=== PATIENT | male | born 1955 | race Caucasian/White ===

== ENCOUNTER 2021-02-17 08:00 | Emergency (ER) | payer MEDICAID, SELFPAY ==
--- NOTE | ~2021-02-17 | XR_ITS ---
EXAMINATION: XR CHEST CLINICAL INFORMATION: Smoker. Low sodium. COMPARISON: 06/27/2019 TECHNIQUE: 2 views of the chest were obtained. FINDINGS: Mediastinal surgical clips. The lungs are well expanded. Chronic appearing changes at the right upper lung. This includes paraseptal emphysema and scarring with calcification. There is no focal consolidation, edema, or effusion. No pneumothorax. The cardiomediastinal silhouette is within normal limits. No acute osseous abnormality. XR/XR chest 2V IMPRESSION: Chronic changes of the right upper lung. No acute pulmonary finding.
--- NOTE | ~2021-02-17 | CT_ITS ---
EXAMINATION: CT ABDOMEN AND PELVIS WITHOUT CONTRAST CLINICAL INFORMATION: Dark urine. Left-sided pain. COMPARISON: CT 08/06/2015. TECHNIQUE: Multidetector volumetric imaging was performed from the superior aspect of the liver through the pubic symphysis. Sagittal and coronal reformatted images were obtained on the technologist's workstation. This CT examination was performed using dose optimization techniques as appropriate, variously including the following: *Automated exposure control *Adjustment of mA and/or kV according to patient size (this includes techniques or standardized protocols for targeted exams where dose is matched to indication/reason for exam; i.e. extremities or head) *Use of iterative reconstruction technique DLP: 325 mGy-cm FINDINGS: LUNG BASES: The visualized lung bases are unremarkable. LIVER, GALLBLADDER, AND BILIARY TREE: The liver is normal in size and shape with decreased attenuation. No focal hepatic lesion or biliary ductal dilatation is present. The gallbladder is unremarkable with no evidence of radiopaque gallstones, gallbladder wall thickening, or obvious pericholecystic inflammatory changes. PANCREAS: Unremarkable. SPLEEN: Unremarkable. ADRENAL GLANDS: The right adrenal gland is unremarkable. There is a left adrenal gland nodule measures 6.5 x 5.9 cm. This compares to 5.5 x 4.9 cm on 07/27/2015. KIDNEYS AND URETERS: The kidneys are normal in size, shape, and attenuation. No hydronephrosis, hydroureter, or calculi seen. No perinephric stranding. BLADDER: Unremarkable. GASTROINTESTINAL TRACT: The stomach is unremarkable. Normal caliber small bowel. No obstruction. No colonic wall thickening or inflammatory change. Normal appendix. Diverticulosis at the sigmoid colon without diverticulitis. No free air or free fluid. ABDOMINAL WALL: No significant hernia is appreciated. LYMPH NODES: Normal. VASCULAR: Normal caliber aorta. Extensive atherosclerotic calcifications, particularly involving the common iliac arteries bilaterally. PELVIC VISCERA: Normal size prostate with calcifications. The seminal vesicles are unremarkable. OSSEOUS STRUCTURES: No acute or suspicious osseous abnormality. Degenerative changes throughout the spine. Degenerative changes of both hips. CT/CT abdomen pelvis wo con IMPRESSION: There is no hydronephrosis or nephrolithiasis. No abnormality of the kidneys identified. Increased size of a prominent left adrenal gland nodule which is indeterminate in etiology. Previous imaging shows that this was not compatible with an adenoma. Hepatic steatosis.
[2021-02-17 08:09] VITALS: BP 137/80; PULSE 94; RESP 18; TEMP 35.7; O2SAT 98; BMI 25.5
[2021-02-17 08:31] LABS: Appearance Urine HAZY; Color Urine DK YELLOW; Glucose Urine UA NEG (NEG); Leukocyte Esterase Urine TRACE (NEG); Nitrite Urine NEG (NEG); Specific Gravity - Urine 1.015 (1.005-1.025); UACC Culture Trigger YES; Urine Blood NEG (NEG); Urine Ketones 5 MG/DL (NEG); Urine Protein NEG (NEG-TRACE)
--- NOTE | 2021-02-17 08:38 | ED.MALEGU ---
HPI - Male Genitourinary General Chief complaint: Urogenital-Male Stated complaint: dark urine Time Seen by Provider: 02/17/21 08:30 Source: patient Mode of arrival: ambulatory Limitations: no limitations History of Present Illness MD Complaint: other (discolored urine) Onset (ago): day(s) (10) Duration: intermittent Location: left testicle (intermittent states he feels a twinge) Severity: mild Quality: dull Relieving factors: none Exacerbating factors: urination Context: other (hx of bladder cancer he states) Associated symptoms: Reports nausea/vomiting Related Data Previous Rx's Medication Instructions Recorded loratadine 10 mg tablet (Allergy 10 mg PO DAILY #90 tab 07/09/20 Relief (loratadine)) omeprazole 20 mg capsule,delayed 20 mg PO QAM #90 cap 07/09/20 release lisinopril 20 mg tablet 20 mg PO DAILY #90 tab 10/07/20 albuterol sulfate 90 mcg/actuation 2 puff PO Q4-6H #8.5 g 11/22/20 aerosol inhaler Allergies Allergy/AdvReac Type Severity Reaction Status Date / Time No Known Allergies Allergy Verified 02/17/21 08:09 [No Known Allergies*] Review of Systems Review of Systems: Constitutional : No Weight loss, No Fever, No Chills ENT/Mouth : No sore throat, No Rhinorrhea Eyes: No Swelling, No Redness Cardiovascular : No Chest Pain, No SOB, NoEdema Respiratory : No Cough, No Sputum, No Wheezing Gastrointestinal : Positive Nausea, Positive Vomiting, no Diarrhea, no abdominal Pain, No Hematochezia, No Melena Genitourinary : No Dysuria, pos Urinary Frequency, No Hematuria, No Urgency , pos dark urine Musculoskeletal : No joint pain, No Myalgias, No Joint Swelling Skin : No Skin Lesions, No rash Neuro : No Weakness, No Numbness, No Dizziness, No Headache Psych : No Anxiety/Panic, No Depression Heme/Lymph: No Bruising, No Lymphadenopathy Endocrine : No Polyuria, No Polydipsia All other systems reviewed and are negative. [facility] Past Medical History Attestation statement: The following information was validated with the patient. Medical History Benign essential HTN Gastro-esophageal reflux disease without esophagitis Lung cancer Other seasonal allergic rhinitis Surgical History History of bladder surgery History of inguinal hernia repair History of surgery Family History Family History Father Medical history unknown Mother Breast cancer Sister Lung cancer Social History Social History (Updated 02/17/21 @ 08:50 by Lena Noel DO) Alcohol intake: current Alcohol intake frequency: 0-2 drinks per day Patient Tobacco Use Status: Former Tobacco user Advance Directives: No Physical Exam Vital Signs: Vital Signs: Last Vital Signs Temp 96.3 F L 02/17/21 08:09 Pulse 94 02/17/21 08:09 Resp 18 02/17/21 08:09 BP 137/80 02/17/21 08:09 Pulse Ox 98 02/17/21 08:09 Body Mass Index 25.5 Appearance: Alert. Oriented X3. No acute distress. Eyes: Pupils equal, round and reactive to light. ENT: Pharynx normal. Neck: Normal inspection. Neck supple. CVS: Normal heart rate and rhythm. Pulses normal. Respiratory: No respiratory distress. Breath sounds normal. Abdomen: Soft and nontender. : normal exam no mass/swelling Skin: Skin warm and dry. Normal skin color. Normal skin turgor. Extremities: No lower extremity edema. No calf ttp Neuro: Oriented X 3. No motor deficit. No sensory deficit. Course Course Course Narrative: ordered IVF, repleted Na - no mass seen on CXR, does need to follow up with PCP and maybe oncology given constellation of symptoms MDM - Male Genitourinary MDM Narrative Medical decision making narrative: 65 yo male with dark urine n/v for 10 days hx of bladder cancer at this time basic labs including CPK ordered, UA and CT scan for stone/mass ordered. He is not toxic and well appearing dispo per results and findings. Lab Data Result diagrams: 02/17/21 10:20 02/17/21 09:11 Labs: Lab Results 02/17/21 02/17/21 02/17/21 Range/Units 08:15 09:11 10:20 WBC 6.0 (4.8-10.8) X10*3/uL RBC 3.62 L (4.60-5.80) X10*6/uL Hgb 11.6 L (14.0-18.0) g/dl Hct 31.4 L (42.0-52.0) % MCV 86.7 (80.0-98.0) fL MCH 32.0 (27.0-33.0) pg MCHC 36.9 H (31.0-36.0) g/dl RDW 17.2 H (11.0-16.0) % Plt Count 208 (160-400) X10*3/uL MPV 10.2 (9.4-12.4) fL Immature Gran % (Auto) 0.3 (0.0-0.4) % Neut % (Auto) 69.9 (45-73) % Lymph % (Auto) 20.7 (20-40) % [place] % (Auto) 7.9 (2-11) % Eos % (Auto) 0.7 (0-4) % Baso % (Auto) 0.5 (0-2) % Lymph # (Auto) 1.2 (1.2-4.9) X10*3/uL [place] # (Auto) 0.5 (0.1-1.2) X10*3/uL Eos # (Auto) 0.0 (0.0-0.4) X10*3/uL Baso # (Auto) 0.0 (0.0-0.2) X10*3/uL Abs Immat Gran (auto) 0.02 (0.00-0.03) X10*3/uL Absolute Neuts (auto) 4.16 (2.0-8.3) x10*3/uL Absolute Nucleated RBC 0.000 (0.0-0.012) X10*3/uL Nucleated RBC % (auto) 0.0 (0.0-0.2) /100WBC Sodium 129 L (135-145) mmol/L Potassium 4.8 (3.3-5.1) mmol/L Chloride 93 L (96-108) mmol/L Carbon Dioxide 23 (22-29) mmol/L Anion Gap 18 (12-20) BUN 11 (9-16) mg/dL Creatinine 0.96 (0.5-1.4) mg/dL Estim Creat Clear Calc 69.8 Estimated GFR > 60 Random Glucose 108 (60-115) mg/dL Calcium 8.6 (8.4-10.2) mg/dL Total Creatine Kinase 267 H (38-174) U/L Urine Color DK YELLOW Urine Appearance HAZY Urine pH 6.0 (5.0-8.0) Ur Specific [place] 1.015 (1.005-1.025) Urine Protein NEG (NEG-TRACE) MG/DL Urine Glucose (UA) NEG (NEG) MG/DL Urine Ketones 5 (NEG) MG/DL Urine Blood NEG (NEG) Urine Nitrite NEG (NEG) Ur Leukocyte Esterase TRACE H (NEG) Urine RBC 0-2 (0) /HPF Urine WBC 1-4 (0-4) /HPF Ur Squamous Epith Cells NONE /LPF Urine Bacteria NONE /LPF Urine Mucus 2+ /LPF Discharge Plan Discharge Clinical Impression: Adrenal mass, Acute hyponatremia Anemia Qualifiers: Anemia type: unspecified type Qualified Code(s): D64.9 - Anemia, unspecified Instructions: Anemia (ED), Hyponatremia (ED) Additional Instructions: return to ED for any worsening symptoms or concerns There is no hydronephrosis or nephrolithiasis. No abnormality of the kidneys identified. ? Increased size of a prominent left adrenal gland nodule which is indeterminate in etiology. Previous imaging shows that this was not compatible with an adenoma. ? Hepatic steatosis. Prescriptions: No Action lisinopril 20 mg tablet 20 mg PO DAILY Qty: 90 RF: 1 albuterol sulfate 90 mcg/actuation HFA aerosol inhaler 2 puff PO Q4-6H Qty: 8.5 RF: 2 loratadine [Allergy Relief (loratadine)] 10 mg tablet 10 mg PO DAILY Qty: 90 RF: 1 omeprazole 20 mg capsule,delayed release(DR/EC) 20 mg PO QAM Qty: 90 RF: 1 Referrals: Tucker Ga MD [Primary Care Provider] - 2 days (need to monitor anemia and further testing of this adrenal lesion)
[2021-02-17 08:41] LABS: Mucus Urine 2+ /LPF; RBC Urine 0-2 /HPF (0)
[2021-02-17 09:38] LABS: Anion Gap 18 (12-20); Blood Urea Nitrogen 11 mg/dL (9-16); Calcium 8.6 mg/dL (8.4-10.2); Carbon Dioxide 23 mmol/L (22-29); Chloride 93 mmol/L (96-108); Creatinine Clr Calc Pharmacy 69.8; Estimated Glomerular Filt Rate > 60; Glucose Random 108 mg/dL (60-115); Potassium 4.8 mmol/L (3.3-5.1); Sodium 129 mmol/L (135-145)
[2021-02-17] MEDS: 0.9 % Sodium Chloride 1,000 ML 999 ML IV (10:18)
[2021-02-17 10:36] LABS: Basophils Percent Auto 0.5 % (0-2); Eosinophils Percent Auto 0.7 % (0-4); Hematocrit 31.4 % (42.0-52.0); Hemoglobin 11.6 g/dl (14.0-18.0); Imm Gran Abs Auto 0.02 X10*3/uL (0.00-0.03); Imm Gran Pct Auto 0.3 % (0.0-0.4); Lymphocytes Absolute Auto 1.2 X10*3/uL (1.2-4.9); Lymphocytes Percent Auto 20.7 % (20-40); Mean Corpuscular HGB Conc 36.9 g/dl (31.0-36.0); Mean Corpuscular Volume 86.7 fL (80.0-98.0); Mean Platelet Volume 10.2 fL (9.4-12.4); Monocytes Absolute Auto 0.5 X10*3/uL (0.1-1.2); Monocytes Percent Auto 7.9 % (2-11); Neutrophils Absolute Auto 4.16 x10*3/uL (2.0-8.3); Neutrophils Percent Auto 69.9 % (45-73); Platelet Count 208 X10*3/uL (160-400); Red Blood Count 3.62 X10*6/uL (4.60-5.80); Red Cell Distribution Width 17.2 % (11.0-16.0)
[2021-02-17 11:07] VITALS: BP 144/85; PULSE 95; RESP 13; TEMP 36.7; O2SAT 97
== END 2021-02-17 11:31 | disposition home or self-care (01) ==
PROVIDERS: Emergency Provider Emergency Medicine; PCP Internal Medicine
DX: E87.1 Hypo-osmolality and hyponatremia (principal); E27.9 Disorder of adrenal gland, unspecified; D64.9 Anemia, unspecified; I10 Essential (primary) hypertension; Z85.51 Personal history of malignant neoplasm of bladder
CPT/HCPCS: 36415; 71046; 74176; 80048; 81001; 82550; 85025; 87086; 96360; 99284

== ENCOUNTER 2021-02-19 12:16 | Emergency (ER) | payer MEDICAID, SELFPAY ==
--- NOTE | ~2021-02-19 | XR_ITS ---
EXAMINATION: XR CHEST CLINICAL INFORMATION: Muscle spasm COMPARISON: Chest radiographs 02/17/2021, 06/27/2019; CT chest 04/13/2017 TECHNIQUE: Portable upright AP view of the chest was obtained. FINDINGS: There are chronic bilateral changes again seen with right apical pleural-parenchymal scarring with chronic calcifications. Old scarring mid left lung zone again seen. There is no pneumothorax or interval pleural reaction or infiltrate or effusion. The heart is normal in size. The vascularity is normal. There is no pneumothorax or pneumomediastinum. Surgical clips right paratracheal region again noted. No acute bony abnormality. XR/XR chest 1V IMPRESSION: Chronic findings similar to prior exams. No acute intrathoracic disease.
--- NOTE | ~2021-02-19 | US_ITS ---
EXAMINATION: US ABDOMEN LIMITED CLINICAL INFORMATION: Elevated LFTs. Assess for hepatobiliary obstructive process. COMPARISON: CT abdomen and pelvis noncontrast 02/17/2021 TECHNIQUE: Real-time imaging of the right upper quadrant abdominal viscera. FINDINGS: PANCREAS: Obscured by bowel gas. Portion pancreatic neck visualized is unremarkable. LIVER: The liver is normal in size and smooth in contour. There is increased hepatic parenchymal echogenicity consistent with hepatic steatosis. There is no focal hepatic parenchymal lesion. No intrahepatic biliary ductal dilatation. Color Doppler shows portal flow towards the liver. GALLBLADDER: Gallbladder is distended to 4.3 cm in diameter similar to the CT exam. There is no visible gallstone or sludge. Gallbladder wall is within upper limits of normal. No pericholecystic fluid. Sonographic negative Sandhu's sign. COMMON BILE DUCT: Normal in caliber measuring 0.5-0.6 cm in diameter. No visible ductal calculus. RIGHT KIDNEY: Normal. No hydronephrosis. No renal calculi or focal parenchymal lesions. The kidney measures 10.7 cm in maximum dimension. FREE FLUID: None. US/US abdomen limited IMPRESSION: 1. No gallstone or sludge. No intrahepatic or extrahepatic ductal dilatation. 2. Hepatic steatosis. No focal parenchymal lesion.
[2021-02-19 12:22] VITALS: BP 115/87; PULSE 95; O2SAT 99
[2021-02-19 12:30] VITALS: BP 131/76; PULSE 92; RESP 16; TEMP 36.6; O2SAT 99; BMI 25.5
--- NOTE | 2021-02-19 12:32 | ECG_ITS ---
Test Reason : WEAKNESS Blood Pressure : / mmHG Vent. Rate : 059 BPM Atrial Rate : 059 BPM P-R Int : 146 ms QRS Dur : 074 ms QT Int : 394 ms P-R-T Axes : 064 034 049 degrees QTc Int : 390 ms Sinus bradycardia Low voltage QRS Borderline ECG No significant changes seen Referred By: Xu Ann Electronically Signed By:KIP COPELAND MD
--- NOTE | 2021-02-19 12:39 | ED_ITS ---
HPI - General Adult General Chief complaint: Weakness Stated complaint: WEAKNESS,CRAMPS, RECENT DX HYPONATREMIA Time Seen by Provider: 02/19/21 12:29 Source: patient and EMS Mode of arrival: EMS Limitations: no limitations History of Present Illness HPI narrative: 65 years old male came in by ambulance for evaluation of muscle spasm of both upper extremities. 65-year-old male was seen in the emergency department 2 days ago for a complaint of dark urine, patient had had a CT of the abdomen pelvis which showed a mass on the left adrenal gland patient was instructed to follow-up with PCP, patient returned today for bilateral upper extremity spasm evaluation. Related Data Previous Rx's Medication Instructions Recorded loratadine 10 mg tablet (Allergy 10 mg PO DAILY #90 tab 07/09/20 Relief (loratadine)) omeprazole 20 mg capsule,delayed 20 mg PO QAM #90 cap 07/09/20 release lisinopril 20 mg tablet 20 mg PO DAILY #90 tab 10/07/20 albuterol sulfate 90 mcg/actuation 2 puff PO Q4-6H #8.5 g 11/22/20 aerosol inhaler cefuroxime axetil 500 mg tablet 500 mg PO BID #14 tab 02/19/21 Allergies Allergy/AdvReac Type Severity Reaction Status Date / Time No Known Allergies Allergy Verified 02/17/21 08:09 [No Known Allergies*] Review of Systems Review of Systems: All other systems are reviewed and are negative Constitutional: Reports as per HPI and Reports no additional constitutional complaints Eyes: Reports as per HPI and Reports no additional eye complaints Reports system reviewed and no additional complaints, except as documented Cardiovascular: Reports as per HPI and Reports no additional cardiovascular complaints Respiratory: Reports as per HPI and Reports no additional respiratory complaints Gastrointestinal: Reports as per HPI and Reports no additional gastrointestinal complaints Genitourinary: Reports no additional female genitourinary complaints Musculoskeletal: Reports no additional musculoskeletal complaints Skin/Breast: Reports system reviewed and no additional complaints, except as docu Psychiatric: Reports no additional psychiatric complaints Endocrine: Reports no additional endocrine complaints Hematologic/Lymphatic: Reports no additional hematologic/lymphatic complaints Allergic/Immunologic: Reports no additional allergic/immunologic complaints Reports system reviewed and no additional complaints, except as documented and Reports Abnormal speech present [facility] Past Medical History Medical History Benign essential HTN Gastro-esophageal reflux disease without esophagitis Lung cancer Other seasonal allergic rhinitis Surgical History History of bladder surgery History of inguinal hernia repair History of surgery Family History Family History Father Medical history unknown Mother Breast cancer Sister Lung cancer Social History Social History Alcohol intake: current Alcohol intake frequency: 0-2 drinks per day Patient Tobacco Use Status: Former Tobacco user Advance Directives: No Advance Directives Information Provided: No Physical Exam Vital Signs: Vital Signs: Last Vital Signs Temp 98 F 02/19/21 12:30 Pulse 65 02/19/21 13:45 Resp 18 02/19/21 13:45 BP 102/80 02/19/21 13:45 Pulse Ox 98 02/19/21 13:45 Body Mass Index 25.5 Vital signs have been reviewed as appeared to be correct. Blood pressure normal. Heart rate normal. Respiration rate normal. Temperature normal. Oxygen saturation normal. Appearance: Alert. Oriented X3. No acute distress. Head: Normal external exam. Normocephalic. Atraumatic. No Dave signs noted. No raccoon eyes noted Eyes: PERRLA. EOMI. Conjunctiva and sclera normal. Eyelids normal. ENT: TM's Normal. Pharynx normal. Uvula midline. Moist mucous membranes. No trismus noted. No drooling noted. No muffled voice noted. Neck: Normal inspection. Neck supple. FROM. No adenopathy. Thyroid Normal. No meningeal signs. No neck mass noted. CVS: Normal heart rate and rhythm. Heart sound normal. No murmurs noted. Pulses normal throughout. Respiratory: No respiratory distress. Painless inspiration. Breath sounds normal. No wheezes/rales/rhonchi noted. Chest nontender. No accessory muscle usage noted or decreased air movement noted. Abdomen: Soft and nontender. Bowel sounds normal in all 4 quadrants. No distention noted. No organomegaly noted. No visible injury noted. Back: No CVA tenderness. Full range of motion noted. Skin: Skin warm and dry. Normal skin color. Normal skin turgor. No rashes/lesions/lacerations noted. Extremities: No lower extremity edema. Extremities exhibit normal range of motion. Extremities nontender. Neuro: Oriented X 3. Cranial nerve exam: II-XII are grossly intact No motor deficit. No sensory deficit. Reflexes normal. Course Course Course Narrative: Assessment and plan. 65-year-old male came in for evaluation of bilateral upper extremities muscle spasm, and dark urine in evaluation. Found to have elevated LFTs with unremarkable hepatic ultrasound. Patient is complaining of dysuria and frequency with +1 leukocyte Estrace will consider UTI and start the patient on a antibiotic for 7 days. Medical Decision Making Medical Records Medical records reviewed: Yes I reviewed the patient's medical records. Lab Data Lab results reviewed: Yes I reviewed the patient's lab results. Result diagrams: 02/19/21 12:57 02/19/21 12:57 Labs: Lab Results 02/19/21 02/19/21 02/19/21 Range/Units 12:57 12:57 12:57 WBC 4.9 (4.8-10.8) X10*3/uL RBC 3.32 L (4.60-5.80) X10*6/uL Hgb 10.5 L (14.0-18.0) g/dl Hct 29.6 L (42.0-52.0) % MCV 89.2 (80.0-98.0) fL MCH 31.6 (27.0-33.0) pg MCHC 35.5 (31.0-36.0) g/dl RDW 18.1 H (11.0-16.0) % Plt Count 210 (160-400) X10*3/uL MPV 9.8 (9.4-12.4) fL Immature Gran % (Auto) 0.2 (0.0-0.4) % Neut % (Auto) 67.6 (45-73) % Lymph % (Auto) 25.1 (20-40) % [place] % (Auto) 5.9 (2-11) % Eos % (Auto) 0.8 (0-4) % Baso % (Auto) 0.4 (0-2) % Lymph # (Auto) 1.2 (1.2-4.9) X10*3/uL [place] # (Auto) 0.3 (0.1-1.2) X10*3/uL Eos # (Auto) 0.0 (0.0-0.4) X10*3/uL Baso # (Auto) 0.0 (0.0-0.2) X10*3/uL Abs Immat Gran (auto) 0.01 (0.00-0.03) X10*3/uL Absolute Neuts (auto) 3.31 (2.0-8.3) x10*3/uL Absolute Nucleated RBC 0.000 (0.0-0.012) X10*3/uL Nucleated RBC % (auto) 0.0 (0.0-0.2) /100WBC Sodium 132 L (135-145) mmol/L Potassium 3.6 D (3.3-5.1) mmol/L Chloride 99 (96-108) mmol/L Carbon Dioxide 27 (22-29) mmol/L Anion Gap 10 L (12-20) BUN 11 (9-16) mg/dL Creatinine 1.18 (0.5-1.4) mg/dL Estim Creat Clear Calc 56.7 Estimated GFR > 60 Random Glucose 108 (60-115) mg/dL Calcium 7.8 L D (8.4-10.2) mg/dL Total Bilirubin 3.8 H (0.0-1.0) mg/dL Direct Bilirubin 2.9 H (0.0-0.5) mg/dL AST 98 H (5-37) U/L ALT 54 H (0-40) U/L Alkaline Phosphatase 360 H (39-117) U/L Total Creatine Kinase 353 H (38-174) U/L Troponin I High Sens 6.0 (<3.5-35.0) ng/L B-Natriuretic Peptide 570 H (<100) pg/mL Total Protein 6.0 L (6.5-8.0) g/dL Albumin 2.8 L (3.5-5.0) g/dL Lipase 29 (8-78) U/L Urine Color Urine Appearance Urine pH (5.0-8.0) Ur Specific [place] (1.005-1.025) Urine Protein (NEG-TRACE) MG/DL Urine Glucose (UA) (NEG) MG/DL Urine Ketones (NEG) MG/DL Urine Blood (NEG) Urine Nitrite (NEG) Ur Leukocyte Esterase (NEG) Urine RBC (0) /HPF Urine WBC (0-4) /HPF Urine WBC Clumps Ur Squamous Epith Cells /LPF Amorphous Sediment /LPF Urine Bacteria /LPF 02/19/21 Range/Units 15:59 WBC (4.8-10.8) X10*3/uL RBC (4.60-5.80) X10*6/uL Hgb (14.0-18.0) g/dl Hct (42.0-52.0) % MCV (80.0-98.0) fL MCH (27.0-33.0) pg MCHC (31.0-36.0) g/dl RDW (11.0-16.0) % Plt Count (160-400) X10*3/uL MPV (9.4-12.4) fL Immature Gran % (Auto) (0.0-0.4) % Neut % (Auto) (45-73) % Lymph % (Auto) (20-40) % [place] % (Auto) (2-11) % Eos % (Auto) (0-4) % Baso % (Auto) (0-2) % Lymph # (Auto) (1.2-4.9) X10*3/uL [place] # (Auto) (0.1-1.2) X10*3/uL Eos # (Auto) (0.0-0.4) X10*3/uL Baso # (Auto) (0.0-0.2) X10*3/uL Abs Immat Gran (auto) (0.00-0.03) X10*3/uL Absolute Neuts (auto) (2.0-8.3) x10*3/uL Absolute Nucleated RBC (0.0-0.012) X10*3/uL Nucleated RBC % (auto) (0.0-0.2) /100WBC Sodium (135-145) mmol/L Potassium (3.3-5.1) mmol/L Chloride (96-108) mmol/L Carbon Dioxide (22-29) mmol/L Anion Gap (12-20) BUN (9-16) mg/dL Creatinine (0.5-1.4) mg/dL Estim Creat Clear Calc Estimated GFR Random Glucose (60-115) mg/dL Calcium (8.4-10.2) mg/dL Total Bilirubin (0.0-1.0) mg/dL Direct Bilirubin (0.0-0.5) mg/dL AST (5-37) U/L ALT (0-40) U/L Alkaline Phosphatase (39-117) U/L Total Creatine Kinase (38-174) U/L Troponin I High Sens (<3.5-35.0) ng/L B-Natriuretic Peptide (<100) pg/mL Total Protein (6.5-8.0) g/dL Albumin (3.5-5.0) g/dL Lipase (8-78) U/L Urine Color YELLOW Urine Appearance CLEAR Urine pH 6.0 (5.0-8.0) Ur Specific [place] <= 1.005 (1.005-1.025) Urine Protein NEG (NEG-TRACE) MG/DL Urine Glucose (UA) NEG (NEG) MG/DL Urine Ketones NEG (NEG) MG/DL Urine Blood NEG (NEG) Urine Nitrite NEG (NEG) Ur Leukocyte Esterase TRACE H (NEG) Urine RBC 0-2 (0) /HPF Urine WBC 1-4 (0-4) /HPF Urine WBC Clumps NOTED Ur Squamous Epith Cells TRACE /LPF Amorphous Sediment TRACE /LPF Urine Bacteria 1+ /LPF Imaging Data Chest x-ray: Radiologist's impression: Chronic findings similar to prior exams. No acute intrathoracic disease. ? ECG Data Attestation: I personally reviewed and interpreted this ECG as follows: Interpretation: Normal sinus rhythm at 60 beats per minutes, normal intervals, no ST-T changes. Discharge Plan Discharge Clinical Impression: Urinary tract infection, Muscle spasm, Elevated LFTs, Adrenal mass Patient Disposition: Home, Self-Care Instructions: Urinary Tract Infection in Men (ED) Prescriptions: New cefuroxime axetil 500 mg tablet 500 mg PO BID Qty: 14 RF: 0 No Action lisinopril 20 mg tablet 20 mg PO DAILY Qty: 90 RF: 1 albuterol sulfate 90 mcg/actuation HFA aerosol inhaler 2 puff PO Q4-6H Qty: 8.5 RF: 2 loratadine [Allergy Relief (loratadine)] 10 mg tablet 10 mg PO DAILY Qty: 90 RF: 1 omeprazole 20 mg capsule,delayed release(DR/EC) 20 mg PO QAM Qty: 90 RF: 1 Referrals: Tucker Ga MD [Primary Care Provider] - 2 days Interventions: ED Discharge Assessment Last Done: 02/19/21 16:20 Discharge Date/Time: 02/19/21 16:21
[2021-02-19 13:01] LABS: MANUAL DIFF FLAG NO
[2021-02-19 13:04] LABS: Basophils Percent Auto 0.4 % (0-2); Eosinophils Percent Auto 0.8 % (0-4); Hematocrit 29.6 % (42.0-52.0); Hemoglobin 10.5 g/dl (14.0-18.0); Imm Gran Abs Auto 0.01 X10*3/uL (0.00-0.03); Imm Gran Pct Auto 0.2 % (0.0-0.4); Lymphocytes Absolute Auto 1.2 X10*3/uL (1.2-4.9); Lymphocytes Percent Auto 25.1 % (20-40); Mean Corpuscular HGB Conc 35.5 g/dl (31.0-36.0); Mean Corpuscular Hemoglobin 31.6 pg (27.0-33.0); Mean Corpuscular Volume 89.2 fL (80.0-98.0); Mean Platelet Volume 9.8 fL (9.4-12.4); Monocytes Absolute Auto 0.3 X10*3/uL (0.1-1.2); Monocytes Percent Auto 5.9 % (2-11); Neutrophils Absolute Auto 3.31 x10*3/uL (2.0-8.3); Neutrophils Percent Auto 67.6 % (45-73); Platelet Count 210 X10*3/uL (160-400); Red Blood Count 3.32 X10*6/uL (4.60-5.80); Red Cell Distribution Width 18.1 % (11.0-16.0); White Blood Count 4.9 X10*3/uL (4.8-10.8)
[2021-02-19 13:22] LABS: Alanine Aminotransferase 54 U/L (0-40); Albumin Level 2.8 g/dL (3.5-5.0); Alkaline Phosphatase 360 U/L (39-117); Anion Gap 10 (12-20); Aspartate Amino Transferase 98 U/L (5-37); Bilirubin Direct 2.9 mg/dL (0.0-0.5); Bilirubin Total 3.8 mg/dL (0.0-1.0); Blood Urea Nitrogen 11 mg/dL (9-16); Calcium 7.8 mg/dL (8.4-10.2); Carbon Dioxide 27 mmol/L (22-29); Chloride 99 mmol/L (96-108); Creatinine Clr Calc Pharmacy 56.7; Estimated Glomerular Filt Rate > 60; Glucose Random 108 mg/dL (60-115); Lipase 29 U/L (8-78); Potassium 3.6 mmol/L (3.3-5.1); Sodium 132 mmol/L (135-145)
[2021-02-19 13:26] LABS: B Type Natriuretic Peptide 570 pg/mL (<100)
[2021-02-19 13:45] VITALS: BP 102/80; PULSE 65; RESP 18; O2SAT 98
[2021-02-19 16:05] LABS: Appearance Urine CLEAR; Color Urine YELLOW; Glucose Urine UA NEG (NEG); Leukocyte Esterase Urine TRACE (NEG); Nitrite Urine NEG (NEG); Specific Gravity - Urine <= 1.005 (1.005-1.025); UACC Culture Trigger YES; Urine Blood NEG (NEG); Urine Ketones NEG (NEG); Urine Protein NEG (NEG-TRACE)
[2021-02-19 16:18] LABS: Amorphous Sediment Urine TRACE /LPF; Bacteria Urine 1+ /LPF; RBC Urine 0-2 /HPF (0); Squamous Epithelial Cell Urine TRACE /LPF; WBC Clumps Urine NOTED
== END 2021-02-19 16:21 | disposition home or self-care (01) ==
PROVIDERS: Emergency Provider Emergency Medicine; PCP Internal Medicine
DX: N39.0 Urinary tract infection, site not specified (principal); M62.838 Other muscle spasm; R79.89 Other specified abnormal findings of blood chemistry; E27.8 Other specified disorders of adrenal gland; I10 Essential (primary) hypertension
CPT/HCPCS: 36415; 71045; 76705; 80048; 80076; 81001; 82550; 83690; 83880; 84484; 85025; 87086; 93005; 99284

== ENCOUNTER 2021-06-04 07:33 | Outpatient (REF) | payer MEDICAID, SELFPAY ==
[2021-06-04 08:25] LABS: Hematocrit 35.6 % (42.0-52.0); Hemoglobin 11.9 g/dl (14.0-18.0); Mean Corpuscular HGB Conc 33.4 g/dl (31.0-36.0); Mean Corpuscular Hemoglobin 35.2 pg (27.0-33.0); Mean Corpuscular Volume 105.3 fL (80.0-98.0); Mean Platelet Volume 9.6 fL (9.4-12.4); Platelet Count 299 X10*3/uL (160-400); Red Blood Count 3.38 X10*6/uL (4.60-5.80); Red Cell Distribution Width 12.9 % (11.0-16.0); White Blood Count 7.4 X10*3/uL (4.8-10.8)
[2021-06-04 08:55] LABS: Alanine Aminotransferase 27 U/L (0-40); Albumin Level 3.6 g/dL (3.5-5.0); Alkaline Phosphatase 147 U/L (39-117); Anion Gap 11 (12-20); Aspartate Amino Transferase 41 U/L (5-37); Bilirubin Direct 0.4 mg/dL (0.0-0.5); Bilirubin Total 0.5 mg/dL (0.0-1.0); Blood Urea Nitrogen 10 mg/dL (9-16); Calcium 9.3 mg/dL (8.4-10.2); Carbon Dioxide 30 mmol/L (22-29); Chloride 102 mmol/L (96-108); Cholesterol 274 mg/dL; Estimated Glomerular Filt Rate > 60; Glucose Random 111 mg/dL (60-115); HDL Cholesterol 63 mg/dL; LDL Cholesterol Calculated 187 mg/dl; Potassium 4.6 mmol/L (3.3-5.1); Sodium 138 mmol/L (135-145); Total Protein 7.1 g/dL (6.5-8.0); Triglycerides 121 mg/dL
[2021-06-04 09:14] LABS: HBS Num1 0.21 mIU/mL (0-7.99); HBc Num1 0.12 S/CO (0.00-0.79); Hepatitis A Antibody IgM 0.24 Index (0-0.79); Hepatitis B Core Antibody Nonreactive (Nonreactive); ~HepC Num1 0.12 S/CO (0.00-0.79); ~Hepatitis A Antibody IgM Nonreactive (Nonreactive); ~Hepatitis B Surface Antibody NONREACTIVE (Nonreactive); ~Hepatitis C Antibody Nonreactive (Nonreactive)
[2021-06-04 09:19] LABS: Thyroid Stimulating Hormone 0.64 uIU/mL (0.32-4.0)
[2021-06-04 10:09] LABS: HBsAGNum1 0.24 S/CO (0.00-0.99); Hepatitis B Surface Antigen Negative (Negative)
== END 2021-06-04 07:34 | disposition home or self-care (01) ==
LOC: HO.LAB 07:33
PROVIDERS: PCP Internal Medicine; Visit Provider Internal Medicine
DX: K75.9 Inflammatory liver disease, unspecified (principal)
CPT/HCPCS: 36415; 80048; 80061; 80076; 84443; 85027; 86704; 86706; 86709; 86803; 87340

== ENCOUNTER 2021-11-21 07:33 | Outpatient (REF) | payer MEDICAID, SELFPAY ==
[2021-11-21 08:34] LABS: Hematocrit 39.1 % (42.0-52.0); Hemoglobin 13.5 g/dl (14.0-18.0); Mean Corpuscular HGB Conc 34.5 g/dl (31.0-36.0); Mean Corpuscular Hemoglobin 33.2 pg (27.0-33.0); Mean Corpuscular Volume 96.1 fL (80.0-98.0); Mean Platelet Volume 9.5 fL (9.4-12.4); Platelet Count 245 X10*3/uL (160-400); Red Blood Count 4.07 X10*6/uL (4.60-5.80); Red Cell Distribution Width 12.1 % (11.0-16.0); White Blood Count 6.7 X10*3/uL (4.8-10.8)
[2021-11-21 09:11] LABS: Alanine Aminotransferase 37 U/L (0-40); Albumin Level 3.9 g/dL (3.5-5.0); Alkaline Phosphatase 139 U/L (39-117); Anion Gap 13 (12-20); Aspartate Amino Transferase 48 U/L (5-37); Bilirubin Direct 0.3 mg/dL (0.0-0.5); Bilirubin Total 0.6 mg/dL (0.0-1.0); Blood Urea Nitrogen 6 mg/dL (9-16); Calcium 8.6 mg/dL (8.4-10.2); Carbon Dioxide 29 mmol/L (22-29); Chloride 95 mmol/L (96-108); Cholesterol 207 mg/dL; Estimated Glomerular Filt Rate > 60; Glucose Random 149 mg/dL (60-115); HDL Cholesterol 84 mg/dL; LDL Cholesterol Calculated 110 mg/dl; Potassium 4.5 mmol/L (3.3-5.1); Sodium 132 mmol/L (135-145); Total Protein 7.2 g/dL (6.5-8.0); Triglycerides 65 mg/dL
[2021-11-21 09:32] LABS: Thyroid Stimulating Hormone 0.73 uIU/mL (0.32-4.0)
[2021-11-22 19:27] LABS: HCG Tumor Marker <3 mIU/mL (<5)
== END 2021-11-21 07:34 | disposition home or self-care (01) ==
LOC: HO.LAB 07:33
PROVIDERS: PCP Internal Medicine; Visit Provider Internal Medicine
DX: K75.9 Inflammatory liver disease, unspecified (principal)
CPT/HCPCS: 36415; 80048; 80061; 80076; 84443; 84702; 85027

== ENCOUNTER 2021-11-25 08:58 | Outpatient (REF) | payer MEDICAID, SELFPAY ==
--- NOTE | ~2021-11-25 | XR_ITS ---
EXAMINATION: XR CHEST CLINICAL INFORMATION: Acute laryngitis COMPARISON: Previous chest x-ray most recent February 2021 TECHNIQUE: 2 views of the chest were obtained. FINDINGS: The cardiac silhouette does not appear enlarged. There are surgical clips projecting over the right superior mediastinum to the right of the trachea. There is tracheal wall thickening. There is new right apical pleural thickening. There is new consolidation or mass the right upper lobe. There is question of a right nodule versus rib lesion in the anterior sixth rib measuring 1 cm. The lungs are otherwise clear. There is no pleural effusion or pneumothorax. There are degenerative changes of the spine. XR/XR chest 2V IMPRESSION: New wall thickening of the trachea. New right apical pleural thickening or fluid and right upper lobe consolidation or mass. Infectious and neoplastic process should be considered considered. Follow-up chest CT scan may be helpful. Findings will be communicated by the [place] work flow change management facilitator.
== END 2021-11-25 08:59 | disposition home or self-care (01) ==
LOC: HO.XRAY 08:58
PROVIDERS: PCP Internal Medicine; Visit Provider Internal Medicine
DX: J04.0 Acute laryngitis (principal)
CPT/HCPCS: 71046

== ENCOUNTER 2021-12-04 08:44 | Outpatient (REF) | payer MEDICAID, SELFPAY ==
--- NOTE | ~2021-12-04 | CT_ITS ---
EXAMINATION: CT CHEST WITH CONTRAST CLINICAL INFORMATION: Acute laryngitis. Prior exams indicates history of lung cancer. COMPARISON: Previous chest CT most recent March 2017 TECHNIQUE: Multidetector volumetric CT imaging of the chest was obtained after the administration of 65 mL of Omnipaque 350 intravenous contrast without immediate adverse reactions. Axial MIP volume rendering provided. Sagittal and coronal reformatted images were obtained. This CT examination was performed using dose optimization techniques as appropriate, variously including the following: *Automated exposure control *Adjustment of mA and/or kV according to patient size (this includes techniques or standardized protocols for targeted exams where dose is matched to indication/reason for exam; i.e. extremities or head) *Use of iterative reconstruction technique DLP: 177 mGy-cm FINDINGS: LUNGS: There is evidence of emphysema. The trachea is normal-appearing. No endobronchial or endotracheal lesion is seen. Right: There are surgical clips seen in the medial right upper lobe adjacent to the mediastinum. There is a large surrounding soft tissue mass. This is lobulated and heterogeneous in contour with cystic areas. This measures 8 x 6.5 cm in longitudinal and transverse dimension coronal reconstructed image 84 and 5.4 cm in AP dimension sagittal reconstructed image 110. This has areas of calcification. This is inseparable from enlarged right hilar and mediastinal lymph nodes. There is a surrounding peripheral increased interstitial markings and some groundglass attenuation. There is adjacent pleural thickening. Right upper lobe changes are increased from March 2017. There is a 4 mm peripheral anterior segment right upper lobe nodule axial image 25 series 3. There are 3 right middle lobe nodules measuring 6 mm axial image 38 and 7 x 10 mm axial image 36 series 3 and 3 mm axial image 29 series 3. There is a 4 mm right lower lobe nodule axial image 55 series 8. There are nodules are new from March 2017. Left: There is left upper lobe scarring or subsegmental atelectasis and focal bronchiectasis adjacent to local pleural thickening and calcification. This is similar to 2017 exam. There is a 5 mm groundglass attenuation left upper lobe nodule axial image 9 series 3. There is left apical pleural and parenchymal scarring. There is a 3 mm left upper lobe nodule axial image 12 series 3. There is a 6 mm left upper lobe nodule axial image 23 series 3. There is a 6 mm lingular nodule axial image 33 series 3. There is heterogeneous are showing cystic partially solid nodule in the lingula measuring 1 cm axial image 38 series 3. Cystic area may correspond to focal bronchiectasis. There is a 3 mm left lower lobe nodule axial image 42 series 3. MEDIASTINUM: There are enlarged mediastinal and right hilar lymph nodes. Largest node is a mediastinal lymph node is a conglomerate jeffry little mass measuring 4 x 6 cm in AP and transverse dimension. Largest right hilar lymph node is a partially necrotic 3 cm right hilar lymph node axial image 24 series 3. Adenopathy is significantly increased from 2017 exam. The heart does not appear enlarged. There is coronary artery calcification. There is a small pericardial effusion. The thoracic aorta is calcified but normal in caliber. There is narrowing of the right upper lobe pulmonary artery from the mass. No pulmonary embolism is seen. The SVC appears anterior to the right upper lobe mass and is patent. PLEURA: There is no pleural effusion. There is right upper lobe focal pleural thickening adjacent to the mass. There is left mild pleural thickening and calcification adjacent to the left upper lobe and lingula that is stable from previous exam. AXILLA: No lymphadenopathy. UPPER ABDOMEN: There is a 6.5 x 5.6 cm cystic or necrotic left adrenal lesion. This is slightly increased in size from 5 x 6 cm on March 2017 exam. There is evidence of atherosclerotic disease. OSSEOUS STRUCTURES: There are old bilateral rib fractures. There are degenerative changes of the spine. CT/CT chest w con IMPRESSION: Normal-appearing trachea. Large right upper lobe central mass surrounding surgical clips. This is continuous with abnormal enlarged mediastinal and hilar lymph nodes. Multiple new pulmonary nodules. Slight interval increase in large left adrenal lesion. CT appearance is suggestive of recurrent lung cancer. Stable left pleural thickening and calcification and adjacent left upper lobe scarring or chronic subsegmental atelectasis. Emphysema. Coronary artery calcification. Fleischner guidelines were followed.
--- NOTE | ~2021-12-04 | CT_ITS ---
EXAMINATION: CT SOFT TISSUE NECK WITH CONTRAST CLINICAL INFORMATION: 66-year-old with history of lung CA of unspecified bronchus. COMPARISON: None. TECHNIQUE: Following the intravenous administration of 100 mL of Omnipaque 350 intravenous contrast, helical imaging was performed in the axial plane with generation of coronal and sagittal reformatted images. This CT examination was performed using dose optimization techniques as appropriate, variously including the following: *Automated exposure control *Adjustment of mA and/or kV according to patient size (this includes techniques or standardized protocols for targeted exams where dose is matched to indication/reason for exam; i.e. extremities or head) *Use of iterative reconstruction technique DLP: 428 mGy-cm. FINDINGS: Skull Base: The bony skull base and visualized calvarium appear intact. The mastoids and middle ear cavities are unopacified. There is mild mucosal thickening in the ethmoid complex with nasal septal deviation to the left with moderate mucosal thickening in the left maxillary sinus with retained secretions noted. The visualized intracranial structures are grossly within normal limits. The visualized intraorbital soft tissue structures are within normal limits. Suprahyoid Neck: The nasopharynx, retropharynx, assistant director of security and parapharyngeal spaces appear symmetric and unremarkable. The soft palate is prolapsed posteriorly to abut the posterior wall of the pharynx in the supine position. Recommend clinical correlation for any history of sleep apnea. The oropharynx is smoothly contoured. The oral tongue, base of the tongue and floor of the mouth structures are intact without focal lesion or abnormal enhancement. The major salivary glands are within normal limits. There are small, nonpathologic-appearing normal-sized bilateral submandibular space and submental lymph nodes and bilateral IJ chain lymph nodes. No lymphadenopathy. Infrahyoid Neck: The hypopharynx is smoothly contoured. The larynx is intact. There is some asymmetry of the laryngeal ventricles with the left being larger than the right which is nonspecific. The thyroid gland enhances normally without focal lesion. There are multiple level 4 and level 5B lymph nodes bilaterally, right more than left with the largest of these on the right measuring 1.9 x 1.0 cm in a right retroclavicular position containing a small low density focus within it suggesting a pathologic node. Largest on the left of these measures 1.3 x 0.6 cm. This appears somewhat enlarged for this location.. Atheromatous changes with partially calcified plaque at both carotid bulbs are noted with less than 50% diameter reduction stenosis bilaterally by NASCET criteria within the limitations of the study. Suggest correlation with carotid ultrasound. Normal opacification of the major venous structures. Upper Chest: See accompanying CT of the chest findings. Skeletal: Multilevel cervical DDD and spondylosis, most prominent at C5-C6 and C6-C7 with partial ankylosis at C5-C6 and multilevel cervical DJD with ankylosis of the left at C5-C6 facet joint. Probable degenerative pneumatocyst noted in the posterior aspect of the C6 vertebral body adjacent to the inferior endplate. Posterior disc osteophyte complexes at C5-C6 and C6-C7 are noted with moderate spinal canal stenosis. Slight anterolisthesis at C7-T1 and C4-C5. No focally aggressive osseous lesions are identified. Other Comments: None. CT/CT soft tissue neck w con IMPRESSION: 1. Findings consistent with level 5B lymphadenopathy bilaterally, right more than left, suggesting metastatic disease. 2. Atheromatous changes of the carotid bulbs bilaterally as detailed above. Recommend correlation with carotid ultrasound if clinically warranted. 3. Multilevel cervical degenerative changes as discussed above. 4. Paranasal sinus inflammatory changes. The [facility] staff will call to confirm receipt of this report with acknowledgement of the findings and any recommendations.
[2021-12-04] MEDS: iohexoL 350 MG/ML 100 ML INFUS..BTL 65 ML IV (09:31)
== END 2021-12-04 08:45 | disposition home or self-care (01) ==
LOC: HO.CT 08:44
PROVIDERS: PCP Internal Medicine; Visit Provider Internal Medicine
DX: C34.90 Malignant neoplasm of unspecified part of unspecified bronchus or lung (principal); J38.00 Paralysis of vocal cords and larynx, unspecified; R91.8 Other nonspecific abnormal finding of lung field
CPT/HCPCS: 70491; 71260; G0296; Q9967

== ENCOUNTER 2021-12-08 11:26 | Day surgery (SDC) | payer MEDICAID, SELFPAY ==
--- NOTE | 2021-12-05 09:50 | P.CONAN_ITS ---
Documented by User: Nga Smith NP 12/05/21 09:51 HPI - Anesthesia Eval Consult details Narrative: 66yo M for Endoscopic Bronchial Ultrasound [facility] Active Problems Active Problems: All Active Problems (Updated 12/04/21 @ 13:02 by Austen Atkinson MD) Lymphadenopathy, mediastinal (Acute) Vocal cord paralysis (Acute) Lung cancer (Acute) Lung mass (Acute) Acute laryngitis (Acute) Plantar warts (Acute) Hepatitis (Acute) Acute chronic obstructive pulmonary disease with respiratory distress (Acute) Other seasonal allergic rhinitis (Acute) Gastro-esophageal reflux disease without esophagitis (Acute) Benign essential HTN (Acute) Past Medical History Medical History Benign essential HTN Gastro-esophageal reflux disease without esophagitis Lung cancer Lymphadenopathy, mediastinal Other seasonal allergic rhinitis Family History Family History Father Medical history unknown Mother Breast cancer Sister Lung cancer Surgical History Surgical History History of bladder surgery History of inguinal hernia repair History of surgery Social History Social History Housing: House Alcohol intake: current Alcohol intake frequency: 0-2 drinks per day Patient Tobacco Use Status: Former Tobacco user Quit Date: 5 years ago e-Cigarette/Vaping Use: Never Used Second Hand Smoke Exposure: No Use of substances other than those prescribed or required for medical reasons: No Are you DNR?: No Advance Directives: No Advance Directives Information Provided: Yes service: No Current occupational status: retired Cognitive needs: No Hearing needs: No Vision needs: Yes (Glasses) Meds Allergies Allergy/AdvReac Type Severity Reaction Status Date / Time No Known Allergies Allergy Verified 11/20/21 13:13 [No Known Allergies*] Exam Exam Date and Time: December 05, 2021 0950 Pertinent Lab Results Pertinent Lab Results: Laboratory Tests 11/21/21 11/21/21 07:59 07:59 WBC 6.7 Hgb 13.5 L Hct 39.1 L Plt Count 245 Sodium 132 L Potassium 4.5 Chloride 95 L Carbon Dioxide 29 BUN 6 L Creatinine 0.69 Narrative Narrative: EKG 02/2021 Vent. Rate : 059 BPM ? ? Atrial Rate : 059 BPM ?? P-R Int : 146 ms? QRS Dur : 074 ms ? ? QT Int : 394 ms ? ? ? P-R-T Axes : 064 034 049 degrees ?? QTc Int : 390 ms ? Sinus bradycardia Low voltage QRS Borderline ECG No significant changes seen Assessment and Plan Assessment Anesthesia Assessment: Chart Reviewed Documented by User: Yo Newsome MD 12/08/21 12:28 PMF Past Medical History Medical History Benign essential HTN Gastro-esophageal reflux disease without esophagitis Lung cancer Lymphadenopathy, mediastinal Other seasonal allergic rhinitis Family History Family History Father Medical history unknown Mother Breast cancer Sister Lung cancer Family history of problems with anesthesia: No Surgical History Surgical History History of bladder surgery History of inguinal hernia repair History of surgery History of Problems with Anesthesia: No Social History Social History Housing: House Alcohol intake: current Alcohol intake frequency: 0-2 drinks per day Patient Tobacco Use Status: Former Tobacco user Quit Date: 5 years ago e-Cigarette/Vaping Use: Never Used Second Hand Smoke Exposure: No Use of substances other than those prescribed or required for medical reasons: No Are you DNR?: No Advance Directives: No Advance Directives Information Provided: Yes service: No Current occupational status: retired Cognitive needs: No Hearing needs: No Vision needs: Yes (Glasses) Meds Allergies Allergy/AdvReac Type Severity Reaction Status Date / Time No Known Allergies Allergy Verified 11/20/21 13:13 [No Known Allergies*] Exam Airway Mallampati Class: II TM Dist: >3cm Neck ROM: Full Denture: Upper and Lower Loose/Missing/Broken Teeth: Yes Heart: [id number] Lungs: decreased breath sounds bilaterally Assessment and Plan Assessment Anesthesia Assessment: Anesthesia Plan Discussed Final Anesthetic Review Family History of Problems with Anesthesia: No History of Problems with Anesthesia: No NPO: Yes ASA Class: IV Final Preanesthetic Review: No Changes in Pt Med Stat, Meds/Allgs Chart Reviewed, Consent Obtained/Reviewed and Anes Risks/Benef Reviewed Patient Risk: High Procedure Risk: Intermediate Assessment/Block/Sedation in SS: Assess/Block/Sedation-SS Anesthetic Plan Anesthetic Plan: GA and Agree w/ Assess. and Plan Disposition: Standard PACU
[2021-12-08] VITALS (9 sets, daily range): BP systolic 120–189; BP diastolic 48–106; PULSE 100–107; RESP 16–20; TEMP 36.3–37.1; O2SAT 93–98; BMI 22.2
--- NOTE | 2021-12-08 11:53 | ECG_ITS ---
Test Reason : pre op Blood Pressure : / mmHG Vent. Rate : 097 BPM Atrial Rate : 097 BPM P-R Int : 132 ms QRS Dur : 080 ms QT Int : 346 ms P-R-T Axes : 083 -18 067 degrees QTc Int : 439 ms Normal sinus rhythm Normal ECG When compared with ECG of 19-FEB-2021 13:55, Vent. rate has increased BY 38 BPM QT has lengthened Referred By: Austen Atkinson Electronically Signed By:HAILEE GARLAND
--- NOTE | 2021-12-08 12:02 | MHC.SHP ---
Pre-Procedural Eval Section A Date of Service: 12/08/21 Changes since office visit: No Cold of Flu in the past 2 weeks, No New Medical Problems, No Changes in Medication and No Patient answered all questions Section B Chief Complaint: Other nonspecific abnormal finding of lung field Relevant Family History (Specify if Yes): No Relevant Social History: Alcohol Use (beer) Present Medications: see Short Stay Collaborative assessment Medical History: Significant History (lung cancer) Allergies: Allergies Allergy/AdvReac Type Severity Reaction Status Date / Time No Known Allergies Allergy Verified 11/20/21 13:13 [No Known Allergies*] Plan Diagnosis/Plan: Unchanged I have reviewed the history and physical and performed a pertinent physical examination on my patient. No changes have occurred unless specified. requesting EKG prior to the procedure
--- NOTE | 2021-12-08 12:08 | PC.NURSE ---
pt c/o midsternal chest discomfort, increased with palpation. no sob, no radiation, no numbness or tingling. Dr. Laguna notified and aware of bp 189/106. 12 lead ekg done & nsr.
--- NOTE | 2021-12-08 12:21 | PC.NURSE ---
pt nodding off when not interacting with. Dr. Newsome aware of midsternal chest pain increased with palpation rated 10/10 but pt is calm . ekg reviewed.
[2021-12-08] MEDS: Albuterol/Iprat 2.5/0.5MG 3 ML AMPUL.NEB INHALE (15:11)
--- NOTE | 2021-12-08 16:44 | P.BOP_ITS ---
Brief Operative Note Date of Service: 12/08/21 Pre-op diagnosis: LUNG MASS, LYMPHADENOPATHY Post-op diagnosis: other (LUNG CANCER) Procedure: EBUS WITH TBNA and Bronchoscopy with biopsies Implants: Surgeon: Austen Atkinson MD Anesthesia: GETA Was an Assembler For Puller Over Machine used for this Procedure?: No Estimated blood loss (mL): 1 Pathology: other (TBNA 4R, RUL biopsies, tracheal biopsies) Condition: stable Disposition: same day
--- NOTE | 2021-12-09 09:02 | OP_ITS ---
SURGEON: Austen Atkinson MD PREOPERATIVE DIAGNOSIS: POSTOPERATIVE DIAGNOSIS: Evidence of lung cancer. PROCEDURE PERFORMED: Endobronchial ultrasound bronchoscopy with transbronchial needle aspirations and bronchoscopy with biopsy. ESTIMATED BLOOD LOSS: COMPLICATIONS: ANESTHESIA: General anesthesia provided. ASSISTANTS: SPECIMENS: ASA CLASSIFICATION: 3. PREOPERATIVE DIAGNOSES: Lung mass and lymphadenopathy. DESCRIPTION OF PROCEDURE: After the patient is adequately sedated, the flexible digital bronchoscope with endobronchial ultrasound (EBUS) was introduced via the ET tube to the level of the main jeffry. Using the ultrasound, a significant masslike density was appreciated station 4R. The actual borders of the lymph node could not be determined clearly, although present. Using real-time ultrasound transbronchial needle aspirations were performed. The samples were provided to the rapid on-site utility worker, who identified suspicious cells for malignancy in addition to atypical cells and bronchial cells. Five passes were done. The last pass was placed for cell block. The EBUS was then removed and replaced with the regular bronchoscopy. The tracheobronchial tree was examined up to the subsegmental level, although could not assess the segments of the right upper lobe, because there appeared to be a masslike density blocking the apical in the posterior segment with a mucinous type of growth and with some increased vascularity. The bronchoscope was navigated to the right upper lobe. 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 No significant bleeding. Iced saline was used with good hemostasis. No need for epinephrine. Once there was good hemostasis, the bronchoscope was then removed. The total endoscopic time was approximately 45 minutes. The patient tolerated the procedure well, vital signs were stable. INTERPRETATION: 1. Successful ultrasound-guided TBNA of station 4R. 2. Endobronchial biopsies of the right upper lobe and also to the trachea. 3. Bronchial washings bilaterally for cytology, microbiology. Austen Atkinson MD MR/MODL / [id number]
== END 2021-12-08 15:54 | disposition home or self-care (01) ==
PROVIDERS: PCP Internal Medicine; Visit Provider Hospitalist
PROC: (CPT 31652; principal; 2021-12-08 13:00)
DX: C34.81 Malignant neoplasm of overlapping sites of right bronchus and lung (principal); C77.1 Secondary and unspecified malignant neoplasm of intrathoracic lymph nodes; R49.0 Dysphonia; R63.4 Abnormal weight loss; Z85.118 Personal history of other malignant neoplasm of bronchus and lung; Z90.2 Acquired absence of lung [part of]; Z87.891 Personal history of nicotine dependence; J30.2 Other seasonal allergic rhinitis; I10 Essential (primary) hypertension; K21.9 Gastro-esophageal reflux disease without esophagitis; Z79.899 Other long term (current) drug therapy; Z98.890 Other specified postprocedural states
CPT/HCPCS: 31652; 31625; 36415; 81479; 87071; 87205; 88112; 88172; 88173; 88177; 88305; 88341; 88342; 88360; 88374; 93005; 94640; J0171; J2250; J2370; J2405; J3010

== ENCOUNTER → 2021-12-24 10:08 | Outpatient (BNVA) | payer MEDICAID, SELFPAY | PROVIDERS: PCP Internal Medicine; Visit Provider Hospitalist | DX: C34.11 Malignant neoplasm of upper lobe, right bronchus or lung (principal); R59.0 Localized enlarged lymph nodes | CPT/HCPCS: 99212 ==

== ENCOUNTER 2022-01-06 08:21 | Outpatient (REF) | payer MEDICAID, SELFPAY ==
--- NOTE | ~2022-01-06 | PE_ITS ---
EXAMINATION: Fluorine-18 FDG PET/CT Scan CLINICAL INDICATION: Initial treatment management. Invasive squamous cell carcinoma of the right lung. PROCEDURE: 70 minutes following the intravenous administration of 14.4 mCi of fluorine 18 FDG, images from the base of the skull to the mid thighs were obtained using a combined PET/CT scanner with CT scan based attenuation correction. No oral contrast was administered. No intravenous contrast was administered. Transverse, coronal, sagittal, and volume reconstruction projections were obtained. The patient's blood glucose as determined by a finger stick, was 90 mg/dl immediately prior to injection. Total CT exam dose-length product 245.12 mGy-cm * These CT images were obtained using dose optimization techniques as appropriate, variously including the following: Automated exposure control * Adjustment of mA and/or kV according to patient size (this includes techniques or standardized protocols for targeted exams where dose is matched to indication/reason for exam; i.e. extremities or head) * Use of iterative reconstruction technique COMPARISON: No previous PET/CT scan is available for comparison. CT scans of the chest and neck soft tissues dated 12/04/2021 and of the abdomen and pelvis dated 02/17/2021 are available for comparison. FINDINGS: (Slice numbers described in this report are numbered superiorly to inferiorly with slice #1 in the head) NECK AND VISUALIZED HEAD: There is an FDG avid right level 5B lymph node, SUVmax 5.4, slice 60/267 measuring 2.0 x 1.3 cm in largest transverse dimensions. No additional FDG avid cervical lymph nodes are present. The distribution of FDG activity in the neck and visualized head is otherwise physiological. There is a minimal left maxillary sinus mucosal thickening which is no abnormal FDG activity. THORAX: There is a large intensely FDG avid right upper lobe lung mass that extends contiguously into the mediastinum, crossing the midline. This shows SUVmax 11.9, slice 85/267. This measures approximate 8.8 x 5.8 cm in largest transverse dimensions, and approximately 10.5 cm cephalocaudad. It abuts the apical and posterior pleura of the right upper lobe. It does not appear significantly changed in appearance from the 12/04/[address] scan. This mass contains dense calcifications. There are also metallic surgical clips in the medial aspect of the mass. Confluent intensely FDG avid mediastinal component is present along the lower right paratracheal region and the mass wraps around the inferior aspect of the trachea involving the hilar regions bilaterally, the subcarinal region and extends through the AP window. There is an additional discrete focus of activity in the right anterolateral aspect of the ascending aorta which is probably in the aortic wall showing SUVmax 6.8, slice 95/267. An additional subcentimeter FDG avid focus abuts the left side of the main stem pulmonary artery, SUVmax 6.6, slice 105/267. Several additional FDG avid pulmonary nodules are present including medially in the left upper lobe, slice 109/267, in the left lower lobe, slice 89/267 and laterally just posterior to the interlobar fissure, slice 112/267. An additional pleural-based FDG avid right middle lobe nodule is present slice 111/267 and another abutting the anterior right middle lobe pleura, slice 115/267. Additional smaller subcentimeter nodules are present bilaterally and these are all too small to be characterized on the FDG PET images. There is no pleural or pericardial fluid or pneumothorax. There is no additional axillary or supraclavicular lymphadenopathy. ABDOMEN AND PELVIS: No foci of abnormal FDG activity are present in the abdomen or pelvis. There is diffuse FDG activity of varying intensities throughout the gastrointestinal tract, most prominently in the right colon without a suspicious focal component and likely physiological. There is diverticulosis without evidence of diverticulitis. The hollow viscera are otherwise unremarkable. The liver, gallbladder, and spleen are unremarkable. A left adrenal mass is present measuring 6.4 x 5.7 cm in largest transverse dimensions and photopenic on the FDG PET images. This does not appear significantly changed from the CT scan of the abdomen and pelvis dated 02/17/2021. 02/17/2021. The right adrenal gland is unremarkable. The pancreas is unremarkable. The pelvic organs are unremarkable. There is no retroperitoneal, mesenteric, pelvic or inguinal lymphadenopathy. The kidneys are unremarkable. MUSCULOSKELETAL: No foci of abnormal FDG activity are present in the osseous structures. There is a mild thoracolumbar scoliosis with lumbar convexity to the left. There are degenerative changes in the spine but no suspicious sclerotic or lytic lesions are visualized. VASCULAR: Diffuse vascular calcifications including dense coronary calcifications are noted. PET/PET CT fusion skull to thigh IMPRESSION: 1. A large right upper lobe pulmonary mass is intensely FDG avid and most consistent with a primary malignancy. 2. Intensely FDG avid extension of the mass into the mediastinum is present as described above and represents metastatic extension of the tumor into the mediastinum, and this crosses the midline, extending into the AP window region. Bilateral perihilar paratracheal and subcarinal components are also intensely FDG avid. An FDG avid right supraclavicular lymph node is also likely a metastasis. 3. Multiple bilateral FDG avid pulmonary nodules are present and likely represent metastatic disease. 4. A stable left adrenal mass is present with no abnormal FDG activity and likely benign. 5. No additional abnormalities suspicious for other static or malignant lesions are noted. 6. Diffuse vascular calcifications including dense coronary calcifications.
== END 2022-01-06 08:22 | disposition home or self-care (01) ==
LOC: HO.PET 08:21
PROVIDERS: Visit Provider Internal Medicine
DX: Z13.89 Encounter for screening for other disorder (principal)

== ENCOUNTER 2022-01-13 06:27 | Outpatient (REF) | payer MEDICAID, SELFPAY ==
[2022-01-13 11:37] LABS: MANUAL DIFF FLAG NO
[2022-01-13 11:44] LABS: Basophils Percent Auto 0.4 % (0-2); Eosinophils Absolute Auto 0.1 X10*3/uL (0.0-0.4); Eosinophils Percent Auto 1.4 % (0-4); Hematocrit 41.9 % (42.0-52.0); Hemoglobin 14.4 g/dl (14.0-18.0); Imm Gran Abs Auto 0.02 X10*3/uL (0.00-0.03); Imm Gran Pct Auto 0.3 % (0.0-0.4); Lymphocytes Absolute Auto 1.3 X10*3/uL (1.2-4.9); Mean Corpuscular HGB Conc 34.4 g/dl (31.0-36.0); Mean Corpuscular Hemoglobin 33.3 pg (27.0-33.0); Mean Platelet Volume 9.6 fL (9.4-12.4); Monocytes Absolute Auto 0.8 X10*3/uL (0.1-1.2); Monocytes Percent Auto 11.1 % (2-11); Neutrophils Absolute Auto 5.2 x10*3/uL (2.0-8.3); Neutrophils Percent Auto 69.8 % (45-73); Platelet Count 320 X10*3/uL (160-400); Red Blood Count 4.32 X10*6/uL (4.60-5.80); Red Cell Distribution Width 11.3 % (11.0-16.0); White Blood Count 7.4 X10*3/uL (4.8-10.8)
[2022-01-13 12:26] LABS: Alanine Aminotransferase 31 U/L (0-40); Albumin Level 4.1 g/dL (3.5-5.0); Alkaline Phosphatase 127 U/L (39-117); Anion Gap 18 (12-20); Aspartate Amino Transferase 42 U/L (5-37); Bilirubin Total 0.4 mg/dL (0.0-1.0); Blood Urea Nitrogen 4 mg/dL (9-16); Calcium 9.5 mg/dL (8.4-10.2); Carbon Dioxide 27 mmol/L (22-29); Chloride 88 mmol/L (96-108); Estimated Glomerular Filt Rate > 60; Glucose Random 84 mg/dL (60-115); Potassium 4.2 mmol/L (3.3-5.1); Sodium 129 mmol/L (135-145); Total Protein 7.5 g/dL (6.5-8.0)
== END 2022-01-13 06:28 | disposition home or self-care (01) ==
LOC: HO.LHD 06:27
PROVIDERS: Visit Provider Internal Medicine
DX: C34.92 Malignant neoplasm of unspecified part of left bronchus or lung (principal)
CPT/HCPCS: 36415; 80053; 85025

== ENCOUNTER 2022-01-19 07:58 | Outpatient (REF) | payer MEDICAID, SELFPAY ==
--- NOTE | ~2022-01-19 | CT_ITS ---
EXAMINATION: CT HEAD WITH/WITHOUT CONTRAST CLINICAL INFORMATION: 66-year-old with history of lung CA undergoing staging. COMPARISON: None. TECHNIQUE: Volumetric CT imaging was performed from the skull base to vertex before and after the administration of 75 mL of Omnipaque [address] examination was performed using dose optimization techniques as appropriate, variously including the following: *Automated exposure control *Adjustment of mA and/or kV according to patient size (this includes techniques or standardized protocols for targeted exams where dose is matched to indication/reason for exam; i.e. extremities or head) *Use of iterative reconstruction technique DLP: 1381.00 mGy-cm. FINDINGS: Brain Volume: [id number] diffuse atrophy. Structural: No malformations. Brain and Meninges: Brain is normal in morphology and attenuation, with normal sotelo-white matter differentiation. On image 34 of series 9, there is a punctate focus of enhancement with no surrounding edema or mass effect located in the inferior right occipital lobe, which is a nonspecific finding but most likely represents intravascular enhancement. There are no definite mass lesions, pathologic intracranial enhancement, hemorrhage, extra-axial fluid collection, space-occupying process or mass effect are identified. Mural calcifications of the left carotid siphon noted. There is normal opacification of the major dural venous sinuses. Ventricles and Subarachnoid Spaces: The ventricular system and subarachnoid spaces are within normal limits without hydrocephalus. Orbital Structures: Grossly unremarkable within the limitations of the study. Osseous Structures, Sinuses/Mastoids, Extracranial Soft Tissues: Unremarkable CT/CT head/brain wo/w IV con IMPRESSION: 1. No definite evidence for cranial metastatic disease. No evidence for intracranial mass lesion, definite pathologic enhancement, extra-axial fluid collection, space-occupying process or mass effect. 2. No evidence for infarction, brain edema or other acute intracranial process.
[2022-01-19] MEDS: iohexoL 350 MG/ML 75 ML INFUS..BTL IV (09:02)
== END 2022-01-19 07:59 | disposition home or self-care (01) ==
LOC: HO.CT 07:58
PROVIDERS: PCP Internal Medicine; Visit Provider Internal Medicine
DX: Z85.118 Personal history of other malignant neoplasm of bronchus and lung (principal)
CPT/HCPCS: 70470; Q9967

== ENCOUNTER 2022-01-20 20:47 | Inpatient (IN) | payer MEDICARE, MEDICAID, SELFPAY ==
--- NOTE | 2022-01-20 | ECG_ITS ---
Test Reason : DSYNEA Blood Pressure : / mmHG Vent. Rate : 120 BPM Atrial Rate : 120 BPM P-R Int : 160 ms QRS Dur : 072 ms QT Int : 310 ms P-R-T Axes : 066 -17 074 degrees QTc Int : 438 ms Poor data quality, interpretation may be adversely affected Sinus tachycardia Septal infarct , age undetermined Abnormal ECG When compared with ECG of 08-DEC-2021 11:59, Septal infarct is now Present Heart rate has increased Referred By: Generic ED Physician Electronically Signed By:HAILEE GARLAND
--- NOTE | ~2022-01-20 | XR_ITS ---
EXAMINATION: XR CHEST CLINICAL INFORMATION: CHF COMPARISON: Chest CT 12/04/2021, chest x-ray 11/25/2021 TECHNIQUE: Frontal view of the chest was obtained. FINDINGS: An seen is a right apical opacity appearing slightly smaller than on prior. No appreciable rib destruction. Slightly increased hazy airspace opacity and reticulation in the right mid upper lung since prior. Approximately 0.9 cm nodular density projecting over the peripheral right mid to lower lung and additional 1 cm nodular density projecting in the left lower lung bases adjacent to the left heart border. Curvilinear scarring and pleural calcification the left mid hemithorax. Curvilinear density projects over the left upper lung, not seen previously measuring approximately 2.8 cm in size. No pleural effusion or pneumothorax. Unchanged cardiomediastinal silhouette. No evidence of overt pulmonary edema. Surgical clips in the right paratracheal region. No acute osseous injury. XR/XR chest 1V IMPRESSION: 1. No evidence of overt pulmonary edema or appreciable pleural effusions. 2. Right apical mass appears perhaps slightly smaller though there is increased airspace opacity/consolidation in the right mid upper lung which may represent postobstructive atelectasis or pneumonia. 3. Small bilateral pulmonary nodules, presumably pulmonary metastasis. 4. Curvilinear nodular density projecting over the left upper lung, not seen previously. Uncertain as to whether not this is artifactual versus a new cavitary nodule.
--- NOTE | ~2022-01-20 | CT_ITS ---
EXAMINATION: CT ANGIOGRAM OF THE CHEST WITH AND WITHOUT CONTRAST (CT PULMONARY ANGIOGRAM FOR PE) CLINICAL INFORMATION: Reason for Exam lung ca with acute sob ??PE COMPARISON: 01/06/2022 TECHNIQUE: Prior to contrast administration, noncontrast localization images were obtained. Subsequently, multidetector volumetric imaging was performed from the thoracic inlet to below the diaphragms following the administration of 75 mL Omnipaque 350 intravenous contrast. No contrast reaction reported Sagittal, coronal, and MIP oblique sagittal reformatted images were obtained on the CT workstation, uploaded to PACS, and reviewed. This CT examination was performed using dose optimization techniques as appropriate, variously including the following: *Automated exposure control *Adjustment of mA and/or kV according to patient size (this includes techniques or standardized protocols for targeted exams where dose is matched to indication/reason for exam; i.e. extremities or head) *Use of iterative reconstruction technique Total exam dose-length product 432 mGy-cm FINDINGS: QUALITY OF STUDY/CONTRAST BOLUS: Satisfactory. PULMONARY ARTERIES: There is limited evaluation of the distal vasculature due to respiratory motion artifact. No central or segmental pulmonary embolus is seen. There is mass effect on the right main and upper lobe vasculature. THORACIC AORTA: Suboptimally assessed due to the phase of postcontrast imaging. There is atherosclerotic calcification along the aorta. LUNG: Limited detailed parenchymal evaluation due to respiratory motion artifact. Redemonstrated upper lobe predominant centrilobular and paraseptal emphysema. There is increased bronchial wall thickening in the left lung compared to prior. Redemonstrated curvilinear opacity in the anterior left upper lobe suggesting scarring. Redemonstrated irregular shaped patchy consolidation in the anterior basilar left lower lobe. A few scattered nodules are present in the left lung, without significant change from 01/06/2022. Redemonstrated right upper lobe mass, with surrounding heterogeneous consolidation which appears slightly more extensive than on 01/06/2022. Dimensions of the mass are difficult to accurately measure due to the surrounding consolidation, though this is suspected to be at least 7.5 cm in diameter and demonstrates some internal high density material. There is redemonstration of a few scattered nodules in the right lung which are grossly similar to prior, though precise measurements are limited due to motion artifact. Some increased bronchial wall thickening is noted in the right lung. PLEURA: Trace pleural effusions. No pneumothorax. Calcified pleural plaque along the anterior left hemithorax. MEDIASTINUM: The visualized thyroid gland is unremarkable. Redemonstrated infiltrating, masslike density in the bilateral paratracheal and subcarinal regions extending to the right hilum which is grossly similar to prior. This surrounds and narrows the right main and upper lobe vasculature. The SVC also appears narrowed but remains patent. Enlarged prevascular lymph node is similar to prior. Cardiac size is within normal limits. There is trace pericardial fluid. Coronary artery calcifications are present. CHEST WALL/AXILLA: No discrete axillary lymphadenopathy. Anasarca is noted. OSSEOUS STRUCTURES: Degenerative changes are noted in the spine. UPPER ABDOMEN: Redemonstrated large left adrenal mass. There is some reflux of contrast into the hepatic veins which can be seen with elevated right heart pressures. CT/CT angio chest PE protocol IMPRESSION: 1. No pulmonary embolus identified. 2. Redemonstrated large right upper lobe lung mass, grossly similar to 01/06/2022, though surrounding areas of consolidation appear slightly more extensive. 3. Redemonstrated infiltrating, masslike density throughout the mediastinum and right hilum, resulting in mass effect and narrowing of the right main and upper lobe pulmonary arteries. The SVC also appears narrowed though remains patent. 4. Several bilateral lung nodules again noted, with measurements limited due to respiratory motion artifact; appearance is grossly similar to prior. 5. Increased bronchial wall thickening, which could represent acute bronchitis. 6. Trace pleural effusions. VTE: negative
[2022-01-20 21:18] LABS: Mean Corpuscular HGB Conc 35.9 g/dl (31.0-36.0); Mean Corpuscular Hemoglobin 33.2 pg (27.0-33.0); Mean Corpuscular Volume 92.4 fL (80.0-98.0); PLT CLUMP 1; Red Cell Distribution Width 10.9 % (11.0-16.0)
[2022-01-20 21:20] LABS: Hematocrit 40.1 % (42.0-52.0); Hemoglobin 14.4 g/dl (14.0-18.0); Mean Platelet Volume 10.2 fL (9.4-12.4); Red Blood Count 4.34 X10*6/uL (4.60-5.80)
[2022-01-20 21:22] VITALS: BP 114/70; BP 141/50; PULSE 112; PULSE 133; RESP 35; O2SAT 90; O2SAT 97; BMI 22.7
[2022-01-20 21:26] LABS: Platelet Count 124 X10*3/uL (160-400); White Blood Count 3.3 X10*3/uL (4.8-10.8)
[2022-01-20] MEDS: Furosemide 100 MG/10 ML VIAL 60 MG IVPUSH (21:31)
--- NOTE | 2022-01-20 21:32 | ED_ITS ---
HPI - SOB/Dyspnea General Chief Complaint: Dyspnea Stated Complaint: ams Time Seen by Provider: 01/20/22 21:20 Source: EMS Mode of arrival: EMS Limitations: no limitations History of Present Illness HPI Narrative: Patient history of lung cancer status post lobectomy with recurrence of cancer involving the mediastinal lymph nodes, history of hypertension status post chemotherapy in 14:00 today came home increased shortness of breath confusion lethargy gasping for air respiratory rate of 35 tachycardic 133 saturating 97% on 100% non-rebreather. Related Data Previous Rx's Medication Instructions Recorded loratadine 10 mg tablet 10 mg PO DAILY #90 tabs 09/19/21 lisinopril 20 mg tablet 20 mg PO DAILY #90 tabs 09/22/21 albuterol sulfate 90 mcg/actuation 2 puff PO Q4-6H for wheezing #8.5 10/23/21 aerosol inhaler grams lorazepam 0.5 mg tablet 0.5 mg PO ONCE #5 tabs 12/23/21 doxycycline monohydrate 100 mg 100 mg PO BID 14 days #28 tabs 12/24/21 tablet dexamethasone 4 mg tablet 4 mg PO BID #30 tabs 01/09/22 (Decadron) ondansetron 8 mg disintegrating 8 mg PO Q8H PRN Nausea #30 tabs 01/09/22 tablet Allergies Allergy/AdvReac Type Severity Reaction Status Date / Time No Known Allergies Allergy Verified 12/24/21 10:15 [No Known Allergies*] Review of Systems Review of Systems: Yes all other systems are reviewed and are negative PMFSH Past Medical History Medical History Benign essential HTN Gastro-esophageal reflux disease without esophagitis History of bladder cancer (~2014) History of lung cancer (~1998) Lung cancer Lymphadenopathy, mediastinal Other seasonal allergic rhinitis Tubular adenoma of colon (~2016) Surgical History History of bladder surgery (~2014) History of bronchoscopy (~2021) History of colonoscopy History of left inguinal hernia repair (~2016) History of lung surgery (~1998) Family History Family History Father Medical history unknown Mother Breast cancer Sister Lung cancer Social History Social History Household Members: Significant Other Housing: House Alcohol intake: current Alcohol intake frequency: 0-2 drinks per day Patient Tobacco Use Status: Former Tobacco user Quit Date: 5 years ago Tobacco use type: Cigarette e-Cigarette/Vaping Use: Never Used Second Hand Smoke Exposure: No Advance Directives: No Advance Directives Information Provided: No service: No Current occupational status: retired Cognitive needs: No Hearing needs: No Vision needs: Yes (Glasses) Physical Exam Vital Signs: Vital Signs: Last Vital Signs Temp 98.9 F 01/21/22 01:23 Pulse 92 01/21/22 06:08 Resp 16 01/21/22 06:08 BP 104/64 01/21/22 06:08 Pulse Ox 97 01/21/22 06:08 O2 Del Method 01/21/22 06:08 O2 Flow Rate 3 01/21/22 06:08 BMI result Body Mass Index 22.7 Appearance: Alert. Oriented X3. In severe respiratory distress Eyes: PERRLA, No Nystagmus ENT: Pharynx normal. Oral Mucosa moist Neck: Normal inspection. Neck supple. CVS: Normal heart rate and rhythm. Pulses normal. Respiratory: No respiratory distress. Equal air entry bilateral, bilateral diffuse crackles with wheezing Abdomen: Soft and nontender. Bowel sounds are present, no mass palpable, no CVA tenderness Skin: Skin warm and dry. Normal skin color. Normal skin turgor. Extremities: No lower extremity edema. No calf tenderness Neuro: Oriented X 3. No motor deficit. No sensory deficit. MDM - SOB/Dyspnea MDM Narrative Medical decision making narrative: 3 am patient with acute respiratory failure with significant hypoxia CTA chest negative for PE showed right lung cancer with infiltrates patient does have history of COPD patient required BiPAP on arrival changed to Teran high-flow saturating 95%. 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 Garcia who service parts driver advised fluid restriction to 1.2 L/24 hours and p.o. urea 30 g and serum lytes every 3-4 hours Medical Records Attestation: I reviewed the patient's medical records. Lab Data Attestation: I reviewed the patient's lab results. Result diagrams: 01/20/22 21:13 01/21/22 04:30 Labs: Lab Results 01/20/22 01/20/22 01/20/22 Range/Units 21:13 21:13 21:18 WBC 3.3 L (4.8-10.8) X10*3/uL RBC 4.34 L (4.60-5.80) X10*6/uL Hgb 14.4 (14.0-18.0) g/dl Hct 40.1 L (42.0-52.0) % MCV 92.4 (80.0-98.0) fL MCH 33.2 H (27.0-33.0) pg MCHC 35.9 (31.0-36.0) g/dl RDW 10.9 L (11.0-16.0) % Plt Count 124 L D (160-400) X10*3/uL MPV 10.2 (9.4-12.4) fL Immature Gran % (Auto) Cancelled Neut % (Auto) Cancelled Lymph % (Auto) Cancelled [place] % (Auto) Cancelled Eos % (Auto) Cancelled Baso % (Auto) Cancelled Lymph # (Auto) Cancelled [place] # (Auto) Cancelled Eos # (Auto) Cancelled Baso # (Auto) Cancelled Abs Immat Gran (auto) Cancelled Absolute Neuts (auto) Cancelled Absolute Nucleated RBC 0.000 (0.0-0.012) X10*3/uL Nucleated RBC % (auto) 0.0 (0.0-0.2) /100WBC Neutrophils % (Manual) 58 (45-73) % Band Neutrophils % 18 H (3-5) % Lymphocytes % (Manual) 18 L (20-40) % Monocytes % (Manual) 6 (2-11) % Abs Neuts (Manual) 2.5 (2.0-8.3) X10*3/uL Lymphocytes # (Manual) 0.6 L (1.2-4.9) X10*3/uL Monocytes # (Manual) 0.2 (0.1-1.2) X10*3/uL Dohle Bodies PRESENT Platelet Estimate SLIGHTLY DECREASED (NORMAL) Large Platelets PRESENT Plt Morphology Comment NOTED RBC Morphology NORMAL PT (10.0-13.1) SEC INR (0.9-1.1) APTT (26.0-36.4) SEC D-Dimer High Sensitivty NG/ML VBG pH (7.32-7.43) VBG pCO2 mmHg VBG pO2 mmHg VBG HCO3 (22-26) mmol/L VBG O2 Saturation % VBG Base Excess mmol/L Sodium (135-145) mmol/L Potassium (3.3-5.1) mmol/L Chloride (96-108) mmol/L Carbon Dioxide (22-29) mmol/L Anion Gap (12-20) BUN (9-16) mg/dL Creatinine (0.5-1.4) mg/dL Estim Creat Clear Calc Estimated GFR POC Glucose (60-115) mg/dL Random Glucose (60-115) mg/dL Osmolality (281-305) mosm/kg Lactic Acid 4.0 H* (0.5-2.0) mmol/L Lactic Acid F/U @ 2Hr Lactic Acid F/U @ 4Hr (0.5-2.0) mmol/L Calcium (8.4-10.2) mg/dL Troponin I High Sens 339.0 H* (<3.5-35.0) ng/L B-Natriuretic Peptide 169 H (<100) pg/mL Urine Color Urine Appearance Urine pH (5.0-9.0) Ur Specific [place] (1.005-1.025) Urine Protein (Neg-Trace) mg/dL Urine Glucose (UA) (Negative) mg/dL Urine Ketones (Negative) mg/dL Urine Blood (Negative) Urine Nitrite (Negative) Ur Leukocyte Esterase (Negative) Urine Osmolality (373-1093) mosm/kg Ur Random Sodium mmol/L Ethyl Alcohol mg/dL COVID-19 ([facility]) (Negative) COVID-19 Clin Com 01/20/22 01/20/22 01/20/22 Range/Units 21:18 21:39 21:59 WBC (4.8-10.8) X10*3/uL RBC (4.60-5.80) X10*6/uL Hgb (14.0-18.0) g/dl Hct (42.0-52.0) % MCV (80.0-98.0) fL MCH (27.0-33.0) pg MCHC (31.0-36.0) g/dl RDW (11.0-16.0) % Plt Count (160-400) X10*3/uL MPV (9.4-12.4) fL Immature Gran % (Auto) Neut % (Auto) Lymph % (Auto) [place] % (Auto) Eos % (Auto) Baso % (Auto) Lymph # (Auto) [place] # (Auto) Eos # (Auto) Baso # (Auto) Abs Immat Gran (auto) Absolute Neuts (auto) Absolute Nucleated RBC (0.0-0.012) X10*3/uL Nucleated RBC % (auto) (0.0-0.2) /100WBC Neutrophils % (Manual) (45-73) % Band Neutrophils % (3-5) % Lymphocytes % (Manual) (20-40) % Monocytes % (Manual) (2-11) % Abs Neuts (Manual) (2.0-8.3) X10*3/uL Lymphocytes # (Manual) (1.2-4.9) X10*3/uL Monocytes # (Manual) (0.1-1.2) X10*3/uL Dohle Bodies Platelet Estimate (NORMAL) Large Platelets Plt Morphology Comment RBC Morphology PT 11.7 (10.0-13.1) SEC INR 1.0 (0.9-1.1) APTT 29.7 (26.0-36.4) SEC D-Dimer High Sensitivty 1050 NG/ML VBG pH (7.32-7.43) VBG pCO2 mmHg VBG pO2 mmHg VBG HCO3 (22-26) mmol/L VBG O2 Saturation % VBG Base Excess mmol/L Sodium 116 L* (135-145) mmol/L Potassium 4.4 (3.3-5.1) mmol/L Chloride 75 L (96-108) mmol/L Carbon Dioxide 25 (22-29) mmol/L Anion Gap 18 (12-20) BUN 8 L D (9-16) mg/dL Creatinine 0.55 (0.5-1.4) mg/dL Estim Creat Clear Calc 136.5 Estimated GFR > 60 POC Glucose 212 H (60-115) mg/dL Random Glucose 199 H D (60-115) mg/dL Osmolality (281-305) mosm/kg Lactic Acid (0.5-2.0) mmol/L Lactic Acid F/U @ 2Hr Lactic Acid F/U @ 4Hr (0.5-2.0) mmol/L Calcium 8.3 L D (8.4-10.2) mg/dL Troponin I High Sens (<3.5-35.0) ng/L B-Natriuretic Peptide (<100) pg/mL Urine Color Urine Appearance Urine pH (5.0-9.0) Ur Specific [place] (1.005-1.025) Urine Protein (Neg-Trace) mg/dL Urine Glucose (UA) (Negative) mg/dL Urine Ketones (Negative) mg/dL Urine Blood (Negative) Urine Nitrite (Negative) Ur Leukocyte Esterase (Negative) Urine Osmolality (373-1093) mosm/kg Ur Random Sodium mmol/L Ethyl Alcohol < 10 mg/dL COVID-19 ([facility]) (Negative) COVID-19 Clin Com 01/20/22 01/20/22 01/20/22 Range/Units 22:32 23:27 23:27 WBC (4.8-10.8) X10*3/uL RBC (4.60-5.80) X10*6/uL Hgb (14.0-18.0) g/dl Hct (42.0-52.0) % MCV (80.0-98.0) fL MCH (27.0-33.0) pg MCHC (31.0-36.0) g/dl RDW (11.0-16.0) % Plt Count (160-400) X10*3/uL MPV (9.4-12.4) fL Immature Gran % (Auto) Neut % (Auto) Lymph % (Auto) [place] % (Auto) Eos % (Auto) Baso % (Auto) Lymph # (Auto) [place] # (Auto) Eos # (Auto) Baso # (Auto) Abs Immat Gran (auto) Absolute Neuts (auto) Absolute Nucleated RBC (0.0-0.012) X10*3/uL Nucleated RBC % (auto) (0.0-0.2) /100WBC Neutrophils % (Manual) (45-73) % Band Neutrophils % (3-5) % Lymphocytes % (Manual) (20-40) % Monocytes % (Manual) (2-11) % Abs Neuts (Manual) (2.0-8.3) X10*3/uL Lymphocytes # (Manual) (1.2-4.9) X10*3/uL Monocytes # (Manual) (0.1-1.2) X10*3/uL Dohle Bodies Platelet Estimate (NORMAL) Large Platelets Plt Morphology Comment RBC Morphology PT (10.0-13.1) SEC INR (0.9-1.1) APTT (26.0-36.4) SEC D-Dimer High Sensitivty NG/ML VBG pH (7.32-7.43) VBG pCO2 mmHg VBG pO2 mmHg VBG HCO3 (22-26) mmol/L VBG O2 Saturation % VBG Base Excess mmol/L Sodium (135-145) mmol/L Potassium (3.3-5.1) mmol/L Chloride (96-108) mmol/L Carbon Dioxide (22-29) mmol/L Anion Gap (12-20) BUN (9-16) mg/dL Creatinine (0.5-1.4) mg/dL Estim Creat Clear Calc Estimated GFR POC Glucose (60-115) mg/dL Random Glucose (60-115) mg/dL Osmolality (281-305) mosm/kg Lactic Acid 2.4 H* (0.5-2.0) mmol/L Lactic Acid F/U @ 2Hr Lactic Acid F/U @ 4Hr (0.5-2.0) mmol/L Calcium (8.4-10.2) mg/dL Troponin I High Sens 2131.5 H* D (<3.5-35.0) ng/L B-Natriuretic Peptide (<100) pg/mL Urine Color Urine Appearance Urine pH (5.0-9.0) Ur Specific [place] (1.005-1.025) Urine Protein (Neg-Trace) mg/dL Urine Glucose (UA) (Negative) mg/dL Urine Ketones (Negative) mg/dL Urine Blood (Negative) Urine Nitrite (Negative) Ur Leukocyte Esterase (Negative) Urine Osmolality (373-1093) mosm/kg Ur Random Sodium mmol/L Ethyl Alcohol mg/dL COVID-19 ([facility]) Negative (Negative) COVID-19 Clin Com See Note 01/20/22 01/20/22 01/21/22 Range/Units 23:27 23:32 00:23 WBC (4.8-10.8) X10*3/uL RBC (4.60-5.80) X10*6/uL Hgb (14.0-18.0) g/dl Hct (42.0-52.0) % MCV (80.0-98.0) fL MCH (27.0-33.0) pg MCHC (31.0-36.0) g/dl RDW (11.0-16.0) % Plt Count (160-400) X10*3/uL MPV (9.4-12.4) fL Immature Gran % (Auto) Neut % (Auto) Lymph % (Auto) [place] % (Auto) Eos % (Auto) Baso % (Auto) Lymph # (Auto) [place] # (Auto) Eos # (Auto) Baso # (Auto) Abs Immat Gran (auto) Absolute Neuts (auto) Absolute Nucleated RBC (0.0-0.012) X10*3/uL Nucleated RBC % (auto) (0.0-0.2) /100WBC Neutrophils % (Manual) (45-73) % Band Neutrophils % (3-5) % Lymphocytes % (Manual) (20-40) % Monocytes % (Manual) (2-11) % Abs Neuts (Manual) (2.0-8.3) X10*3/uL Lymphocytes # (Manual) (1.2-4.9) X10*3/uL Monocytes # (Manual) (0.1-1.2) X10*3/uL Dohle Bodies Platelet Estimate (NORMAL) Large Platelets Plt Morphology Comment RBC Morphology PT (10.0-13.1) SEC INR (0.9-1.1) APTT (26.0-36.4) SEC D-Dimer High Sensitivty NG/ML VBG pH 7.38 (7.32-7.43) VBG pCO2 50 mmHg VBG pO2 33 mmHg VBG HCO3 30 H (22-26) mmol/L VBG O2 Saturation 43.0 % VBG Base Excess 3.9 mmol/L Sodium (135-145) mmol/L Potassium (3.3-5.1) mmol/L Chloride (96-108) mmol/L Carbon Dioxide (22-29) mmol/L Anion Gap (12-20) BUN (9-16) mg/dL Creatinine (0.5-1.4) mg/dL Estim Creat Clear Calc Estimated GFR POC Glucose (60-115) mg/dL Random Glucose (60-115) mg/dL Osmolality (281-305) mosm/kg Lactic Acid (0.5-2.0) mmol/L Lactic Acid F/U @ 2Hr Cancelled Lactic Acid F/U @ 4Hr (0.5-2.0) mmol/L Calcium (8.4-10.2) mg/dL Troponin I High Sens (<3.5-35.0) ng/L B-Natriuretic Peptide (<100) pg/mL Urine Color Yellow Urine Appearance Clear Urine pH 6.0 (5.0-9.0) Ur Specific [place] 1.015 (1.005-1.025) Urine Protein Negative (Neg-Trace) mg/dL Urine Glucose (UA) 100 H (Negative) mg/dL Urine Ketones Negative (Negative) mg/dL Urine Blood Negative (Negative) Urine Nitrite Negative (Negative) Ur Leukocyte Esterase Negative (Negative) Urine Osmolality (373-1093) mosm/kg Ur Random Sodium mmol/L Ethyl Alcohol mg/dL COVID-19 ([facility]) (Negative) COVID-19 Clin Com 01/21/22 01/21/22 01/21/22 Range/Units 00:23 00:23 02:04 WBC (4.8-10.8) X10*3/uL RBC (4.60-5.80) X10*6/uL Hgb (14.0-18.0) g/dl Hct (42.0-52.0) % MCV (80.0-98.0) fL MCH (27.0-33.0) pg MCHC (31.0-36.0) g/dl RDW (11.0-16.0) % Plt Count (160-400) X10*3/uL MPV (9.4-12.4) fL Immature Gran % (Auto) Neut % (Auto) Lymph % (Auto) [place] % (Auto) Eos % (Auto) Baso % (Auto) Lymph # (Auto) [place] # (Auto) Eos # (Auto) Baso # (Auto) Abs Immat Gran (auto) Absolute Neuts (auto) Absolute Nucleated RBC (0.0-0.012) X10*3/uL Nucleated RBC % (auto) (0.0-0.2) /100WBC Neutrophils % (Manual) (45-73) % Band Neutrophils % (3-5) % Lymphocytes % (Manual) (20-40) % Monocytes % (Manual) (2-11) % Abs Neuts (Manual) (2.0-8.3) X10*3/uL Lymphocytes # (Manual) (1.2-4.9) X10*3/uL Monocytes # (Manual) (0.1-1.2) X10*3/uL Dohle Bodies Platelet Estimate (NORMAL) Large Platelets Plt Morphology Comment RBC Morphology PT (10.0-13.1) SEC INR (0.9-1.1) APTT (26.0-36.4) SEC D-Dimer High Sensitivty NG/ML VBG pH (7.32-7.43) VBG pCO2 mmHg VBG pO2 mmHg VBG HCO3 (22-26) mmol/L VBG O2 Saturation % VBG Base Excess mmol/L Sodium (135-145) mmol/L Potassium (3.3-5.1) mmol/L Chloride (96-108) mmol/L Carbon Dioxide (22-29) mmol/L Anion Gap (12-20) BUN (9-16) mg/dL Creatinine (0.5-1.4) mg/dL Estim Creat Clear Calc Estimated GFR POC Glucose (60-115) mg/dL Random Glucose (60-115) mg/dL Osmolality (281-305) mosm/kg Lactic Acid (0.5-2.0) mmol/L Lactic Acid F/U @ 2Hr 4.6 H* Lactic Acid F/U @ 4Hr (0.5-2.0) mmol/L Calcium (8.4-10.2) mg/dL Troponin I High Sens (<3.5-35.0) ng/L B-Natriuretic Peptide (<100) pg/mL Urine Color Urine Appearance Urine pH (5.0-9.0) Ur Specific [place] (1.005-1.025) Urine Protein (Neg-Trace) mg/dL Urine Glucose (UA) (Negative) mg/dL Urine Ketones (Negative) mg/dL Urine Blood (Negative) Urine Nitrite (Negative) Ur Leukocyte Esterase (Negative) Urine Osmolality 276 L (373-1093) mosm/kg Ur Random Sodium 74.0 mmol/L Ethyl Alcohol mg/dL COVID-19 ([facility]) (Negative) COVID-19 Clin Com 01/21/22 01/21/22 01/21/22 Range/Units 04:30 04:30 04:30 WBC (4.8-10.8) X10*3/uL RBC (4.60-5.80) X10*6/uL Hgb (14.0-18.0) g/dl Hct (42.0-52.0) % MCV (80.0-98.0) fL MCH (27.0-33.0) pg MCHC (31.0-36.0) g/dl RDW (11.0-16.0) % Plt Count (160-400) X10*3/uL MPV (9.4-12.4) fL Immature Gran % (Auto) Neut % (Auto) Lymph % (Auto) [place] % (Auto) Eos % (Auto) Baso % (Auto) Lymph # (Auto) [place] # (Auto) Eos # (Auto) Baso # (Auto) Abs Immat Gran (auto) Absolute Neuts (auto) Absolute Nucleated RBC (0.0-0.012) X10*3/uL Nucleated RBC % (auto) (0.0-0.2) /100WBC Neutrophils % (Manual) (45-73) % Band Neutrophils % (3-5) % Lymphocytes % (Manual) (20-40) % Monocytes % (Manual) (2-11) % Abs Neuts (Manual) (2.0-8.3) X10*3/uL Lymphocytes # (Manual) (1.2-4.9) X10*3/uL Monocytes # (Manual) (0.1-1.2) X10*3/uL Dohle Bodies Platelet Estimate (NORMAL) Large Platelets Plt Morphology Comment RBC Morphology PT (10.0-13.1) SEC INR (0.9-1.1) APTT (26.0-36.4) SEC D-Dimer High Sensitivty NG/ML VBG pH (7.32-7.43) VBG pCO2 mmHg VBG pO2 mmHg VBG HCO3 (22-26) mmol/L VBG O2 Saturation % VBG Base Excess mmol/L Sodium 118 L* (135-145) mmol/L Potassium 3.4 D (3.3-5.1) mmol/L Chloride 81 L (96-108) mmol/L Carbon Dioxide 21 L (22-29) mmol/L Anion Gap 19 (12-20) BUN 9 (9-16) mg/dL Creatinine 0.57 (0.5-1.4) mg/dL Estim Creat Clear Calc 119.1 Estimated GFR > 60 POC Glucose (60-115) mg/dL Random Glucose 166 H (60-115) mg/dL Osmolality 244 L (281-305) mosm/kg Lactic Acid (0.5-2.0) mmol/L Lactic Acid F/U @ 2Hr Lactic Acid F/U @ 4Hr 2.7 H* (0.5-2.0) mmol/L Calcium 7.7 L D (8.4-10.2) mg/dL Troponin I High Sens (<3.5-35.0) ng/L B-Natriuretic Peptide (<100) pg/mL Urine Color Urine Appearance Urine pH (5.0-9.0) Ur Specific [place] (1.005-1.025) Urine Protein (Neg-Trace) mg/dL Urine Glucose (UA) (Negative) mg/dL Urine Ketones (Negative) mg/dL Urine Blood (Negative) Urine Nitrite (Negative) Ur Leukocyte Esterase (Negative) Urine Osmolality (373-1093) mosm/kg Ur Random Sodium mmol/L Ethyl Alcohol mg/dL COVID-19 ([facility]) (Negative) COVID-19 Clin Com Discharge Plan Discharge Clinical Impression: Lung cancer, Acute exacerbation of chronic obstructive airways disease, Pneumonia, Syndrome of inappropriate ADH (SIADH) secretion Patient Disposition: Admitted As Inpatient
[2022-01-20 21:34] LABS: D Dimer High Sensitivity 1050 NG/ML
[2022-01-20 21:41] LABS: Prothrombin Time 11.7 SEC (10.0-13.1)
--- NOTE | 2022-01-20 21:44 | ECG_ITS ---
Test Reason : CP Blood Pressure : / mmHG Vent. Rate : 108 BPM Atrial Rate : 108 BPM P-R Int : 142 ms QRS Dur : 074 ms QT Int : 358 ms P-R-T Axes : 096 -06 065 degrees QTc Int : 479 ms Poor data quality, interpretation may be adversely affected Sinus tachycardia Septal infarct (cited on or before 20-JAN-2022) Abnormal ECG When compared with ECG of 20-JAN-2022 20:58, No significant change was found Referred By: Efrain Ann Electronically Signed By:HAILEE GARLAND
[2022-01-20 21:46] VITALS: PULSE 133; RESP 29; O2SAT 100
[2022-01-20] MEDS: Midazolam HCl/PF 2 MG/2 ML VIAL IVPUSH (21:49)
[2022-01-20] MEDS: Albuterol Sulfate 5 MG, Albuterol/Iprat 2.5/0.5MG 3 ML 3 ML INHALE (21:52)
[2022-01-20 22:01] LABS: Neutrophils Percent Manual 58 % (45-73)
[2022-01-20 22:03] LABS: Glucose, Whole Blood 212 mg/dL (60-115)
[2022-01-20 22:04] LABS: Band Neutrophils Percent 18 % (3-5); Dohle Bodies PRESENT; Large Platelet PRESENT; Lymphocytes Absolute Manual 0.6 X10*3/uL (1.2-4.9); Lymphocytes Percent Manual 18 % (20-40); Monocytes Absolute Manual 0.2 X10*3/uL (0.1-1.2); Monocytes Percent Manual 6 % (2-11); Neutrophils Absolute Manual 2.5 X10*3/uL (2.0-8.3); Platelet Estimate SLIGHTLY DECREASED (NORMAL); Platelet Morphology Comment NOTED; RBC Morphology NORMAL
[2022-01-20] MEDS: Piperacillin Sodium/Tazobactam 3.375 GM in 0.9 % Sodium Chloride 50 ML IV (22:08)
[2022-01-20 22:28] LABS: Anion Gap 18 (12-20); Blood Urea Nitrogen 8 mg/dL (9-16); Calcium 8.3 mg/dL (8.4-10.2); Carbon Dioxide 25 mmol/L (22-29); Chloride 75 mmol/L (96-108); Creatinine Clr Calc Pharmacy 136.5; Estimated Glomerular Filt Rate > 60; Ethanol < 10 mg/dL; Glucose Random 199 mg/dL (60-115); Potassium 4.4 mmol/L (3.3-5.1); Sodium 116 mmol/L (135-145)
[2022-01-20 22:30] LABS: B Type Natriuretic Peptide 169 pg/mL (<100)
[2022-01-20] MEDS: 0.9 % Sodium Chloride 1,000 ML 999 ML IV ×2 (22:36→23:30)
[2022-01-20 22:44] VITALS: BP 133/87; PULSE 112; RESP 18; O2SAT 100
--- NOTE | 2022-01-20 22:45 | PC.NURSE ---
pt resting comfortably on stretcher. wearing bipap machine, O2 100%, respirations improved, work of breathing improved. RR 18-20. on traffic monitor specialist. pt within view of nurses station . iv fluids running for sodium of 116. abx given. will continue to monitor
[2022-01-20 22:56] LABS: COVID-19 Test Negative (Negative)
[2022-01-20 23:16] VITALS: PULSE 103; RESP 19; O2SAT 100
[2022-01-20 23:22] LABS: Reflex Lactate? Lactic Acid Added
[2022-01-20 23:38] LABS: VBG Base Excess 3.9 mmol/L; VBG HCO3 30 mmol/L (22-26); VBG pCO2 50 mmHg; VBG pH 7.38 (7.32-7.43); VBG pO2 33 mmHg
[2022-01-20 23:40] LABS: Venous Blood Gas Refer to POC result
[2022-01-20] MEDS: iohexoL 350 MG/ML 100 ML INFUS..BTL IV (23:55)
[2022-01-21] VITALS (14 sets, daily range): BP systolic 104–131; BP diastolic 63–89; PULSE 91–117; RESP 13–30; TEMP 36.3–37.2; O2SAT 92–100
[2022-01-21 00:10] LABS: Lactic Acid 2.4 mmol/L (0.5-2.0)
[2022-01-21 00:23] LABS: Troponin-I High Sensitivity 2131.5 ng/L (<3.5-35.0)
--- NOTE | 2022-01-21 00:23 | ECG_ITS ---
Test Reason : possible afib Blood Pressure : / mmHG Vent. Rate : 145 BPM Atrial Rate : 000 BPM P-R Int : 000 ms QRS Dur : 078 ms QT Int : 300 ms P-R-T Axes : 000 -62 073 degrees QTc Int : 466 ms Atrial fibrillation with rapid ventricular response Left axis deviation Low voltage QRS Septal infarct (cited on or before 20-JAN-2022) Abnormal ECG When compared with ECG of 21-JAN-2022 00:24, Atrial fibrillation has replaced Sinus rhythm QRS axis Shifted left Nonspecific T wave abnormality now evident in Inferior leads Nonspecific T wave abnormality now evident in Lateral leads Heart rate has increased Referred By: Efrain Ann Electronically Signed By:HAILEE GARLAND
[2022-01-21] MEDS: Heparin Sodium,Porcine 5,000 UNIT/ML VIAL 5000 UNIT IVPUSH (00:29)
[2022-01-21 00:35] LABS: Appearance Urine Clear; Color Urine Yellow; Glucose Urine UA 100 mg/dL (Negative); Leukocyte Esterase Urine Negative (Negative); Nitrite Urine Negative (Negative); Specific Gravity - Urine 1.015 (1.005-1.025); Urine Blood Negative (Negative); Urine Ketones Negative (Negative); Urine Protein Negative (Neg-Trace)
[2022-01-21 00:35] LABS: Partial Thromboplastin Time 29.7 SEC (26.0-36.4)
[2022-01-21 01:34] LABS: Reflex Lactate? Lactic Acid Added
[2022-01-21] MEDS: Albuterol Sulfate 5 MG, Albuterol/Iprat 2.5/0.5MG 3 ML 3 ML INHALE (01:36)
[2022-01-21] MEDS: Heparin Sodium,Porcine/1/2NS 25,000 UNIT/250 ML IV.SOLN 8.15 UNIT IVCONT (02:11)
--- NOTE | 2022-01-21 02:26 | PC.NURSE ---
initial troponin 339, repeat troponin 2131.5 - heparin bolus 5000units given, heparin drip started @0218 @12u/kg/hr. next ptt to be drawn @0818.
[2022-01-21 02:31] LABS: ~Lactic Acid-LAB USE ONLY 4.6 mmol/L (0.5-2.0)
--- NOTE | 2022-01-21 03:28 | PC.NURSE ---
pt placed on 10L [place] NC by respiratory therapist. O2 99%, RR 20. pt resting comfortably.
[2022-01-21 04:08] LABS: Reflex Lactate? 2 Y
[2022-01-21 04:47] LABS: ~Lactic Acid-LAB USE ONLY 2.7 mmol/L (0.5-2.0)
[2022-01-21 05:07] LABS: Anion Gap 19 (12-20); Blood Urea Nitrogen 9 mg/dL (9-16); Calcium 7.7 mg/dL (8.4-10.2); Carbon Dioxide 21 mmol/L (22-29); Chloride 81 mmol/L (96-108); Creatinine Clr Calc Pharmacy 119.1; Estimated Glomerular Filt Rate > 60; Glucose Random 166 mg/dL (60-115); Potassium 3.4 mmol/L (3.3-5.1); Sodium 118 mmol/L (135-145)
[2022-01-21 05:22] LABS: Osmolality, Serum 244 mosm/kg (281-305)
[2022-01-21 05:45] LABS: Osmolality Urine 276 mosm/kg (373-1093)
[2022-01-21] MEDS: Urea 15 GM POWDER 30 GM PO (07:35)
[2022-01-21 07:37] LABS: Glucose, Whole Blood 148 mg/dL (60-115)
--- NOTE | 2022-01-21 07:43 | PC.NURSE ---
patient a/o to self and situation . deloresrla . lungs diminished throughout, moist un productive cough , patient currently on 3l via nasal canulla. heart rate regular at 96 beats per minute . skin pink warm and dry . patients abdomen hard and distended , no tenderness noted on palpation ..heparin drip running at 12u/kg/h per protocol . medicated for hyponatremia as ordered also .patient currently has a [place] catheter . patient aware of plan of care .
[2022-01-21 08:32] LABS: PTT Heparin Drip 47.3 SEC (53-77.9)
[2022-01-21 08:47] LABS: Anion Gap 18 (12-20); Blood Urea Nitrogen 46 mg/dL (9-16); Calcium 8.2 mg/dL (8.4-10.2); Carbon Dioxide 22 mmol/L (22-29); Chloride 81 mmol/L (96-108); Creatinine Clr Calc Pharmacy 119.1; Estimated Glomerular Filt Rate > 60; Glucose Random 169 mg/dL (60-115); Potassium 3.5 mmol/L (3.3-5.1); Sodium 117 mmol/L (135-145)
--- NOTE | 2022-01-21 09:12 | PHA.MEDREC ---
Pharmacy Consult ? Medication Reconciliation Pharmacy has completed the medication reconciliation.
[2022-01-21] MEDS: Heparin Sodium,Porcine 5,000 UNIT/ML VIAL 2700 UNIT IVPUSH ×2 (09:14→23:27)
--- NOTE | 2022-01-21 09:15 | PC.NURSE ---
Patient given a 2700 bolus of heparin and rate increased to 14units /kg/hr per protocol r/t appt of 47.3 . No bruising or bleeding noted at this time . patient aware of plan of care .
[2022-01-21 09:24] LABS: Anion Gap 19 (12-20); Blood Urea Nitrogen 46 mg/dL (9-16); Calcium 8.4 mg/dL (8.4-10.2); Carbon Dioxide 23 mmol/L (22-29); Chloride 81 mmol/L (96-108); Estimated Glomerular Filt Rate > 60; Glucose Random 161 mg/dL (60-115); Sodium 119 mmol/L (135-145)
--- NOTE | 2022-01-21 11:10 | P.HPHOSP_ITS ---
History of Present Illness Date of Service: 01/21/22 Chief Complaint: shortness of breath, confusion a 66 years old male with PMH of lung cancers post lobectomy with recurrence on palliative chemo, HTN, GERD among others who presents to the hospital after 1st chemotherapy with shortness of breath and confusion. The patient reports not remembering how did he end up in the emergency. He went for his 1st palliative chemotherapy session. Could not provide any meaningful history about what happened after that point. According to medical staff from the emergency the patient presented with difficulty breathing and confusion, lethargy with tachycardia. Next Lyme blood work was consistent with hyponatremia of 116. Started on IV fluids after discussing with Nephrology by ED provider. Admitted for further evaluation and treatment. Review of Systems Review of Systems: No fever, chills But reports generalized weakness No chest pain, palpitation No shortness of breath or coughing No abdominal pain, nausea or vomiting No urinary symptoms No any rash or wounds PMFSH Medical History Benign essential HTN Gastro-esophageal reflux disease without esophagitis History of bladder cancer (~2014) History of lung cancer (~1998) Lung cancer Lymphadenopathy, mediastinal Other seasonal allergic rhinitis Tubular adenoma of colon (~2016) Family History Father Medical history unknown Mother Breast cancer Sister Lung cancer Surgical History History of bladder surgery (~2014) History of bronchoscopy (~2021) History of colonoscopy History of left inguinal hernia repair (~2016) History of lung surgery (~1998) Social History Household Members: Significant Other Housing: House Alcohol intake: former Patient Tobacco Use Status: Former Tobacco user Quit Date: 5 years ago Tobacco use type: Cigarette e-Cigarette/Vaping Use: Never Used Second Hand Smoke Exposure: No Advance Directives: No Advance Directives Information Provided: No service: No Current occupational status: retired Cognitive needs: No Hearing needs: No Vision needs: Yes (Glasses) Meds Allergies Allergy/AdvReac Type Severity Reaction Status Date / Time No Known Allergies Allergy Verified 12/24/21 10:15 [No Known Allergies*] Active Medications: Current Medications Heparin Sodium (Porcine) (Heparin Sodium,Porcine 5,000 Unit/Ml Vial) 2,700 unit 40 unit/kg (2700 unit) IVPUSH PROTOCOL BOLUS PRN; Protocol PRN Reason: 40 unit/kg - Heparin Protocol Last Admin: 01/21/22 09:14 Dose: 2,700 unit Heparin Sodium (Porcine) (Heparin Sodium,Porcine 5,000 Unit/Ml Vial) 5,400 unit 80 unit/kg (5400 unit) IVPUSH PROTOCOL BOLUS PRN; Protocol PRN Reason: 80 unit/kg - Heparin Protocol Heparin Sodium (Porcine) (Heparin Sodium,Porcine 5,000 Unit/Ml Vial) 5,000 unit SUBCUT Q8H VELMA Heparin Sodium/Sodium Chloride (Heparin Sodium,Porcine/1/2ns) 25,000 unit in 250 mls @ 0 mls/hr IVCONT .Q0M VELMA; Protocol Last Titration: 01/21/22 09:07 Dose: 14 units/kg/hr, 9.51 mls/hr Pharmacy Consult (Consult Rx Perform Med Rec) 1 each MISCELLANE ONCE PRN PRN Reason: Consult order Sodium Chloride (0.9 % Sodium Chloride Flush 3 Ml Syringe) 3 ml IVFLUSH QSHIFT [facility] Home Medications Medication Instructions Recorded Confirmed Last Taken Type dexamethasone 4 mg tablet 4 mg PO BID PRN post chemo x 2 days 01/21/22 01/21/22 Unknown History (Decadron) Physical Exam Vital Signs and Narrative: Vital Signs: Last Vital Signs Temp 97.8 F 01/21/22 07:36 Pulse 91 01/21/22 07:36 Resp 18 01/21/22 07:36 BP 119/76 01/21/22 07:36 Pulse Ox 97 01/21/22 07:36 O2 Del Method 01/21/22 07:36 O2 Flow Rate 3 01/21/22 07:32 BMI result Body Mass Index 22.7 Results Labs CBC and Chem 7: 01/20/22 21:13 01/21/22 11:40 Labs: Laboratory Results - last 24 hr 01/20/22 01/20/22 01/20/22 21:13 21:13 21:18 MCV 92.4 MCH 33.2 H MCHC 35.9 RDW 10.9 L Plt Count 124 L D MPV 10.2 Immature Gran % (Auto) Cancelled Neut % (Auto) Cancelled Lymph % (Auto) Cancelled Calloway % (Auto) Cancelled Eos % (Auto) Cancelled Baso % (Auto) Cancelled Lymph # (Auto) Cancelled [place]ay # (Auto) Cancelled Eos # (Auto) Cancelled Baso # (Auto) Cancelled Abs Immat Gran (auto) Cancelled Absolute Neuts (auto) Cancelled Absolute Nucleated RBC 0.000 Nucleated RBC % (auto) 0.0 Neutrophils % (Manual) 58 Band Neutrophils % 18 H Lymphocytes % (Manual) 18 L Monocytes % (Manual) 6 Abs Neuts (Manual) 2.5 Lymphocytes # (Manual) 0.6 L Monocytes # (Manual) 0.2 Dohle Bodies PRESENT Platelet Estimate SLIGHTLY DECREASED Large Platelets PRESENT Plt Morphology Comment NOTED RBC Morphology NORMAL PT INR APTT aPTT Heparin Protocol D-Dimer High Sensitivty VBG pH VBG pCO2 VBG pO2 VBG HCO3 VBG O2 Saturation VBG Base Excess Anion Gap Estim Creat Clear Calc Estimated GFR POC Glucose Random Glucose Osmolality Lactic Acid 4.0 H* Lactic Acid F/U @ 2Hr Lactic Acid F/U @ 4Hr Calcium Troponin I High Sens 339.0 H* B-Natriuretic Peptide 169 H Urine Color Urine Appearance Urine pH Ur Specific [place] Urine Protein Urine Glucose (UA) Urine Ketones Urine Blood Urine Nitrite Ur Leukocyte Esterase Urine Osmolality Ur Random Sodium Ethyl Alcohol COVID-19 (MAICO) COVID-19 Clin Com 01/20/22 01/20/22 01/20/22 21:18 21:39 21:59 MCV MCH MCHC RDW Plt Count MPV Immature Gran % (Auto) Neut % (Auto) Lymph % (Auto) [place] % (Auto) Eos % (Auto) Baso % (Auto) Lymph # (Auto) Calloway # (Auto) Eos # (Auto) Baso # (Auto) Abs Immat Gran (auto) Absolute Neuts (auto) Absolute Nucleated RBC Nucleated RBC % (auto) Neutrophils % (Manual) Band Neutrophils % Lymphocytes % (Manual) Monocytes % (Manual) Abs Neuts (Manual) Lymphocytes # (Manual) Monocytes # (Manual) Dohle Bodies Platelet Estimate Large Platelets Plt Morphology Comment RBC Morphology PT 11.7 INR 1.0 APTT 29.7 aPTT Heparin Protocol D-Dimer High Sensitivty 1050 VBG pH VBG pCO2 VBG pO2 VBG HCO3 VBG O2 Saturation VBG Base Excess Anion Gap 18 Estim Creat Clear Calc 136.5 Estimated GFR > 60 POC Glucose 212 H Random Glucose 199 H D Osmolality Lactic Acid Lactic Acid F/U @ 2Hr Lactic Acid F/U @ 4Hr Calcium 8.3 L D Troponin I High Sens B-Natriuretic Peptide Urine Color Urine Appearance Urine pH Ur Specific [place] Urine Protein Urine Glucose (UA) Urine Ketones Urine Blood Urine Nitrite Ur Leukocyte Esterase Urine Osmolality Ur Random Sodium Ethyl Alcohol < 10 COVID-19 (MAICO) COVID-19 Seesmic 01/20/22 01/20/22 01/20/22 22:32 23:27 23:27 MCV MCH MCHC RDW Plt Count MPV Immature Gran % (Auto) Neut % (Auto) Lymph % (Auto) C[place] % (Auto) Eos % (Auto) Baso % (Auto) Lymph # (Auto) C[place]ay # (Auto) Eos # (Auto) Baso # (Auto) Abs Immat Gran (auto) Absolute Neuts (auto) Absolute Nucleated RBC Nucleated RBC % (auto) Neutrophils % (Manual) Band Neutrophils % Lymphocytes % (Manual) Monocytes % (Manual) Abs Neuts (Manual) Lymphocytes # (Manual) Monocytes # (Manual) Dohle Bodies Platelet Estimate Large Platelets Plt Morphology Comment RBC Morphology PT INR APTT aPTT Heparin Protocol D-Dimer High Sensitivty VBG pH VBG pCO2 VBG pO2 VBG HCO3 VBG O2 Saturation VBG Base Excess Anion Gap Estim Creat Clear Calc Estimated GFR POC Glucose Random Glucose Osmolality Lactic Acid 2.4 H* Lactic Acid F/U @ 2Hr Lactic Acid F/U @ 4Hr Calcium Troponin I High Sens 2131.5 H* D B-Natriuretic Peptide Urine Color Urine Appearance Urine pH Ur Specific [place] Urine Protein Urine Glucose (UA) Urine Ketones Urine Blood Urine Nitrite Ur Leukocyte Esterase Urine Osmolality Ur Random Sodium Ethyl Alcohol COVID-19 (MAICO) Negative COVID-[place] [facility] Navigation See Note 01/20/22 01/20/22 01/21/22 23:27 23:32 00:23 MCV MCH MCHC RDW Plt Count MPV Immature Gran % (Auto) Neut % (Auto) Lymph % (Auto) [place] % (Auto) Eos % (Auto) Baso % (Auto) Lymph # (Auto) C[place] # (Auto) Eos # (Auto) Baso # (Auto) Abs Immat Gran (auto) Absolute Neuts (auto) Absolute Nucleated RBC Nucleated RBC % (auto) Neutrophils % (Manual) Band Neutrophils % Lymphocytes % (Manual) Monocytes % (Manual) Abs Neuts (Manual) Lymphocytes # (Manual) Monocytes # (Manual) Dohle Bodies Platelet Estimate Large Platelets Plt Morphology Comment RBC Morphology PT INR APTT aPTT Heparin Protocol D-Dimer High Sensitivty VBG pH 7.38 VBG pCO2 50 VBG pO2 33 VBG HCO3 30 H VBG O2 Saturation 43.0 VBG Base Excess 3.9 Anion Gap Estim Creat Clear Calc Estimated GFR POC Glucose Random Glucose Osmolality Lactic Acid Lactic Acid F/U @ 2Hr Cancelled Lactic Acid F/U @ 4Hr Calcium Troponin I High Sens B-Natriuretic Peptide Urine Color Yellow Urine Appearance Clear Urine pH 6.0 Ur Specific [place] 1.015 Urine Protein Negative Urine Glucose (UA) 100 H Urine Ketones Negative Urine Blood Negative Urine Nitrite Negative Ur Leukocyte Esterase Negative Urine Osmolality Ur Random Sodium Ethyl Alcohol COVID-19 (MAICO) COVID-19 Seesmic 01/21/22 01/21/22 01/21/22 00:23 00:23 02:04 MCV MCH MCHC RDW Plt Count MPV Immature Gran % (Auto) Neut % (Auto) Lymph % (Auto) [place] % (Auto) Eos % (Auto) Baso % (Auto) Lymph # (Auto) C[place] # (Auto) Eos # (Auto) Baso # (Auto) Abs Immat Gran (auto) Absolute Neuts (auto) Absolute Nucleated RBC Nucleated RBC % (auto) Neutrophils % (Manual) Band Neutrophils % Lymphocytes % (Manual) Monocytes % (Manual) Abs Neuts (Manual) Lymphocytes # (Manual) Monocytes # (Manual) Dohle Bodies Platelet Estimate Large Platelets Plt Morphology Comment RBC Morphology PT INR APTT aPTT Heparin Protocol D-Dimer High Sensitivty VBG pH VBG pCO2 VBG pO2 VBG HCO3 VBG O2 Saturation VBG Base Excess Anion Gap Estim Creat Clear Calc Estimated GFR POC Glucose Random Glucose Osmolality Lactic Acid Lactic Acid F/U @ 2Hr 4.6 H* Lactic Acid F/U @ 4Hr Calcium Troponin I High Sens B-Natriuretic Peptide Urine Color Urine Appearance Urine pH Ur Specific [place] Urine Protein Urine Glucose (UA) Urine Ketones Urine Blood Urine Nitrite Ur Leukocyte Esterase Urine Osmolality 276 L Ur Random Sodium 74.0 Ethyl Alcohol COVID-19 (MAICO) COVID-19 Seesmic 01/21/22 01/21/22 01/21/22 04:30 04:30 04:30 MCV MCH MCHC RDW Plt Count MPV Immature Gran % (Auto) Neut % (Auto) Lymph % (Auto) [place] % (Auto) Eos % (Auto) Baso % (Auto) Lymph # (Auto) [place] # (Auto) Eos # (Auto) Baso # (Auto) Abs Immat Gran (auto) Absolute Neuts (auto) Absolute Nucleated RBC Nucleated RBC % (auto) Neutrophils % (Manual) Band Neutrophils % Lymphocytes % (Manual) Monocytes % (Manual) Abs Neuts (Manual) Lymphocytes # (Manual) Monocytes # (Manual) Dohle Bodies Platelet Estimate Large Platelets Plt Morphology Comment RBC Morphology PT INR APTT aPTT Heparin Protocol D-Dimer High Sensitivty VBG pH VBG pCO2 VBG pO2 VBG HCO3 VBG O2 Saturation VBG Base Excess Anion Gap 19 Estim Creat Clear Calc 119.1 Estimated GFR > 60 POC Glucose Random Glucose 166 H Osmolality 244 L Lactic Acid Lactic Acid F/U @ 2Hr Lactic Acid F/U @ 4Hr 2.7 H* Calcium 7.7 L D Troponin I High Sens B-Natriuretic Peptide Urine Color Urine Appearance Urine pH Ur Specific [place] Urine Protein Urine Glucose (UA) Urine Ketones Urine Blood Urine Nitrite Ur Leukocyte Esterase Urine Osmolality Ur Random Sodium Ethyl Alcohol COVID-19 (MAICO) COVID-19 Seesmic 01/21/22 01/21/22 01/21/22 07:31 08:18 08:18 MCV MCH MCHC RDW Plt Count MPV Immature Gran % (Auto) Neut % (Auto) Lymph % (Auto) [place] % (Auto) Eos % (Auto) Baso % (Auto) Lymph # (Auto) [place] # (Auto) Eos # (Auto) Baso # (Auto) Abs Immat Gran (auto) Absolute Neuts (auto) Absolute Nucleated RBC Nucleated RBC % (auto) Neutrophils % (Manual) Band Neutrophils % Lymphocytes % (Manual) Monocytes % (Manual) Abs Neuts (Manual) Lymphocytes # (Manual) Monocytes # (Manual) Dohle Bodies Platelet Estimate Large Platelets Plt Morphology Comment RBC Morphology PT INR APTT aPTT Heparin Protocol 47.3 L D-Dimer High Sensitivty VBG pH VBG pCO2 VBG pO2 VBG HCO3 VBG O2 Saturation VBG Base Excess Anion Gap 18 Estim Creat Clear Calc 119.1 Estimated GFR > 60 POC Glucose 148 H Random Glucose 169 H Osmolality Lactic Acid Lactic Acid F/U @ 2Hr Lactic Acid F/U @ 4Hr Calcium 8.2 L D Troponin I High Sens B-Natriuretic Peptide Urine Color Urine Appearance Urine pH Ur Specific [place] Urine Protein Urine Glucose (UA) Urine Ketones Urine Blood Urine Nitrite Ur Leukocyte Esterase Urine Osmolality Ur Random Sodium Ethyl Alcohol COVID-19 (MAICO) COVID-19 Clin Com 01/21/22 08:43 MCV MCH MCHC RDW Plt Count MPV Immature Gran % (Auto) Neut % (Auto) Lymph % (Auto) [place] % (Auto) Eos % (Auto) Baso % (Auto) Lymph # (Auto) [place] # (Auto) Eos # (Auto) Baso # (Auto) Abs Immat Gran (auto) Absolute Neuts (auto) Absolute Nucleated RBC Nucleated RBC % (auto) Neutrophils % (Manual) Band Neutrophils % Lymphocytes % (Manual) Monocytes % (Manual) Abs Neuts (Manual) Lymphocytes # (Manual) Monocytes # (Manual) Dohle Bodies Platelet Estimate Large Platelets Plt Morphology Comment RBC Morphology PT INR APTT aPTT Heparin Protocol D-Dimer High Sensitivty VBG pH VBG pCO2 VBG pO2 VBG HCO3 VBG O2 Saturation VBG Base Excess Anion Gap 19 Estim Creat Clear Calc 115.0 Estimated GFR > 60 POC Glucose Random Glucose 161 H Osmolality Lactic Acid Lactic Acid F/U @ 2Hr Lactic Acid F/U @ 4Hr Calcium 8.4 Troponin I High Sens B-Natriuretic Peptide Urine Color Urine Appearance Urine pH Ur Specific [place] Urine Protein Urine Glucose (UA) Urine Ketones Urine Blood Urine Nitrite Ur Leukocyte Esterase Urine Osmolality Ur Random Sodium Ethyl Alcohol COVID-19 (MAICO) COVID-19 Clin Com Imaging Radiologist's Impressions: Impressions Chest X-Ray 01/20/22 22:03 IMPRESSION: 1. No evidence of overt pulmonary edema or appreciable pleural effusions. 2. Right apical mass appears perhaps slightly smaller though there is increased airspace opacity/consolidation in the right mid upper lung which may represent postobstructive atelectasis or pneumonia. 3. Small bilateral pulmonary nodules, presumably pulmonary metastasis. 4. Curvilinear nodular density projecting over the left upper lung, not seen previously. Uncertain as to whether not this is artifactual versus a new cavitary nodule. Chest CTA 01/21/22 00:01 IMPRESSION: 1. No pulmonary embolus identified. 2. Redemonstrated large right upper lobe lung mass, grossly similar to 01/06/2022, though surrounding areas of consolidation appear slightly more extensive. 3. Redemonstrated infiltrating, masslike density throughout the mediastinum and right hilum, resulting in mass effect and narrowing of the right main and upper lobe pulmonary arteries. The SVC also appears narrowed though remains patent. 4. Several bilateral lung nodules again noted, with measurements limited due to respiratory motion artifact; appearance is grossly similar to prior. 5. Increased bronchial wall thickening, which could represent acute bronchitis. 6. Trace pleural effusions. VTE: negative Assessment and Plan (1) NSTEMI (non-ST elevated myocardial infarction): Status: Acute (2) Lung cancer: Status: Acute (3) Acute exacerbation of chronic obstructive airways disease: Status: Acute (4) Pneumonia: Status: Acute (5) Syndrome of inappropriate ADH (SIADH) secretion: Status: Acute (6) Acute hyponatremia: Status: Acute Plan a 66 years old male with PMH of lung cancers post lobectomy with recurrence on palliative chemo, HTN, GERD among others who presents to the hospital after 1st chemotherapy with shortness of breath and confusion. acute hypoxic respiratory failure secondary to multifocal pneumonia and COPD exacerbation A result of recurrent lung cancer continue oxygen supplement, wean down as tolerated Pending cultures Broad-spectrum antibiotics Bronchodilator nebulizers Oncology consult NSTEMI Elevated troponin No chest pain, new EKG suggestive of ACS Likely type 2 NSTEMI Cardiology input appreciated, DC heparin drip Continue aspirin and statin , avoid beta-remi Acute severe Hyponatremia with Metabolic encephalopathy Sodium of 116 at presentation Nephrology consulted, received sodium supplement and Lasix Consider urea Goal of correction 6-8 Q 24 hours Follow BMP q.6 Metastatic lung cancer On palliative chemotherapy Associated with pneumonia Oncology team following HTN Hold lisinopril DVT PPX Lovenox The patient will need overnight hospital stay to continue treatment for severe hyponatremia, hypoxic failure from pneumonia to prevent possible decompensation in the sepsis pending safe discharge plan. Quality Stroke Does the patient have a stroke diagnosis?: No VTE Prior VTE?: No VTE Risk Level:: Medical - moderate - high VTE Device Contraindication: Treatment Not Indicated VTE Drug Contraindication: N/A - Med Ordered
[2022-01-21 12:33] LABS: Glucose, Whole Blood 138 mg/dL (60-115)
[2022-01-21 12:51] LABS: Anion Gap 21 (12-20); Blood Urea Nitrogen 33 mg/dL (9-16); Calcium 8.8 mg/dL (8.4-10.2); Carbon Dioxide 23 mmol/L (22-29); Chloride 81 mmol/L (96-108); Creatinine Clr Calc Pharmacy 104.4; Estimated Glomerular Filt Rate > 60; Glucose Random 137 mg/dL (60-115); Potassium 4.4 mmol/L (3.3-5.1); Sodium 121 mmol/L (135-145)
--- NOTE | 2022-01-21 13:09 | P.CONCA_ITS ---
History of Present Illness History of Present Illness Date of Service: 01/21/22 Requesting physician: Radha Baker Consult reason: troponin elevation Chief complaint: SOB, confusion Narrative: I was consulted to see yang in cardiology consultation today because of elevated troponins. Patient is not a very good historian. History mostly obtained from the chart. Patient says his goal friend called the ambulance because he is not sure as to why. From the ED note says that he was having increasing shortness of breath with confusion lethargy and respiratory distress. When he came to the Emergency was noted to be tachycardic as well as respiratory distress and was subsequently put on non-rebreather. Currently patient appears to be more alert. He was noted to be acidotic with lactic acidosis as well as hypoxic and troponins were done. There are no reported episodes of chest pain. Patient denies any history of chest pain. Troponins have been rising consistent with NSTEMI. IV heparin was started. Patient currently appears more comfortable than when he came in. Admitting diagnosis being lactic acidosis most likely h ypoxic from acute pulmonary issue. He has history of advanced lung cancer with metastatic disease currently as per him receiving chemotherapy. He has no prior history of heart disease as per him. He does have high blood pressure, anxiety. Denies history of COPD. His EKG does not show any signs of acute ischemic changes. Troponin initially at 21:13 was 339 and subsequently at 11:27 was 05/08/2030. His lactic acid level was still elevated 2.7. He is markedly hyponatremic. Chest CT was negative for pulmonary embolism. Shows diffuse lung nodules and right upper lobe mass with extensive mediastinal lymphadenopathy. There is also evidence of coronary calcification. Review of Systems Constitutional: Constitutional: Reports no additional constitutional complaints Cardiovascular: Cardiovascular: Denies chest pain, Denies lightheadedness, Denies Loss of Consciousness, Denies palpitations and Reports dyspnea on exertion Respiratory: Respiratory: Reports cough, Reports dyspnea on exertion and Reports wheezing Gastrointestinal: Gastrointestinal: Reports no additional gastrointestinal complaints Musculoskeletal: Musculoskeletal: Reports no additional musculoskeletal complaints Integumentary/Breasts: Skin/Breast: Reports system reviewed and no additional complaints, except as docu Neurologic: Reports system reviewed and no additional complaints, except as documented Psychiatric: Psychiatric: Reports no additional psychiatric complaints Endocrine: Endocrine: Reports no additional endocrine complaints and Denies palpitations Hematologic/Lymphatic: Hematologic/Lymphatic: Reports no additional hematologic/lymphatic complaints Allergic/Immunologic: Allergic/Immunologic: Reports no additional allergic/immunologic complaints and Reports wheezing PMFSH Past Medical History Medical History Benign essential HTN Gastro-esophageal reflux disease without esophagitis History of bladder cancer (~2014) History of lung cancer (~1998) Lung cancer Lymphadenopathy, mediastinal Other seasonal allergic rhinitis Tubular adenoma of colon (~2016) Family History Family History Father Medical history unknown Mother Breast cancer Sister Lung cancer Surgical History Surgical History History of bladder surgery (~2014) History of bronchoscopy (~2021) History of colonoscopy History of left inguinal hernia repair (~2016) History of lung surgery (~1998) Social History Social History Household Members: Significant Other Housing: House Alcohol intake: former Patient Tobacco Use Status: Former Tobacco user Quit Date: 5 years ago Tobacco use type: Cigarette e-Cigarette/Vaping Use: Never Used Second Hand Smoke Exposure: No Advance Directives: No Advance Directives Information Provided: No service: No Current occupational status: retired Cognitive needs: No Hearing needs: No Vision needs: Yes (Glasses) Meds Allergies Allergy/AdvReac Type Severity Reaction Status Date / Time No Known Allergies Allergy Verified 12/24/21 10:15 [No Known Allergies*] Active Medications: Current Medications Acetaminophen (Acetaminophen 325 Mg Tablet) 650 mg PO Q6H PRN PRN Reason: Pain, Mild (Pain Scale 1-3) Dexamethasone (Dexamethasone 4 Mg Tablet) 4 mg PO BID PRN PRN Reason: post chemo x 2 days Heparin Sodium (Porcine) (Heparin Sodium,Porcine 5,000 Unit/Ml Vial) 2,700 unit 40 unit/kg (2700 unit) IVPUSH PROTOCOL BOLUS PRN; Protocol PRN Reason: 40 unit/kg - Heparin Protocol Last Admin: 01/21/22 09:14 Dose: 2,700 unit Heparin Sodium (Porcine) (Heparin Sodium,Porcine 5,000 Unit/Ml Vial) 5,400 unit 80 unit/kg (5400 unit) IVPUSH PROTOCOL BOLUS PRN; Protocol PRN Reason: 80 unit/kg - Heparin Protocol Heparin Sodium/Sodium Chloride (Heparin Sodium,Porcine/1/2ns) 25,000 unit in 250 mls @ 0 mls/hr IVCONT .Q0M [facility]; Protocol Last Titration: 01/21/22 09:07 Dose: 14 units/kg/hr, 9.51 mls/hr Lisinopril (Lisinopril 20 Mg Tablet) 20 mg PO DAILY [facility]; Protocol Ondansetron HCl (Ondansetron Hcl 4 Mg/2 Ml Vial) 4 mg IVPUSH Q8H PRN PRN Reason: Nausea and Vomiting Pharmacy Consult (Consult Rx Perform Med Rec) 1 each MISCELLANE ONCE PRN PRN Reason: Consult order Sodium Chloride (0.9 % Sodium Chloride Flush 3 Ml Syringe) 3 ml IVFLUSH QSHIFT [facility] Home Medications Medication Instructions Recorded Confirmed Last Taken Type dexamethasone 4 mg tablet 4 mg PO BID PRN post chemo x 2 days 01/21/22 01/21/22 Unknown History (Decadron) Physical Exam Vital Signs: Vital Signs: Last Vital Signs Temp 97.3 F 01/21/22 12:09 Pulse 95 01/21/22 12:09 Resp 20 01/21/22 12:09 BP 123/79 01/21/22 12:09 Pulse Ox 92 01/21/22 12:09 O2 Del Method 01/21/22 12:09 O2 Flow Rate 3 01/21/22 12:09 BMI result Body Mass Index 22.7 Const: General: cooperative, in distress mild and respiratory and ill appearing Nutritional Appearance: cachectic and underweight Orientation/consciousness: patient oriented x3 HEENT: Head: Yes normocephalic and Yes atraumatic Neck: Neck: Yes trachea midline, Yes supple and Yes no JVD Resp: Effort & Inspection: normal respiratory effort Auscultation: wheezes throughout Cardio: Jugular venous distension: no JVD Palpation: normal PMI Rate: regular rate Rhythm: regular rhythm Heart sounds: S1 normal heart sound pr esent, S2 normal heart sound present, no click, no gallops, no murmurs and no rubs GI: Auscultation: normal bowel sounds Skin: General skin exam: no rashes or lesions noted and ecchymosis Neuro: General: patient oriented x3 and no focal motor deficits Extrem: General: Yes no clubbing, cyanosis or edema Objective Labs and Meds Result diagrams: 01/20/22 21:13 01/21/22 11:40 Lab results: Laboratory Results - last 24 hr 01/20/22 01/20/22 01/20/22 21:13 21:13 21:18 WBC 3.3 L RBC 4.34 L Hgb 14.4 Hct 40.1 L MCV 92.4 MCH 33.2 H MCHC 35.9 RDW 10.9 L Plt Count 124 L D MPV 10.2 Immature Gran % (Auto) Cancelled Neut % (Auto) Cancelled Lymph % (Auto) Cancelled [place] % (Auto) Cancelled Eos % (Auto) Cancelled Baso % (Auto) Cancelled Lymph # (Auto) Cancelled [place] # (Auto) Cancelled Eos # (Auto) Cancelled Baso # (Auto) Cancelled Abs Immat Gran (auto) Cancelled Absolute Neuts (auto) Cancelled Absolute Nucleated RBC 0.000 Nucleated RBC % (auto) 0.0 Neutrophils % (Manual) 58 Band Neutrophils % 18 H Lymphocytes % (Manual) 18 L Monocytes % (Manual) 6 Abs Neuts (Manual) 2.5 Lymphocytes # (Manual) 0.6 L Monocytes # (Manual) 0.2 Dohle Bodies PRESENT Platelet Estimate SLIGHTLY DECREASED Large Platelets PRESENT Plt Morphology Comment NOTED RBC Morphology NORMAL PT INR APTT aPTT Heparin Protocol D-Dimer High Sensitivty VBG pH VBG pCO2 VBG pO2 VBG HCO3 VBG O2 Saturation VBG Base Excess Sodium Potassium Chloride Carbon Dioxide Anion Gap BUN Creatinine Estim Creat Clear Calc Estimated GFR POC Glucose Random Glucose Osmolality Lactic Acid 4.0 H* Lactic Acid F/U @ 2Hr Lactic Acid F/U @ 4Hr Calcium Troponin I High Sens 339.0 H* B-Natriuretic Peptide 169 H Urine Color Urine Appearance Urine pH Ur Specific [place] Urine Protein Urine Glucose (UA) Urine Ketones Urine Blood Urine Nitrite Ur Leukocyte Esterase Urine Osmolality Ur Random Sodium Ethyl Alcohol COVID-19 ([facility]) COVID-19 Clin Com 01/20/22 01/20/22 01/20/22 21:18 21:39 21:59 WBC RBC Hgb Hct MCV MCH MCHC RDW Plt Count MPV Immature Gran % (Auto) Neut % (Auto) Lymph % (Auto) [place] % (Auto) Eos % (Auto) Baso % (Auto) Lymph # (Auto) [place] # (Auto) Eos # (Auto) Baso # (Auto) Abs Immat Gran (auto) Absolute Neuts (auto) Absolute Nucleated RBC Nucleated RBC % (auto) Neutrophils % (Manual) Band Neutrophils % Lymphocytes % (Manual) Monocytes % (Manual) Abs Neuts (Manual) Lymphocytes # (Manual) Monocytes # (Manual) Dohle Bodies Platelet Estimate Large Platelets Plt Morphology Comment RBC Morphology PT 11.7 INR 1.0 APTT 29.7 aPTT Heparin Protocol D-Dimer High Sensitivty 1050 VBG pH VBG pCO2 VBG pO2 VBG HCO3 VBG O2 Saturation VBG Base Excess Sodium 116 L* Potassium 4.4 Chloride 75 L Carbon Dioxide 25 Anion Gap 18 BUN 8 L D Creatinine 0.55 Estim Creat Clear Calc 136.5 Estimated GFR > 60 POC Glucose 212 H Random Glucose 199 H D Osmolality Lactic Acid Lactic Acid F/U @ 2Hr Lactic Acid F/U @ 4Hr Calcium 8.3 L D Troponin I High Sens B-Natriuretic Peptide Urine Color Urine Appearance Urine pH Ur Specific [place] Urine Protein Urine Glucose (UA) Urine Ketones Urine Blood Urine Nitrite Ur Leukocyte Esterase Urine Osmolality Ur Random Sodium Ethyl Alcohol < 10 COVID-19 ([facility]) COVID-19 Clin Com 01/20/22 01/20/22 01/20/22 22:32 23:27 23:27 WBC RBC Hgb Hct MCV MCH MCHC RDW Plt Count MPV Immature Gran % (Auto) Neut % (Auto) Lymph % (Auto) [place] % (Auto) Eos % (Auto) Baso % (Auto) Lymph # (Auto) [place] # (Auto) Eos # (Auto) Baso # (Auto) Abs Immat Gran (auto) Absolute Neuts (auto) Absolute Nucleated RBC Nucleated RBC % (auto) Neutrophils % (Manual) Band Neutrophils % Lymphocytes % (Manual) Monocytes % (Manual) Abs Neuts (Manual) Lymphocytes # (Manual) Monocytes # (Manual) Dohle Bodies Platelet Estimate Large Platelets Plt Morphology Comment RBC Morphology PT INR APTT aPTT Heparin Protocol D-Dimer High Sensitivty VBG pH VBG pCO2 VBG pO2 VBG HCO3 VBG O2 Saturation VBG Base Excess Sodium Potassium Chloride Carbon Dioxide Anion Gap BUN Creatinine Estim Creat Clear Calc Estimated GFR POC Glucose Random Glucose Osmolality Lactic Acid 2.4 H* Lactic Acid F/U @ 2Hr Lactic Acid F/U @ 4Hr Calcium Troponin I High Sens 2131.5 H* D B-Natriuretic Peptide Urine Color Urine Appearance Urine pH Ur Specific [place] Urine Protein Urine Glucose (UA) Urine Ketones Urine Blood Urine Nitrite Ur Leukocyte Esterase Urine Osmolality Ur Random Sodium Ethyl Alcohol COVID-19 ([facility]) Negative COVID-19 [facility] See Note 01/20/22 01/20/22 01/21/22 23:27 23:32 00:23 WBC RBC Hgb Hct MCV MCH MCHC RDW Plt Count MPV Immature Gran % (Auto) Neut % (Auto) Lymph % (Auto) [place] % (Auto) Eos % (Auto) Baso % (Auto) Lymph # (Auto) [place] # (Auto) Eos # (Auto) Baso # (Auto) Abs Immat Gran (auto) Absolute Neuts (auto) Absolute Nucleated RBC Nucleated RBC % (auto) Neutrophils % (Manual) Band Neutrophils % Lymphocytes % (Manual) Monocytes % (Manual) Abs Neuts (Manual) Lymphocytes # (Manual) Monocytes # (Manual) Dohle Bodies Platelet Estimate Large Platelets Plt Morphology Comment RBC Morphology PT INR APTT aPTT Heparin Protocol D-Dimer High Sensitivty VBG pH 7.38 VBG pCO2 50 VBG pO2 33 VBG HCO3 30 H VBG O2 Saturation 43.0 VBG Base Excess 3.9 Sodium Potassium Chloride Carbon Dioxide Anion Gap BUN Creatinine Estim Creat Clear Calc Estimated GFR POC Glucose Random Glucose Osmolality Lactic Acid Lactic Acid F/U @ 2Hr Cancelled Lactic Acid F/U @ 4Hr Calcium Troponin I High Sens B-Natriuretic Peptide Urine Color Yellow Urine Appearance Clear Urine pH 6.0 Ur Specific [place] 1.015 Urine Protein Negative Urine Glucose (UA) 100 H Urine Ketones Negative Urine Blood Negative Urine Nitrite Negative Ur Leukocyte Esterase Negative Urine Osmolality Ur Random Sodium Ethyl Alcohol COVID-19 ([facility]) COVID-19 [facility] 01/21/22 01/21/22 01/21/22 00:23 00:23 02:04 WBC RBC Hgb Hct MCV MCH MCHC RDW Plt Count MPV Immature Gran % (Auto) Neut % (Auto) Lymph % (Auto) [place] % (Auto) Eos % (Auto) Baso % (Auto) Lymph # (Auto) [place] # (Auto) Eos # (Auto) Baso # (Auto) Abs Immat Gran (auto) Absolute Neuts (auto) Absolute Nucleated RBC Nucleated RBC % (auto) Neutrophils % (Manual) Band Neutrophils % Lymphocytes % (Manual) Monocytes % (Manual) Abs Neuts (Manual) Lymphocytes # (Manual) Monocytes # (Manual) Dohle Bodies Platelet Estimate Large Platelets Plt Morphology Comment RBC Morphology PT INR APTT aPTT Heparin Protocol D-Dimer High Sensitivty VBG pH VBG pCO2 VBG pO2 VBG HCO3 VBG O2 Saturation VBG Base Excess Sodium Potassium Chloride Carbon Dioxide Anion Gap BUN Creatinine Estim Creat Clear Calc Estimated GFR POC Glucose Random Glucose Osmolality Lactic Acid Lactic Acid F/U @ 2Hr 4.6 H* Lactic Acid F/U @ 4Hr Calcium Troponin I High Sens B-Natriuretic Peptide Urine Color Urine Appearance Urine pH Ur Specific [place] Urine Protein Urine Glucose (UA) Urine Ketones Urine Blood Urine Nitrite Ur Leukocyte Esterase Urine Osmolality 276 L Ur Random Sodium 74.0 Ethyl Alcohol COVID-19 ([facility]) COVID-19 [employer] Com 01/21/22 01/21/22 01/21/22 04:30 04:30 04:30 WBC RBC Hgb Hct MCV MCH MCHC RDW Plt Count MPV Immature Gran % (Auto) Neut % (Auto) Lymph % (Auto) [place] % (Auto) Eos % (Auto) Baso % (Auto) Lymph # (Auto) [place] # (Auto) Eos # (Auto) Baso # (Auto) Abs Immat Gran (auto) Absolute Neuts (auto) Absolute Nucleated RBC Nucleated RBC % (auto) Neutrophils % (Manual) Band Neutrophils % Lymphocytes % (Manual) Monocytes % (Manual) Abs Neuts (Manual) Lymphocytes # (Manual) Monocytes # (Manual) Dohle Bodies Platelet Estimate Large Platelets Plt Morphology Comment RBC Morphology PT INR APTT aPTT Heparin Protocol D-Dimer High Sensitivty VBG pH VBG pCO2 VBG pO2 VBG HCO3 VBG O2 Saturation VBG Base Excess Sodium 118 L* Potassium 3.4 D Chloride 81 L Carbon Dioxide 21 L Anion Gap 19 BUN 9 Creatinine 0.57 Estim Creat Clear Calc 119.1 Estimated GFR > 60 POC Glucose Random Glucose 166 H Osmolality 244 L Lactic Acid Lactic Acid F/U @ 2Hr Lactic Acid F/U @ 4Hr 2.7 H* Calcium 7.7 L D Troponin I High Sens B-Natriuretic Peptide Urine Color Urine Appearance Urine pH Ur Specific [place] Urine Protein Urine Glucose (UA) Urine Ketones Urine Blood Urine Nitrite Ur Leukocyte Esterase Urine Osmolality Ur Random Sodium Ethyl Alcohol COVID-19 ([facility]) COVID-19 [facility] 01/21/22 01/21/22 01/21/22 07:31 08:18 08:18 WBC RBC Hgb Hct MCV MCH MCHC RDW Plt Count MPV Immature Gran % (Auto) Neut % (Auto) Lymph % (Auto) [place] % (Auto) Eos % (Auto) Baso % (Auto) Lymph # (Auto) [place] # (Auto) Eos # (Auto) Baso # (Auto) Abs Immat Gran (auto) Absolute Neuts (auto) Absolute Nucleated RBC Nucleated RBC % (auto) Neutrophils % (Manual) Band Neutrophils % Lymphocytes % (Manual) Monocytes % (Manual) Abs Neuts (Manual) Lymphocytes # (Manual) Monocytes # (Manual) Dohle Bodies Platelet Estimate Large Platelets Plt Morphology Comment RBC Morphology PT INR APTT aPTT Heparin Protocol 47.3 L D-Dimer High Sensitivty VBG pH VBG pCO2 VBG pO2 VBG HCO3 VBG O2 Saturation VBG Base Excess Sodium 117 L* Potassium 3.5 Chloride 81 L Carbon Dioxide 22 Anion Gap 18 BUN 46 H D Creatinine 0.57 Estim Creat Clear Calc 119.1 Estimated GFR > 60 POC Glucose 148 H Random Glucose 169 H Osmolality Lactic Acid Lactic Acid F/U @ 2Hr Lactic Acid F/U @ 4Hr Calcium 8.2 L D Troponin I High Sens B-Natriuretic Peptide Urine Color Urine Appearance Urine pH Ur Specific [place] Urine Protein Urine Glucose (UA) Urine Ketones Urine Blood Urine Nitrite Ur Leukocyte Esterase Urine Osmolality Ur Random Sodium Ethyl Alcohol COVID-19 ([facility]) COVID-19 [facility] 01/21/22 01/21/22 01/21/22 08:43 11:40 12:29 WBC RBC Hgb Hct MCV MCH MCHC RDW Plt Count MPV Immature Gran % (Auto) Neut % (Auto) Lymph % (Auto) [place] % (Auto) Eos % (Auto) Baso % (Auto) Lymph # (Auto) [place] # (Auto) Eos # (Auto) Baso # (Auto) Abs Immat Gran (auto) Absolute Neuts (auto) Absolute Nucleated RBC Nucleated RBC % (auto) Neutrophils % (Manual) Band Neutrophils % Lymphocytes % (Manual) Monocytes % (Manual) Abs Neuts (Manual) Lymphocytes # (Manual) Monocytes # (Manual) Dohle Bodies Platelet Estimate Large Platelets Plt Morphology Comment RBC Morphology PT INR APTT aPTT Heparin Protocol D-Dimer High Sensitivty VBG pH VBG pCO2 VBG pO2 VBG HCO3 VBG O2 Saturation VBG Base Excess Sodium 119 L* 121 L Potassium 4.0 4.4 Chloride 81 L 81 L Carbon Dioxide 23 23 Anion Gap 19 21 H BUN 46 H 33 H Creatinine 0.59 0.65 Estim Creat Clear Calc 115.0 104.4 Estimated GFR > 60 > 60 POC Glucose 138 H Random Glucose 161 H 137 H Osmolality Lactic Acid Lactic Acid F/U @ 2Hr Lactic Acid F/U @ 4Hr Calcium 8.4 8.8 Troponin I High Sens B-Natriuretic Peptide Urine Color Urine Appearance Urine pH Ur Specific [place] Urine Protein Urine Glucose (UA) Urine Ketones Urine Blood Urine Nitrite Ur Leukocyte Esterase Urine Osmolality Ur Random Sodium Ethyl Alcohol COVID-19 ([facility]) COVID-19 Clin Com Imaging Radiologist's impression: Impressions Chest X-Ray 01/20/22 22:03 IMPRESSION: 1. No evidence of overt pulmonary edema or appreciable pleural effusions. 2. Right apical mass appears perhaps slightly smaller though there is increased airspace opacity/consolidation in the right mid upper lung which may represent postobstructive atelectasis or pneumonia. 3. Small bilateral pulmonary nodules, presumably pulmonary metastasis. 4. Curvilinear nodular density projecting over the left upper lung, not seen previously. Uncertain as to whether not this is artifactual versus a new cavitary nodule. Chest CTA 01/21/22 00:01 IMPRESSION: 1. No pulmonary embolus identified. 2. Redemonstrated large right upper lobe lung mass, grossly similar to 01/06/2022, though surrounding areas of consolidation appear slightly more extensive. 3. Redemonstrated infiltrating, masslike density throughout the mediastinum and right hilum, resulting in mass effect and narrowing of the right main and upper lobe pulmonary arteries. The SVC also appears narrowed though remains patent. 4. Several bilateral lung nodules again noted, with measurements limited due to respiratory motion artifact; appearance is grossly similar to prior. 5. Increased bronchial wall thickening, which could represent acute bronchitis. 6. Trace pleural effusions. VTE: negative Assessment and Plan (1) NSTEMI (non-ST elevated myocardial infarction): Status: Acute NSTEMI this appears to be secondary to his acute pulmonary condition and metabolic acidosis and hypoxemia. He does have underlying high likelihood of obstructive coronary artery disease given calcification on coronary CT. However this is not a primary event. There is no role for heparin. Continue aspirin and statin therapy. However is overall medical situation is limited by his extensive malignancy. This needs to be discussed. Would avoid beta-blockers given his extensive bronchospastic airway disease. Continue treat his underly ing pulmonary situation with bronchospastic airway disease with pulmonary specific bronchodilators and antibiotics as needed. Overall prognosis is guarded. From cardiac perspective will sign of the case. Thank you for allowing me to partake in his care Procedures Date of Service Date of Service: 01/21/22
--- NOTE | 2022-01-21 14:57 | PM.HEMONCCN ---
Subjective - Subjective Chief complaint: Weakness Patient: known to practice within the last 3 years Consult date: 01/21/22 Requesting Physician: Dr. 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 He had CT chest in November 2021 which revealed large right upper lobe central mass with surrounding surgical clips measuring 8 x 6.5 cm inseparable from enlarged right hilar and mediastinal lymph nodes. Largest conglomerate of mediastinal lymph node measuring 4 x 6 cm. There is narrowing of right pulmonary artery from mass but no pulmonary embolism. SVC is anterior to the mass and patent. No pleural effusion. There is right upper lobe focal pleural thickening. Upper abdomen imaging shows a 6.5 x 5.6 cm necrotic left adrenal lesion. Multiple bilateral new pulmonary nodules seen. CT neck with contrast performed the same day showed lymphadenopathy bilaterally right greater than left 5B station consistent with metastatic disease. PET-CT performed 01/06/2022 showed large right upper lobe pulmonary mass, intensely FDG avid mass in the mediastinum with metastatic extension of tumor. Bilateral perihilar paratracheal and subcarinal lymph nodes. FDG avid right supraclavicular lymph node and multiple bilateral FDG avid pulmonary nodules representing metastatic disease. CT brain with contrast was negative for metastasis. Patient refused MRI. Carboplatin/Taxol and pembrolizumab based on phase 3 keynote-407 trial started on 01/15/2022. HPI - Consult Narrative Reason for consult: Patient with lung cancer, hyponatremia Narrative: Luis Miguel Isbell is a 66 year old male with a history of metastatic lung currently receiving chemotherapy was brought in because of generalized weakness. He reports persistent shortness of breath, loss of appetite and weakness. He is not a good historian. He received 1st cycle of chemotherapy on 01/15/2022. He was brought in by ambulance because his girlfriend notice that he was not making much sense and had not eaten or had much fluids in the last few days. He denies any nausea emesis, abdominal pain or diarrhea. He denies fever or chills. Blood work on 01/20/2022 showed hyponatremia with a sodium of 116. Previously it was 129 therefore it had been gradually decreasing. He underwent CT head with contrast on 01/19/2022 which was negative for metastatic disease. CT angiogram was negative for pulmonary embolism. Review of Systems - Constitutional Reports as per HPI, Reports fatigue, Reports malaise, Reports poor appetite, Reports weakness - Respiratory Reports no additional respiratory complaints, Reports chest congestion, Reports cough, Reports dyspnea - Gastrointestinal Reports no additional gastrointestinal complaints, Denies bloating, Denies bright, red blood in stools - Neurologic Reports no additional neurologic complaints Oncology Screenings - ECOG Performance Status ECOG Performance Status: 2 [facility] Medical History: Medical History (Last Reviewed 01/21/22 @ 14:33 by Radha Baker MD) Benign essential HTN Gastro-esophageal reflux disease without esophagitis History of bladder cancer Onset Date: ~2014 History of lung cancer Onset Date: ~1998 Lung cancer Lymphadenopathy, mediastinal Other seasonal allergic rhinitis Tubular adenoma of colon Onset Date: ~2016 Family History: Family History (Last Reviewed 01/21/22 @ 14:33 by Radha Baker MD) Father Medical history unknown Mother Breast cancer Sister Lung cancer Surgical History: Surgical History (Last Reviewed 01/21/22 @ 14:33 by Radha Baker MD) History of bladder surgery Onset Date: ~2014 History of bronchoscopy Onset Date: ~2021 History of colonoscopy History of left inguinal hernia repair Onset Date: ~2016 History of lung surgery Onset Date: ~1998 Social History: Social History (Last Reviewed 01/21/22 @ 14:33 by Radha Baker MD) Living Situation History: Household Members: Spouse Housing: House Do you presently have visiting nurse or other home services: No Tobacco History: Patient Tobacco Use Status: Former Tobacco user Tobacco use type: Cigarette Smoke Quit Date: 5 years ago e-Cigarette/Vaping Use: Never Used Second Hand Smoke Exposure: No Occupation Assessmet: service: No Current occupational status: retired Home Medications and Allergies Current Medications: Current Medications Acetaminophen (Acetaminophen 325 Mg Tablet) 650 mg PO Q6H PRN PRN Reason: Pain, Mild (Pain Scale 1-3) Albuterol/Ipratropium (Albuterol/Iprat 2.5/0.5mg 3 Ml Ampul.Neb) 3 ml INHALE RQ4H WHILE AWAKE VELMA Dexamethasone (Dexamethasone 4 Mg Tablet) 4 mg PO BID PRN PRN Reason: post chemo x 2 days Heparin Sodium (Porcine) (Heparin Sodium,Porcine 5,000 Unit/Ml Vial) 2,700 unit 40 unit/kg (2700 unit) IVPUSH PROTOCOL BOLUS PRN; Protocol PRN Reason: 40 unit/kg - Heparin Protocol Last Admin: 01/21/22 09:14 Dose: 2,700 unit Heparin Sodium (Porcine) (Heparin Sodium,Porcine 5,000 Unit/Ml Vial) 5,400 unit 80 unit/kg (5400 unit) IVPUSH PROTOCOL BOLUS PRN; Protocol PRN Reason: 80 unit/kg - Heparin Protocol Heparin Sodium/Sodium Chloride (Heparin Sodium,Porcine/1/2ns) 25,000 unit in 250 mls @ 0 mls/hr IVCONT .Q0M VELMA; Protocol Last Titration: 01/21/22 09:07 Dose: 14 units/kg/hr, 9.51 mls/hr Lisinopril (Lisinopril 20 Mg Tablet) 20 mg PO DAILY [facility]; Protocol Ondansetron HCl (Ondansetron Hcl 4 Mg/2 Ml Vial) 4 mg IVPUSH Q8H PRN PRN Reason: Nausea and Vomiting Pharmacy Consult (Consult Rx Perform Med Rec) 1 each MISCELLANE ONCE PRN PRN Reason: Consult order Sodium Chloride (0.9 % Sodium Chloride Flush 3 Ml Syringe) 3 [facility] Medications Medication Instructions Recorded Confirmed Type dexamethasone 4 mg tablet 4 mg PO BID PRN post chemo x 2 days 01/21/22 01/21/22 History (Decadron) Allergies Allergy/AdvReac Type Severity Reaction Status Date / Time No Known Allergies Allergy Verified 12/24/21 10:15 [No Known Allergies*] Physical Exam Vital signs: Vital Signs Temp 97.3 F 01/21/22 12:09 Pulse 95 01/21/22 12:09 Resp 20 01/21/22 12:09 BP 123/79 01/21/22 12:09 Pulse Ox 92 01/21/22 12:09 O2 Del Method 01/21/22 12:09 O2 Flow Rate 3 01/21/22 12:09 Intake & Output 01/20/22 01/21/22 01/21/22 18:59 06:59 18:59 Intake Total 2049 56.507 / 56.507 Balance 2049 56.507 / 56.507 Intake: Intake, IV Amount 2049 56.507 / 56.507 0.9 % Sodium Chloride 1,000 ml 1999 / 1999 @ 999 mls/hr IV .Q1H1M ONE Rx#: [id number] Piperacillin Sodium/Tazobactam 50 / 50 3.375 gm In 0.9 % Sodium Chloride 50 ml @ 100 mls/hr IV ONCE ONE Rx#:[id number] Heparin Sodium,Porcine/1/2NS 25 56.507 / 56.507 ,000 unit In 250 ml @ Per Protocol IVCONT .Q0M VELMA Rx#: [id number] Other: Weight 67.9 kg Weight 67.9 kg - Constitutional Present: mild distress, chronically ill appearing - Routine HEENT Exam Head: Present: normal inspection Eye: Present: EOMI - Routine Neck Exam Absent: lymphadenopathy - Routine Respiratory Exam Present: decreased breath sounds. Absent: accessory muscle use, rhonchi - Routine Cardiovascular Exam Cardiovascular: Present: S1, S2, tachycardia - Routine Abdominal Exam Absent: mass Hem/Onc Consult Result - Labs CBC & Chem 7: 01/23/22 06:42 01/23/22 06:42 Labs: Short CBC 01/20/22 Range/Units 21:13 WBC 3.3 L (4.8-10.8) X10*3/uL Hgb 14.4 (14.0-18.0) g/dl Hct 40.1 L (42.0-52.0) % Plt Count 124 L D (160-400) X10*3/uL BMP 01/20/22 01/21/22 01/21/22 21:39 04:30 08:18 Sodium 116 L* 118 L* 117 L* Potassium 4.4 3.4 D 3.5 Chloride 75 L 81 L 81 L Carbon Dioxide 25 21 L 22 BUN 8 L D 9 46 H D Creatinine 0.55 0.57 0.57 Calcium 8.3 L D 7.7 L D 8.2 L D 01/21/22 01/21/22 08:43 11:40 Sodium 119 L* 121 L Potassium 4.0 4.4 Chloride 81 L 81 L Carbon Dioxide 23 23 BUN 46 H 33 H Creatinine 0.59 0.65 Calcium 8.4 8.8 Urine 01/21/22 Range/Units 00:23 Urine Color Yellow Urine Appearance Clear Urine pH 6.0 (5.0-9.0) Ur Specific [place] 1.015 (1.005-1.025) Urine Protein Negative (Neg-Trace) mg/dL Urine Glucose (UA) 100 H (Negative) mg/dL Assessment and Plan Patient Active problem list reviewed?: Yes (1) Non-small cell cancer of left lung Status: Acute Assessment and plan: 1. This is a 66-year-old man with metastatic left lung cancer, squamous cell carcinoma diagnosed in November 2021. New onset hyponatremia. He underwent bronchoscopy and biopsy of right upper lung lesion, pathology-invasive squamous cell carcinoma, moderately to poorly differentiated, nonkeratinizing. Insitu squamous cell carcinoma involving bronchial mucosa. Right 4R paratracheal lymph node positive for malignancy consistent with metastatic squamous cell carcinoma. negative for ALK rearrangement, MET amplification, PTEN deletion, RET rearrangement, ROS1 rearrangement, negative for her 2, score 0, no PD-L1 expression, TP score 0%. He received his 1st dose of systemic therapy with carboplatin/Taxol and pembrolizumab on 01/15/2022. He received Neulasta on 01/16/2022. He is now presenting with worsening hyponatremia. 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 He is being given IV fluids, normal saline. I would recommend Nephrology consultation as well. His TSH was normal. Although pembrolizumab can cause hyponatremia/adrenal insufficiency, he only received 1 dose of few days ago and his hyponatremia started even before he received pembrolizumab. Patient is receiving palliative chemotherapy for stage IV disease. His prognosis is rather guarded. I thank you for this consult, will follow with you. - Time Spent With Patient Time Spent with Patient (in minutes): 15
[2022-01-21 16:32] LABS: PTT Heparin Drip 56.2 SEC (53-77.9)
[2022-01-21 16:53] LABS: Uric Acid 4.2 mg/dL (3.4-7.0)
--- NOTE | 2022-01-21 18:00 | PC.NURSE ---
Patient exhibiting increased bruising in bilateral upper extremities extremities , forearms . Hospitalist Dr. Baker contacted . no new orders at this time .
[2022-01-21] MEDS: 0.9 % Sodium Chloride Flush 3 ML SYRINGE IVFLUSH (18:04)
--- NOTE | 2022-01-21 18:16 | PC.NURSE ---
RT at bedside for treatment . patient aware of plan of care .
[2022-01-21 18:31] LABS: Anion Gap 16 (12-20); Blood Urea Nitrogen 20 mg/dL (9-16); Calcium 8.8 mg/dL (8.4-10.2); Carbon Dioxide 27 mmol/L (22-29); Chloride 83 mmol/L (96-108); Creatinine Clr Calc Pharmacy 119.1; Estimated Glomerular Filt Rate > 60; Glucose Random 110 mg/dL (60-115); Potassium 3.8 mmol/L (3.3-5.1); Sodium 122 mmol/L (135-145)
[2022-01-21] MEDS: Albuterol/Iprat 2.5/0.5MG 3 ML AMPUL.NEB INHALE (19:10)
--- NOTE | 2022-01-21 21:28 | PC.NURSE ---
call placed to [facility] and rn not available to come to the phone, no one answereing the phone at this time. message left with greeting card maker.
[2022-01-21 21:52] LABS: Glucose, Whole Blood 117 mg/dL (60-115)
[2022-01-21 23:06] LABS: PTT Heparin Drip 52.6 SEC (53-77.9)
[2022-01-21 23:26] LABS: Anion Gap 17 (12-20); Blood Urea Nitrogen 15 mg/dL (9-16); Calcium 8.7 mg/dL (8.4-10.2); Carbon Dioxide 27 mmol/L (22-29); Chloride 85 mmol/L (96-108); Creatinine Clr Calc Pharmacy 121.2; Estimated Glomerular Filt Rate > 60; Glucose Random 100 mg/dL (60-115); Potassium 3.5 mmol/L (3.3-5.1); Sodium 125 mmol/L (135-145)
[2022-01-22] VITALS (12 sets, daily range): BP systolic 92–118; BP diastolic 58–77; PULSE 76–131; RESP 15–20; TEMP 36.4–37.5; O2SAT 93–99
--- NOTE | 2022-01-22 03:31 | CONS_ITS ---
DATE OF SERVICE: REASON FOR CONSULTATION: I was asked to see the patient to assist in evaluation and management of patient's hyponatremia as reflected by serum sodium of 116 on admission last night. It has gradually increased in this morning was up to 119. HISTORY OF PRESENT ILLNESS: In summary, patient is a 66-year-old gentleman with history of lung cancer status post partial lung resection with recurrence, now on palliative chemo and history of hypertension, GERD, who comes to the hospital with increasing shortness of breath and confusion. He mentions that he has also got some chemo, although he is not too clear when he got his last chemo. As mentioned, serum sodium is 116. He denies drinking excessive amount of fluids. He denies being on a thiazide diuretic, and there is no prior history of hyponatremia. Patient has no particular complaints presently. PAST MEDICAL HISTORY: Also notable for hypertension, GERD, bladder cancer, mention made of mediastinal lymphadenopathy. MEDICATIONS: At home only thing listed is Decadron. We will need to get his outpatient medications. Current medications noted in the MAR. ALLERGIES: HE HAS NO KNOWN DRUG ALLERGIES. SOCIAL HISTORY: He has a history of smoking cigarettes and alcohol in the past. REVIEW OF SYSTEMS: As noted above. FAMILY HISTORY: Noncontributory. PHYSICAL EXAMINATION: VITAL SIGNS: Blood pressure of 123/80 with a heart rate in the 90s, afebrile. HEENT: Head is atraumatic and normocephalic. NECK: Supple. Mucous membranes are moist. LUNGS: Breath sounds bilaterally. CARDIAC: Regular rate and rhythm. ABDOMEN: Soft, nontender. EXTREMITIES: Show no edema. LABORATORY DATA: As mentioned from 8:43 a.m. this morning, sodium 119, potassium 4, chloride 81, bicarb 23, BUN 46, creatinine 0.59, and calcium 8.4. On admission, his serum sodium is 116. His urine studies showed urine osmolality 276, urine sodium of 74. IMPRESSION: A 66-YEAR-OLD PATIENT WITH LUNG CANCER RECURRENCE, ON CHEMO, WITH RELATIVELY SEVERE HYPONATREMIA. 1. Euvolemic versus hypovolemic hyponatremia. His urine studies would suggest euvolemic hyponatremia with urine sodium being 70. Nonetheless, his serum sodium has gradually improved after some IV fluids and a dose of Lasix. Need to rule out hypothyroidism as well as adrenal insufficiency with laboratory studies. He is certainly at the significant risk for having cancer-associated syndrome of inappropriate antidiuretic hormone as a cause of his hyponatremia. SUGGESTIONS: At this time include check a TSH level. Continue p.o. fluid restriction. Track urine output, renal function, and serum sodiums. Our goal is to not allow the serum sodium to increase by more than 6 to 8 mEq per 24 hours. He may need urea to help increase free water excretion. We will follow the patient closely with the team as we sort out what the next steps are in terms of managing his hyponatremia. MD MARITZA Zhong/PHAN / [phone]
[2022-01-22] MEDS: Acetaminophen 325 MG TABLET 650 MG PO (04:24)
[2022-01-22] MEDS: Metoprolol Tartrate 5 MG/5 ML VIAL IVPUSH (05:24)
[2022-01-22] MEDS: 0.9 % Sodium Chloride Flush 3 ML SYRINGE IVFLUSH ×3 (05:25→17:25)
--- NOTE | 2022-01-22 07:05 | PM.EVENT ---
Event Note Date of Service: 01/22/22 Event Note: heparin drip was discontinued as pt was noted to develope scattered bruising on his extremities
[2022-01-22 07:10] LABS: INTERNATIONAL NORM RATIO 1.1 (0.9-1.1); Prothrombin Time 12.5 SEC (10.0-13.1)
[2022-01-22 07:13] LABS: PTT Heparin Drip 30.1 SEC (53-77.9)
[2022-01-22 07:21] LABS: Hematocrit 38.5 % (42.0-52.0); Mean Corpuscular HGB Conc 36.4 g/dl (31.0-36.0); Mean Corpuscular Hemoglobin 33.3 pg (27.0-33.0); Mean Corpuscular Volume 91.7 fL (80.0-98.0); Mean Platelet Volume 10.9 fL (9.4-12.4); Platelet Count 120 X10*3/uL (160-400); Red Cell Distribution Width 11.1 % (11.0-16.0); White Blood Count 8.4 X10*3/uL (4.8-10.8)
[2022-01-22 07:36] LABS: Anion Gap 15 (12-20); Blood Urea Nitrogen 12 mg/dL (9-16); Calcium 8.8 mg/dL (8.4-10.2); Carbon Dioxide 27 mmol/L (22-29); Chloride 86 mmol/L (96-108); Creatinine Clr Calc Pharmacy 130.5; Estimated Glomerular Filt Rate > 60; Glucose Random 96 mg/dL (60-115); Potassium 3.7 mmol/L (3.3-5.1); Sodium 124 mmol/L (135-145)
[2022-01-22] MEDS: lisinopriL 20 MG TABLET PO (08:17)
[2022-01-22 08:39] LABS: Thyroid Stimulating Hormone 0.63 uIU/mL (0.32-4.0)
[2022-01-22] MEDS: Albuterol/Iprat 2.5/0.5MG 3 ML AMPUL.NEB INHALE ×4 (08:51→19:15)
--- NOTE | 2022-01-22 10:39 | PM.PNNEP ---
Subjective Subjective Date of Service: 01/22/22 Interval history: Seen and examied, event snoted Physical Exam Vital Signs: Vital Signs: Last Vital Signs Temp 97.7 F 01/22/22 07:46 Pulse 94 01/22/22 08:52 Resp 18 01/22/22 08:52 BP 111/77 01/22/22 07:46 Pulse Ox 93 01/22/22 07:46 O2 Del Method 01/22/22 07:46 O2 Flow Rate 2 01/22/22 03:55 BMI result Body Mass Index 22.7 Objective Data Labs CBC & Chem 7: 01/22/22 06:31 01/22/22 06:31 Labs: Laboratory Results - last 24 hr 01/21/22 01/21/22 01/21/22 11:40 12:29 15:51 WBC RBC Hgb Hct MCV MCH MCHC RDW Plt Count MPV Absolute Nucleated RBC Nucleated RBC % (auto) PT INR aPTT Heparin Protocol 56.2 Sodium 121 L Potassium 4.4 Chloride 81 L Carbon Dioxide 23 Anion Gap 21 H BUN 33 H Creatinine 0.65 Estim Creat Clear Calc 104.4 Estimated GFR > 60 POC Glucose 138 H Random Glucose 137 H Uric Acid 4.2 Calcium 8.8 TSH 01/21/22 01/21/22 01/21/22 17:59 21:48 22:49 WBC RBC Hgb Hct MCV MCH MCHC RDW Plt Count MPV Absolute Nucleated RBC Nucleated RBC % (auto) PT INR aPTT Heparin Protocol Sodium 122 L 125 L Potassium 3.8 3.5 Chloride 83 L 85 L Carbon Dioxide 27 27 Anion Gap 16 17 BUN 20 H 15 Creatinine 0.57 0.56 Estim Creat Clear Calc 119.1 121.2 Estimated GFR > 60 > 60 POC Glucose 117 H Random Glucose 110 100 Uric Acid Calcium 8.8 8.7 TSH 01/21/22 01/22/22 01/22/22 22:49 06:31 06:31 WBC 8.4 RBC 4.20 L Hgb 14.0 Hct 38.5 L MCV 91.7 MCH 33.3 H MCHC 36.4 H RDW 11.1 Plt Count 120 L MPV 10.9 Absolute Nucleated RBC 0.000 Nucleated RBC % (auto) 0.0 PT INR aPTT Heparin Protocol 52.6 L 30.1 L D Sodium Potassium Chloride Carbon Dioxide Anion Gap BUN Creatinine Estim Creat Clear Calc Estimated GFR POC Glucose Random Glucose Uric Acid Calcium TSH 01/22/22 01/22/22 06:31 06:31 WBC RBC Hgb Hct MCV MCH MCHC RDW Plt Count MPV Absolute Nucleated RBC Nucleated RBC % (auto) PT 12.5 INR 1.1 aPTT Heparin Protocol Sodium 124 L Potassium 3.7 Chloride 86 L Carbon Dioxide 27 Anion Gap 15 BUN 12 Creatinine 0.52 Estim Creat Clear Calc 130.5 Estimated GFR > 60 POC Glucose Random Glucose 96 Uric Acid Calcium 8.8 TSH 0.63 Microbiology Microbiology Results: Microbiology 01/20/22 21:39 Blood - Venous Blood Culture - Preliminary No growth after 24 hours. 01/20/22 21:18 Blood - Venous Blood Culture - Preliminary No growth after 24 hours. Procedures Date of Service Date of Service: 01/22/22 Assessment & Plan Assessment and plan (1) Acute hyponatremia: Status: Acute Plan Euvolemic Hyponatremia: reurrent epsiode, he admits to frinking alot of fluids and has h/o CA and most c/w combination of SIADH and excess PO fluids; also he appears malurished and may have low solutre intake which liits his ability to excerte free water Adreanl insuff and hypothy r/o REC: urea 15 gm bid; cont po fluid restriction; avoid too rapid corretion of SNA--goal is no mre than 8 meq/day WIll folow with team Time Spent With Patient Time: Total time spent is greater than 50% in coordination of care (as documented) at patient's floor/unit and/or counseling patient: Progress Note: Quality Stroke Does the patient have a stroke diagnosis?: No
[2022-01-22 11:04] LABS: Magnesium 1.8 mg/dL (1.6-2.6)
--- NOTE | 2022-01-22 11:31 | P.PNCA_ITS ---
Subjective Subjective Date of Service: 01/22/22 Principal diagnosis: NSTEMI, atrial fibrillation Interval history: Patient denying any chest pain. Developed atrial fibrillation with rapid ventricular response this morning. Repeat blood pressure on the softer side in the 90s. He denies any lightheadedness or palpitations. Denies any chest pain. Continues to be wheezing related to COPD as well as malignant disease. Review of Systems Constitutional: Reports no additional constitutional complaints Cardiovascular: Denies chest pain, Denies rapid heart rate, Denies lighthea dedness, Denies Loss of Consciousness, Denies palpitations and Reports dyspnea Respiratory: Reports dyspnea and Reports wheezing Gastrointestinal: Reports no additional gastrointestinal complaints Genitourinary: Reports no additional male genitourinary complaints Musculoskeletal: Reports no additional musculoskeletal complaints Skin/Breast: Reports system reviewed and no additional complaints, except as docu Reports system reviewed and no additional complaints, except as documented Psychiatric: Reports no additional psychiatric complaints Endocrine: Reports no additional endocrine complaints and Denies palpitations Allergic/Immunologic: Reports wheezing Physical Exam Vital Signs: Last Vital Signs Temp 97.6 F 01/22/22 11:19 Pulse 131 H 01/22/22 11:19 Resp 20 01/22/22 11:19 BP 94/63 01/22/22 11:19 Pulse Ox 95 01/22/22 11:19 O2 Del Method 01/22/22 11:19 O2 Flow Rate 2 01/22/22 11:19 BMI result Body Mass Index 22.7 Const General: cooperative, comfortable, no acute distress, alert and awake Nutritional Appearance: cachectic Orientation/consciousness: patient oriented x3 Neck Neck: Yes trachea midline, Yes supple and Yes no JVD Resp Effort & Inspection: normal respiratory effort Auscultation: wheezes throughout Cardio Jugular venous distension: no JVD Rate: tachycardic Rhythm: abnormal rhythm irregularly irregular Heart sounds: S1 normal heart sound present, S2 normal heart sound present, no click, no gallops and no murmurs GI Auscultation: normal bowel sounds Skin General skin exam: no rashes or lesions noted and ecchymosis Neuro General: patient oriented x3 and no focal motor deficits Extrem General: Yes no clubbing, cyanosis or edema Objective Labs and Meds Result diagrams: 01/22/22 06:31 01/22/22 06:31 Lab results: Laboratory Results - last 24 hr 1001/21/22 01/21/22 11:40 12:29 15:51 WBC RBC Hgb Hct MCV MCH MCHC RDW Plt Count MPV Absolute Nucleated RBC Nucleated RBC % (auto) PT INR aPTT Heparin Protocol 56.2 Sodium 121 L Potassium 4.4 Chloride 81 L Carbon Dioxide 23 Anion Gap 21 H BUN 33 H Creatinine 0.65 Estim Creat Clear Calc 104.4 Estimated GFR > 60 POC Glucose 138 H Random Glucose 137 H Uric Acid 4.2 Calcium 8.8 Magnesium TSH 01/21/22 01/21/22 01/21/22 17:59 21:48 22:49 WBC RBC Hgb Hct MCV MCH MCHC RDW Plt Count MPV Absolute Nucleated RBC Nucleated RBC % (auto) PT INR aPTT Heparin Protocol Sodium 122 L 125 L Potassium 3.8 3.5 Chloride 83 L 85 L Carbon Dioxide 27 27 Anion Gap 16 17 BUN 20 H 15 Creatinine 0.57 0.56 Estim Creat Clear Calc 119.1 121.2 Estimated GFR > 60 > 60 POC Glucose 117 H Random Glucose 110 100 Uric Acid Calcium 8.8 8.7 Magnesium TSH 01/21/22 01/22/22 01/22/22 22:49 06:31 06:31 WBC 8.4 RBC 4.20 L Hgb 14.0 Hct 38.5 L MCV 91.7 MCH 33.3 H MCHC 36.4 H RDW 11.1 Plt Count 120 L MPV 10.9 Absolute Nucleated RBC 0.000 Nucleated RBC % (auto) 0.0 PT INR aPTT Heparin Protocol 52.6 L 30.1 L D Sodium Potassium Chloride Carbon Dioxide Anion Gap BUN Creatinine Estim Creat Clear Calc Estimated GFR POC Glucose Random Glucose Uric Acid Calcium Magnesium TSH 01/22/22 01/22/22 06:31 06:31 WBC RBC Hgb Hct MCV MCH MCHC RDW Plt Count MPV Absolute Nucleated RBC Nucleated RBC % (auto) PT 12.5 INR 1.1 aPTT Heparin Protocol Sodium 124 L Potassium 3.7 Chloride 86 L Carbon Dioxide 27 Anion Gap 15 BUN 12 Creatinine 0.52 Estim Creat Clear Calc 130.5 Estimated GFR > 60 POC Glucose Random Glucose 96 Uric Acid Calcium 8.8 Magnesium 1.8 TSH 0.63 Progress Note: A&P Assessment and plan (1) NSTEMI (non-ST elevated myocardial infarction): Status: Acute Assessment and Plan: NSTEMI secondary to acute pulmonary issue with hypoxemia and acidemia. No recurrent chest pain syndrome. Continue medical management. Statins as well as continue IV heparin for 24 more hours. Eventually switch to oral anticoagulation therapy see below. Given his advanced medical disease with advanced malignancy will pursue conservative therapy. Continue rate control wheels started on Cardizem therapy. (2) Atrial fibrillation with rapid ventricular response: Status: Acute Assessment and Plan: New onset atrial fibrillation rapid ventricular response most likely due to acute medical illness being a trigger in in the setting of underlying significant COPD. At this point time will pursue rate control. Given his softer blood pressure will give him digoxin load with 0.25 mg IV push q.6 hours x3 doses. Give him IV fluids and started on Cardizem drip. If he remains with rapid ventricular response by later in the afternoon consider switching him to IV amiodarone drip with the initial bolus of 150 mg and then a standard drip as per the protocol to pursue rhythm control approach. Eventually switch is oral anticoagulation therapy to Eliquis. Will continue to follow with you Time Spent With Patient Time: Total time spent is greater than 50% in coordination of care (as documented) at patient's floor/unit and/or counseling patient: Progress Note: Quality Stroke Does the patient have a stroke diagnosis?: No Procedures Date of Service Date of Service: 01/22/22
[2022-01-22] MEDS: 0.9 % Sodium Chloride 1,000 ML 999 ML IV ×2 (11:44→13:14)
[2022-01-22] MEDS: Apixaban 5 MG TABLET PO ×2 (11:46→21:45)
[2022-01-22] MEDS: Urea 15 GM POWDER PO ×2 (11:46→21:46)
--- NOTE | 2022-01-22 12:26 | HO.PM.IMPN ---
Subjective Subjective Date of Service: 01/22/22 Interval History: Seen and evaluated this morning More alert and interactive Sodium improved to 125 Broke into AFib with RVR overnight No reported overnight events Review of Systems No fever, chills But reports generalized weakness No chest pain, reported feeling some palpitation No shortness of breath or coughing No abdominal pain, nausea or vomiting No urinary symptoms No any rash or wounds Physical Exam Vital Signs: Vital Signs: Last Vital Signs Temp 97.6 F 01/22/22 11:19 Pulse 131 H 01/22/22 11:19 Resp 20 01/22/22 11:19 BP 94/63 01/22/22 11:19 Pulse Ox 95 01/22/22 11:19 O2 Del Method 01/22/22 11:19 O2 Flow Rate 2 01/22/22 11:19 BMI result Body Mass Index 22.7 Const: Other: Constitutional : Alert, oriented, not in distress Neck : Normal inspection, Supple Cardiovascular : irregular irregular, no JVP, no lower extremity edema, tachycardia Respiratory : fair bilateral air entry, no crackles, wheezes or rhonchi Gastrointestinal: soft, lax, Normal bowel sounds, Non tender Skin : Warm, Dry Neurological : Alert & oriented to self and place, No focal deficit Objective Data Active Medications Acetaminophen (Acetaminophen 325 Mg Tablet) 650 mg PO Q6H PRN PRN Reason: Pain, Mild (Pain Scale 1-3) Last Admin: 01/22/22 04:24 Dose: 325 mg Documented By: ANDREINA Albuterol/Ipratropium (Albuterol/Iprat 2.5/0.5mg 3 Ml Ampul.Neb) 3 ml INHALE RQ4H WHILE AWAKE [facility] Last Admin: 01/22/22 11:09 Dose: 3 ml Documented By: LEOLA Apixaban (Apixaban 5 Mg Tablet) 5 mg PO BID [facility] Last Admin: 01/22/22 11:46 Dose: 5 mg Documented By: RAYMOND Dexamethasone (Dexamethasone 4 Mg Tablet) 4 mg PO BID PRN PRN Reason: post chemo x 2 days Digoxin (Digoxin 0.5 Mg/2 Ml Ampul) 0.25 mg IVPUSH Q6H [facility] Stop: 01/23/22 00:01 Digoxin (Digoxin 0.25 Mg Tablet) 0.25 mg PO DAILY [facility] Guaifenesin (Guaifenesin La 600 Mg Tab.Er.12h) 600 mg PO BID [facility] Diltiazem HCl 125 mg/ Sodium (Chloride) 125 mls @ 0 mls/hr IVCONT .Q0M [facility]; Protocol Sodium Chloride (Ns) 1,000 mls @ 999 mls/hr IV .Q1H1M [facility] Stop: 01/22/22 13:30 Last Admin: 01/22/22 11:44 Dose: 999 mls/hr Documented By: RAYMOND Lisinopril (Lisinopril 20 Mg Tablet) 20 mg PO DAILY [facility]; Protocol Last Admin: 01/22/22 08:17 Dose: 20 mg Documented By: RAYMOND Ondansetron HCl (Ondansetron Hcl 4 Mg/2 Ml Vial) 4 mg IVPUSH Q8H PRN PRN Reason: Nausea and Vomiting Pharmacy Consult (Consult Rx Perform Med Rec) 1 each MISCELLANE ONCE PRN PRN Reason: Consult order Sodium Chloride (0.9 % Sodium Chloride Flush 3 Ml Syringe) 3 ml IVFLUSH QSHIFT [facility] Last Admin: 01/22/22 08:17 Dose: 3 ml Documented By: RAYMOND Urea (Urea 15 Gm Powder) 15 gm PO BID [facility] Last Admin: 01/22/22 11:46 Dose: 15 gm Documented By: RAYMOND Labs CBC & Chem 7: 01/22/22 06:31 01/22/22 06:31 Labs: Laboratory Results - last 24 hr 01/21/22 01/21/22 01/21/22 11:40 12:29 15:51 MCV MCH MCHC RDW Plt Count MPV Absolute Nucleated RBC Nucleated RBC % (auto) PT INR aPTT Heparin Protocol 56.2 Anion Gap 21 H Estim Creat Clear Calc 104.4 Estimated GFR > 60 POC Glucose 138 H Random Glucose 137 H Uric Acid 4.2 Calcium 8.8 Magnesium TSH 01/21/22 01/21/22 01/21/22 17:59 21:48 22:49 MCV MCH MCHC RDW Plt Count MPV Absolute Nucleated RBC Nucleated RBC % (auto) PT INR aPTT Heparin Protocol Anion Gap 16 17 Estim Creat Clear Calc 119.1 121.2 Estimated GFR > 60 > 60 POC Glucose 117 H Random Glucose 110 100 Uric Acid Calcium 8.8 8.7 Magnesium TSH 01/21/22 01/22/22 01/22/22 22:49 06:31 06:31 MCV 91.7 MCH 33.3 H MCHC 36.4 H RDW 11.1 Plt Count 120 L MPV 10.9 Absolute Nucleated RBC 0.000 Nucleated RBC % (auto) 0.0 PT INR aPTT Heparin Protocol 52.6 L 30.1 L D Anion Gap Estim Creat Clear Calc Estimated GFR POC Glucose Random Glucose Uric Acid Calcium Magnesium TSH 01/22/22 01/22/22 06:31 06:31 MCV MCH MCHC RDW Plt Count MPV Absolute Nucleated RBC Nucleated RBC % (auto) PT 12.5 INR 1.1 aPTT Heparin Protocol Anion Gap 15 Estim Creat Clear Calc 130.5 Estimated GFR > 60 POC Glucose Random Glucose 96 Uric Acid Calcium 8.8 Magnesium 1.8 TSH 0.63 Microbiology Microbiology Results: Microbiology 01/20/22 21:39 Blood Culture - Preliminary Blood - Venous No growth after 24 hours. 01/20/22 21:18 Blood Culture - Preliminary Blood - Venous No growth after 24 hours. Assessment and Plan (1) Atrial fibrillation with rapid ventricular response: Status: Acute (2) Acute hyponatremia: Status: Acute (3) NSTEMI (non-ST elevated myocardial infarction): Status: Acute (4) Acute exacerbation of chronic obstructive airways disease: Status: Acute (5) Pneumonia: Status: Acute Plan a 66 years old male with PMH of lung cancers post lobectomy with recurrence on palliative chemo, HTN, GERD among others who presents to the hospital after 1st chemotherapy with shortness of breath and confusion. 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 50 mg urea nephrology input appreciated, rule out adrenal insufficiency and hypothyroidism Goal of correction 8 Q 24 hours Follow BMP q.6 # new onset atrial fibrillation with RVR Broke into RVR overnight Check an echo Cardiology following, load with digoxin and start Cardizem after fluid boluses telemetry Eliquis as a blood thinner consider amiodarone initial bolus 150 then standard drip if fails to control heart rate # Metastatic lung cancer On palliative chemotherapy Associated with pneumonia Oncology team following HTN Hold lisinopril DVT PPX Lovenox The patient will need overnight hospital stay to continue treatment for severe hyponatremia, hypoxic failure from pneumonia An new onset AFib with RVR to control heart rate and prevent possible decompensation in the sepsis pending safe discharge plan. Quality Stroke Does the patient have a stroke diagnosis?: No VTE Prior VTE?: No VTE Risk Level:: Medical - moderate - high VTE Device Contraindication: Treatment Not Indicated VTE Drug Contraindication: N/A - Med Ordered
[2022-01-22] MEDS: Digoxin 0.5 MG/2 ML AMPUL 0.25 MG IVPUSH ×3 (13:12→23:54)
[2022-01-22 13:36] LABS: Anion Gap 19 (12-20); Blood Urea Nitrogen 30 mg/dL (9-16); Calcium 8.7 mg/dL (8.4-10.2); Carbon Dioxide 25 mmol/L (22-29); Chloride 87 mmol/L (96-108); Creatinine Clr Calc Pharmacy 123.4; Estimated Glomerular Filt Rate > 60; Glucose Random 113 mg/dL (60-115); Potassium 3.5 mmol/L (3.3-5.1); Sodium 127 mmol/L (135-145)
[2022-01-22] MEDS: dilTIAZem HCL 125 MG in 0.9 % Sodium Chloride 100 ML 10 MG IVCONT (15:43)
--- NOTE | 2022-01-22 16:20 | MHC.CM.PN ---
IMM 01/22/22 Male 66 DX SOB he lives w S.O. He is independent with all functional mobility. DP home w family assist and transport. VAXX [id number]. Pf[employer]X1
[2022-01-22 18:11] LABS: Anion Gap 15 (12-20); Blood Urea Nitrogen 28 mg/dL (9-16); Calcium 8.4 mg/dL (8.4-10.2); Carbon Dioxide 26 mmol/L (22-29); Chloride 93 mmol/L (96-108); Estimated Glomerular Filt Rate > 60; Glucose Random 137 mg/dL (60-115); Potassium 4.1 mmol/L (3.3-5.1); Sodium 130 mmol/L (135-145)
--- NOTE | 2022-01-22 18:32 | PC.NURSE ---
Alert and oriented. Denies pain, VSS, afebrile, no acute resp. distress noted A-Fib on tele, HR up in the 150s, non-sustaining, asymptomatic. Seen by cardiology. New order to start digoxin 0.25mg IVP, 2L of 0.9% bolus. If SBP above 100 to start cardizem gtt at 10mg/hr, titrate per protocol. SBP improved, cardizem gtt started. Patient converted this afternoon to NSR after second dose of digoxin. Hold cardizem gtt per Dr. maciel. Will continue to monitor and treat per plan of care.
[2022-01-22] MEDS: dilTIAZem HCL 30 MG TABLET 15 MG PO (21:45)
[2022-01-22] MEDS: guaiFENesin LA 600 MG TAB.ER.12H PO (21:45)
[2022-01-23] VITALS (8 sets, daily range): BP systolic 115–130; BP diastolic 62–75; PULSE 86–96; RESP 14–20; TEMP 36.3–37.3; O2SAT 94–99
--- NOTE | 2022-01-23 | ECG_ITS ---
Test Reason : afib Blood Pressure : / mmHG Vent. Rate : 088 BPM Atrial Rate : 088 BPM P-R Int : 136 ms QRS Dur : 078 ms QT Int : 356 ms P-R-T Axes : 068 -32 087 degrees QTc Int : 430 ms Sinus rhythm with Premature atrial complexes Left axis deviation Low voltage QRS Nonspecific T wave abnormality Abnormal ECG When compared with ECG of 22-JAN-2022 04:45, Sinus rhythm has replaced Atrial fibrillation Vent. rate has decreased BY 57 BPM Referred By: Radha Baker Electronically Signed By:HAILEE GARLAND
[2022-01-23] MEDS: 0.9 % Sodium Chloride Flush 3 ML SYRINGE IVFLUSH ×3 (00:01→20:00)
[2022-01-23 00:27] LABS: Anion Gap 18 (12-20); Blood Urea Nitrogen 34 mg/dL (9-16); Calcium 9.1 mg/dL (8.4-10.2); Carbon Dioxide 27 mmol/L (22-29); Chloride 94 mmol/L (96-108); Creatinine Clr Calc Pharmacy 94.3; Estimated Glomerular Filt Rate > 60; Glucose Random 128 mg/dL (60-115); Potassium 4.2 mmol/L (3.3-5.1); Sodium 135 mmol/L (135-145)
[2022-01-23 07:16] LABS: Hematocrit 35.6 % (42.0-52.0); Hemoglobin 12.4 g/dl (14.0-18.0); Mean Corpuscular HGB Conc 34.8 g/dl (31.0-36.0); Mean Corpuscular Hemoglobin 33.9 pg (27.0-33.0); Mean Corpuscular Volume 97.3 fL (80.0-98.0); Mean Platelet Volume 10.5 fL (9.4-12.4); Platelet Count 129 X10*3/uL (160-400); Red Blood Count 3.66 X10*6/uL (4.60-5.80); Red Cell Distribution Width 11.3 % (11.0-16.0); White Blood Count 11.7 X10*3/uL (4.8-10.8)
[2022-01-23 07:32] LABS: Anion Gap 14 (12-20); Blood Urea Nitrogen 21 mg/dL (9-16); Calcium 8.7 mg/dL (8.4-10.2); Carbon Dioxide 27 mmol/L (22-29); Chloride 98 mmol/L (96-108); Creatinine Clr Calc Pharmacy 111.3; Estimated Glomerular Filt Rate > 60; Glucose Random 164 mg/dL (60-115); Potassium 3.3 mmol/L (3.3-5.1); Sodium 136 mmol/L (135-145)
[2022-01-23] MEDS: Albuterol/Iprat 2.5/0.5MG 3 ML AMPUL.NEB INHALE ×3 (07:42→19:38)
[2022-01-23] MEDS: Digoxin 0.25 MG TABLET PO (09:01)
[2022-01-23] MEDS: dilTIAZem HCL 30 MG TABLET 15 MG PO (09:01)
[2022-01-23] MEDS: guaiFENesin LA 600 MG TAB.ER.12H PO ×2 (09:02→19:59)
[2022-01-23] MEDS: Apixaban 5 MG TABLET PO ×2 (09:02→19:59)
--- NOTE | 2022-01-23 09:42 | PM.PNCARD ---
Subjective Subjective Date of Service: 01/23/22 Principal diagnosis: NSTEMI, atrial fibrillation Interval history: Patient with rapid atrial fibrillation again overnight starting 04:00. He was switched to p.o. Cardizem last night. Patient not having any symptoms. Denies any chest pain. Review of Systems Constitutional: Reports no additional constitutional complaints Cardiovascular: Reports dyspnea Respiratory: Reports dyspnea and Reports wheezing Gastrointestinal: Reports no additional gastrointestinal complaints Genitourinary: Reports no additional male genitourinary complaints Musculoskeletal: Reports no additional musculoskeletal complaints Skin/Breast: Reports system reviewed and no additional complaints, except as docu Endocrine: Reports no additional endocrine complaints Allergic/Immunologic: Reports wheezing Physical Exam Vital Signs: Last Vital Signs Temp 97.6 F 01/23/22 07:24 Pulse 91 01/23/22 07:43 Resp 16 01/23/22 07:43 BP 115/62 01/23/22 07:24 Pulse Ox 99 01/23/22 07:24 O2 Del Method 01/23/22 07:24 O2 Flow Rate 3 01/23/22 07:24 BMI result Body Mass Index 22.7 Const General: cooperative, comfortable, no acute distress, alert and awake Nutritional Appearance: cachectic Orientation/consciousness: patient oriented x3 Neck Neck: Yes trachea midline, Yes supple and Yes no JVD Resp Effort & Inspection: normal respiratory effort Auscultation: wheezes throughout Cardio Jugular venous distension: no JVD Rate: tachycardic Rhythm: abnormal rhythm irregularly irregular Heart sounds: S1 normal heart sound present, S2 normal heart sound present, no click, no gallops and no murmurs GI Auscultation: normal bowel sounds Skin General skin exam: no rashes or lesions noted and ecchymosis Neuro General: patient oriented x3 and no focal motor deficits Extrem General: Yes no clubbing, cyanosis or edema Objective Labs and Meds Result diagrams: 01/23/22 06:42 01/23/22 06:42 Lab results: Laboratory Results - last 24 hr 01/22/22 01/22/22 01/22/22 06:31 12:57 17:46 WBC RBC Hgb Hct MCV MCH MCHC RDW Plt Count MPV Absolute Nucleated RBC Nucleated RBC % (auto) Sodium 127 L 130 L Potassium 3.5 4.1 Chloride 87 L 93 L Carbon Dioxide 25 26 Anion Gap 19 15 BUN 30 H D 28 H Creatinine 0.55 0.70 Estim Creat Clear Calc 123.4 97.0 Estimated GFR > 60 > 60 Random Glucose 113 137 H Calcium 8.7 8.4 Magnesium 1.8 01/22/22 01/23/22 01/23/22 23:36 06:42 06:42 WBC 11.7 H RBC 3.66 L Hgb 12.4 L Hct 35.6 L MCV 97.3 D MCH 33.9 H MCHC 34.8 RDW 11.3 Plt Count 129 L MPV 10.5 Absolute Nucleated RBC 0.000 Nucleated RBC % (auto) 0.0 Sodium 135 136 Potassium 4.2 3.3 D Chloride 94 L 98 Carbon Dioxide 27 27 Anion Gap 18 14 BUN 34 H 21 H Creatinine 0.72 0.61 Estim Creat Clear Calc 94.3 111.3 Estimated GFR > 60 > 60 Random Glucose 128 H 164 H Calcium 9.1 D 8.7 Magnesium Progress Note: A&P Assessment and plan (1) Atrial fibrillation with rapid ventricular response: Status: Acute Assessment and Plan: Atrial fibrillation rapid ventricular response with uncontrolled rate. Will pursue rhythm control approach with IV amiodarone drip. Once he converts will switch him to p.o. amiodarone 400 mg b.i.d.. I think this will be the best approach for him to prevent recurrent cardiac hospitalization. This was discussed with him. He was low frustrated about it. But he understands. Continue full oral anticoagulation with Eliquis. Overall prognosis still remains guarded related to his advanced lung malignancy. (2) NSTEMI (non-ST elevated myocardial infarction): Status: Acute Assessment and Plan: NSTEMI secondary to acute pulmonary issues. This is currently resolved with no current symptoms. Continue to manage his underlying pulmonary situation. Definitely has underlying coronary disease. Will pursue rhythm control presumable for better rate control. Continue statin therapy. Low-dose aspirin therapy. Overall risk of bleeding is high. Will continue to follow with you Time Spent With Patient Time: Total time spent is greater than 50% in coordination of care (as documented) at patient's floor/unit and/or counseling patient: Progress Note: Quality Stroke Does the patient have a stroke diagnosis?: No Procedures Date of Service Date of Service: 01/23/22
[2022-01-23] MEDS: Amiodarone HCL 200 MG TABLET 400 MG PO ×2 (12:11→19:59)
[2022-01-23 12:21] LABS: Anion Gap 16 (12-20); Blood Urea Nitrogen 17 mg/dL (9-16); Calcium 8.6 mg/dL (8.4-10.2); Carbon Dioxide 23 mmol/L (22-29); Chloride 100 mmol/L (96-108); Creatinine Clr Calc Pharmacy 101.3; Estimated Glomerular Filt Rate > 60; Glucose Random 143 mg/dL (60-115); Potassium 3.6 mmol/L (3.3-5.1); Sodium 135 mmol/L (135-145)
--- NOTE | 2022-01-23 13:16 | PM.PNNEP ---
Subjective Subjective Date of Service: 01/23/22 Principal diagnosis: NSTEMI, atrial fibrillation Interval history: Hyponatremia resolved off urea Physical Exam Vital Signs: Vital Signs: Last Vital Signs Temp 97.6 F 01/23/22 11:05 Pulse 92 01/23/22 11:05 Resp 16 01/23/22 11:05 BP 121/67 01/23/22 11:05 Pulse Ox 99 01/23/22 11:05 O2 Del Method 01/23/22 11:05 O2 Flow Rate 1 01/23/22 11:05 BMI result Body Mass Index 22.7 Const: Other: Constitutional : Alert, oriented, not in distress Neck : Normal inspection, Supple Cardiovascular : irregular irregular, no JVP, no lower extremity edema, tachycardia Respiratory : fair bilateral air entry, no crackles, wheezes or rhonchi Gastrointestinal: soft, lax, Normal bowel sounds, Non tender Skin : Warm, Dry Neurological : Alert & oriented to self and place, No focal deficit Objective Data Labs CBC & Chem 7: 01/23/22 06:42 01/23/22 11:28 Labs: Laboratory Results - last 24 hr 01/22/22 01/22/22 01/22/22 12:57 17:46 23:36 WBC RBC Hgb Hct MCV MCH MCHC RDW Plt Count MPV Absolute Nucleated RBC Nucleated RBC % (auto) Sodium 127 L 130 L 135 Potassium 3.5 4.1 4.2 Chloride 87 L 93 L 94 L Carbon Dioxide 25 26 27 Anion Gap 19 15 18 BUN 30 H D 28 H 34 H Creatinine 0.55 0.70 0.72 Estim Creat Clear Calc 123.4 97.0 94.3 Estimated GFR > 60 > 60 > 60 Random Glucose 113 137 H 128 H Calcium 8.7 8.4 9.1 D 01/23/22 01/23/22 01/23/22 06:42 06:42 11:28 WBC 11.7 H RBC 3.66 L Hgb 12.4 L Hct 35.6 L MCV 97.3 D MCH 33.9 H MCHC 34.8 RDW 11.3 Plt Count 129 L MPV 10.5 Absolute Nucleated RBC 0.000 Nucleated RBC % (auto) 0.0 Sodium 136 135 Potassium 3.3 D 3.6 Chloride 98 100 Carbon Dioxide 27 23 Anion Gap 14 16 BUN 21 H 17 H Creatinine 0.61 0.67 Estim Creat Clear Calc 111.3 101.3 Estimated GFR > 60 > 60 Random Glucose 164 H 143 H Calcium 8.7 8.6 Microbiology Microbiology Results: Microbiology 01/20/22 21:39 Blood - Venous Blood Culture - Preliminary No growth after 48 hours. 01/20/22 21:18 Blood - Venous Blood Culture - Preliminary No growth after 48 hours. Procedures Date of Service Date of Service: 01/23/22 Assessment & Plan Assessment and plan (1) Acute hyponatremia: Status: Acute Plan Euvolemic Hyponatremia: reurrent epsiode, he admits to drinking excess fluids. Work up most c/w SIADH and excess PO fluids. He appears malnourished and may have low solute intake which.WIthout much solute, elminiation of water is difficult. Plan: - ok to monitor off urea now - fluid restriction 1.5L/day - encourage Ensure shakes as it is important to improve solute intake Time Spent With Patient Time: Total time spent is greater than 50% in coordination of care (as documented) at patient's floor/unit and/or counseling patient: Progress Note: Quality Stroke Does the patient have a stroke diagnosis?: No
--- NOTE | 2022-01-23 14:48 | P.PNIM_ITS ---
Subjective Subjective Date of Service: 01/23/22 Interval History: Seen and evaluated this morning More alert and interactive Sodium improved to 136 Converted back to sinus rhythm No reported overnight events Review of Systems No fever, chills But reports generalized weakness No chest pain, no palpitation No shortness of breath or coughing No abdominal pain, nausea or vomiting No urinary symptoms No any rash or wounds Physical Exam Vital Signs: Vital Signs: Last Vital Signs Temp 97.6 F 01/23/22 11:05 Pulse 92 01/23/22 14:45 Resp 16 01/23/22 14:45 BP 121/67 01/23/22 11:05 Pulse Ox 99 01/23/22 11:05 O2 Del Method 01/23/22 11:05 O2 Flow Rate 1 01/23/22 11:05 BMI result Body Mass Index 22.7 Const: Other: Constitutional : Alert, oriented, not in distress Neck : Normal inspection, Supple Cardiovascular : Regular, no JVP, no lower extremity edema Respiratory : fair bilateral air entry, no crackles, wheezes or rhonchi Gastrointestinal: soft, lax, Normal bowel sounds, Non tender Skin : Warm, Dry Neurological : Alert & oriented to self and place, No focal deficit Objective Data Active Medications Acetaminophen (Acetaminophen 325 Mg Tablet) 650 mg PO Q6H PRN PRN Reason: Pain, Mild (Pain Scale 1-3) Last Admin: 01/22/22 04:24 Dose: 325 mg Documented By: ANDREINA Albuterol/Ipratropium (Albuterol/Iprat 2.5/0.5mg 3 Ml Ampul.Neb) 3 ml INHALE RQ4H WHILE AWAKE [facility] Last Admin: 01/23/22 14:44 Dose: 3 ml Documented By: GLADYS Amiodarone HCl (Amiodarone Hcl 200 Mg Tablet) 400 mg PO BID [facility] Last Admin: 01/23/22 12:11 Dose: 400 mg Documented By: ELFEGO Apixaban (Apixaban 5 Mg Tablet) 5 mg PO BID [facility] Last Admin: 01/23/22 09:02 Dose: 5 mg Documented By: ELFEGO Dexamethasone (Dexamethasone 4 Mg Tablet) 4 mg PO BID PRN PRN Reason: post chemo x 2 days Digoxin (Digoxin 0.25 Mg Tablet) 0.25 mg PO DAILY [facility] Last Admin: 01/23/22 09:01 Dose: 0.25 mg Documented By: ELFEGO Guaifenesin (Guaifenesin La 600 Mg Tab.Er.12h) 600 mg PO BID [facility] Last Admin: 01/23/22 09:02 Dose: 600 mg Documented By: ELFEGO Lisinopril (Lisinopril 20 Mg Tablet) 20 mg PO DAILY [facility]; Protocol Last Admin: 01/22/22 08:17 Dose: 20 mg Documented By: RAYMOND Ondansetron HCl (Ondansetron Hcl 4 Mg/2 Ml Vial) 4 mg IVPUSH Q8H PRN PRN Reason: Nausea and Vomiting Pharmacy Consult (Consult Rx Perform Med Rec) 1 each MISCELLANE ONCE PRN PRN Reason: Consult order Sodium Chloride (0.9 % Sodium Chloride Flush 3 Ml Syringe) 3 ml IVFLUSH QSHIFT [facility] Last Admin: 01/23/22 09:01 Dose: 3 ml Documented By: ELFEGO Labs CBC & Chem 7: 01/23/22 06:42 01/23/22 11:28 Labs: Laboratory Results - last 24 hr 01/22/22 01/22/22 01/23/22 17:46 23:36 06:42 MCV MCH MCHC RDW Plt Count MPV Absolute Nucleated RBC Nucleated RBC % (auto) Anion Gap 15 18 14 Estim Creat Clear Calc 97.0 94.3 111.3 Estimated GFR > 60 > 60 > 60 Random Glucose 137 H 128 H 164 H Calcium 8.4 9.1 D 8.7 01/23/22 01/23/22 06:42 11:28 MCV 97.3 D MCH 33.9 H MCHC 34.8 RDW 11.3 Plt Count 129 L MPV 10.5 Absolute Nucleated RBC 0.000 Nucleated RBC % (auto) 0.0 Anion Gap 16 Estim Creat Clear Calc 101.3 Estimated GFR > 60 Random Glucose 143 H Calcium 8.6 Microbiology Microbiology Results: Microbiology 01/20/22 21:39 Blood Culture - Preliminary Blood - Venous No growth after 48 hours. 01/20/22 21:18 Blood Culture - Preliminary Blood - Venous No growth after 48 hours. Assessment and Plan (1) Atrial fibrillation with rapid ventricular response: Status: Acute (2) Acute hyponatremia: Status: Acute (3) NSTEMI (non-ST elevated myocardial infarction): Status: Acute (4) Acute exacerbation of chronic obstructive airways disease: Status: Acute (5) Pneumonia: Status: Acute (6) Syndrome of inappropriate ADH (SIADH) secretion: Status: Acute Plan a 66 years old male with PMH of lung cancers post lobectomy with recurrence on palliative chemo, HTN, GERD among others who presents to the hospital after 1st chemotherapy with shortness of breath and confusion. # acute hypoxic respiratory failure secondary to multifocal pneumonia and COPD exacerbation Related to recurrent lung cancer continue oxygen supplement, wean down as tolerated Negative cultures continue azithromycin ceftriaxone Bronchodilator nebulizers Oncology input appreciated, on palliative chemotherapy for stage IV disease, prognosis guarded # NSTEMI Elevated troponin No chest pain, new EKG suggestive of ACS Cardiology input appreciated, DC heparin drip For likely type 2 NSTEMI from hypoxemia and acidemia Continue aspirin and statin avoid beta-remi # Acute severe Hyponatremia with Metabolic encephalopathy Resolved euvolemic hyponatremia: SIADH likely Sodium improved to 136 nephrology input appreciated, increase protein intake Goal of correction 8 Q 24 hours Follow BMP q.6 # new onset atrial fibrillation with RVR Rate better controlled, converted back to sinus Check an echo Cardiology following, continue digoxin and low-dose amiodarone orally telemetry Eliquis as a blood thinner # Metastatic lung cancer On palliative chemotherapy Associated with pneumonia Oncology team following HTN Hold lisinopril DVT PPX Lovenox The patient will need overnight hospital stay to continue treatment for hypoxic failure from pneumonia , new onset AFib with RVR, hyponatremia to prevent possible decompensation in the sepsis pending safe discharge plan. Quality Stroke Does the patient have a stroke diagnosis?: No VTE Prior VTE?: No VTE Risk Level:: Medical - moderate - high VTE Device Contraindication: Treatment Not Indicated VTE Drug Contraindication: N/A - Med Ordered
[2022-01-23] MEDS: cefTRIAXone sodium 1 GM in 0.9 % Sodium Chloride 50 ML IV (15:14)
[2022-01-23] MEDS: Azithromycin 500 MG in 0.9 % Sodium Chloride 250 ML 125 MG IV (15:17)
--- NOTE | 2022-01-23 15:31 | MHC.CM.PN ---
Male 66 DX SOB no discharge today ; because patient requires better heart rate control. Per MD rounds august01/24/22. Home selfcare family will transport..
[2022-01-24] VITALS: BP 118/70; PULSE 82; RESP 18; TEMP 37.3; O2SAT 96
[2022-01-24 03:53] VITALS: BP 123/68; PULSE 89; RESP 20; TEMP 37
[2022-01-24 06:52] LABS: Hemoglobin 12.8 g/dl (14.0-18.0); Mean Corpuscular HGB Conc 34.6 g/dl (31.0-36.0); Mean Corpuscular Hemoglobin 33.5 pg (27.0-33.0); Mean Corpuscular Volume 96.9 fL (80.0-98.0); Mean Platelet Volume 10.3 fL (9.4-12.4); Platelet Count 146 X10*3/uL (160-400); Red Blood Count 3.82 X10*6/uL (4.60-5.80); Red Cell Distribution Width 11.3 % (11.0-16.0); White Blood Count 13.9 X10*3/uL (4.8-10.8)
[2022-01-24 07:19] LABS: Anion Gap 15 (12-20); Blood Urea Nitrogen 9 mg/dL (9-16); Calcium 8.8 mg/dL (8.4-10.2); Carbon Dioxide 25 mmol/L (22-29); Chloride 98 mmol/L (96-108); Creatinine Clr Calc Pharmacy 125.7; Estimated Glomerular Filt Rate > 60; Glucose Random 103 mg/dL (60-115); Sodium 135 mmol/L (135-145)
[2022-01-24 07:35] VITALS: BP 112/67; PULSE 85; RESP 20; TEMP 36.2; O2SAT 99
[2022-01-24] MEDS: Albuterol/Iprat 2.5/0.5MG 3 ML AMPUL.NEB INHALE ×2 (07:43→11:26)
[2022-01-24 07:45] VITALS: PULSE 91; RESP 18; O2SAT 95
[2022-01-24] MEDS: 0.9 % Sodium Chloride Flush 3 ML SYRINGE IVFLUSH (09:48)
[2022-01-24] MEDS: Potassium Chloride Packet 20 MEQ PACKET 40 MEQ PO (09:48)
[2022-01-24] MEDS: Amiodarone HCL 200 MG TABLET 400 MG PO (09:48)
[2022-01-24] MEDS: Apixaban 5 MG TABLET PO (09:49)
[2022-01-24] MEDS: Digoxin 0.25 MG TABLET PO (09:49)
[2022-01-24] MEDS: guaiFENesin LA 600 MG TAB.ER.12H PO (09:49)
[2022-01-24 11:13] VITALS: BP 100/63; PULSE 95; RESP 20; TEMP 36.7; O2SAT 93
[2022-01-24 11:27] VITALS: PULSE 84; RESP 18; O2SAT 93
--- NOTE | 2022-01-24 11:55 | PM.DS ---
DS: Providers Provider Date of Service: 01/25/22 Date of admission: 01/21/22 10:54 Primary care physician: Tucker Ga MD Consults: 01/21/22 08:01 Consult to Cardiology Routine Consulting Provider: Jimbo Parnell Reason for consultation: NSTEMI for eval and rec Consult to Nephrology Routine Consulting Provider: Prince Sosa Reason for consultation: Hyponatremia 01/21/22 14:34 Consult to Hematology / Oncology Routine Consulting Provider: Tita Brian Reason for consultation: post chemo hyponatremia and respiratory failure 01/22/22 10:39 Consult to Cardiology Routine Consulting Provider: Jimbo Parnell Reason for consultation: new onset Afib w RvR DS: Diagnosis Discharge Diagnosis (1) Atrial fibrillation with rapid ventricular response: Status: Acute (2) Acute hyponatremia: Status: Acute (3) NSTEMI (non-ST elevated myocardial infarction): Status: Acute (4) Acute exacerbation of chronic obstructive airways disease: Status: Acute (5) Pneumonia: Status: Acute (6) Syndrome of inappropriate ADH (SIADH) secretion: Status: Acute (7) Non-small cell cancer of left lung: Status: Acute DS: Summary Hospital Course Hospital Course: Admission note HPI ?a 66 years old male with PMH of lung cancers post lobectomy with recurrence on palliative chemo, HTN, GERD among others who presents to the hospital after 1st chemotherapy with shortness of breath and confusion. The patient reports not remembering how did he end up in the emergency.? He went for his 1st palliative chemotherapy session.? Could not provide any meaningful history about what happened after that point.? According to medical staff from the emergency the patient presented with difficulty breathing and confusion, lethargy with tachycardia.? Next Lyme blood work was consistent with hyponatremia of 116. Started on IV fluids after discussing with Nephrology by ED provider.? Admitted for further evaluation and treatment. Hospital course # acute hypoxic respiratory failure secondary to multifocal pneumonia? and COPD exacerbation Related to lung cancer. No obstruction noted on images. Wean down oxygen supplement as he was treated with azithromycin, ceftriaxone, bring the dilator nebulizer with good response over the course of hospital stay. Blood cultures remain negative. He will be discharged on azithromycin and Ceftin to finish total of 7 days of antibiotics. # NSTEMI Elevated troponin at time of presentation with No chest pain, no EKG suggestive of ACS. Started on heparin drip which was later discontinued by Cardiology as Dr. Parnell believed it is likely type 2 NSTEMI? from hypoxemia and acidemia. Echo showed Normal LV size with [id number] LV systolic dysfunction with regional wall motion abnormality in multiple distributions,most suggestive of stress-induced cardiomyopathy with impaired relaxation pattern. ? # Acute severe Hyponatremia? with Metabolic encephalopathy Presented with sodium of 116. Likely related to SIADH and increase free water intake and decreased protein intake. Received 3% sodium chloride in ED. Responded well to fluid restriction with improvement of almost 8 mg daily. Completely back to normal level at the time of discharge. Evaluated by Nephrology team who recommended increase protein intake. Labs will be repeated as outpatient and followed with Nephrology team. Mental status improved significantly back to baseline upon resolution of hyponatremia. #? new onset atrial fibrillation with RVR Noted during hospital stay. Treated with Cardizem with no significant improvement. Loaded with digoxin and amiodarone with good response as he converted back to sinus with rate controlled between 80s to 90s. Echo showed decreased ejection fraction with concerns over takotsubo. Evaluated by Cardiology team who recommended anticoagulation, amiodarone and digoxin with addition of atorvastatin. He will be followed by Cardiology in the office over the next couple of weeks. No evidence of bleeding. Anticoagulation risk and benefit discussed with the patient any understand the risk of possible bleeding. # Metastatic lung cancer On palliative chemotherapy. Seen by Dr. Brian from Oncology will follow with him up in the clinic regarding treatment plan. Start amiodarone 400 mg twice daily for 13 more days then switch to 200 mg daily Digoxin 0.25 mg daily Eliquis 5 mg twice daily Start atorvastatin 40 mg daily Continue azithromycin and Ceftin for 5 more days for pneumonia treatment To repeated blood work next week To follow-up with Cardiology as outpatient Time Spent with Patient Time attestation: Total time spent providing and/or coordinating discharge services: Discharge coordination time: Greater than 30 minutes Quality: Safe Use of Opioids Does Pt have an Active Cancer Diagnosis on the Problem List?: No Quality: Stroke Does the patient have a stroke diagnosis?: No Physical Exam Vital Signs: Vital Signs: Last Vital Signs Temp 98.1 F 01/24/22 11:13 Pulse 84 10/08/22 11:27 Resp 18 01/24/22 11:27 BP 100/63 01/24/22 11:13 Pulse Ox 93 01/24/22 11:13 O2 Del Method 01/24/22 11:13 O2 Flow Rate 3 01/24/22 07:35 BMI result Body Mass Index 22.7 Const: Other: Constitutional : Alert, oriented, not in distress Neck : Normal inspection, Supple Cardiovascular : Regular, no JVP, no lower extremity edema Respiratory : fair bilateral air entry, no crackles, wheezes or rhonchi Gastrointestinal: soft, lax, Normal bowel sounds, Non tender Skin : Warm, Dry Neurological : Alert & oriented to self and place, No focal deficit DS: Data Data Completed and Pending Labs on day of discharge: Laboratory Results - last 24 hr 01/23/22 01/24/22 01/24/22 11:28 06:27 06:27 WBC 13.9 H RBC 3.82 L Hgb 12.8 L Hct 37.0 L MCV 96.9 MCH 33.5 H MCHC 34.6 RDW 11.3 Plt Count 146 L MPV 10.3 Absolute Nucleated RBC 0.000 Nucleated RBC % (auto) 0.0 Sodium 135 135 Potassium 3.6 3.0 L Chloride 100 98 Carbon Dioxide 23 25 Anion Gap 16 15 BUN 17 H 9 Creatinine 0.67 0.54 Estim Creat Clear Calc 101.3 125.7 Estimated GFR > 60 > 60 Random Glucose 143 H 103 Calcium 8.6 8.8 Preliminary micro results at discharge 01/20/22 21:39 Blood Culture - Preliminary Blood - Venous No growth after 48 hours. 01/20/22 21:18 Blood Culture - Preliminary Blood - Venous No growth after [address] scan - chest: Radiologist's impression: ITS Impressions Chest X-Ray 01/20/22 22:03 IMPRESSION: 1. No evidence of overt pulmonary edema or appreciable pleural effusions. 2. Right apical mass appears perhaps slightly smaller though there is increased airspace opacity/consolidation in the right mid upper lung which may represent postobstructive atelectasis or pneumonia. 3. Small bilateral pulmonary nodules, presumably pulmonary metastasis. 4. Curvilinear nodular density projecting over the left upper lung, not seen previously. Uncertain as to whether not this is artifactual versus a new cavitary nodule. Chest CTA 01/21/22 00:01 IMPRESSION: 1. No pulmonary embolus identified. 2. Redemonstrated large right upper lobe lung mass, grossly similar to 01/06/2022, though surrounding areas of consolidation appear slightly more extensive. 3. Redemonstrated infiltrating, masslike density throughout the mediastinum and right hilum, resulting in mass effect and narrowing of the right main and upper lobe pulmonary arteries. The SVC also appears narrowed though remains patent. 4. Several bilateral lung nodules again noted, with measurements limited due to respiratory motion artifact; appearance is grossly similar to prior. 5. Increased bronchial wall thickening, which could represent acute bronchitis. 6. Trace pleural effusions. VTE: negative Discharge Plan Discharge Anticipated Discharge Date/Time: 01/24/22 11:33 Patient Disposition: Home, Self-Care Discharge Diagnosis: Low sodium level Pneumonia New onset atrial fibrillation Referrals: Tucker Ga MD [Primary Care Provider] - 1 Week Discharge Medications: New amiodarone 200 mg Tablet 400 mg PO BID 13 Days Qty: 52 0RF digoxin 250 mcg (0.25 mg) Tablet 0.25 mg PO DAILY 30 Days Qty: 30 0RF Eliquis 5 mg Tablet 5 mg PO BID Qty: 60 2RF amiodarone 200 mg tablet 200 mg PO DAILY Qty: 30 1RF Rx Instructions: To start after finishing 13 days of 400 mg bid azithromycin 500 mg tablet 500 mg PO DAILY 5 Days Qty: 5 0RF cefuroxime axetil 500 mg tablet 500 mg PO BID Qty: 10 0RF atorvastatin 40 mg tablet 40 mg PO BEDTIME Qty: 30 0RF Continued loratadine 10 mg tablet 10 mg PO DAILY Qty: 90 1RF albuterol sulfate 90 mcg/actuation HFA aerosol inhaler 2 puff PO Q4-6H Qty: 8.5 2RF dexamethasone [Decadron] 4 mg tablet 4 mg PO BID PRN (Reason: post chemo x 2 days) Rx Instructions: take for 2 days after chemo ondansetron 8 mg Tablet,Disintegrating 8 mg PO Q8H PRN (Reason: Nausea) Qty: 30 3RF Discontinued lisinopril 20 mg tablet 20 mg PO DAILY Qty: 90 1RF Discharge Orders: Discharge Order (Routine); Ordered 01/24/22 Ordered By: Radha Baker Diet: Advance to usual diet Activity on Discharge: As tolerated Stand Alone Forms: Patient Portal Discharge page Other Ambulatory Orders: Basic Metabolic Panel (Routine) Timeframe: 3 Days Facility: [facility] - Location: Laboratory Ordered By: Radha Baker Complete Blood Count no Diff (Routine) Timeframe: 3 Days Facility: [facility] - Location: [address]-Lab Ordered By: Radha Baker Digoxin (Routine) Timeframe: 3 Days Facility: [facility] - Location: Laboratory Ordered By: Radha Baker Care Plan Goals: Read below Health Concerns: Read below Plan of Treatment: Read below Assessment: You were admitted hospital for evaluation of confusion and difficulty breathing. Found to have an evidence of pneumonia with very low sodium level requiring IV antibiotics and fluids with improvement over the course of hospital stay as you were evaluated by air drier. Your sodium level improved back to normal. Developed new onset irregular heart rhythm called atrial fibrillation requiring IV and oral medications to control the heart rhythm. Improved back to normal sinus rhythm as you were evaluated by director of services as an Echo showed an evidence of decreased heart function. Treated with digoxin, amiodarone and blood thinners Eliquis to prevent possible strokes. You will need atorvastatin to decrease the chance of cardiac events. Start amiodarone 400 mg twice daily for 13 more days then switch to 200 mg daily Digoxin 0.25 mg daily Eliquis 5 mg twice daily Atorvastatin 40 mg daily Continue azithromycin and Ceftin for 5 more days for pneumonia treatment To repeated blood work next week To follow-up with Cardiology as outpatient Discharge Date/Time: 01/24/22 13:05
--- NOTE | 2022-01-24 12:06 | MHC.CM.PN ---
Patient has been medically cleared for dc to home today self care. Last IMM addressed on 01/22/2022. Per MD's request, [facility] has provided Patient with the [employer] 30 day free trial voucher/coupon.
--- NOTE | 2022-01-24 12:14 | PM.PNCARD ---
Subjective Subjective Date of Service: 01/24/22 Principal diagnosis: NSTEMI, atrial fibrillation Interval history: Patient having no symptoms from cardiac perspective. Intermittently having atrial fibrillation with controlled ventricular response. Predominantly in sinus rhythm no chest pain. Review of Systems Review of Systems Yes all other systems are reviewed and are negative Physical Exam Vital Signs: Last Vital Signs Temp 98.1 F 01/24/22 11:13 Pulse 84 01/24/22 11:27 Resp 18 01/24/22 11:27 BP 100/63 01/24/22 11:13 Pulse Ox 93 01/24/22 11:13 O2 Del Method 01/24/22 11:13 O2 Flow Rate 3 01/24/22 07:35 BMI result Body Mass Index 22.7 Const General: cooperative, comfortable, no acute distress, alert and awake Nutritional Appearance: cachectic Orientation/consciousness: patient oriented x3 Neck Neck: Yes trachea midline, Yes supple and Yes no JVD Resp Effort & Inspection: normal respiratory effort Auscultation: wheezes throughout Cardio Jugular venous distension: no JVD Rate: tachycardic Rhythm: abnormal rhythm irregularly irregular Heart sounds: S1 normal heart sound present, S2 normal heart sound present, no click, no gallops and no murmurs GI Auscultation: normal bowel sounds Skin General skin exam: no rashes or lesions noted and ecchymosis Neuro General: patient oriented x3 and no focal motor deficits Extrem General: Yes no clubbing, cyanosis or edema Objective Labs and Meds Result diagrams: 01/24/22 06:27 01/24/22 06:27 Lab results: Laboratory Results - last 24 hr 01/23/22 01/24/22 01/24/22 11:28 06:27 06:27 WBC 13.9 H RBC 3.82 L Hgb 12.8 L Hct 37.0 L MCV 96.9 MCH 33.5 H MCHC 34.6 RDW 11.3 Plt Count 146 L MPV 10.3 Absolute Nucleated RBC 0.000 Nucleated RBC % (auto) 0.0 Sodium 135 135 Potassium 3.6 3.0 L Chloride 100 98 Carbon Dioxide 23 25 Anion Gap 16 15 BUN 17 H 9 Creatinine 0.67 0.54 Estim Creat Clear Calc 101.3 125.7 Estimated GFR > 60 > 60 Random Glucose 143 H 103 Calcium 8.6 8.8 Progress Note: A&P Assessment and plan (1) Atrial fibrillation with rapid ventricular response: Status: Acute Assessment and Plan: Atrial fibrillation induced by current medical illness as well as NSTEMI or stress-induced cardiomyopathy. Suppressed on amiodarone dose. Will continue amiodarone loading to 100 mg b.i.d. for 1 month followed by 200 mg daily. Continue full oral anticoagulation with Eliquis. Patient can be discharged from cardiac perspective. (2) NSTEMI (non-ST elevated myocardial infarction): Status: Acute Assessment and Plan: Based on the echocardiogram his rise in troponin level as NSTEMI is most likely suggestive of stress-induced cardiomyopathy. Discussed with patient that this usually recovers. Repeat follow-up limited echocardiogram 2 weeks time. Will arrange for the same. Continue rate control strategy. Continue anticoagulation Eliquis. Continue statin therapy as there is likelihood of underlying coronary artery disease based on coronary calcium score. Will sign of the case. Thank you for allowing us to partake in his care Time Spent With Patient Time: Total time spent is greater than 50% in coordination of care (as documented) at patient's floor/unit and/or counseling patient: Progress Note: Quality Stroke Does the patient have a stroke diagnosis?: No Procedures Date of Service Date of Service: 01/24/22
== END 2022-01-24 13:05 | disposition home or self-care (01) | DRG 193 ==
LOC: HO.ED 01-21 07:15 → HO.EDOVER 01-21 11:29 → HO.IMC 01-21 19:42
PROVIDERS: Emergency Medicine; Internal Medicine; Internal Medicine Nephrology; Admitting Provider Student in an Organized Health Care Education/Training Program; Emergency Provider Internal Medicine; PCP Internal Medicine; Visit Provider Student in an Organized Health Care Education/Training Program
DX: J18.9 Pneumonia, unspecified organism (principal); I21.A1 Myocardial infarction type 2; J96.01 Acute respiratory failure with hypoxia; J44.0 Chronic obstructive pulmonary disease with (acute) lower respiratory infection; J44.1 Chronic obstructive pulmonary disease with (acute) exacerbation; C34.11 Malignant neoplasm of upper lobe, right bronchus or lung; C77.1 Secondary and unspecified malignant neoplasm of intrathoracic lymph nodes; E22.2 Syndrome of inappropriate secretion of antidiuretic hormone; E87.20 Acidosis, unspecified; I48.91 Unspecified atrial fibrillation; I10 Essential (primary) hypertension; Z20.822 Contact with and (suspected) exposure to COVID-19; Z90.2 Acquired absence of lung [part of]; Z87.891 Personal history of nicotine dependence; Z79.01 Long term (current) use of anticoagulants; Z79.899 Other long term (current) drug therapy
CPT/HCPCS: 36415; 71045; 71275; 80048; 81003; 82077; 82803; 82947; 83605; 83735; 83880; 83930; 83935; 84300; 84443; 84484; 84550; 85007; 85027; 85379; 85610; 85730; 87040; 87635; 93005; 93306; 94640; 94660; 99285; J0456; J0696; J1160; J1940; J2250; J2543; Q9957; Q9967

== ENCOUNTER 2022-02-02 08:20 | Outpatient (RCR) | payer MEDICAID, SELFPAY ==
[2021-12-12 10:46] VITALS: BP 156/81; PULSE 89; RESP 16; TEMP 36.7; O2SAT 95; BMI 21.5
--- NOTE | 2021-12-12 10:56 | P.CNHO_ITS ---
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 HPI - Consult Narrative Reason for consult: Right lung cancer Narrative: Luis Miguel Isbell is a 66 year old male who has been diagnosed with recurrent lung cancer. He had surgery back in 1998 for right lung cancer, he states that he did not really follow-up with his doctors after his lung cancer. He has been smoking until 5 years ago. Main complaint has been hoarseness of voice for last 2-3 months. He has a chronic cough on and off but no hemoptysis. He denies any is significant weight loss, he says his weight goes up and down. He denies headache or dizziness. He has had imaging study as well as recent bronchoscopy/biopsy which is proven recurrent lung cancer. He is here for recommendations about further treatment. He lives at home with his girlfriend and is independent of all ADLs. At this time, he denies any chest pain, shortness of breath, nausea or change in bowel habits. Review of Systems - Constitutional Reports as per HPI, Reports fatigue, Reports malaise, Denies poor appetite, Denies weight loss - Cardiovascular Reports no additional cardiovascular complaints - Respiratory Reports no additional respiratory complaints Oncology Screenings - ECOG Performance Status ECOG Performance Status: 1 [facility] Medical History: Medical History (Last Reviewed 12/12/21 @ 10:49 by Cristina Callahan) Benign essential HTN Gastro-esophageal reflux disease without esophagitis History of bladder cancer Onset Date: ~2014 History of lung cancer Onset Date: ~1998 Lung cancer Lymphadenopathy, mediastinal Other seasonal allergic rhinitis Tubular adenoma of colon Onset Date: ~2016 Family History: Family History (Last Reviewed 12/12/21 @ 10:49 by Cristina Callahan) Father Medical history unknown Mother Breast cancer Sister Lung cancer Surgical History: Surgical History (Last Reviewed 12/12/21 @ 10:49 by Cristina Callahan) History of bladder surgery Onset Date: ~2014 History of bronchoscopy Onset Date: ~2021 History of colonoscopy History of left inguinal hernia repair Onset Date: ~2016 History of lung surgery Onset Date: ~1998 Social History: Social History (Last Updated 12/12/21 @ 10:50 by Cristina Callahan) Living Situation History: Household Members: Significant Other Housing: House Alcohol History Details: 1. How often do you have a drink containing alcohol?: e. 4 or more times a week 2. How many drinks containing alcohol do you have on a typical day when you are drinking?: b. 3 or 4 Tobacco History: Patient Tobacco Use Status: Former Tobacco user Tobacco use type: Cigarette Smoke Quit Date: 5 years ago e-Cigarette/Vaping Use: Never Used Second Hand Smoke Exposure: No Substance Use History: Use of substances other than those prescribed or required for medical reasons : No Domestic Abuse History: Have you been hit, kicked, punched, or otherwise hurt by someone within the past year? If so, by whom?: No Do you feel safe in your current relationship?: Yes Homicidal Assessment: Do you have thoughts of harming others: None Do you have a plan to hurt others: No Plan Do you have the means to hurt others: No Nutrition Assessment: Recently lost weight without trying: No Occupation Assessmet: service: No Current occupational status: retired Home Medications and Allergies Allergies Allergy/AdvReac Type Severity Reaction Status Date / Time No Known Allergies Allergy Verified 11/20/21 13:13 [No Known Allergies*] Physical Exam Vital signs: Vital Signs Temp 98.0 F 12/12/21 10:46 Pulse 89 12/12/21 10:46 Resp 16 12/12/21 10:46 BP 156/81 H 12/12/21 10:46 Pulse Ox 95 12/12/21 10:46 O2 Del Method 12/12/21 10:46 Intake & Output 12/11/21 12/12/21 12/12/21 18:59 06:59 18:59 Other: Weight 58.8 kg [place] Weight in Grams 48325 Weight 58.8 kg Narrative: Appears older than stated age. - Constitutional Present: no acute distress - Routine HEENT Exam Head: Present: normal inspection Eye: Present: normal appearance - Routine Neck Exam Present: supple. Absent: lymphadenopathy - Routine Respiratory Exam Present: decreased breath sounds. Absent: accessory muscle use - Routine Cardiovascular Exam Cardiovascular: Present: S1, S2 - Routine Abdominal Exam Present: normal bowel sounds. Absent: mass - Routine Extremities Exam Present: normal inspection - Routine Skin Exam Present: intact. Absent: cyanosis - Routine Neurological Exam Present: alert, oriented X3 Hem/Onc Consult Result - Labs CBC & Chem 7: 12/12/21 11:22 12/12/21 11:22 Assessment and Plan Patient Active problem list reviewed?: Yes (1) Non-small cell cancer of left lung Status: Acute Assessment and plan: 1. This is a 66-year-old male, ex-smoker who has been diagnosed with recurrent left lung cancer in November [address] chest in November 2021 which revealed large right upper lobe central mass with surrounding surgical clips measuring 8 x 6.5 cm inseparable from enlarged right hilar and mediastinal lymph nodes. Largest conglomerate of mediastinal lymph node measuring 4 x 6 cm. There is narrowing of right pulmonary artery from mass but no pulmonary embolism. SVC is anterior to the mass and patent. No pleural effusion. There is right upper lobe focal pleural thickening. Upper abdomen imaging shows a 6.5 x 5.6 cm necrotic left adrenal lesion. Multiple bilateral new pulmonary nodules seen. CT neck with contrast performed the same day showed lymphadenopathy bilaterally right greater than left 5B station consistent with metastatic disease. He underwent bronchoscopy and biopsy of right upper lung lesion, pathology-invasive squamous cell carcinoma, moderately to poorly differentiated, nonkeratinizing. Insitu squamous cell carcinoma involving bronchial mucosa. Right 4R paratracheal lymph node positive for malignancy consistent with metastatic squamous cell carcinoma. Based on above images, patient probably has metastatic squamous cell lung cancer. Further staging with PET-CT and brain MRI with contrast have been ordered. His performance status is fairly good. 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 Molecular studies on the pathology specimen have been ordered. Patient is a candidate for systemic therapy, depending on staging workup and NGS testing, further recommendations will be made. Blood work today shows normal CBC, CMP and LDH. I thank you very much for this consultation. - Time Spent With Patient Time Spent with Patient (in minutes): 60
[2021-12-12 11:23] LABS: MANUAL DIFF FLAG NO
--- NOTE | 2021-12-12 11:27 | MHC.HEMONCMA ---
patient seen today for new consult right lung mass, brain MRI and petscan ordered, VSS, Labs, followup 12/24/21
--- NOTE | 2021-12-12 11:38 | MHC.HEMONCSW ---
CONSULT FOR LUNG CANCER. A/OX3, ABLE TO MAKE NEEDS KNOWN. RESIDES WITH S/O, AND, A NIECE IS INVOLVED AND SUPPORTIVE. H/O LUNG CANCER 20 PLUS YEARS AGO WITH SURGICAL RESECTION. DENIES MENTAL ILLNESS BUT LONG TIME ETOH AND IS HE CUTTING DOWN. RETIRED, GETS SSDI. HAS A GOOD OUTLOOK AND IS OPTIMISTIC. PLAN IS PET SCAN AND MRI OF BRAIN. HE IS INFORMED OF MY ROLE AND AVAILABILITY. HE WILL DECIDE WHO TO NAME HIS HCP AT NEXT VISIT. SUPPORTIVE COUNSELING PROVIDED.
[2021-12-12 11:41] LABS: Basophils Percent Auto 0.6 % (0-2); Eosinophils Absolute Auto 0.2 X10*3/uL (0.0-0.4); Eosinophils Percent Auto 2.9 % (0-4); Hematocrit 44.4 % (42.0-52.0); Hemoglobin 15.1 g/dl (14.0-18.0); Imm Gran Abs Auto 0.01 X10*3/uL (0.00-0.03); Imm Gran Pct Auto 0.1 % (0.0-0.4); Lymphocytes Absolute Auto 1.6 X10*3/uL (1.2-4.9); Lymphocytes Percent Auto 22.5 % (20-40); Mean Corpuscular Hemoglobin 33.1 pg (27.0-33.0); Mean Corpuscular Volume 97.4 fL (80.0-98.0); Mean Platelet Volume 9.1 fL (9.4-12.4); Monocytes Absolute Auto 0.7 X10*3/uL (0.1-1.2); Monocytes Percent Auto 9.5 % (2-11); Neutrophils Absolute Auto 4.6 x10*3/uL (2.0-8.3); Neutrophils Percent Auto 64.4 % (45-73); Platelet Count 288 X10*3/uL (160-400); Red Blood Count 4.56 X10*6/uL (4.60-5.80); Red Cell Distribution Width 12.1 % (11.0-16.0); White Blood Count 7.2 X10*3/uL (4.8-10.8)
--- NOTE | 2021-12-12 11:59 | MHC.HEMONC ---
I saw pt following Consult with Dr Brian for newly diagnosed squamous cell carcinoma of lung. He has had hoarseness for 55 days. He denies pain or eating difficulty although he does eat small frequent meals. Dr Brian would like to get staging done with PET and brain MRI. ABDIFATAH Evans will be facilitating those orders. Pt will f/u here on 12/24.
[2021-12-12 12:01] LABS: Alanine Aminotransferase 25 U/L (0-40); Albumin Level 4.2 g/dL (3.5-5.0); Alkaline Phosphatase 140 U/L (39-117); Anion Gap 15 (12-20); Aspartate Amino Transferase 31 U/L (5-37); Bilirubin Total 0.6 mg/dL (0.0-1.0); Blood Urea Nitrogen 4 mg/dL (9-16); Calcium 9.4 mg/dL (8.4-10.2); Carbon Dioxide 29 mmol/L (22-29); Chloride 96 mmol/L (96-108); Creatinine Clr Calc Pharmacy 87.7; Estimated Glomerular Filt Rate > 60; Glucose Random 77 mg/dL (60-115); Lactate Dehydrogenase 230 U/L (118-273); Potassium 4.4 mmol/L (3.3-5.1); Sodium 136 mmol/L (135-145)
--- NOTE | 2021-12-15 13:58 | MHC.HEMONCMA ---
entered in OF mr head/brain w/o con.
--- NOTE | 2021-12-23 13:02 | MHC.HEMONC ---
Pt called, assisted by his girlfriend, Phyllis, as he has hoarse voice, problem w/ vocal chords. She said that pt was meant to have MRI today, but he left and did not have it done, because he claims he needs to be knocked out before he can have the MRI. This nurse clarified that pt must establish a HealthCare Proxy who can speak for him if he is going to have other people make phone calls on his behalf. Nurse confirmed pt has an Onc f/u scheduled for tomorrow, 12/24 at 14:20, asked the pt to come to this f/u tomorrow to discuss. This nurse passed the message along to Dr. Brian's MACristina, who will address these issues, needing HCP, and requesting sedation for his MRI.
[2021-12-24 10:42] VITALS: BP 165/90; PULSE 93; RESP 16; TEMP 36.4; O2SAT 96; BMI 21.3
--- NOTE | 2021-12-24 10:55 | P.PNHO-ONC_ITS ---
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 He had CT chest in November 2021 which revealed large right upper lobe central mass with surrounding surgical clips measuring 8 x 6.5 cm inseparable from enlarged right hilar and mediastinal lymph nodes. Largest conglomerate of mediastinal lymph node measuring 4 x 6 cm. There is narrowing of right pulmonar y artery from mass but no pulmonary embolism. SVC is anterior to the mass and patent. No pleural effusion. There is right upper lobe focal pleural thickening. Upper abdomen imaging shows a 6.5 x 5.6 cm necrotic left adrenal lesion. Multiple bilateral new pulmonary nodules seen. CT neck with contrast performed the same day showed lymphadenopathy bilaterally right greater than left 5B station consistent with metastatic disease. Interval History Interval history: Patient is here in follow-up. He is doing about the same and has no new complaints. He is claustrophobic and unable to undergo MRI of the brain. He has not yet heard from PET scan. [facility] Medical History: Medical History (Last Reviewed 12/24/21 @ 10:43 by Cristina Callahan) Benign essential HTN Gastro-esophageal reflux disease without esophagitis History of bladder cancer Onset Date: ~2014 History of lung cancer Onset Date: ~1998 Lung cancer Lymphadenopathy, mediastinal Other seasonal allergic rhinitis Tubular adenoma of colon Onset Date: ~2016 Family History: Family History (Last Reviewed 12/24/21 @ 10:43 by Cristina Callahan) Father Medical history unknown Mother Breast cancer Sister Lung cancer Surgical History: Surgical History (Last Reviewed 12/24/21 @ 10:43 by Cristina Callahan) History of bladder surgery Onset Date: ~2014 History of bronchoscopy Onset Date: ~2021 History of colonoscopy History of left inguinal hernia repair Onset Date: ~2016 History of lung surgery Onset Date: ~1998 Social History: Social History (Last Reviewed 12/24/21 @ 10:43 by Cristina Callahan) Living Situation History: Household Members: Significant Other Housing: House Alcohol History Details: 1. How often do you have a drink containing alcohol?: e. 4 or more times a week 2. How many drinks containing alcohol do you have on a typical day when you are drinking?: b. 3 or 4 Tobacco History: Patient Tobacco Use Status: Former Tobacco user Tobacco use type: Cigarette Smoke Quit Date: 5 years ago e-Cigarette/Vaping Use: Never Used Second Hand Smoke Exposure: No Substance Use History: Use of substances other than those prescribed or required for medical reasons : No Domestic Abuse History: Have you been hit, kicked, punched, or otherwise hurt by someone within the past year? If so, by whom?: No Do you feel safe in your current relationship?: Yes Homicidal Assessment: Do you have thoughts of harming others: None Do you have a plan to hurt others: No Plan Do you have the means to hurt others: No Nutrition Assessment: Recently lost weight without trying: No Occupation Assessmet: service: No Current occupational status: retired Home Medications and Allergies Allergies Allergy/AdvReac Type Severity Reaction Status Date / Time No Known Allergies Allergy Verified 12/24/21 10:15 [No Known Allergies*] Exam Vital signs: Vital Signs Temp 97.6 F 12/24/21 10:42 Pulse 93 12/24/21 10:42 Resp 16 12/24/21 10:42 BP 165/90 H 12/24/21 10:42 Pulse Ox 96 12/24/21 10:42 O2 Del Method 12/12/21 10:46 Intake & Output 12/23/21 12/24/21 12/24/21 18:59 06:59 18:59 Other: Weight 58.2 kg [place] Weight in Grams 26012 Weight 58.2 kg BMI result Body Mass Index 21.3 - Constitutional Present: no acute distress - Routine HEENT Exam Head: Present: normal inspection - Routine Respiratory Exam Present: decreased breath sounds. Absent: accessory muscle use - Routine Cardiovascular Exam Cardiovascular: Present: S1, S2 - Routine Abdominal Exam Present: normal bowel sounds. Absent: mass - Routine Extremities Exam Present: normal inspection - Routine Skin Exam Present: intact. Absent: cyanosis - Routine Neurological Exam Present: alert, oriented X3 Data - Labs CBC & Chem 7: 12/12/21 11:22 12/12/21 11:22 Labs: 12/12/21 11:22 Carcinoembryonic Antigen Routine Complete Blood Count Auto Diff Stat Comprehensive Met. Panel Stat Lactate Dehydrogenase Routine Laboratory Last Values WBC 7.2 X10*3/uL (4.8-10.8) 12/12/21 11:22 RBC 4.56 X10*6/uL (4.60-5.80) L 12/12/21 11:22 Hgb 15.1 g/dl (14.0-18.0) 12/12/21 11:22 Hct 44.4 % (42.0-52.0) 12/12/21 11:22 MCV 97.4 fL (80.0-98.0) 12/12/21 11:22 MCH 33.1 pg (27.0-33.0) H 12/12/21 11:22 MCHC 34.0 g/dl (31.0-36.0) 12/12/21 11:22 RDW 12.1 % (11.0-16.0) 12/12/21 11:22 Plt Count 288 X10*3/uL (160-400) 12/12/21 11:22 MPV 9.1 fL (9.4-12.4) L 12/12/21 11:22 Immature Gran % (Auto) 0.1 % (0.0-0.4) 12/12/21 11:22 Neut % (Auto) 64.4 % (45-73) 12/12/21 11:22 Lymph % (Auto) 22.5 % (20-40) 12/12/21 11:22 [place] % (Auto) 9.5 % (2-11) 12/12/21 11:22 Eos % (Auto) 2.9 % (0-4) 12/12/21 11:22 Baso % (Auto) 0.6 % (0-2) 12/12/21 11:22 Lymph # (Auto) 1.6 X10*3/uL (1.2-4.9) 12/12/21 11:22 [place] # (Auto) 0.7 X10*3/uL (0.1-1.2) 12/12/21 11:22 Eos # (Auto) 0.2 X10*3/uL (0.0-0.4) 12/12/21 11:22 Baso # (Auto) 0.0 X10*3/uL (0.0-0.2) 12/12/21 11:22 Abs Immat Gran (auto) 0.01 X10*3/uL (0.00-0.03) 12/12/21 11:22 Absolute Neuts (auto) 4.6 x10*3/uL (2.0-8.3) 12/12/21 11:22 Absolute Nucleated RBC 0.000 X10*3/uL (0.0-0.012) 12/12/21 11:22 Nucleated RBC % (auto) 0.0 /100WBC (0.0-0.2) 12/12/21 11:22 Sodium 136 mmol/L (135-145) 12/12/21 11:22 Potassium 4.4 mmol/L (3.3-5.1) 12/12/21 11:22 Chloride 96 mmol/L (96-108) 12/12/21 11:22 Carbon Dioxide 29 mmol/L (22-29) 12/12/21 11:22 Anion Gap 15 (12-20) 12/12/21 11:22 BUN 4 mg/dL (9-16) L 12/12/21 11:22 Creatinine 0.67 mg/dL (0.5-1.4) 12/12/21 11:22 Estim Creat Clear Calc 87.7 12/12/21 11:22 Estimated GFR > 60 12/12/21 11:22 Random Glucose 77 mg/dL (60-115) D 12/12/21 11:22 Calcium 9.4 mg/dL (8.4-10.2) D 12/12/21 11:22 Total Bilirubin 0.6 mg/dL (0.0-1.0) 12/12/21 11:22 AST 31 U/L (5-37) 12/12/21 11:22 ALT 25 U/L (0-40) 12/12/21 11:22 Alkaline Phosphatase 140 U/L (39-117) H 12/12/21 11:22 Lactate Dehydrogenase 230 U/L (118-273) 12/12/21 11:22 Total Protein 8.0 g/dL (6.5-8.0) 12/12/21 11:22 Albumin 4.2 g/dL (3.5-5.0) 12/12/21 11:22 Carcinoembryonic Ag 4.20 ng/mL 12/12/21 11:22 Assessment and Plan Patient Active problem list reviewed?: Yes (1) Non-small cell cancer of left lung Status: Acute Assessment and plan: 1. This is a 66-year-old male, ex-smoker who has been diagnosed with recurrent left lung cancer, squamous cell carcinoma diagnosed in November 2021. He underwent bronchoscopy and biopsy of right upper lung lesion, pathology- invasive squamous cell carcinoma, moderately to poorly differentiated, nonkeratinizing. Insitu squamous cell carcinoma involving bronchial mucosa. Right 4R paratracheal lymph node positive for malignancy consistent with metastatic squamous cell carcinoma. negative for ALK rearrangement, MET amplification, PTEN deletion, RET re arrangement, ROS1 rearrangement, negative for her 2, score 0, no PD-L1 expression, TP score 0%. Based on above images, patient probably has metastatic squamous cell lung cancer. Further staging with PET-CT and brain MRI with contrast have been ordered. His performance status is fairly good. 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 unfortunately, he does not have any of the above-mentioned dedicated local truck driver mutations which would be predictive of response to targeted therapies. He refused brain MRI because of claustrophobia. CT brain with contrast has been ordered. PET scan awaited. Follow-up in a week. - Time Spent With Patient Time Spent with Patient (in minutes): 15
--- NOTE | 2021-12-24 14:05 | MHC.HEMONCMA ---
patient seen today for followup right lung CA, VSS, ct scan ordered and pulmonary function test, with 3 month followup
--- NOTE | 2021-12-25 09:09 | MHC.HEMONCMA ---
ENTERED PULMONARY FUNCTION TESTING IN OF.
--- NOTE | 2021-12-25 09:09 | MHC.HEMONCMA ---
PULMONARY FUNCTION TESTING IS BOOKED FOR 12/31/21 AT 3:00PM.
--- NOTE | 2021-12-25 09:10 | MHC.HEMONCMA ---
ENTERED CT HEAD/BRAIN WO/W CON IN OF.
--- NOTE | 2021-12-25 09:11 | MHC.HEMONCMA ---
LM ABOUT PULMONARY FUNCTION TESTING FOR PATIENT.
--- NOTE | 2021-12-26 12:01 | HO.HEMONCPA ---
PER INSURANCE REP NO PA IS REQUIRED FOR PET CT , I WILL SEND CLINICAL INFORMATION TO [facility] . AWAITING APPT DATE & TIME . REF#LACEY C. 12/26/21 AT 12:01PM
--- NOTE | 2021-12-26 12:02 | HO.HEMONCPA ---
PER PA REP NO PA IS REQUIRED FOR CT HEAD/BRAIN WO/W IV CONTRAST (261001) .
--- NOTE | 2021-12-26 14:15 | HO.HEMONCPA ---
SENT IN CLINICAL INFORMATION TO [facility] , AWAITING APPT DATE AND TIME .
--- NOTE | 2021-12-30 16:45 | HO.HEMONCSCH ---
PET SCAN APPT. BOOKED FOR 01/06/22 at 9:15am
--- NOTE | 2021-12-30 16:59 | MHC.HEMONC ---
Pt informed of new appt with Dr Brian on 01/09 as he is having PET on 01/06.
--- NOTE | 2022-01-01 12:36 | MHC.HEMONC ---
Pt needing help with transportation to appts. Our van goes to [place] so I made appts on 01/06 and 01/09. Pt SO took down details of pickup times.
--- NOTE | 2022-01-08 12:59 | HO.HEMONCPA ---
Addendum entered by Pamela Shaw 01/13/22 13:51: NO PA REQUIRED FOR PACLITAXEL, CARBOPLATIN, & NEULASTA PER [facility]. PA FOR PEMBROLIZUMAB APPROVED. AUTH#[id number].DOS-01/12/2022 TO 01/12/2023. [facility] DOES NOT REQUIRE A PA AT THIS TIME. ALL DOCUMENTS SCANNED IN THE CHART. Original Note: NO PA REQUIRED FOR PACLITAXEL, CARBOPLATIN, & NEULASTA PER [facility]. PA FOR [facility] AND PEMBROLIZUMAB REQUESTED. AWAITING DECISION.
--- NOTE | 2022-01-09 10:48 | P.PNHO-ONC_ITS ---
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 He had CT chest in November 2021 which revealed large right upper lobe central mass with surrounding surgical clips measuring 8 x 6.5 cm inseparable from enlarged right hilar and mediastinal lymph nodes. Largest conglomerate of mediastinal lymph node measuring 4 x 6 cm. There is narrowing of right pulmonary artery from mass but no pulmonary embolism. SVC is anterior to the mass and patent. No pleural effusion. There is right upper lobe focal pleural thickening. Upper abdomen imaging shows a 6.5 x 5.6 cm necrotic left adrenal lesion. Multiple bilateral new pulmonary nodules seen. CT neck with contrast performed the same day showed lymphadenopathy bilaterally right greater than left 5B station consistent with metastatic disease. Interval History Interval history: Patient is here in follow-up. He is doing about the same and has no new complaints. He has had PET scan and is here to discuss results and further management. Review of Systems - Constitutional Reports as per HPI, Reports no additional constitutional complaints, Denies fatigue, Denies fever(s), Denies malaise, Denies night sweats, Denies poor appetite - Cardiovascular Reports no additional cardiovascular complaints - Respiratory Reports no additional respiratory complaints PMF Medical History: Medical History (Last Reviewed 01/09/22 @ 10:51 by Cristina Callahan) Benign essential HTN Gastro-esophageal reflux disease without esophagitis History of bladder cancer Onset Date: ~2014 History of lung cancer Onset Date: ~1998 Lung cancer Lymphadenopathy, mediastinal Other seasonal allergic rhinitis Tubular adenoma of colon Onset Date: ~2016 Family History: Family History (Last Reviewed 01/09/22 @ 10:51 by Cristina Callahan) Father Medical history unknown Mother Breast cancer Sister Lung cancer Surgical History: Surgical History (Last Reviewed 01/09/22 @ 10:51 by Cristina Callahan) History of bladder surgery Onset Date: ~2014 History of bronchoscopy Onset Date: ~2021 History of colonoscopy History of left inguinal hernia repair Onset Date: ~2016 History of lung surgery Onset Date: ~1998 Social History: Social History (Last Reviewed 01/09/22 @ 10:51 by Cristina Callahan) Living Situation History: Household Members: Significant Other Housing: House Alcohol History Details: 1. How often do you have a drink containing alcohol?: e. 4 or more times a week 2. How many drinks containing alcohol do you have on a typical day when you are drinking?: b. 3 or 4 Tobacco History: Patient Tobacco Use Status: Former Tobacco user Tobacco use type: Cigarette Smoke Quit Date: 5 years ago e-Cigarette/Vaping Use: Never Used Second Hand Smoke Exposure: No Substance Use History: Use of substances other than those prescribed or required for medical reasons : No Domestic Abuse History: Have you been hit, kicked, punched, or otherwise hurt by someone within the past year? If so, by whom?: No Do you feel safe in your current relationship?: Yes Homicidal Assessment: Do you have thoughts of harming others: None Do you have a plan to hurt others: No Plan Do you have the means to hurt others: No Nutrition Assessment: Recently lost weight without trying: No Occupation Assessmet: service: No Current occupational status: retired Home Medications and Allergies Allergies Allergy/AdvReac Type Severity Reaction Status Date / Time No Known Allergies Allergy Verified 12/24/21 10:15 [No Known Allergies*] Exam Vital signs: Vital Signs Temp 97.6 F 12/24/21 10:42 Pulse 93 12/24/21 10:42 Resp 16 12/24/21 10:42 BP 165/90 H 12/24/21 10:42 Pulse Ox 96 12/24/21 10:42 O2 Del Method 12/12/21 10:46 Weight 58.2 kg BMI result Body Mass Index 21.3 - Constitutional Present: no acute distress - Routine HEENT Exam Head: Present: normal inspection - Routine Respiratory Exam Present: decreased breath sounds. Absent: accessory muscle use - Routine Cardiovascular Exam Cardiovascular: Present: S1, S2 - Routine Abdominal Exam Present: normal bowel sounds. Absent: mass - Routine Extremities Exam Present: normal inspection - Routine Skin Exam Present: intact. Absent: cyanosis - Routine Neurological Exam Present: alert, oriented X3 Data - Labs CBC & Chem 7: 12/12/21 11:22 12/12/21 11:22 Assessment and Plan Patient Active problem list reviewed?: Yes (1) Non-small cell cancer of left lung Status: Acute Assessment and plan: 1. This is a 66-year-old man with metastatic left lung cancer, squamous cell carcinoma diagnosed in November 2021. He underwent bronchoscopy and biopsy of right upper lung lesion, pathology- invasive squamous cell carcinoma, moderately to poorly differentiated, nonkeratinizing. Insitu squamous cell carcinoma involving bronchial mucosa. Right 4R paratracheal lymph node positive for malignancy consistent with metastatic squamous cell carcinoma. negative for ALK rearrangement, MET amplification, PTEN deletion, RET rearrangement, ROS1 rearrangement, negative for her 2, score 0, no PD-L1 expression, TP score 0%. PET-CT performed 01/06/2022 showed large right upper lobe pulmonary mass, intensely FDG avid mass in the mediastinum with metastatic extension of tumor. Bilateral perihilar paratracheal and subcarinal lymph nodes. FDG avid right supraclavicular lymph node and multiple bilateral FDG avid pulmonary nodules representing metastatic disease. CT brain is pending. Patient refused MRI. Today I discussed palliative systemic therapy for metastatic squamous cell lung cancer. 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 He will be treated with carboplatin/Taxol and pembrolizumab based on phase 3 [id number] trial. We discussed all possible side effects including immune mediated toxicity, neuropathy, organ damage, risk of cytopenias and infection. He is willing to proceed with treatment as soon as possible. Repeat labs next week and schedule treatment. Follow-up in 3 weeks. - Time Spent With Patient Time Spent with Patient (in minutes): 15
[2022-01-09 10:49] VITALS: BP 173/97; PULSE 97; RESP 18; TEMP 36.4; O2SAT 93; BMI 21.7
--- NOTE | 2022-01-09 11:37 | MHC.HEMONCMA ---
Patient seen today for follow up right lung CA, VSS, ct head/brain booked for 01/19/22, 3 week follow up.
--- NOTE | 2022-01-09 12:12 | MHC.HEMONC ---
Pt here for chemo teaching pembro/taxol/carbo every 21 days). He came in alone. I reviewed plan with him as well as drugs to be given and possible side effects. I gave written materials regarding side effects and way(s) to manage them. I highlighted lowered blood cnts, nausea, allergic reaction, neuropathy and immune related side effects. He will be getting neulasta on day#2 and will have dex and ondansetron for use at home to control nausea. He will have weekly home lab draws as he does not have transportation. He is using our van for chemo and MD appts. He signed consent after being given a chance to ask questions.
[2022-01-15 08:09] VITALS: BMI 21.4
[2022-01-15 08:10] VITALS: BP 147/76; PULSE 96; TEMP 36.9; O2SAT 96
[2022-01-15] MEDS: Acetaminophen 325 MG TABLET 650 MG PO (08:36)
[2022-01-15] MEDS: dexAMETHasone sod phosphate/NS 12 MG/50 ML PIGGYBACK 200 MG IV (08:37)
[2022-01-15] MEDS: Famotidine/PF 20 MG/2 ML VIAL IVPUSH (08:41)
[2022-01-15] MEDS: diphenhydrAMINE HCL 50 MG/ML VIAL 25 MG IVPUSH ×2 (09:29→13:22)
[2022-01-15] MEDS: Fosaprepitant Dimeglumine 150 MG in 0.9 % Sodium Chloride 145 ML 300 MG IV (09:48)
[2022-01-15 12:10] VITALS: BP 166/74; PULSE 84; TEMP 36.2; O2SAT 95
[2022-01-15 12:42] VITALS: BP 131/63
[2022-01-15] MEDS: Hydrocortisone Sod Succ/PF 100 MG VIAL IVPUSH (13:22)
--- NOTE | 2022-01-15 14:30 | MHC.HEMONC ---
Here for c1d1 pembro/taxol/carbo. Labs drawn at home on Wednesday, to proceed today. Peripheral IV placed in right forearm, premedicated with tylenol, dex 12 mg IV, benadryl 25 mg IV, famotidine 20 mg IV, zofran 16 mg IV, and emend. After about 50 minutes of Taxol, pt complained of heat and flushing. Taxol stopped, additional 25 mg benadryl IV and sulucortef 100mg given. Pt allowed to recover and remainder of taxol tolerated well. Pembro and carbo tolerated well. Discharge packet given. Pt to return tomorrow for neulasta.
[2022-01-15] MEDS: SODIUM CHLORIDE 0.9% IV (14:42)
[2022-01-15] MEDS: CARBOPLATIN IV (14:42)
--- NOTE | 2022-01-16 13:42 | MHC.HEMONC ---
Here for unique. Looking and feeling well. He is aware of next appts.
--- NOTE | 2022-02-02 08:25 | PM.HEMONCPN ---
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 He had CT chest in November 2021 which revealed large right upper lobe central mass with surrounding surgical clips measuring 8 x 6.5 cm inseparable from enlarged right hilar and mediastinal lymph nodes. Largest conglomerate of mediastinal lymph node measuring 4 x 6 cm. There is narrowing of right pulmonary artery from mass but no pulmonary embolism. SVC is anterior to the mass and patent. No pleural effusion. There is right upper lobe focal pleural thickening. Upper abdomen imaging shows a 6.5 x 5.6 cm necrotic left adrenal lesion. Multiple bilateral new pulmonary nodules seen. CT neck with contrast performed the same day showed lymphadenopathy bilaterally right greater than left 5B station consistent with metastatic disease. PET-CT performed 01/06/2022 showed large right upper lobe pulmonary mass, intensely FDG avid mass in the mediastinum with metastatic extension of tumor. Bilateral perihilar paratracheal and subcarinal lymph nodes. FDG avid right supraclavicular lymph node and multiple bilateral FDG avid pulmonary nodules representing metastatic disease. CT brain is pending. Patient refused MRI. He started palliative systemic therapy for metastatic squamous cell lung cancer with carboplatin/Taxol and pembrolizumab based on phase 3 [id number] trial on 01/15/22. He was admitted for hyponatremia a week after receiving cycle 1. Interval History Interval history: Patient is here in follow-up since hospital discharge. He is now feeling better, is accompanied by his niece today. He reports ongoing swelling of both his legs. However, his appetite has improved and he has gained some weight. His shortness of breath and cough are better. He denies any nausea, emesis or abdominal pain. Review of Systems - Constitutional Reports as per HPI, Reports no additional constitutional complaints - Cardiovascular Reports no additional cardiovascular complaints - Respiratory Reports no additional respiratory complaints - Gastrointestinal Reports no additional gastrointestinal complaints [facility] Medical History: Medical History (Last Reviewed 02/02/22 @ 08:39 by Cristina Callahan) Benign essential HTN Gastro-esophageal reflux disease without esophagitis History of bladder cancer Onset Date: ~2014 History of lung cancer Onset Date: ~1998 Lung cancer Lung cancer Lymphadenopathy, mediastinal Non-small cell cancer of left lung Other seasonal allergic rhinitis Syndrome of inappropriate ADH (SIADH) secretion Tubular adenoma of colon Onset Date: ~2016 Family History: Family History (Last Reviewed 02/02/22 @ 08:39 by Cristina Callahan) Father Medical history unknown Mother Breast cancer Sister Lung cancer Surgical History: Surgical History (Last Reviewed 02/02/22 @ 08:39 by Cristina Callahan) History of bladder surgery Onset Date: ~2014 History of bronchoscopy Onset Date: ~2021 History of colonoscopy History of left inguinal hernia repair Onset Date: ~2016 History of lung surgery Onset Date: ~1998 Social History: Social History (Last Reviewed 02/02/22 @ 08:39 by Cristina Callahan) Living Situation History: Household Members: Spouse Housing: House Do you presently have visiting nurse or other home services: No Alcohol History Details: 1. How often do you have a drink containing alcohol?: e. 4 or more times a week 2. How many drinks containing alcohol do you have on a typical day when you are drinking?: b. 3 or 4 Tobacco History: Patient Tobacco Use Status: Former Tobacco user Tobacco use type: Cigarette Smoke Quit Date: 5 years ago e-Cigarette/Vaping Use: Never Used Second Hand Smoke Exposure: No Substance Use History: Use of substances other than those prescribed or required for medical reasons: No Domestic Abuse History: Have you been hit, kicked, punched, or otherwise hurt by someone within the past year? If so, by whom?: No Do you feel safe in your current relationship?: Yes Homicidal Assessment: Do you have thoughts of harming others: None Do you have a plan to hurt others: No Plan Do you have the means to hurt others: No Nutrition Assessment: Recently lost weight without trying: No Occupation Assessmet: service: No Current occupational status: retired Oncology Screenings - ECOG Performance Status ECOG Performance Status: 1 Home Medications and Allergies Home Medications Medication Instructions Recorded Confirmed Type dexamethasone 4 mg tablet 4 mg PO BID PRN post chemo x 2 days 01/21/22 02/02/22 History (Decadron) Allergies Allergy/AdvReac Type Severity Reaction Status Date / Time No Known Allergies Allergy Verified 01/29/22 08:34 [No Known Allergies*] Exam Vital signs: Vital Signs Temp 97.2 F 01/15/22 12:10 Pulse 84 01/15/22 12:10 Resp 18 01/09/22 10:49 BP 131/63 01/15/22 12:42 Pulse Ox 95 01/15/22 12:10 O2 Del Method 01/15/22 12:10 Weight 58.6 kg BMI result Body Mass Index 21.4 - Constitutional Present: no acute distress - Routine HEENT Exam Head: Present: normal inspection - Routine Respiratory Exam Present: decreased breath sounds. Absent: accessory muscle use - Routine Cardiovascular Exam Cardiovascular: Present: S1, S2 - Routine Abdominal Exam Present: normal bowel sounds. Absent: mass - Routine Extremities Exam Present: normal inspection - Routine Skin Exam Present: intact. Absent: cyanosis - Routine Neurological Exam Present: alert, oriented X3 Data - Labs CBC & Chem 7: 02/02/22 08:31 02/02/22 08:31 Assessment and Plan Patient Active problem list reviewed?: Yes (1) Non-small cell cancer of left lung Status: Inactive Assessment and plan: 1. This is a 66-year-old man with metastatic left lung cancer, squamous cell carcinoma diagnosed in November 2021. He underwent bronchoscopy and biopsy of right upper lung lesion, pathology-invasive squamous cell carcinoma, moderately to poorly differentiated, nonkeratinizing. Insitu squamous cell carcinoma involving bronchial mucosa. Right 4R paratracheal lymph node positive for malignancy consistent with metastatic squamous cell carcinoma. negative for ALK rearrangement, MET amplification, PTEN deletion, RET rearrangement, ROS1 rearrangement, negative for her 2, score 0, no PD-L1 expression, TP score 0%. PET-CT performed 01/06/2022 showed large right upper lobe pulmonary mass, intensely FDG avid mass in the mediastinum with metastatic extension of tumor. Bilateral perihilar paratracheal and subcarinal lymph nodes. FDG avid right supraclavicular lymph node and multiple bilateral FDG avid pulmonary nodules representing metastatic disease. He received 1st cycle of carboplatin/Taxol and pembrolizumab based on 01/15/2022. 2. Hyponatremia after cycle 1 chemotherapy. He was admitted, received normal saline, workup including CT brain with contrast was negative for metastasis. Thyroid functions were normal. He was not hypotensive and adrenal insufficiency was not felt to be a reason. Increase water intake with decreased oral intake of salt was felt to be reason for hyponatremia. 3. Bilateral leg edema. He has just been started on Lasix 20 mg once a day. He was advised to continue with this for now. He was also recommended to use compression stockings and leg elevation. His chemotherapy is being postpone by a week as he feels he is just recovering and does not feel up to receiving treatment this week. Blood work today shows normalization of sodium and CBC has improved. Follow-up in 3 weeks. - Time Spent With Patient Time Spent with Patient (in minutes): 15
[2022-02-02 08:36] VITALS: BP 156/93; PULSE 75; RESP 16; TEMP 36.4; O2SAT 98; BMI 22.6
[2022-02-02 08:48] LABS: MANUAL DIFF FLAG NO
[2022-02-02 08:53] LABS: Basophils Absolute Auto 0.1 X10*3/uL (0.0-0.2); Basophils Percent Auto 0.7 % (0-2); Eosinophils Percent Auto 0.1 % (0-4); Hematocrit 34.8 % (42.0-52.0); Hemoglobin 11.5 g/dl (14.0-18.0); Imm Gran Abs Auto 0.02 X10*3/uL (0.00-0.03); Imm Gran Pct Auto 0.3 % (0.0-0.4); Lymphocytes Absolute Auto 0.9 X10*3/uL (1.2-4.9); Lymphocytes Percent Auto 12.8 % (20-40); Mean Corpuscular Hemoglobin 33.1 pg (27.0-33.0); Mean Corpuscular Volume 100.3 fL (80.0-98.0); Mean Platelet Volume 9.5 fL (9.4-12.4); Monocytes Absolute Auto 0.8 X10*3/uL (0.1-1.2); Monocytes Percent Auto 11.5 % (2-11); Neutrophils Absolute Auto 5.4 x10*3/uL (2.0-8.3); Neutrophils Percent Auto 74.6 % (45-73); Platelet Count 337 X10*3/uL (160-400); Red Blood Count 3.47 X10*6/uL (4.60-5.80); Red Cell Distribution Width 11.9 % (11.0-16.0); White Blood Count 7.2 X10*3/uL (4.8-10.8)
--- NOTE | 2022-02-02 09:12 | MHC.HEMONCMA ---
patient seen today for follow up lung ca, VSS, labs, followup in 1 week.
[2022-02-02 09:15] LABS: Alanine Aminotransferase 36 U/L (0-40); Albumin Level 3.7 g/dL (3.5-5.0); Alkaline Phosphatase 105 U/L (39-117); Anion Gap 18 (12-20); Aspartate Amino Transferase 40 U/L (5-37); Bilirubin Total 0.4 mg/dL (0.0-1.0); Blood Urea Nitrogen 10 mg/dL (9-16); Carbon Dioxide 28 mmol/L (22-29); Chloride 95 mmol/L (96-108); Creatinine Clr Calc Pharmacy 94.6; Estimated Glomerular Filt Rate > 60; Glucose Random 83 mg/dL (60-115); Potassium 4.9 mmol/L (3.3-5.1); Sodium 136 mmol/L (135-145); Total Protein 6.8 g/dL (6.5-8.0)
--- NOTE | 2022-02-09 11:48 | MHC.HEMONCMA ---
Patient's girlfriend called triage line looking for advice of bilateral hands,legs, feet swelling still and taking furomeside 20 mg daily. Spoke with Prosper Matson, advised to call PCP who prescribes medication for him to see if they need to increase dose. Patient was given information and will call pcp.
--- NOTE | 2022-02-10 11:12 | MHC.HEMONCMA ---
Patient's girlfriend called to let us know that patient was admitted to [facility] yesterday after [facility] transferred him there.
--- NOTE | 2022-02-10 11:29 | MHC.HEMONC ---
Pt admitted to [facility]-will not be in for chemotherapy treatment this week
--- NOTE | 2022-02-18 09:24 | MHC.HEMONC ---
Called pt at home to remind him of today's chemo appointment. His voice is hoarse and it hurts to speak so I spoke with his girlfriend Zoya. She explained that he was at the [facility] ER on 02/09 then transferred to the [facility] ICU with severe hemoptysis. He was discharged on Tuesday 02/13 and has an appointment for throat surgery on Wednesday02/23/2022. They will call once he is home and able to return for chemotherapy.
--- NOTE | 2022-02-23 15:23 | MHC.HEMONC ---
Hem/ONC progress note, Hopsitalist progress note,surgical path, cytology,x-ray, CT scan,PET scan, demographic sheet faxed to [facility] Radiation department per Rekha request. Rekha states she will have one of the providers review information, insurance accepted per Rekha.
--- NOTE | 2022-02-24 09:26 | MHC.HEMONC ---
Spoke with Rekha at [facility] radiation department. Pt scheduled to see Dr Andrade on 02/26/22 at 1100-Dr Brian notified. Pt remains inpatient currently.
--- NOTE | 2022-02-24 14:41 | MHC.HEMONC ---
Pt is currently on IMC for management of SVC Syndrome. He is stable on oxygen and diuretics. He will be needing RT to chest and possibly thoracic surgery. He has been made an appt with Dr Raymond Daugherty at [facility] on at 11 am. I spoke with his daughter, Ximena this afternoon and she is aware of the appt and plans on bringing him if he is discharged. I have sent in an application for transportation to/from appts through [facility] with [employer]. I informed his daughter that it will take some time to have the transportation approved.
--- NOTE | 2022-02-26 11:53 | MHC.HEMONC ---
I called [facility] to see if pt went for his Consultation with Dr Andrade this morning as [place] [facility] [place]. They said his daughter, Ximena (was to transport him) called to cancel it saying he was too weak . They are not sure when they could r/s it. I called Ximena and she said that her dad told her that but she was not actually there. According to his SO, Phyllis, he is weak but ambulating and eating and does not c/o pain. I inquired about VNA but he wasn't interested. His daughter and SO were informed that RT was the plan for his sx and that if he does not go he could be appropraite for hospice. I will f/u with them tomorrow. Dr Brian informed.
--- NOTE | 2022-03-02 14:33 | MHC.HEMONC ---
Pt has r/s his RT Consult with Dr Andrade at [facility] for 03/05 at 2 pm. Pt says he has a ride.
--- NOTE | 2022-03-05 15:22 | MHC.HEMONC ---
Nurse took t/c from nurse Canela at [facility] Rad/Onc, said she is trying to determine pt's med regimen. Nurse informed her pt had not been treated since Dec, due to multiple hospitalizations. She inquired if pt had ever been prescribed dexamethasone. Nurse confirmed pt was sent scrip for Dexamethasone in December to take for 2 days after tx, as he was given IV Emend, the scrip was filled at [facility] on [facility]
--- NOTE | 2022-03-06 10:46 | MHC.HEMONC ---
Pt saw Dr Andrade yesterday at [facility]. He will be starting RT on 03/16/22 per his daughter. I made f/u here on that same day at her request.
--- NOTE | 2022-03-23 15:07 | HO.HEMONCSCH ---
called [facility]. up-coming appt cancelled
== END 2022-03-19 | disposition home or self-care (01) ==
LOC: HO.ONC 08:20
PROVIDERS: PCP Internal Medicine; Referring Provider Internal Medicine; Visit Provider Internal Medicine
DX: C34.11 Malignant neoplasm of upper lobe, right bronchus or lung (principal); E87.1 Hypo-osmolality and hyponatremia; R60.0 Localized edema; Z79.899 Other long term (current) drug therapy; Z87.891 Personal history of nicotine dependence
CPT/HCPCS: 36415; 80053; 82378; 83615; 85025; 96367; 96372; 96375; 96376; 96413; 96415; 96417; 99205; 99213; 99215; J1100; J1200; J1453; J2405; J2506; J9045; J9267; J9271

== ENCOUNTER 2022-02-09 12:47 | Emergency (ER) | payer MEDICAID, SELFPAY ==
--- NOTE | ~2022-02-09 | XR_ITS ---
EXAMINATION: XR CHEST CLINICAL INFORMATION: Leg swelling. Short of breath. COMPARISON: 01/20/2022 TECHNIQUE: Frontal view of the chest was obtained. FINDINGS: Cardiac leads overlie the chest. Multifocal opacities are seen in both lungs, which could be in part chronic. There is a right apical opacity which is partially improved from prior. Nodular opacities again noted. No pleural effusion or pneumothorax. The cardiomediastinal silhouette is normal in size, with a calcified aorta. XR/XR chest 1V IMPRESSION: Multifocal opacities are seen, which could be in part chronic. Right apical opacity is partially improved from prior. This could be infectious or inflammatory. No edema.
[2022-02-09 13:50] VITALS: BP 186/72; PULSE 73; RESP 18; TEMP 36.6; O2SAT 95; BMI 21.2
--- NOTE | 2022-02-09 22:27 | ED.GENADULT ---
HPI - General Adult General Chief complaint: General Medical Stated complaint: swelling of feet and hands Time Seen by Provider: 02/09/22 22:21 Source: patient Mode of arrival: ambulatory Limitations: no limitations History of Present Illness HPI narrative: This is a 58 history Non-small cell lunglcancer of left lung status post wedge resection in 1998 & chemotherapy with recurrence of cancer involving the mediastinal lymph nodes, COPD, atrial fibrilation on eliquis, hypertension, CHF presenting to the emergency department with complaints of progressively worsening dyspnea, edema of bilateral lower extremities and hands and coughing up blood since this morning. Patient states he was admitted 2 weeks ago and discharged home on Eliquis and furosemide 20 mg tells me these are for heart failure and newly diagnosed afib. Since this last hospital admission his bilateral lower extremities have gotten significantly more swollen and his work of breathing has worsened. Beginning this morning he began coughing up a significant amount of blood that is more than he has ever experienced. Upon history taking patient is coughing up a large amount of bright red blood out of his mouth, blood comes out of his mouth each time he talks and when he coughs. Denies history of DVT/PE. Anticoagulated on Eliquis Denies fever, chills, headaches, changes in vision. Related Data Home Medications Medication Instructions Recorded Confirmed dexamethasone 4 mg tablet 4 mg PO BID PRN post chemo x 2 days 01/21/22 02/02/22 (Decadron) Previous Rx's Medication Instructions Recorded loratadine 10 mg tablet 10 mg PO DAILY #90 tabs 09/19/21 albuterol sulfate 90 mcg/actuation 2 puff PO Q4-6H for wheezing #8.5 10/23/21 aerosol inhaler grams ondansetron 8 mg disintegrating 8 mg PO Q8H PRN Nausea #30 tabs 01/09/22 tablet amiodarone 200 mg tablet 200 mg PO DAILY #30 tabs 01/24/22 amiodarone 200 mg tablet 400 mg PO BID 13 days #52 tabs 01/24/22 apixaban 5 mg tablet (Eliquis) 5 mg PO BID #60 tabs 01/24/22 atorvastatin 40 mg tablet 40 mg PO BEDTIME #30 tabs 01/24/22 cefuroxime axetil 500 mg tablet 500 mg PO BID #10 tabs 01/24/22 digoxin 250 mcg (0.25 mg) tablet 0.25 mg PO DAILY 30 days #30 tabs 01/24/22 furosemide 20 mg tablet 20 mg PO DAILY #30 tabs 01/29/22 albuterol sulfate 2.5 mg/3 mL 2.5 mg (3 mL) inhalation BID 30 02/06/22 (0.083 %) solution for nebulization days #180 mL Allergies Allergy/AdvReac Type Severity Reaction Status Date / Time No Known Allergies Allergy Verified 01/29/22 08:34 [No Known Allergies*] Review of Systems Review of Systems: Constitutional : No Weight loss, No Fever, No Chills, + Fatigue, + Malaise ENT/Mouth : No sore throat, No Rhinorrhea Eyes: No Eye Pain, No Swelling, No Redness Cardiovascular : No Chest Pain, + SOB, + Dyspnea on Exertion, No Orthopnea, + Edema, No Palpitations Respiratory : + Cough, + Sputum, No Wheezing Gastrointestinal : No Nausea, No Vomiting, No Diarrhea, No Constipation, No abdominal Pain, No Hematochezia, No Melena Genitourinary : No Dysuria, No Urinary Frequency, No Hematuria, Musculoskeletal : No joint pain, No Myalgias, No Joint Swelling Skin : No Skin Lesions, No rash Neuro : No Weakness, No Numbness, No Dizziness, No Headache Psych : No Anxiety/Panic, No Depression All other systems reviewed and are negative Yes all other systems are reviewed and are negative [facility] Past Medical History Attestation statement: The following information was validated with the patient. Source: old records reviewed and nursing notes reviewed Medical History Benign essential HTN Gastro-esophageal reflux disease without esophagitis History of bladder cancer (~2014) History of lung cancer (~1998) Lung cancer Lung cancer Lymphadenopathy, mediastinal Non-small cell cancer of left lung Other seasonal allergic rhinitis Syndrome of inappropriate ADH (SIADH) secretion Tubular adenoma of colon (~2016) Surgical History History of bladder surgery (~2014) History of bronchoscopy (~2021) History of colonoscopy History of left inguinal hernia repair (~2016) History of lung surgery (~1998) Family History Family History Father Medical history unknown Mother Breast cancer Sister Lung cancer Social History Social History Household Members: Spouse Housing: House Do you presently have visiting nurse or other home services: No Alcohol intake: former Patient Tobacco Use Status: Former Tobacco user Quit Date: 5 years ago Tobacco use type: Cigarette e-Cigarette/Vaping Use: Never Used Second Hand Smoke Exposure: No Advance Directives: No service: No Current occupational status: retired Cognitive needs: No Hearing needs: No Vision needs: Yes (Glasses) Physical Exam ED Vital Signs: Vital Signs - 24 hr 02/09/22 13:50 02/10/22 00:00 Temperature 97.9 F Pulse Rate 73 82 Respiratory Rate 18 22 H Blood Pressure 186/72 H 198/77 H Pulse Oximetry 95 97 Oxygen Delivery Method Room Air Aerosol Mask Oxygen Flow Rate 10 BMI result Body Mass Index 21.2 vss Appearance: Alert.? Oriented X3.? Patient in moderate to severe respiratory distress. Head: Normocephalic, atraumatic, no step-offs or deformities Eyes: Pupils equal, round and reactive to light.? ENT: Pharynx normal.??Patient coughing up a large amount of bright red blood. Neck: Normal inspection.? Neck supple.? CVS: Normal heart rate and rhythm.? Pulses normal.? Respiratory: Patient in moderate?does severe respiratory distress. Patient is breath sounds diminished bilaterally with some crackles to bilateral lower lobes. Abdomen: Soft and nontender.? Skin: Skin warm and dry.? Normal skin color.? Normal skin turgor.? Extremities: 4+ pitting edema to bilateral lower extremities. 1+ dorsal, posterior is tibi and anterior ali tibialis pulses equal bilaterally. 4/5 strength to bilateral upper and lower extremities Neuro: Oriented X 3.? No motor deficit.? No sensory deficit. CN 2-12 intact Course Reevaluation(s) Reevaluation #1: CBC appears to be around patient's baseline. Chemistry with no acute electrolyte abnormalities requiring intervention. Patient's BNP 462, troponin 44.1. COVID negative. Time: 23:14 Reevaluation #2: Spoke to Dr. Wolf who tells me that large hemoptysis needs a hospital with thoracic surgeon. He doesn't feel comfortable with this patient staying at this ICU. Time: 23:19 Reevaluation #3: [facility] closed to transfers at this time. Will try aliza who has thoracic surgery. Time: 23:25 Additional Reevaluation(s): [address] Wilson thoracic surgeon at [facility] who tells me that patient needs an ICU admission. Patient will be transferred to [facility] to the ICU under the service of an ICU attending transfer line who will call me with information of who will be the accepting provider. He agrees that patient needs transfer tells me no need to obtain a CT at this time he would prefer imaging be done there. 2355 Spoke to Sandor Escalante PA-C ICU who tells me she needs to discuss this case w/ her attending waiting for call back . 235 Dr. Infante accepted patient at [facility] ICU. 0020 Chest x-ray with multifocal opacities which could be chronic. Right apical opacity is partially improved from prior. Infectious or inflammatory. No edema. Medical Decision Making MDM Narrative Medical decision making narrative: 1029 66 year old male presents w/ large amount of hemoptysis ( bright red with some clots) X 1 day cough, dyspnea and UE and LE edema since hospital admission PE- patient coughing up large amounts of bright red blood, hypoxic at 85% on RA, diaphoretic, increased work of breathing, patient noted to have diminished breath sounds bilaterally with bilateral lower lobe crackles RRR. Abdomen soft nontender non distended. Neuro nonfocal Immediately upon me evaluating patient patient was placed on nasal cannula. Sat patient upright to ensure airway protection. Suction patient's mouth. Respiratory called. Discuss this case with my attending who recommends immediately reversing Eliquis with Kcentra. Moved patient into trauma room in case intubation is needed. Large amount of hemoptysis led me to order type and screen, INR. Concerns for active upper GI bleed. No history of liver issues, unlikely that this is varicose bleeding. Will rule out pneumonia, ACS, chf Plan at this time is to obtain basic labs, imaging, urine. Upon chart review it is noted that patient was admitted into this hospital from January 21 to 01/24/2022. He was admitted for acute hypoxic respiratory failure secondary to multifocal pneumonia and COPD exacerbation, NSTEMI, hyponatremia with metabolic encephalopathy with a sodium of 116, new onset atrial fibrillation with RVR. For the NSTEMI it was thought that this was a type 2 NSTEMI from hypoxia and acidemia. 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 Hyponatremia was thought to be secondary to SIADH. For atrial fibrillation with RVR patient was discharged home on Eliquis 5 mg twice daily was started on atorvastatin 40 mg daily, amiodarone 400 mg twice daily for 13 days then switch to 200 mg daily and digoxin 0.25 mg daily. 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 A CT performed in November 2021 revealed a large right upper lobe central mass with surrounding surgical clips. Also noted to have large mediastinal lymph node measuring 4 x 6 cm. There is noted to be narrowing of the right pulmonary artery from the mass however no PE at that time. SVC was patent at that time. Also noted to have a 6.5 x 5.6 cm necrotic left adrenal lesion. Patient was started on palliative systemic therapy for metastatic squamous cell lung cancer with carboplatin, Taxol and Pebrolizumba on 01/15/2022. Patients bl lower extremity edema being treated w/ 20 mg PO once a day. Last seen by [facility] on 02/02/2022 Medical Records Medical records reviewed: Yes I reviewed the patient's medical records. Lab Data Lab results reviewed: Yes I reviewed the patient's lab results. Result diagrams: 02/09/22 22:33 02/09/22 22:33 Labs: Lab Results 02/09/22 02/09/22 02/09/22 Range/Units 22:33 22:33 22:33 WBC 7.7 (4.8-10.8) X10*3/uL RBC 3.69 L (4.60-5.80) X10*6/uL Hgb 12.1 L (14.0-18.0) g/dl Hct 36.9 L (42.0-52.0) % MCV 100.0 H (80.0-98.0) fL MCH 32.8 (27.0-33.0) pg MCHC 32.8 (31.0-36.0) g/dl RDW 12.3 (11.0-16.0) % Plt Count 269 (160-400) X10*3/uL MPV 8.8 L (9.4-12.4) fL Immature Gran % (Auto) 0.1 (0.0-0.4) % Neut % (Auto) 75.4 H (45-73) % Lymph % (Auto) 12.4 L (20-40) % [place] % (Auto) 9.2 (2-11) % Eos % (Auto) 2.5 (0-4) % Baso % (Auto) 0.4 (0-2) % Lymph # (Auto) 1.0 L (1.2-4.9) X10*3/uL [place] # (Auto) 0.7 (0.1-1.2) X10*3/uL Eos # (Auto) 0.2 (0.0-0.4) X10*3/uL Baso # (Auto) 0.0 (0.0-0.2) X10*3/uL Abs Immat Gran (auto) 0.01 (0.00-0.03) X10*3/uL Absolute Neuts (auto) 5.8 (2.0-8.3) x10*3/uL Absolute Nucleated RBC 0.000 (0.0-0.012) X10*3/uL Nucleated RBC % (auto) 0.0 (0.0-0.2) /100WBC PT (10.0-13.1) SEC INR (0.9-1.1) Sodium 139 (135-145) mmol/L Potassium 3.8 D (3.3-5.1) mmol/L Chloride 99 (96-108) mmol/L Carbon Dioxide 28 (22-29) mmol/L Anion Gap 16 (12-20) BUN 6 L (9-16) mg/dL Creatinine 0.61 (0.5-1.4) mg/dL Estim Creat Clear Calc 101.1 Estimated GFR > 60 Random Glucose 107 (60-115) mg/dL Calcium 9.4 (8.4-10.2) mg/dL Magnesium 2.0 (1.6-2.6) mg/dL Total Bilirubin 0.4 (0.0-1.0) mg/dL AST 23 D (5-37) U/L ALT 29 (0-40) U/L Alkaline Phosphatase 143 H D (39-117) U/L Troponin I High Sens (<3.5-35.0) ng/L B-Natriuretic Peptide 462 H (<100) pg/mL Total Protein 7.4 (6.5-8.0) g/dL Albumin 4.3 (3.5-5.0) g/dL COVID-19 ([facility]) (Negative) COVID-19 Clin Com Blood Type Antibody Screen 02/09/22 02/09/22 02/09/22 Range/Units 22:33 22:33 22:49 WBC (4.8-10.8) X10*3/uL RBC (4.60-5.80) X10*6/uL Hgb (14.0-18.0) g/dl Hct (42.0-52.0) % MCV (80.0-98.0) fL MCH (27.0-33.0) pg MCHC (31.0-36.0) g/dl RDW (11.0-16.0) % Plt Count (160-400) X10*3/uL MPV (9.4-12.4) fL Immature Gran % (Auto) (0.0-0.4) % Neut % (Auto) (45-73) % Lymph % (Auto) (20-40) % [place] % (Auto) (2-11) % Eos % (Auto) (0-4) % Baso % (Auto) (0-2) % Lymph # (Auto) (1.2-4.9) X10*3/uL [place] # (Auto) (0.1-1.2) X10*3/uL Eos # (Auto) (0.0-0.4) X10*3/uL Baso # (Auto) (0.0-0.2) X10*3/uL Abs Immat Gran (auto) (0.00-0.03) X10*3/uL Absolute Neuts (auto) (2.0-8.3) x10*3/uL Absolute Nucleated RBC (0.0-0.012) X10*3/uL Nucleated RBC % (auto) (0.0-0.2) /100WBC PT 12.9 (10.0-13.1) SEC INR 1.1 (0.9-1.1) Sodium (135-145) mmol/L Potassium (3.3-5.1) mmol/L Chloride (96-108) mmol/L Carbon Dioxide (22-29) mmol/L Anion Gap (12-20) BUN (9-16) mg/dL Creatinine (0.5-1.4) mg/dL Estim Creat Clear Calc Estimated GFR Random Glucose (60-115) mg/dL Calcium (8.4-10.2) mg/dL Magnesium (1.6-2.6) mg/dL Total Bilirubin (0.0-1.0) mg/dL AST (5-37) U/L ALT (0-40) U/L Alkaline Phosphatase (39-117) U/L Troponin I High Sens 44.1 H D (<3.5-35.0) ng/L B-Natriuretic Peptide (<100) pg/mL Total Protein (6.5-8.0) g/dL Albumin (3.5-5.0) g/dL COVID-19 ([facility]) Negative (Negative) COVID-19 Clin Com See Note Blood Type Antibody Screen 02/09/22 Range/Units 22:49 WBC (4.8-10.8) X10*3/uL RBC (4.60-5.80) X10*6/uL Hgb (14.0-18.0) g/dl Hct (42.0-52.0) % MCV (80.0-98.0) fL MCH (27.0-33.0) pg MCHC (31.0-36.0) g/dl RDW (11.0-16.0) % Plt Count (160-400) X10*3/uL MPV (9.4-12.4) fL Immature Gran % (Auto) (0.0-0.4) % Neut % (Auto) (45-73) % Lymph % (Auto) (20-40) % [place] % (Auto) (2-11) % Eos % (Auto) (0-4) % Baso % (Auto) (0-2) % Lymph # (Auto) (1.2-4.9) X10*3/uL [place] # (Auto) (0.1-1.2) X10*3/uL Eos # (Auto) (0.0-0.4) X10*3/uL Baso # (Auto) (0.0-0.2) X10*3/uL Abs Immat Gran (auto) (0.00-0.03) X10*3/uL Absolute Neuts (auto) (2.0-8.3) x10*3/uL Absolute Nucleated RBC (0.0-0.012) X10*3/uL Nucleated RBC % (auto) (0.0-0.2) /100WBC PT (10.0-13.1) SEC INR (0.9-1.1) Sodium (135-145) mmol/L Potassium (3.3-5.1) mmol/L Chloride (96-108) mmol/L Carbon Dioxide (22-29) mmol/L Anion Gap (12-20) BUN (9-16) mg/dL Creatinine (0.5-1.4) mg/dL Estim Creat Clear Calc Estimated GFR Random Glucose (60-115) mg/dL Calcium (8.4-10.2) mg/dL Magnesium (1.6-2.6) mg/dL Total Bilirubin (0.0-1.0) mg/dL AST (5-37) U/L ALT (0-40) U/L Alkaline Phosphatase (39-117) U/L Troponin I High Sens (<3.5-35.0) ng/L B-Natriuretic Peptide (<100) pg/mL Total Protein (6.5-8.0) g/dL Albumin (3.5-5.0) g/dL COVID-19 ([facility]) (Negative) COVID-19 Clin Com Blood Type A Negative Antibody Screen NEGATIVE ECG Data Attestation: I personally reviewed and interpreted this ECG as follows: Prior ECG tracings: available for review Interpretation: Ventricular rate of 89, PA normal, QRS normal, QT/QTC normal. EKG with normal sinus rhythm and low-voltage QRS. No ST elevations or inversions concerning for ischemia. No significant changes when compared to previous Critical Care Time Critical Care Time Critical Care Time: Yes Total Critical Care Time: 45 Attestation: I attest to this time spent taking care of the patient, obtaining history, physical, reviewing labs, imaging, speaking to my attending, Discharge Plan Discharge Clinical Impression: Major hemoptysis, Shortness of breath, Cough, Edema of both lower extremities, Hypoxia Patient Disposition: [facility] Transfer Details: Patient accepted to [facility] ICU by Dr. Lin Prescriptions: No Action loratadine 10 mg tablet 10 mg PO DAILY Qty: 90 1RF albuterol sulfate 90 mcg/actuation HFA aerosol inhaler 2 puff PO Q4-6H Qty: 8.5 2RF dexamethasone [Decadron] 4 mg tablet 4 mg PO BID PRN (Reason: post chemo x 2 days) Rx Instructions: take for 2 days after chemo amiodarone 200 mg Tablet 400 mg PO BID 13 Days Qty: 52 0RF digoxin 250 mcg (0.25 mg) Tablet 0.25 mg PO DAILY 30 Days Qty: 30 0RF Eliquis 5 mg Tablet 5 mg PO BID Qty: 60 2RF amiodarone 200 mg tablet 200 mg PO DAILY Qty: 30 1RF Rx Instructions: To start after finishing 13 days of 400 mg bid cefuroxime axetil 500 mg tablet 500 mg PO BID Qty: 10 0RF atorvastatin 40 mg tablet 40 mg PO BEDTIME Qty: 30 0RF ondansetron 8 mg Tablet,Disintegrating 8 mg PO Q8H PRN (Reason: Nausea) Qty: 30 3RF furosemide 20 mg tablet 20 mg PO DAILY Qty: 30 0RF albuterol sulfate 2.5 mg /3 mL (0.083 %) solution for nebulization 2.5 mg inhalation BID 30 Days Qty: 180 11RF
[2022-02-09 22:37] LABS: MANUAL DIFF FLAG NO
[2022-02-09 22:40] LABS: Basophils Percent Auto 0.4 % (0-2); Eosinophils Absolute Auto 0.2 X10*3/uL (0.0-0.4); Eosinophils Percent Auto 2.5 % (0-4); Hematocrit 36.9 % (42.0-52.0); Hemoglobin 12.1 g/dl (14.0-18.0); Imm Gran Abs Auto 0.01 X10*3/uL (0.00-0.03); Imm Gran Pct Auto 0.1 % (0.0-0.4); Lymphocytes Percent Auto 12.4 % (20-40); Mean Corpuscular HGB Conc 32.8 g/dl (31.0-36.0); Mean Corpuscular Hemoglobin 32.8 pg (27.0-33.0); Mean Platelet Volume 8.8 fL (9.4-12.4); Monocytes Absolute Auto 0.7 X10*3/uL (0.1-1.2); Monocytes Percent Auto 9.2 % (2-11); Neutrophils Absolute Auto 5.8 x10*3/uL (2.0-8.3); Neutrophils Percent Auto 75.4 % (45-73); Platelet Count 269 X10*3/uL (160-400); Red Blood Count 3.69 X10*6/uL (4.60-5.80); Red Cell Distribution Width 12.3 % (11.0-16.0); White Blood Count 7.7 X10*3/uL (4.8-10.8)
[2022-02-09 22:53] LABS: COVID-19 Test Negative (Negative)
[2022-02-09 22:56] LABS: Alanine Aminotransferase 29 U/L (0-40); Albumin Level 4.3 g/dL (3.5-5.0); Alkaline Phosphatase 143 U/L (39-117); Anion Gap 16 (12-20); Aspartate Amino Transferase 23 U/L (5-37); Bilirubin Total 0.4 mg/dL (0.0-1.0); Blood Urea Nitrogen 6 mg/dL (9-16); Calcium 9.4 mg/dL (8.4-10.2); Carbon Dioxide 28 mmol/L (22-29); Chloride 99 mmol/L (96-108); Creatinine Clr Calc Pharmacy 101.1; Estimated Glomerular Filt Rate > 60; Glucose Random 107 mg/dL (60-115); Potassium 3.8 mmol/L (3.3-5.1); Sodium 139 mmol/L (135-145); Total Protein 7.4 g/dL (6.5-8.0)
[2022-02-09 23:02] LABS: B Type Natriuretic Peptide 462 pg/mL (<100)
[2022-02-09 23:03] LABS: Troponin-I High Sensitivity 44.1 ng/L (<3.5-35.0)
[2022-02-09 23:06] LABS: INTERNATIONAL NORM RATIO 1.1 (0.9-1.1); Prothrombin Time 12.9 SEC (10.0-13.1)
--- NOTE | 2022-02-09 23:13 | ECG_ITS ---
Test Reason : LEGS EDEMA Blood Pressure : / mmHG Vent. Rate : 089 BPM Atrial Rate : 089 BPM P-R Int : 154 ms QRS Dur : 068 ms QT Int : 358 ms P-R-T Axes : 097 001 199 degrees QTc Int : 435 ms Poor data quality Normal sinus rhythm Low voltage QRS Nonspecific ST abnormality Cannot rule out Anterior infarct , age undetermined Abnormal ECG When compared with ECG of 23-JAN-2022 12:52, Premature atrial complexes are no longer Present Nonspecific ST abnormality Anterolateral leads is new Nonspecific T wave abnormality now evident in Inferior leads Referred By: Maryann Cruz Electronically Signed By:KIP COPELAND MD
[2022-02-09] MEDS: Hum Prothrombin Cplx(PCC)4Fact 1,500 UNIT in Container,Empty 0 ML 480 UNIT IV (23:24)
--- NOTE | 2022-02-09 23:30 | PC.NURSE ---
[facility]'s transfer Center called at [phone] they are closed to transfers at this time GREER Thomas aware. [facility]'s transfer center called at [phone] provider speaking with them at this time.
[2022-02-10] VITALS: BP 198/77; PULSE 82; RESP 22; O2SAT 97
--- NOTE | 2022-02-10 00:25 | PC.NURSE ---
[facility] accepted patient at 2359, accepted patient to ICU room 309 [place] called at 0013 for a stat transfer per Martha BUTTERFIELD. Nurse to Nurse report
--- NOTE | 2022-02-10 00:29 | PC.NURSE ---
[facility] arrived at 0026 for transport.
--- NOTE | 2022-02-10 00:54 | PC.NURSE ---
Nurse to nurse report called to [facility] ICU, spoke to Enzo, patient to be transported to [facility] by [facility] on O2 oxymask at 10 LPM and cardiac rehabilitation specialist.
== END 2022-02-10 00:59 | disposition short-term general hospital (02) ==
PROVIDERS: Physician Assistant; Emergency Provider Student in an Organized Health Care Education/Training Program; PCP Internal Medicine
DX: R04.2 Hemoptysis (principal); R06.02 Shortness of breath; R60.0 Localized edema; R05.9 Cough, unspecified; R09.02 Hypoxemia; Z20.822 Contact with and (suspected) exposure to COVID-19; I48.91 Unspecified atrial fibrillation; I11.0 Hypertensive heart disease with heart failure; I50.9 Heart failure, unspecified; Z79.01 Long term (current) use of anticoagulants; Z79.02 Long term (current) use of antithrombotics/antiplatelets; Z87.891 Personal history of nicotine dependence
CPT/HCPCS: 36415; 71045; 80053; 83735; 83880; 84484; 85025; 85610; 86850; 86900; 86901; 87635; 93005; 99285; J7168

== ENCOUNTER 2022-02-20 14:18 | Inpatient (IN) | payer MEDICARE, MEDICAID, SELFPAY ==
--- NOTE | ~2022-02-20 | CT_ITS ---
EXAMINATION: CT CHEST WITH CONTRAST CLINICAL INFORMATION: SVC syndrome. COMPARISON: None TECHNIQUE: Multidetector volumetric CT imaging of the chest was obtained after the administration of 50 mL of Omnipaque 350 intravenous contrast without immediate adverse reactions. Axial MIP volume rendering provided. Sagittal and coronal reformatted images were obtained. This CT examination was performed using dose optimization techniques as appropriate, variously including the following: *Automated exposure control *Adjustment of mA and/or kV according to patient size (this includes techniques or standardized protocols for targeted exams where dose is matched to indication/reason for exam; i.e. extremities or head) *Use of iterative reconstruction technique DLP: 289 mGy-cm FINDINGS: FINISHER ACCORDION: Well-expanded lungs with moderate opacity right lung apex. LUNGS: Again visualized in the right upper lobe mass with improved airspace consolidation. There are bilateral pulmonary nodules visualized largest superior segment right upper lobe measures 9 mm on axial image 19/4, it has increased additional pulmonary nodules left upper lobe adjacent to the major fissure measuring 1.1 cm and 6 mm on axial image 26/4 have increased slightly in size. There is chronic changes or scarring in the left upper lobe, anterobasal segment left lower lobe. MEDIASTINUM: Heart size and the great vessels are normal caliber. There is matted large mediastinal adenopathy as was noted before with mild narrowing of bilateral proximal bronchi and proximal right pulmonary artery. Heart size and the great vessels are maintained normal. Small pericardial effusion seen. CORONARY ARTERY CALCIFICATION: Mild to moderate coronary artery calcifications are present. PLEURA: There is intervening new bilateral small pleural effusions with compressive bibasilar atelectasis. AXILLA: No abnormal size axillary lymphadenopathy seen. The chest wall is unremarkable. . UPPER ABDOMEN: Visualized liver and spleen is unremarkable. There is a large left adrenal mass likely metastatic. Measures 6.5 x 6.0 cm and appears stable OSSEOUS STRUCTURES: No lytic or sclerotic process seen. CT/CT chest w IV con IMPRESSION: 1. Right upper lobe mass, stable with improved airspace consolidation. 2. There are bilateral pulmonary nodules which have increased in size. 3. There are new bilateral small pleural effusions with compressive bibasilar atelectasis. 4. There is a small pericardial effusion. 5. Large left adrenal mass likely metastatic is stable. 6. Matted mediastinal adenopathy is stable. Fleischner guidelines were followed.
--- NOTE | ~2022-02-20 | XR_ITS ---
EXAMINATION: XR CHEST CLINICAL INFORMATION: Shortness of breath. COMPARISON: CT chest 01/20/2022. Chest x-ray 02/09/2022 TECHNIQUE: Frontal view of the chest was obtained. 6:00 PM FINDINGS: Density right lung apex redemonstrated. Surgical clips in the right superior mediastinum/christian. Multiple bilateral lung nodules again noted. No acute airspace disease. No pleural effusion XR/XR chest 1V IMPRESSION: 1. No acute abnormality of the chest. 2. Density right lung apex and bilateral lung nodules redemonstrated.
[2022-02-20 14:26] VITALS: BP 167/67; PULSE 84; RESP 14; TEMP 36.5; O2SAT 97
--- NOTE | 2022-02-20 14:36 | ED.GENADULT ---
HPI - General Adult General Chief complaint: Dyspnea Stated complaint: SOB Time Seen by Provider: 02/20/22 14:36 Source: patient Mode of arrival: ambulatory Limitations: no limitations History of Present Illness HPI narrative: Patient is a 66 year old assigned male at with a history of extensive lung cancer with lymphnode mets, COPD, and upper GI bleeding presenting to the emergency department today with increased SOB and edema. Patient states that a few weeks ago he was seen here due to upper GI bleeding and because we didn't have an ICU bed, he was transferred to [facility] ICU. Patient states that he was discharged from there without oxygen and was told to stop his Eliquis. Patient states that he is still taking his lasix but he is swelling anyway. Patient states that while he was at [facility], they were able to fix his swelling. Patient denies any bleeding at this time. Patient denies any dizziness, lightheadedness, abdominal pain, nausea, vomiting, fever, chills, blurry vision, double vision, loss of vision, chest pain, back pain, night sweats, pain with urination, increased urinary frequency, increased urinary urgency, blood in his urine or stool, syncope or a near syncopal episode, recent trauma or falls, bowel incontinence, bladder incontinence, bowel retention, bladder retention, or any other complaints at this time. Onset (ago): day(s) Severity: moderate Relieving factors: none Exacerbating factors: none Associated symptoms: shortness of breath Treatments prior to arrival: none Related Data Home Medications Medication Instructions Recorded Confirmed dexamethasone 4 mg tablet 4 mg PO BID PRN post chemo x 2 days 01/21/22 02/20/22 (Decadron) Previous Rx's Medication Instructions Recorded loratadine 10 mg tablet 10 mg PO DAILY #90 tabs 09/19/21 albuterol sulfate 90 mcg/actuation 2 puff PO Q4-6H for wheezing #8.5 10/23/21 aerosol inhaler grams ondansetron 8 mg disintegrating 8 mg PO Q8H PRN Nausea #30 tabs 01/09/22 tablet amiodarone 200 mg tablet 200 mg PO DAILY #30 tabs 01/24/22 atorvastatin 40 mg tablet 40 mg PO BEDTIME #30 tabs 01/24/22 digoxin 250 mcg (0.25 mg) tablet 0.25 mg PO DAILY 30 days #30 tabs 01/24/22 albuterol sulfate 2.5 mg/3 mL 2.5 mg (3 mL) inhalation BID 30 02/06/22 (0.083 %) solution for nebulization days #180 mL furosemide 20 mg tablet 20 mg PO DAILY #30 tabs 02/20/22 Allergies Allergy/AdvReac Type Severity Reaction Status Date / Time No Known Allergies Allergy Verified 02/20/22 13:42 [No Known Allergies*] Review of Systems Constitutional: Constitutional: Reports no additional constitutional complaints, Denies chills, Denies fever(s) and Denies night sweats Eyes: Eyes: Reports no additional eye complaints, Denies blurry vision, Denies change in vision, Denies diplopia, Denies eye discharge, Denies loss of vision and Denies eye pain ENT: Denies dizziness Cardiovascular: Cardiovascular: Reports no additional cardiovascular complaints, Denies chest pain, Reports leg edema, Denies lightheadedness, Denies Loss of Consciousness and Reports dyspnea Respiratory: Respiratory: Reports no additional respiratory complaints and Reports dyspnea Gastrointestinal: Gastrointestinal: Reports no additional gastrointestinal complaints, Denies abdominal pain, Denies melena, Denies hematochezia, Denies change in bowel habits and Denies change in stool character Genitourinary: Genitourinary: Reports no additional male genitourinary complaints, Denies hematuria, Denies oliguria, Denies difficulty urinating, Denies dysuria, Denies urinary frequency, Denies urinary hesitancy, Denies urinary incontinence and Denies urinary urgency Musculoskeletal: Musculoskeletal: Reports no additional musculoskeletal complaints, Denies numbness and Denies tingling Neurologic: Denies dizziness, Denies loss of vision, Denies numbness and Denies tingling Psychiatric: Psychiatric: Reports no additional psychiatric complaints Endocrine: Endocrine: Reports no additional endocrine complaints Hematologic/Lymphatic: Hematologic/Lymphatic: Reports no additional hematologic/lymphatic complaints Allergic/Immunologic: Allergic/Immunologic: Reports no additional allergic/immunologic complaints PMFSH Past Medical History Attestation statement: The following information was validated with the patient. Source: old records reviewed Medical History (Updated 02/21/22 @ 05:44 by Sari Talavera MD) Afib Benign essential HTN Cardiomyopathy Gastro-esophageal reflux disease without esophagitis History of bladder cancer (~2014) History of lung cancer (~1998) Lung cancer Lung cancer Lymphadenopathy, mediastinal Non-small cell cancer of left lung Other seasonal allergic rhinitis Syndrome of inappropriate ADH (SIADH) secretion Tubular adenoma of colon (~2016) Surgical History History of bladder surgery (~2014) History of bronchoscopy (~2021) History of colonoscopy History of left inguinal hernia repair (~2016) History of lung surgery (~1998) Family History Family History Father Medical history unknown Mother Breast cancer Sister Lung cancer Social History Social History Household Members: Significant Other Housing: Apartment Do you presently have visiting nurse or other home services: No Alcohol intake: current Alcohol intake frequency: a few times a week Patient Tobacco Use Status: Former Tobacco user Quit Date: 5 years ago Tobacco use type: Cigarette Smoked in Last 30 Days: No e-Cigarette/Vaping Use: Never Used Second Hand Smoke Exposure: No Use of substances other than those prescribed or required for medical reasons: No Currently Displaying Signs/Symptoms of Drug Intoxication Withdrawal: No Any prior treatment program specific to substance use: No Have you been hit, kicked, punched, or otherwise hurt by someone within the past year? If so, by whom?: No Do you feel safe in your current relationship?: No Is there a partner from a previous relationship who is making you feel unsafe now?: No Are you made to feel afraid or neglected: No Advance Directives: No Advance Directives Information Provided: No Do you have thoughts of harming others: None Recently lost weight without trying: No Nutrition Risks: No Nutritional Risk service: No Current occupational status: retired Cognitive needs: No Hearing needs: No Vision needs: Yes (Glasses) Physical Exam ED Vital Signs: Vital Signs - 24 hr 02/20/22 14:26 02/20/22 15:06 02/20/22 19:01 Temperature 97.7 F 98.3 F Pulse Rate 84 79 102 H Respiratory Rate 14 20 20 Blood Pressure 167/67 H 167/67 H 163/76 H Pulse Oximetry 97 97 96 Oxygen Delivery Method Room Air Nasal Cannula Nasal Cannula Oxygen Flow Rate 2 02/20/22 19:07 02/20/22 19:28 Temperature 98.1 F Pulse Rate 103 H 107 H Respiratory Rate 17 18 Blood Pressure 150/69 H Pulse Oximetry 95 Oxygen Delivery Method Nasal Cannula Oxygen Flow Rate 2 BMI result Body Mass Index 21.9 Const General: cooperative, no acute distress, alert and awake Nutritional Appearance: well nourished Orientation/consciousness: patient oriented x3 Limitations: no limitations HENMT Head: Yes normal to inspection and Yes atraumatic Ears: hearing grossly normal bilaterally and external ears normal General nose exam: Normal external nose present, no nasal discharge noted and no epistaxis Face and sinus: Yes normal facial exam, No abrasion and No laceration Mouth: Normal oral and palatal mucosa present, no drooling and no muffled voice Eyes General: appearance normal, both eyes and all related structures Periorbital: periorbital findings normal Eyelids: Yes eyelids normal Conjunctivae: conjunctivae normal Pupils: Equal, round and reactive pupils present EOM: EOMs intact bilaterally Neck Neck: Yes normal visual inspection, Yes full ROM and Yes no lymphadenopathy Chest Chest palpation & inspection: normal inspection of the chest Resp Effort & Inspection: able to speak in complete sentences and labored Auscultation: rhonchi throughout Cardio Rate: regular rate Rhythm: regular rhythm Peripheral pulses: Peripheral pulses 2+ throughout GI Inspection: Yes normal to inspection Skin Other: edema present to the bilateral upper and lower extremities Neuro General: patient oriented x3 and moves all extremities Cranial nerves: Yes Equal, round and reactive pupils present Cognition (Neuro): normal cognition Motor exam (neuro): 5/5 motor strength present throughout Sensory Exam: Normal double simultaneous stimulation for sensation Coordination: [id number] test normal Extrem General: Yes normal to inspection, Yes full ROM and Yes capillary refill normal Psych Appearance: grossly normal Mental Status: mental status grossly normal Affect: normal affect Attitude: cooperative Thought process: Normal thought process present Thought content: Normal thought content present Insight: Good insight present (Psych) Medical Decision Making MDM Narrative Medical decision making narrative: Patient is a 66 year old assigned male at with a history of metastatic lung cancer, GERD, and HTN presenting to the emergency department today with increased SOB and edema. Patient's physical exam showed edema to all 4 extremities with labored breathing and rales throughout all lung cavazos. Patient's blood work showed an elevated BNP of 201. Patient's EKG was unremarkable. Patient's chest x-ray is pending. Patient is not septic nor was sepsis suspected. Patient's current clinical presentation is most consistent with deconditioning secondary to worsening lung cancer. I spoke to the hospitalist team who agreed to admission. I explained my physical exam findings as well as all test results to the patient. I answered all questions asked by the patient. Patient verbalized agreement and understanding with this treatment plan and admission. Medical Records Medical records reviewed: Yes I reviewed the patient's medical records. Lab Data Lab results reviewed: Yes I reviewed the patient's lab results. Result diagrams: 02/21/22 06:46 02/21/22 06:46 Labs: Lab Results 02/20/22 02/20/22 02/20/22 Range/Units 15:14 15:14 15:14 WBC 7.6 (4.8-10.8) X10*3/uL RBC 3.04 L (4.60-5.80) X10*6/uL Hgb 9.9 L (14.0-18.0) g/dl Hct 29.6 L (42.0-52.0) % MCV 97.4 (80.0-98.0) fL MCH 32.6 (27.0-33.0) pg MCHC 33.4 (31.0-36.0) g/dl RDW 12.9 (11.0-16.0) % Plt Count 254 (160-400) X10*3/uL MPV 8.8 L (9.4-12.4) fL Immature Gran % (Auto) 0.3 (0.0-0.4) % Neut % (Auto) 76.8 H (45-73) % Lymph % (Auto) 11.3 L (20-40) % [place] % (Auto) 9.8 (2-11) % Eos % (Auto) 1.4 (0-4) % Baso % (Auto) 0.4 (0-2) % Lymph # (Auto) 0.9 L (1.2-4.9) X10*3/uL [place] # (Auto) 0.8 (0.1-1.2) X10*3/uL Eos # (Auto) 0.1 (0.0-0.4) X10*3/uL Baso # (Auto) 0.0 (0.0-0.2) X10*3/uL Abs Immat Gran (auto) 0.02 (0.00-0.03) X10*3/uL Absolute Neuts (auto) 5.9 (2.0-8.3) x10*3/uL Absolute Nucleated RBC 0.000 (0.0-0.012) X10*3/uL Nucleated RBC % (auto) 0.0 (0.0-0.2) /100WBC Sodium 141 (135-145) mmol/L Potassium 4.1 (3.3-5.1) mmol/L Chloride 102 (96-108) mmol/L Carbon Dioxide 24 (22-29) mmol/L Anion Gap 19 (12-20) BUN 11 D (9-16) mg/dL Creatinine 0.64 (0.5-1.4) mg/dL Estim Creat Clear Calc 96.3 Estimated GFR > 60 Random Glucose 87 (60-115) mg/dL Calcium 8.7 D (8.4-10.2) mg/dL Magnesium 2.1 (1.6-2.6) mg/dL Total Bilirubin 0.2 (0.0-1.0) mg/dL AST 23 (5-37) U/L ALT 18 (0-40) U/L Alkaline Phosphatase 134 H (39-117) U/L Troponin I High Sens (<3.5-35.0) ng/L B-Natriuretic Peptide 201 H (<100) pg/mL Total Protein 6.7 (6.5-8.0) g/dL Albumin 3.9 (3.5-5.0) g/dL COVID-19 ([facility]) (Negative) COVID-19 Clin Com 02/20/22 02/20/22 Range/Units 15:14 15:14 WBC (4.8-10.8) X10*3/uL RBC (4.60-5.80) X10*6/uL Hgb (14.0-18.0) g/dl Hct (42.0-52.0) % MCV (80.0-98.0) fL MCH (27.0-33.0) pg MCHC (31.0-36.0) g/dl RDW (11.0-16.0) % Plt Count (160-400) X10*3/uL MPV (9.4-12.4) fL Immature Gran % (Auto) (0.0-0.4) % Neut % (Auto) (45-73) % Lymph % (Auto) (20-40) % [place] % (Auto) (2-11) % Eos % (Auto) (0-4) % Baso % (Auto) (0-2) % Lymph # (Auto) (1.2-4.9) X10*3/uL [place] # (Auto) (0.1-1.2) X10*3/uL Eos # (Auto) (0.0-0.4) X10*3/uL Baso # (Auto) (0.0-0.2) X10*3/uL Abs Immat Gran (auto) (0.00-0.03) X10*3/uL Absolute Neuts (auto) (2.0-8.3) x10*3/uL Absolute Nucleated RBC (0.0-0.012) X10*3/uL Nucleated RBC % (auto) (0.0-0.2) /100WBC Sodium (135-145) mmol/L Potassium (3.3-5.1) mmol/L Chloride (96-108) mmol/L Carbon Dioxide (22-29) mmol/L Anion Gap (12-20) BUN (9-16) mg/dL Creatinine (0.5-1.4) mg/dL Estim Creat Clear Calc Estimated GFR Random Glucose (60-115) mg/dL Calcium (8.4-10.2) mg/dL Magnesium (1.6-2.6) mg/dL Total Bilirubin (0.0-1.0) mg/dL AST (5-37) U/L ALT (0-40) U/L Alkaline Phosphatase (39-117) U/L Troponin I High Sens 14.8 D (<3.5-35.0) ng/L B-Natriuretic Peptide (<100) pg/mL Total Protein (6.5-8.0) g/dL Albumin (3.5-5.0) g/dL COVID-19 ([facility]) Negative (Negative) COVID-19 Clin Com See Note ECG Data Attestation: I personally reviewed and interpreted this ECG as follows: Prior ECG tracings: available for review Interpretation: Vent. Rate: 079 BPM ? ? Atrial Rate: 079 BPM P-R Int: 146 ms? QRS Dur: 080 ms QT Int: 362 ms ? ? ? P-R-T Axes: 073 035 115 degrees QTc Int: 415 ms ? Normal sinus rhythm Low voltage QRS T wave abnormality, consider lateral ischemia Abnormal ECG When compared with ECG of 09-FEB-2022 23:25, ST no longer depressed in Inferior leads Nonspecific T wave abnormality, improved in Inferior leads DD/ [id number] Critical Care Time Critical Care Time Critical Care Time: Yes Total Critical Care Time: 30 Attestation: I spent 30 minutes of Critical Care Time with this patient. This does not include time spent on separately reported billable procedures. Discharge Plan Discharge Clinical Impression: Lung cancer, Elevated brain natriuretic peptide (BNP) level, Edema Patient Disposition: Admitted As Inpatient Interventions: Admission Worksheet (ED) Last Done: 02/21/22 05:17 Discharge Date/Time: 02/21/22 05:20
--- NOTE | 2022-02-20 15:02 | ECG_ITS ---
Test Reason : DYSPNEA Blood Pressure : / mmHG Vent. Rate : 079 BPM Atrial Rate : 079 BPM P-R Int : 146 ms QRS Dur : 080 ms QT Int : 362 ms P-R-T Axes : 073 035 115 degrees QTc Int : 415 ms Normal sinus rhythm Low voltage QRS T wave abnormality, consider lateral ischemia Abnormal ECG When compared with ECG of 09-FEB-2022 23:25, ST no longer depressed in Inferior leads Nonspecific T wave abnormality, improved in Inferior leads Referred By: Darya Askew Electronically Signed By:KIP COPELAND MD
[2022-02-20 15:06] VITALS: BP 167/67; PULSE 79; RESP 20; TEMP 36.8; O2SAT 97; BMI 21.9
[2022-02-20 15:26] LABS: MANUAL DIFF FLAG NO
[2022-02-20 15:30] LABS: Basophils Percent Auto 0.4 % (0-2); Eosinophils Absolute Auto 0.1 X10*3/uL (0.0-0.4); Eosinophils Percent Auto 1.4 % (0-4); Hematocrit 29.6 % (42.0-52.0); Hemoglobin 9.9 g/dl (14.0-18.0); Imm Gran Abs Auto 0.02 X10*3/uL (0.00-0.03); Imm Gran Pct Auto 0.3 % (0.0-0.4); Lymphocytes Absolute Auto 0.9 X10*3/uL (1.2-4.9); Lymphocytes Percent Auto 11.3 % (20-40); Mean Corpuscular HGB Conc 33.4 g/dl (31.0-36.0); Mean Corpuscular Hemoglobin 32.6 pg (27.0-33.0); Mean Corpuscular Volume 97.4 fL (80.0-98.0); Mean Platelet Volume 8.8 fL (9.4-12.4); Monocytes Absolute Auto 0.8 X10*3/uL (0.1-1.2); Monocytes Percent Auto 9.8 % (2-11); Neutrophils Absolute Auto 5.9 x10*3/uL (2.0-8.3); Neutrophils Percent Auto 76.8 % (45-73); Platelet Count 254 X10*3/uL (160-400); Red Blood Count 3.04 X10*6/uL (4.60-5.80); Red Cell Distribution Width 12.9 % (11.0-16.0); White Blood Count 7.6 X10*3/uL (4.8-10.8)
[2022-02-20] MEDS: Furosemide 40 MG/4 ML VIAL IVPUSH (15:34)
[2022-02-20 15:40] LABS: COVID-19 Test Negative (Negative); IDNOW Serial# 16C4AD1C
[2022-02-20 15:45] LABS: Alanine Aminotransferase 18 U/L (0-40); Albumin Level 3.9 g/dL (3.5-5.0); Alkaline Phosphatase 134 U/L (39-117); Anion Gap 19 (12-20); Aspartate Amino Transferase 23 U/L (5-37); Bilirubin Total 0.2 mg/dL (0.0-1.0); Blood Urea Nitrogen 11 mg/dL (9-16); Calcium 8.7 mg/dL (8.4-10.2); Carbon Dioxide 24 mmol/L (22-29); Chloride 102 mmol/L (96-108); Creatinine Clr Calc Pharmacy 96.3; Estimated Glomerular Filt Rate > 60; Glucose Random 87 mg/dL (60-115); Magnesium 2.1 mg/dL (1.6-2.6); Potassium 4.1 mmol/L (3.3-5.1); Sodium 141 mmol/L (135-145); Total Protein 6.7 g/dL (6.5-8.0)
[2022-02-20 15:52] LABS: B Type Natriuretic Peptide 201 pg/mL (<100); Troponin-I High Sensitivity 14.8 ng/L (<3.5-35.0)
[2022-02-20] MEDS: Midazolam HCl/PF 2 MG/2 ML VIAL IVPUSH (16:51)
[2022-02-20 19:01] VITALS: BP 163/76; PULSE 102; RESP 20; O2SAT 96
[2022-02-20 19:07] VITALS: BP 150/69; PULSE 103; RESP 17; TEMP 36.7; O2SAT 95
--- NOTE | 2022-02-20 19:12 | PHA.MEDREC ---
Pharmacy Consult ? Medication Reconciliation Pharmacy has completed the medication reconciliation. Patient poor historian, only thing he told me was aliza d/c his Eliquis. Used [employer] claims as he told me he uses [employer].
[2022-02-20] MEDS: Albuterol/Iprat 2.5/0.5MG 3 ML AMPUL.NEB INHALE (19:26)
[2022-02-20 19:28] VITALS: PULSE 107; RESP 18; O2SAT 96
--- NOTE | 2022-02-20 19:37 | PM.IMHP ---
History of Present Illness Date of Service: 02/20/22 Chief Complaint: SOB 66-year-old male with past medical history of HTN, history of bladder cancer status post TURP in 2014, history of lung cancer, COPD, presents to the hospital with complaints of leg and hand swelling. He reports that he has been swollen for the past week and a half progressively worsening. He has swelling in his legs and arms. He reports compliance with his Lasix but does eat a lot of cold cuts and deli meat, he is also reporting a cough, sputum production, reports significant orthopnea and PND. Denies any fever or chills, no headache, no chest pain, no palpitations, no abdominal pain nausea or vomiting, no diarrhea, no urinary symptoms On arrival patient hemodynamically stable with vitals significant for tachycardia in the 102-105, and elevated blood pressure. Patient on 2 L of oxygen satting 97% Labs are significant for WBC count 7.6, hemoglobin of 9.9, hematocrit 29.6, BNP of 201, Chest x-ray shows density in the right lung apex which is redemonstrated from previous imaging, with no acute airspace disease. No pleural effusion Review of Systems Review of Systems: Yes all other systems are reviewed and are negative [facility] Medical History (Updated 02/21/22 @ 05:44 by Sari Talavera MD) Afib Benign essential HTN Cardiomyopathy Gastro-esophageal reflux disease without esophagitis History of bladder cancer (~2014) History of lung cancer (~1998) Lung cancer Lung cancer Lymphadenopathy, mediastinal Non-small cell cancer of left lung Other seasonal allergic rhinitis Syndrome of inappropriate ADH (SIADH) secretion Tubular adenoma of colon (~2016) Family History Father Medical history unknown Mother Breast cancer Sister Lung cancer Surgical History History of bladder surgery (~2014) History of bronchoscopy (~2021) History of colonoscopy History of left inguinal hernia repair (~2016) History of lung surgery (~1998) Social History Household Members: Spouse Housing: House Do you presently have visiting nurse or other home services: No Alcohol intake: current Alcohol intake frequency: a few times a week Patient Tobacco Use Status: Former Tobacco user Quit Date: 5 years ago Tobacco use type: Cigarette Smoked in Last 30 Days: No e-Cigarette/Vaping Use: Never Used Second Hand Smoke Exposure: No Use of substances other than those prescribed or required for medical reasons: No Advance Directives: No Advance Directives Information Provided: No service: No Current occupational status: retired Cognitive needs: No Hearing needs: No Vision needs: Yes (Glasses) Meds Allergies Allergy/AdvReac Type Severity Reaction Status Date / Time No Known Allergies Allergy Verified 02/20/22 13:42 [No Known Allergies*] Active Medications: Current Medications Albuterol/Ipratropium (Albuterol/Iprat 2.5/0.5mg 3 Ml Ampul.Neb) 3 ml INHALE RQ4H PRN PRN Reason: Shortness of Breath/Wheezing Albuterol/Ipratropium (Albuterol/Iprat 2.5/0.5mg 3 Ml Ampul.Neb) 3 ml INHALE RQ4H WHILE AWAKE VELMA Last Admin: 02/20/22 19:26 Dose: 3 ml Pharmacy Consult (Consult Rx Perform Med Rec) 1 each MISCELLANE ONCE PRN PRN Reason: Consult order Home Medications Medication Instructions Recorded Confirmed Last Taken Type dexamethasone 4 mg tablet 4 mg PO BID PRN post chemo x 2 days 01/21/22 02/20/22 Unknown History (Decadron) Physical Exam Vital Signs and Narrative: Vital Signs: Last Vital Signs Temp 98.1 F 02/20/22 19:07 Pulse 107 H 02/20/22 19:28 Resp 18 02/20/22 19:28 BP 150/69 H 02/20/22 19:07 Pulse Ox 95 02/20/22 19:07 O2 Del Method 02/20/22 19:07 O2 Flow Rate 2 02/20/22 19:07 Oxygen Flow Rate 2 02/20/22 15:06 BMI result Body Mass Index 21.9 Const: General: cooperative and no acute distress Orientation/consciousness: patient oriented x3 Eyes: General: appearance normal, both eyes and all related structures Resp: Other: Diminished breath sounds, no evidence of crackles or wheezing on my exam Effort & Inspection: normal respiratory effort Cardio: Rate: regular rate Rhythm: regular rhythm GI: Palpation (GI): Soft to palpation Auscultation: normal bowel sounds Skin: General skin exam: no rashes or lesions noted Neuro: General: patient oriented x3 Cognition (Neuro): normal cognition Extrem: General: Yes normal to inspection and Yes no pedal edema Results Labs CBC and Chem 7: 02/20/22 15:14 02/20/22 15:14 Labs: Laboratory Results - last 24 hr 02/20/22 02/20/22 02/20/22 15:14 15:14 15:14 MCV 97.4 MCH 32.6 MCHC 33.4 RDW 12.9 Plt Count 254 MPV 8.8 L Immature Gran % (Auto) 0.3 Neut % (Auto) 76.8 H Lymph % (Auto) 11.3 L [place] % (Auto) 9.8 Eos % (Auto) 1.4 Baso % (Auto) 0.4 Lymph # (Auto) 0.9 L [place] # (Auto) 0.8 Eos # (Auto) 0.1 Baso # (Auto) 0.0 Abs Immat Gran (auto) 0.02 Absolute Neuts (auto) 5.9 Absolute Nucleated RBC 0.000 Nucleated RBC % (auto) 0.0 Anion Gap 19 Estim Creat Clear Calc 96.3 Estimated GFR > 60 Random Glucose 87 Calcium 8.7 D Magnesium 2.1 Total Bilirubin 0.2 AST 23 ALT 18 Alkaline Phosphatase 134 H Troponin I High Sens B-Natriuretic Peptide 201 H Total Protein 6.7 Albumin 3.9 COVID-19 ([facility]) COVID-19 Clin Com 02/20/22 02/20/22 15:14 15:14 MCV MCH MCHC RDW Plt Count MPV Immature Gran % (Auto) Neut % (Auto) Lymph % (Auto) [place] % (Auto) Eos % (Auto) Baso % (Auto) Lymph # (Auto) [place] # (Auto) Eos # (Auto) Baso # (Auto) Abs Immat Gran (auto) Absolute Neuts (auto) Absolute Nucleated RBC Nucleated RBC % (auto) Anion Gap Estim Creat Clear Calc Estimated GFR Random Glucose Calcium Magnesium Total Bilirubin AST ALT Alkaline Phosphatase Troponin I High Sens 14.8 D B-Natriuretic Peptide Total Protein Albumin COVID-19 ([facility]) Negative COVID-19 Clin Com See Note Imaging Radiologist's Impressions: Impressions Chest X-Ray 02/20/22 18:10 IMPRESSION: 1. No acute abnormality of the chest. 2. Density right lung apex and bilateral lung nodules redemonstrated. Assessment and Plan (1) Acute chronic obstructive pulmonary disease with respiratory distress: Status: Acute (2) Elevated brain natriuretic peptide (BNP) level: Status: Acute (3) Edema: Status: Acute (4) Acute exacerbation of CHF (congestive heart failure): Status: Acute (5) Normocytic anemia: Status: Acute Plan This is a 66-year-old male with past medical history of lung cancer, COPD, presents to the hospital with complaints of shortness of breath, as well as swelling in his legs and arms. # acute on chronic obstructive pulmonary disease - likely secondary to COPD exacerbation - has cough, sputum production, dyspnea - no evidence of pneumonia on chest x-ray - will treat with Solu-Medrol, doing # edema/elevated BNP - likely CHF exacerbation - patient was seen by Cardiology in January for cardiomyopathy felt to be secondary to stress-induced - at this time will treat him with IV Lasix, consult Cardiology, repeat echocardiogram - low-sodium diet, I&O, daily weight # normocytic anemia - acute - denies any melena or hematochezia - will obtain ferritin, B12 and folic acid - follow CBC # AFib - patient was found to have AFib in January and went to AFib with [facility], was started on amiodarone and digoxin. As well as Eliquis for anticoagulation - will continue home med DVT prophylaxis: Eliquis Patient will require minimal 2 night inpatient hospital stay for further management and evaluation Quality Stroke Does the patient have a stroke diagnosis?: No VTE Prior VTE?: No VTE Risk Level:: Medical - moderate - high VTE Device Contraindication: Treatment Not Indicated VTE Drug Contraindication: N/A - Med Ordered
[2022-02-20] MEDS: Heparin Sodium,Porcine 5,000 UNIT/ML VIAL 5000 UNIT SUBCUT (20:41)
[2022-02-20 21:46] VITALS: BP 154/63; PULSE 103; RESP 10; TEMP 36.7; O2SAT 96
[2022-02-20] MEDS: traZODone HCL 50 MG TABLET PO (23:32)
[2022-02-21] VITALS (12 sets, daily range): BP systolic 147–187; BP diastolic 62–88; PULSE 72–107; RESP 16–21; TEMP 36.1–36.8; O2SAT 93–100; BMI 24.1
[2022-02-21] MEDS: Albuterol/Iprat 2.5/0.5MG 3 ML AMPUL.NEB INHALE ×5 (00:52→20:08)
[2022-02-21] MEDS: 0.9 % Sodium Chloride Flush 3 ML SYRINGE IVFLUSH ×3 (01:38→15:56)
[2022-02-21] MEDS: Atorvastatin Calcium 40 MG TABLET PO ×2 (06:33→20:24)
[2022-02-21 07:31] LABS: MANUAL DIFF FLAG NO
[2022-02-21 07:42] LABS: Basophils Percent Auto 0.4 % (0-2); Eosinophils Percent Auto 0.5 % (0-4); Hemoglobin 10.2 g/dl (14.0-18.0); Imm Gran Abs Auto 0.02 X10*3/uL (0.00-0.03); Imm Gran Pct Auto 0.3 % (0.0-0.4); Lymphocytes Absolute Auto 0.6 X10*3/uL (1.2-4.9); Mean Corpuscular Hemoglobin 33.3 pg (27.0-33.0); Mean Platelet Volume 9.4 fL (9.4-12.4); Monocytes Absolute Auto 0.8 X10*3/uL (0.1-1.2); Monocytes Percent Auto 10.4 % (2-11); NRBC Pct Auto 0.3 /100WBC (0.0-0.2); Neutrophils Absolute Auto 6.4 x10*3/uL (2.0-8.3); Neutrophils Percent Auto 80.4 % (45-73); Platelet Count 256 X10*3/uL (160-400); Red Blood Count 3.06 X10*6/uL (4.60-5.80); Red Cell Distribution Width 13.1 % (11.0-16.0)
[2022-02-21 08:12] LABS: Anion Gap 18 (12-20); Blood Urea Nitrogen 11 mg/dL (9-16); Carbon Dioxide 28 mmol/L (22-29); Chloride 100 mmol/L (96-108); Creatinine Clr Calc Pharmacy 92.4; Estimated Glomerular Filt Rate > 60; Glucose Random 98 mg/dL (60-115); Potassium 3.7 mmol/L (3.3-5.1); Sodium 142 mmol/L (135-145)
--- NOTE | 2022-02-21 08:20 | MHC.CM.PN ---
CM met with Patient at bedside and addressed IMM with him, providing him with the original and placing a copy on the chart. Patient lives in an apartment with his Girlfriend and he uses a walker to assist with mobility. 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 Home,self care is the goal and CM has initiated and will follow for dc planning. Patient has received Covid vax x 2 and his PCP is Dr. Ga.HCP is on file.
[2022-02-21 08:33] LABS: Ferritin 458 ng/mL (20-250)
[2022-02-21 08:44] LABS: Folate 12.5 ng/mL (> or = 4.0); Vitamin B12 564 pg/mL (200-900)
[2022-02-21 09:04] LABS: Iron 78 mcg/dL (45-160); Lactate Dehydrogenase 260 U/L (118-273); Percent Iron Saturation 21 % (15-50); Total Iron Binding Capacity 367 mcg/dL (228-428); Unsaturated Iron Binding 289 ug/dL
[2022-02-21] MEDS: Apixaban 5 MG TABLET PO ×2 (09:38→20:35)
[2022-02-21] MEDS: Amiodarone HCL 200 MG TABLET PO (09:38)
[2022-02-21] MEDS: Loratadine 10 MG TABLET PO (09:38)
[2022-02-21] MEDS: methylPREDNISolone Sod Succ 40 MG/ML VIAL IVPUSH ×2 (09:38→20:24)
[2022-02-21] MEDS: Digoxin 0.25 MG TABLET PO (09:38)
[2022-02-21] MEDS: Furosemide 40 MG/4 ML VIAL IVPUSH (09:38)
[2022-02-21 09:59] LABS: Immature Retic Fraction 17.3 % (2.3-13.4); Retic HGB Equivalent 38.2 pg (30.0-35.0); Reticulocyte Percent 3.1 % (0.5-1.8); Reticulocytes Absolute 0.096 X10*6/uL (0.026-0.095)
--- NOTE | 2022-02-21 11:05 | P.CONCA_ITS ---
History of Present Illness History of Present Illness Date of Service: 02/21/22 Chief complaint: CHF exacerbation Narrative: This is a cardiology consultation regarding possible congestive heart failure. Per admission documentation, patient with multiple medical comorbidities including lung cancer, COPD, bladder cancer status post TURP, hypertension among others. Upon discussion with patient, he states that he has been getting short of breath, more so than his usual baseline. Additionally, he has been noticing a lot of spider veins on his chest when he looks at himself on the matter. Otherwise, there is some leg swelling as well as bilateral arm swelling. Hence he came to the hospital. There is a question of congestive heart failure. Otherwise, based on recent cardiology consultation, he had NSTEMI, suspected stress-induced cardiomyopathy as well as atrial fibrillation. He was put on amiodarone and Eliquis. However, he states that he has not been taking Eliquis recently. Not clear why. Review of Systems Review of Systems: Yes all other systems are reviewed and are negative Constitutional: Constitutional: Reports as per HPI Eyes: Eyes: Reports as per HPI ENT: Reports as per HPI Cardiovascular: Cardiovascular: Reports as per HPI, Denies acrocyanosis, Denies cool extremities, Denies chest pain, Reports pedal edema, Reports edema, Denies leg edema, Denies lightheadedness, Denies palpitations, Reports dyspnea and Reports dyspnea on exertion Respiratory: Respiratory: Reports as per HPI, Reports no additional respiratory complaints, Reports cough, Reports dyspnea and Reports dyspnea on exertion Gastrointestinal: Gastrointestinal: Reports as per HPI and Reports no additional gastrointestinal complaints Genitourinary: Genitourinary: Reports no additional male genitourinary complaints and Reports as per HPI Musculoskeletal: Musculoskeletal: Reports no additional musculoskeletal complaints and Reports as per HPI Integumentary/Breasts: Skin/Breast: Reports system reviewed and no additional complaints, except as docu Neurologic: Reports system reviewed and no additional complaints, except as documented and Reports as per HPI Psychiatric: Psychiatric: Reports no additional psychiatric complaints and Reports as per HPI Endocrine: Endocrine: Reports no additional endocrine complaints, Reports as per HPI and Denies palpitations Hematologic/Lymphatic: Hematologic/Lymphatic: Reports no additional hematologic/lymphatic complaints and Reports as per HPI Allergic/Immunologic: Allergic/Immunologic: Reports no additional allergic/immunologic complaints and Reports as per HPI [facility] Past Medical History Medical History (Updated 02/21/22 @ 11:11 by Noel Bland MD) Afib Benign essential HTN Cardiomyopathy Gastro-esophageal reflux disease without esophagitis History of bladder cancer (~2014) History of lung cancer (~1998) Lung cancer Lung cancer Lymphadenopathy, mediastinal Non-small cell cancer of left lung Other seasonal allergic rhinitis Syndrome of inappropriate ADH (SIADH) secretion Tubular adenoma of colon (~2016) Family History Family History Father Medical history unknown Mother Breast cancer Sister Lung cancer Surgical History Surgical History History of bladder surgery (~2014) History of bronchoscopy (~2021) History of colonoscopy History of left inguinal hernia repair (~2016) History of lung surgery (~1998) Social History Social History Household Members: Significant Other Housing: Apartment Do you presently have visiting nurse or other home services: No Alcohol intake: current Alcohol intake frequency: a few times a week Patient Tobacco Use Status: Former Tobacco user Quit Date: 5 years ago Tobacco use type: Cigarette Smoked in Last 30 Days: No e-Cigarette/Vaping Use: Never Used Second Hand Smoke Exposure: No Use of substances other than those prescribed or required for medical reasons: No Currently Displaying Signs/Symptoms of Drug Intoxication Withdrawal: No Any prior treatment program specific to substance use: No Have you been hit, kicked, punched, or otherwise hurt by someone within the past year? If so, by whom?: No Do you feel safe in your current relationship?: No Is there a partner from a previous relationship who is making you feel unsafe now?: No Are you made to feel afraid or neglected: No Advance Directives: No Advance Directives Information Provided: No Do you have thoughts of harming others: None Recently lost weight without trying: No Nutrition Risks: No Nutritional Risk service: No Current occupational status: retired Cognitive needs: No Hearing needs: No Vision needs: Yes (Glasses) Meds Allergies Allergy/AdvReac Type Severity Reaction Status Date / Time No Known Allergies Allergy Verified 02/20/22 13:42 [No Known Allergies*] Active Medications: Current Medications Acetaminophen (Acetaminophen 325 Mg Tablet) 650 mg PO Q6H PRN PRN Reason: Pain, Mild (Pain Scale 1-3) Albuterol/Ipratropium (Albuterol/Iprat 2.5/0.5mg 3 Ml Ampul.Neb) 3 ml INHALE RQ4H PRN PRN Reason: Shortness of Breath/Wheezing Last Admin: 02/21/22 00:52 Dose: 3 ml Albuterol/Ipratropium (Albuterol/Iprat 2.5/0.5mg 3 Ml Ampul.Neb) 3 ml INHALE RQ4H WHILE AWAKE [facility] Last Admin: 02/21/22 11:01 Dose: 3 ml Amiodarone HCl (Amiodarone Hcl 200 Mg Tablet) 200 mg PO DAILY [facility] Last Admin: 02/21/22 09:38 Dose: 200 mg Apixaban (Apixaban 5 Mg Tablet) 5 mg PO BID [facility] Last Admin: 02/21/22 09:38 Dose: 5 mg Atorvastatin Calcium (Atorvastatin Calcium 40 Mg Tablet) 40 mg PO BEDTIME [facility] Last Admin: 02/21/22 06:33 Dose: 40 mg Digoxin (Digoxin 0.25 Mg Tablet) 0.25 mg PO DAILY [facility] Last Admin: 02/21/22 09:38 Dose: 0.25 mg Docusate Sodium (Docusate Sodium 100 Mg Capsule) 100 mg PO DAILY PRN PRN Reason: Constipation Furosemide (Furosemide 40 Mg/4 Ml Vial) 40 mg IVPUSH DAILY [facility]; Protocol Last Admin: 02/21/22 09:38 Dose: 40 mg Loratadine (Loratadine 10 Mg Tablet) 10 mg PO DAILY [facility] Last Admin: 02/21/22 09:38 Dose: 10 mg Methylprednisolone Sodium Succinate (Methylprednisolone Sod Succ 40 Mg/Ml Vial) 40 mg IVPUSH Q12H [facility] Last Admin: 02/21/22 09:38 Dose: 40 mg Ondansetron HCl (Ondansetron Hcl 4 Mg/2 Ml Vial) 4 mg IVPUSH Q8H PRN PRN Reason: Nausea and Vomiting Pharmacy Consult (Consult Rx Perform Med Rec) 1 each MISCELLANE ONCE PRN PRN Reason: Consult order Sodium Chloride (0.9 % Sodium Chloride Flush 3 Ml Syringe) 3 ml IVFLUSH QSHIFT [facility] Last Admin: 02/21/22 09:38 Dose: 3 ml Temazepam (Temazepam 15 Mg Capsule) 15 mg PO BEDTIME PRN PRN Reason: insomNIA Home Medications Medication Instructions Recorded Confirmed Last Taken Type dexamethasone 4 mg tablet 4 mg PO BID PRN post chemo x 2 days 01/21/22 02/20/22 Unknown History (Decadron) Physical Exam Vital Signs: Vital Signs: Last Vital Signs Temp 97.9 F 02/21/22 07:50 Pulse 107 H 02/21/22 11:02 Resp 18 02/21/22 11:02 BP 168/88 H 02/21/22 07:50 Pulse Ox 95 02/21/22 07:50 O2 Del Method 02/21/22 07:50 O2 Flow Rate 2 02/21/22 07:50 Oxygen Flow Rate 2 02/20/22 15:06 BMI result Body Mass Index 24.1 Const: General: comfortable and no acute distress Orientation/consciousness: patient oriented x3 HEENT: Other: Unremarkable Head: Yes normal to inspection Neck: Neck: Yes normal visual inspection Chest: Other: prominent veins Resp: Auscultation: rhonchi (bilateral) Cardio: Palpation: normal PMI Heart sounds: S1 normal heart sound present, S2 normal heart sound present, no gallops, no murmurs and no rubs GI: Palpation (GI): Soft to palpation Back/Spine/Pelvis: Other: unremarkable Skin: General skin exam: no rashes or lesions noted Neuro: General: patient oriented x3 Extrem: Other: swelling noted, L>R. Swollen hands General: Yes normal to inspection Psych: Mental Status: mental status grossly normal Objective Labs and Meds Result diagrams: 02/21/22 06:46 02/21/22 06:46 Lab results: Laboratory Results - last 24 hr 02/20/22 02/20/22 02/20/22 15:14 15:14 15:14 WBC 7.6 RBC 3.04 L Hgb 9.9 L Hct 29.6 L MCV 97.4 MCH 32.6 MCHC 33.4 RDW 12.9 Plt Count 254 MPV 8.8 L Immature Gran % (Auto) 0.3 Neut % (Auto) 76.8 H Lymph % (Auto) 11.3 L [place] % (Auto) 9.8 Eos % (Auto) 1.4 Baso % (Auto) 0.4 Lymph # (Auto) 0.9 L [place] # (Auto) 0.8 Eos # (Auto) 0.1 Baso # (Auto) 0.0 Abs Immat Gran (auto) 0.02 Absolute Neuts (auto) 5.9 Absolute Nucleated RBC 0.000 Nucleated RBC % (auto) 0.0 Absolute Retic Percent Retic Immature Retic Fraction Retic Hgb Equivalent Sodium 141 Potassium 4.1 Chloride 102 Carbon Dioxide 24 Anion Gap 19 BUN 11 D Creatinine 0.64 Estim Creat Clear Calc 96.3 Estimated GFR > 60 Random Glucose 87 Calcium 8.7 D Magnesium 2.1 Iron TIBC % Saturation Unsat Iron Binding Ferritin Total Bilirubin 0.2 AST 23 ALT 18 Alkaline Phosphatase 134 H Lactate Dehydrogenase Troponin I High Sens B-Natriuretic Peptide 201 H Total Protein 6.7 Albumin 3.9 Vitamin B12 Folate COVID-19 ([facility]) COVID-[facility] Clin Com 02/20/22 02/20/22 02/21/22 15:14 15:14 06:46 WBC 8.0 RBC 3.06 L Hgb 10.2 L Hct 30.0 L MCV 98.0 MCH 33.3 H MCHC 34.0 RDW 13.1 Plt Count 256 MPV 9.4 Immature Gran % (Auto) 0.3 Neut % (Auto) 80.4 H Lymph % (Auto) 8.0 L [place] % (Auto) 10.4 Eos % (Auto) 0.5 Baso % (Auto) 0.4 Lymph # (Auto) 0.6 L [place] # (Auto) 0.8 Eos # (Auto) 0.0 Baso # (Auto) 0.0 Abs Immat Gran (auto) 0.02 Absolute Neuts (auto) 6.4 Absolute Nucleated RBC 0.020 H Nucleated RBC % (auto) 0.3 H Absolute Retic 0.096 H Percent Retic 3.1 H Immature Retic Fraction 17.3 H Retic Hgb Equivalent 38.2 H Sodium Potassium Chloride Carbon Dioxide Anion Gap BUN Creatinine Estim Creat Clear Calc Estimated GFR Random Glucose Calcium Magnesium Iron TIBC % Saturation Unsat Iron Binding Ferritin Total Bilirubin AST ALT Alkaline Phosphatase Lactate Dehydrogenase Troponin I High Sens 14.8 D B-Natriuretic Peptide Total Protein Albumin Vitamin B12 Folate COVID-19 ([facility]) Negative COVID-19 Clin Com See Note 02/21/22 02/21/22 02/21/22 06:46 06:46 06:46 WBC RBC Hgb Hct MCV MCH MCHC RDW Plt Count MPV Immature Gran % (Auto) Neut % (Auto) Lymph % (Auto) [place] % (Auto) Eos % (Auto) Baso % (Auto) Lymph # (Auto) [place] # (Auto) Eos # (Auto) Baso # (Auto) Abs Immat Gran (auto) Absolute Neuts (auto) Absolute Nucleated RBC Nucleated RBC % (auto) Absolute Retic Percent Retic Immature Retic Fraction Retic Hgb Equivalent Sodium 142 Potassium 3.7 Chloride 100 Carbon Dioxide 28 Anion Gap 18 BUN 11 Creatinine 0.69 Estim Creat Clear Calc 92.4 Estimated GFR > 60 Random Glucose 98 Calcium 9.0 Magnesium Iron 78 TIBC 367 % Saturation 21 Unsat Iron Binding 289 Ferritin 458 H Total Bilirubin AST ALT Alkaline Phosphatase Lactate Dehydrogenase 260 Troponin I High Sens B-Natriuretic Peptide Total Protein Albumin Vitamin B12 564 Folate 12.5 COVID-19 ([facility]) COVID-19 Clin Com ECG Interpretation: EKG with sinus rhythm at 79/Min; T inversions in the lateral leads; low-voltage QRS. Probably similar to recent EKG but in the previous 1 there is lot of artifact as well. Imaging Radiologist's impression: Impressions Chest X-Ray 02/20/22 18:10 IMPRESSION: 1. No acute abnormality of the chest. 2. Density right lung apex and bilateral lung nodules redemonstrated. Assessment and Plan (1) Anasarca: Status: Acute (2) Lung cancer: Status: Acute (3) Afib: Qualifiers: Atrial fibrillation type: paroxysmal Qualified Code(s): I48.0 - Paroxysmal atrial fibrillation Status: Acute (4) Cardiomyopathy: Qualifiers: Cardiomyopathy type: stress-induced Qualified Code(s): I51.81 - Takotsubo syndrome Status: Acute Plan In telemetry, there is evidence of sinus rhythm as well as atrial fibrillation. Troponins are within range. Last time, it was as much as 1999. Cardiac BNP is 201. It is lower than the last level of 462. Albumin level is normal. Chest x-ray reported to have no acute abnormality. Right lung apex density/bilateral lung nodules reported. Overall, this seems more like a vena caval obstruction as opposed to acute heart failure. The prominent veins in the chest are more suggestive of this as it is not commonly seen in congestive heart failure. However, in the recent echocardiogram he did have diminished LVEF of 40-45% with wall motion abnormality thought to be from stress-induced cardiomyopathy. Hence that might play some role but doubt is the main reason. Okay for empiric diuretics for the time being but should consider further imaging of the chest to assess any possibility of SVC/IVC obstruction. Consider Hematology consultation. Otherwise, he is on amiodarone for atrial fibrillation and that may be continued. Also not clear why Eliquis has been stopped. We need to look into it. Discussed with Dr. Davis about the above plan. Procedures Date of Service Date of Service: 02/21/22
--- NOTE | 2022-02-21 14:24 | P.PNIM_ITS ---
Subjective Subjective Date of Service: 02/21/22 Interval History: c/o dyspnea Physical Exam Vital Signs: Vital Signs: Last Vital Signs Temp 98.3 F 02/21/22 11:52 Pulse 83 02/21/22 11:52 Resp 20 02/21/22 11:52 BP 168/62 H 02/21/22 11:52 Pulse Ox 93 02/21/22 11:52 O2 Del Method 02/21/22 11:52 O2 Flow Rate 2 02/21/22 11:52 Oxygen Flow Rate 2 02/20/22 15:06 BMI result Body Mass Index 24.1 Gen: in no acute distress HEENT: sclera anicteric, moist mucus membranes Neck: supple Lungs: clear to auscultation bilaterally Heart: regular rate and rhythm, no murmurs Abd: soft, non-tender, non-distended Ext: 2+ pitting edema in all 4 extremities Skin: warm/well-perfused, extensive spider angiomata Neuro: alert and oriented x3, no focal findings Psych: appropriate affect Objective Data Active Medications Acetaminophen (Acetaminophen 325 Mg Tablet) 650 mg PO Q6H PRN PRN Reason: Pain, Mild (Pain Scale 1-3) Albuterol/Ipratropium (Albuterol/Iprat 2.5/0.5mg 3 Ml Ampul.Neb) 3 ml INHALE RQ4H PRN PRN Reason: Shortness of Breath/Wheezing Last Admin: 02/21/22 00:52 Dose: 3 ml Documented By: DANETTE Albuterol/Ipratropium (Albuterol/Iprat 2.5/0.5mg 3 Ml Ampul.Neb) 3 ml INHALE RQ 4H WHILE AWAKE [facility] Last Admin: 02/21/22 11:01 Dose: 3 ml Documented By: GLADYS Amiodarone HCl (Amiodarone Hcl 200 Mg Tablet) 200 mg PO DAILY [facility] Last Admin: 02/21/22 09:38 Dose: 200 mg Documented By: GRISEL Apixaban (Apixaban 5 Mg Tablet) 5 mg PO BID [facility] Last Admin: 02/21/22 09:38 Dose: 5 mg Documented By: GRISEL Atorvastatin Calcium (Atorvastatin Calcium 40 Mg Tablet) 40 mg PO BEDTIME [facility] Last Admin: 02/21/22 06:33 Dose: 40 mg Documented By: VEENA Digoxin (Digoxin 0.25 Mg Tablet) 0.25 mg PO DAILY [facility] Last Admin: 02/21/22 09:38 Dose: 0.25 mg Documented By: GRISEL Docusate Sodium (Docusate Sodium 100 Mg Capsule) 100 mg PO DAILY PRN PRN Reason: Constipation Furosemide (Furosemide 40 Mg/4 Ml Vial) 40 mg IVPUSH DAILY [facility]; Protocol Last Admin: 02/21/22 09:38 Dose: 40 mg Documented By: GRISEL Loratadine (Loratadine 10 Mg Tablet) 10 mg PO DAILY [facility] Last Admin: 02/21/22 09:38 Dose: 10 mg Documented By: GRISEL Methylprednisolone Sodium Succinate (Methylprednisolone Sod Succ 40 Mg/Ml Vial) 40 mg IVPUSH Q12H [facility] Last Admin: 02/21/22 09:38 Dose: 40 mg Documented By: GRISEL Ondansetron HCl (Ondansetron Hcl 4 Mg/2 Ml Vial) 4 mg IVPUSH Q8H PRN PRN Reason: Nausea and Vomiting Pharmacy Consult (Consult Rx Perform Med Rec) 1 each MISCELLANE ONCE PRN PRN Reason: Consult order Sodium Chloride (0.9 % Sodium Chloride Flush 3 Ml Syringe) 3 ml IVFLUSH QSHIFT [facility] Last Admin: 02/21/22 09:38 Dose: 3 ml Documented By: GRISEL Temazepam (Temazepam 15 Mg Capsule) 15 mg PO BEDTIME PRN PRN Reason: insomNIA Labs CBC & Chem 7: 02/21/22 06:46 02/21/22 06:46 Labs: Laboratory Results - last 24 hr 02/20/22 02/20/22 02/20/22 15:14 15:14 15:14 MCV 97.4 MCH 32.6 MCHC 33.4 RDW 12.9 Plt Count 254 MPV 8.8 L Immature Gran % (Auto) 0.3 Neut % (Auto) 76.8 H Lymph % (Auto) 11.3 L [place] % (Auto) 9.8 Eos % (Auto) 1.4 Baso % (Auto) 0.4 Lymph # (Auto) 0.9 L [place] # (Auto) 0.8 Eos # (Auto) 0.1 Baso # (Auto) 0.0 Abs Immat Gran (auto) 0.02 Absolute Neuts (auto) 5.9 Absolute Nucleated RBC 0.000 Nucleated RBC % (auto) 0.0 Absolute Retic Percent Retic Immature Retic Fraction Retic Hgb Equivalent Anion Gap 19 Estim Creat Clear Calc 96.3 Estimated GFR > 60 Random Glucose 87 Calcium 8.7 D Magnesium 2.1 Iron TIBC % Saturation Unsat Iron Binding Ferritin Total Bilirubin 0.2 AST 23 ALT 18 Alkaline Phosphatase 134 H Lactate Dehydrogenase Troponin I High Sens B-Natriuretic Peptide 201 H Total Protein 6.7 Albumin 3.9 Vitamin B12 Folate COVID-19 ([facility]) COVID-19 Depop 02/20/22 02/20/22 02/21/22 15:14 15:14 06:46 MCV 98.0 MCH 33.3 H MCHC 34.0 RDW 13.1 Plt Count 256 MPV 9.4 Immature Gran % (Auto) 0.3 Neut % (Auto) 80.4 H Lymph % (Auto) 8.0 L [place] % (Auto) 10.4 Eos % (Auto) 0.5 Baso % (Auto) 0.4 Lymph # (Auto) 0.6 L [place] # (Auto) 0.8 Eos # (Auto) 0.0 Baso # (Auto) 0.0 Abs Immat Gran (auto) 0.02 Absolute Neuts (auto) 6.4 Absolute Nucleated RBC 0.020 H Nucleated RBC % (auto) 0.3 H Absolute Retic 0.096 H Percent Retic 3.1 H Immature Retic Fraction 17.3 H Retic Hgb Equivalent 38.2 H Anion Gap Estim Creat Clear Calc Estimated GFR Random Glucose Calcium Magnesium Iron TIBC % Saturation Unsat Iron Binding Ferritin Total Bilirubin AST ALT Alkaline Phosphatase Lactate Dehydrogenase Troponin I High Sens 14.8 D B-Natriuretic Peptide Total Protein Albumin Vitamin B12 Folate COVID-19 ([facility]) Negative COVID-19 Depop See Note 02/21/22 02/21/22 02/21/22 06:46 06:46 06:46 MCV MCH MCHC RDW Plt Count MPV Immature Gran % (Auto) Neut % (Auto) Lymph % (Auto) [place] % (Auto) Eos % (Auto) Baso % (Auto) Lymph # (Auto) [place] # (Auto) Eos # (Auto) Baso # (Auto) Abs Immat Gran (auto) Absolute Neuts (auto) Absolute Nucleated RBC Nucleated RBC % (auto) Absolute Retic Percent Retic Immature Retic Fraction Retic Hgb Equivalent Anion Gap 18 Estim Creat Clear Calc 92.4 Estimated GFR > 60 Random Glucose 98 Calcium 9.0 Magnesium Iron 78 TIBC 367 % Saturation 21 Unsat Iron Binding 289 Ferritin 458 H Total Bilirubin AST ALT Alkaline Phosphatase Lactate Dehydrogenase 260 Troponin I High Sens B-Natriuretic Peptide Total Protein Albumin Vitamin B12 564 Folate 12.5 COVID-19 ([facility]) COVID-19 Clin Com Assessment and Plan (1) Cardiomyopathy: Status: Acute (2) Anasarca: Status: Acute Plan d#2 66yo M with metastatic SCC of lung on pallitative chemotherapy, COPD, recent diagnosis of stress-induced cardiomyopathy presenting with dyspnea + edema + facial swelling # concern for SVC syndrome - CT chest- refused by patient - Heme/Onc consultation # CHF exacerbation/acute-chronic HFrEF [40-45% on recent TTE with [facility]] - Cardiology consulted, feel more strongly that he has SVC syndrome rather than CHF exacerbation but will continue furosemide for now # COPD exacerbation - steroids, nebs # normocytic anemia - suspect due to chronic disease, monitor H+H # paroxysmal AF - continue amiodarone + digoxin - continue apixaban # VTE ppx: apixaban In my clinical judgment, the patient requires continued inpatient hospitalization for the following reasons: IV diuresis Quality Stroke Does the patient have a stroke diagnosis?: No VTE Prior VTE?: No VTE Risk Level:: Medical - moderate - high VTE Device Contraindication: Treatment Not Indicated VTE Drug Contraindication: N/A - Med Ordered
--- NOTE | 2022-02-21 15:35 | PC.NURSE ---
Patient complaining of lower abd pain. Patient bladder scanned and retaining about 1000mls of urine. Dr Davis made aware. Briggs placed. Drained 2,000mls of clear yellow urine
[2022-02-21] MEDS: Temazepam 15 MG CAPSULE PO (22:30)
[2022-02-22] VITALS (10 sets, daily range): BP systolic 148–198; BP diastolic 60–85; PULSE 68–82; RESP 16–20; TEMP 36.1–36.8; O2SAT 93–98
[2022-02-22] MEDS: 0.9 % Sodium Chloride Flush 3 ML SYRINGE IVFLUSH ×4 (00:53→21:06)
[2022-02-22] MEDS: Acetaminophen 325 MG TABLET 650 MG PO (04:16)
[2022-02-22] MEDS: Albuterol/Iprat 2.5/0.5MG 3 ML AMPUL.NEB INHALE ×3 (05:01→19:26)
[2022-02-22 06:35] LABS: Anion Gap 19 (12-20); Blood Urea Nitrogen 12 mg/dL (9-16); Calcium 8.8 mg/dL (8.4-10.2); Carbon Dioxide 28 mmol/L (22-29); Chloride 97 mmol/L (96-108); Creatinine Clr Calc Pharmacy 88.6; Estimated Glomerular Filt Rate > 60; Glucose Random 209 mg/dL (60-115); Magnesium 2.1 mg/dL (1.6-2.6); Potassium 3.7 mmol/L (3.3-5.1); Sodium 140 mmol/L (135-145)
[2022-02-22 06:40] LABS: B Type Natriuretic Peptide 299 pg/mL (<100)
--- NOTE | 2022-02-22 08:05 | P.CNHO_ITS ---
Subjective - Subjective Chief complaint: Consult for: Squamous cell Ca of Lung. Patient: known to practice within the last 3 years Consult date: 02/22/22 Requesting Physician: Susan. Primary Care Provider: Tucker Ga MD Medical Summary: DIAGNOSIS: Squamous cell ca of Lung. HPI - Consult Narrative Reason for consult: Consult for:Lung Cancer Narrative: Luis Miguel Isbell is a pleasant 66 year old gentleman, with a H/O Squamous cell Cancer of lung currently on Carboplatin/Taxol and Pembrolizumab. He presented on 02/20, with edema of his arms and legs. He has had dyspnea on exertion and at night. He has had a productive cough. Cat scan of chest from 01/21: Large upper lobe mass. Main complaints of: leg and hand swelling. He reported he has been swollen for the past week and a half progressively worsening.He reports compliance with his Lasix but does eat a lot of cold cuts and deli meat, he is also reporting a cough, sputum production, reports significant orthopnea and PND. Denies any fever or chills, no headache, no chest pain, no palpitations, no abdominal pain nausea or vomiting, no diarrhea, no urinary symptoms On arrival patient hemodynamically stable with vitals significant for tachycardia in the 102-105, and elevated blood pressure. Patient on 2 L of oxygen satting 97% Labs are significant for WBC count 7.6, hemoglobin of 9.9, hematocrit 29.6, BNP of 201, Chest x-ray shows density in the right lung apex which is redemonstrated from previous imaging, with no acute airspace disease. No pleural effusion Review of Systems Review of Systems: Yes all other systems are reviewed and are negative [facility] Medical History: history of HTN, history of bladder cancer status post TURP in 2014, history of lung cancer, COPD Afib Benign essential HTN Cardiomyopathy Gastro-esophageal reflux disease without esophagitis History of bladder cancer (~2014) History of lung cancer (~1998) Lung cancer Lung cancer Lymphadenopathy, mediastinal Non-small cell cancer of left lung Other seasonal allergic rhinitis Syndrome of inappropriate ADH (SIADH) secretion Tubular adenoma of colon (~2016) Review of Systems - Constitutional Reports system reviewed and no additional complaints, except as documented, Reports fatigue, Reports lack of energy, Reports malaise, Reports weakness, Reports weight loss - Eyes Reports system reviewed and no additional complaints, except as documented - ENT Reports system reviewed and no additional complaints, except as documented - Cardiovascular Reports system reviewed and no additional complaints, except as documented, Reports foot swelling, Reports shortness of breath when lying down - Respiratory Reports no additional respiratory complaints, Reports cough, Reports excessive phlegm production, Reports dyspnea - Gastrointestinal Reports system reviewed and no additional complaints, except as documented - Genitourinary Genitourinary: Reports no additional male genitourinary complaints - Musculoskeletal Reports system reviewed and no additional complaints, except as documented - Integumentary/Breasts Skin/Breast: Reports no additional skin complaints - Neurologic Reports system reviewed and no additional complaints, except as documented, Reports as per HPI, Denies dizziness, Denies loss of vision, Denies numbness, De nies tingling - Psychiatric Reports system reviewed and no additional complaints, except as documented - Endocrine Reports no additional endocrine complaints - Hematologic/Lymphatic Reports system reviewed and no additional complaints, except as documented - Allergic/Immunologic Reports system reviewed and no additional complaints, except as documented Oncology Screenings - ECOG Performance Status ECOG Performance Status: 2 [facility] Medical History: Medical History (Last Updated 02/21/22 @ 11:11 by Noel Bland MD) Afib Benign essential HTN Cardiomyopathy Gastro-esophageal reflux disease without esophagitis History of bladder cancer Onset Date: ~2014 History of lung cancer Onset Date: ~1998 Lung cancer Lung cancer Lymphadenopathy, mediastinal Non-small cell cancer of left lung Other seasonal allergic rhinitis Syndrome of inappropriate ADH (SIADH) secretion Tubular adenoma of colon Onset Date: ~2016 Functional capacity: uses cane/walker Patient : No Family History: Family History (Last Reviewed 02/21/22 @ 05:37 by Sari Talavera MD) Father Medical history unknown Mother Breast cancer Sister Lung cancer Surgical History: Surgical History (Last Reviewed 02/21/22 @ 05:37 by Sari Talavera MD) History of bladder surgery Onset Date: ~2014 History of bronchoscopy Onset Date: ~2021 History of colonoscopy History of left inguinal hernia repair Onset Date: ~2016 History of lung surgery Onset Date: ~1998 Social History: Social History (Last Reviewed 02/21/22 @ 05:37 by Sari Talavera MD) Living Situation History: Household Members: Significant Other Housing: Apartment Do you presently have visiting nurse or other home services: No Tobacco History: Patient Tobacco Use Status: Former Tobacco user Tobacco use type: Cigarette Smoke Quit Date: 5 years ago e-Cigarette/Vaping Use: Never Used Second Hand Smoke Exposure: No Occupation Assessmet: service: No Current occupational status: retired Home Medications and Allergies Current Medications: Current Medications Acetaminophen (Acetaminophen 325 Mg Tablet) 650 mg PO Q6H PRN PRN Reason: Pain, Mild (Pain Scale 1-3) Last Admin: 02/22/22 04:16 Dose: 650 mg Albuterol/Ipratropium (Albuterol/Iprat 2.5/0.5mg 3 Ml Ampul.Neb) 3 ml INHALE RQ4H PRN PRN Reason: Shortness of Breath/Wheezing Last Admin: 02/22/22 05:01 Dose: 3 ml Albuterol/Ipratropium (Albuterol/Iprat 2.5/0.5mg 3 Ml Ampul.Neb) 3 ml INHALE RQ4H WHILE AWAKE [facility] Last Admin: 02/22/22 07:53 Dose: Not Given Amiodarone HCl (Amiodarone Hcl 200 Mg Tablet) 200 mg PO DAILY [facility] Last Admin: 02/21/22 09:38 Dose: 200 mg Apixaban (Apixaban 5 Mg Tablet) 5 mg PO BID [facility] Last Admin: 02/21/22 20:35 Dose: 5 mg Atorvastatin Calcium (Atorvastatin Calcium 40 Mg Tablet) 40 mg PO BEDTIME [facility] Last Admin: 02/21/22 20:24 Dose: 40 mg Digoxin (Digoxin 0.25 Mg Tablet) 0.25 mg PO DAILY [facility] Last Admin: 02/21/22 09:38 Dose: 0.25 mg Docusate Sodium (Docusate Sodium 100 Mg Capsule) 100 mg PO DAILY PRN PRN Reason: Constipation Furosemide (Furosemide 40 Mg/4 Ml Vial) 40 mg IVPUSH DAILY [facility]; Protocol Last Admin: 02/21/22 09:38 Dose: 40 mg Loratadine (Loratadine 10 Mg Tablet) 10 mg PO DAILY [facility] Last Admin: 02/21/22 09:38 Dose: 10 mg Methylprednisolone Sodium Succinate (Methylprednisolone Sod Succ 40 Mg/Ml Vial) 40 mg IVPUSH Q12H [facility] Last Admin: 02/21/22 20:24 Dose: 40 mg Ondansetron HCl (Ondansetron Hcl 4 Mg/2 Ml Vial) 4 mg IVPUSH Q8H PRN PRN Reason: Nausea and Vomiting Pharmacy Consult (Consult Rx Perform Med Rec) 1 each MISCELLANE ONCE PRN PRN Reason: Consult order Sodium Chloride (0.9 % Sodium Chloride Flush 3 Ml Syringe) 3 ml IVFLUSH QSHIFT [facility] Last Admin: 02/22/22 00:53 Dose: 3 ml Temazepam (Temazepam 15 Mg Capsule) 15 mg PO BEDTIME PRN PRN Reason: insomNIA Last Admin: 02/21/22 22:30 Dose: 15 mg Home Medications Medication Instructions Recorded Confirmed Type dexamethasone 4 mg tablet 4 mg PO BID PRN post chemo x 2 days 01/21/22 02/26/22 History (Decadron) Allergies Allergy/AdvReac Type Severity Reaction Status Date / Time No Known Allergies Allergy Verified 02/20/22 13:42 [No Known Allergies*] Physical Exam Vital signs: Vital Signs Temp 97.3 F 02/22/22 07:49 Pulse 77 02/22/22 07:49 Resp 20 02/22/22 07:49 BP 162/70 H 02/22/22 07:49 Pulse Ox 97 02/22/22 07:49 O2 Del Method 02/22/22 07:49 O2 Flow Rate 2 02/22/22 07:49 Intake & Output 02/21/22 02/22/22 02/22/22 19:59 06:59 18:59 Intake Total Output Total Balance Urine Output (Average ml/kg/hr) Intake: Intake, Oral Amount Output: Output, Urine Amount Output, Urine Amount (Catheter) MADRIGAL Other: Breakfast % Eaten Urine Color Continuous Bladder Irrigation Fluid - Amount Instilled MADRIGAL Weight 67.8 kg - Constitutional Present: moderate distress - Routine HEENT Exam Head: Present: normal inspection, normocephalic Eye: Present: normal appearance ENT: Present: mucous membranes moist - Routine Neck Exam Present: supple - Routine Respiratory Exam Present: decreased breath sounds - Routine Cardiovascular Exam Cardiovascular: Present: RRR, S1, S2 - Routine Abdominal Exam Present: normal bowel sounds, soft, nontender - Routine Extremities Exam Present: pedal edema, nontender Hem/Onc Consult Result - Labs CBC & Chem 7: 02/25/22 05:28 02/25/22 05:28 Labs: BMP 02/22/22 06:03 Sodium 140 Potassium 3.7 Chloride 97 Carbon Dioxide 28 BUN 12 Creatinine 0.72 Calcium 8.8 Assessment and Plan Patient Active problem list reviewed?: Yes (1) Squamous cell lung cancer Status: Acute Assessment and plan: This is a pleasant 66 year old gentleman with a h/o Squamous cell carcinoma of lung, metastatic left lung cancer, squamous cell carcinoma diagnosed in November 2021. He underwent bronchoscopy and biopsy of right upper lung lesion. Pathology-invasive squamous cell carcinoma, moderately to poorly differentiated, nonkeratinizing. Insitu squamous cell carcinoma involving bronchial mucosa. Right 4R paratracheal lymph node positive for malignancy consistent with metastatic squamous cell carcinoma. Negative for ALK rearrangement, MET amplification, PTEN deletion, RET rearrangement, ROS1 rearrangement, negative for her 2, score 0, no PD-L1 expression, TP score 0%. PET-CT performed 01/06/2022 showed large right upper lobe pulmonary mass, intensely FDG avid mass in the mediastinum with metastatic extension of tumor. Bilateral perihilar paratracheal and subcarinal lymph nodes. FDG avid right supraclavicular lymph node and multiple bilateral FDG avid pulmonary nodules representing metastatic disease. He received 1st cycle of carboplatin/Taxol and pembrolizumab based on 01/15/2022. He developed Hyponatremia after cycle 1 chemotherapy. He was admitted, received normal saline, workup including CT brain with contrast was negative for metastasis. Thyroid functions were normal. He was not hypotensive and adrenal insufficiency was not felt to be a reason. Increased water intake with decreased oral intake of salt was felt to be reason for hyponatremia. Bilateral leg edema. He was started on Lasix 20 mg once a day. He was advised to continue with this. He was also recommended to use compression stockings and leg elevation. His chemotherapy was postponed by a week as he feels he was recovering and did not feel up to receiving treatment. He presented on 02/20 with SOB, cough , sputum and edema of arms and legs. He has a large RUL mass and extension into mediatinum. Clinically seems like SVC Syndrome. He just had one cycle of Chemotherapy on 01/15. Subsequent treatment was delayed. Treatment options include: 1. XRT. 2. Chemotherapy. 3. Stent insertion: In recent studies, stent insertion has been deemed a simple, safe and effective method for Malignant SVC Syndrome. Subsequent anti-cancer treatment may increase survival. 4. Steroids: Role is uncertain. PLAN: Would recheck CAT Scan of chest to assess status, since last one was over a month ago. Will get opinion from vascular surgery regarding feasibility of stent plscement. He would benefit for Radiation therapy, subsequently. Can give a trial of steroids: Decadron 8 mg IV q 12 hours. Thanks, cc: Dr. Bahena. Dr. Davis. - Time Spent With Patient Time Spent with Patient (in minutes): 30
[2022-02-22] MEDS: dexAMETHasone sod phosphate 4 MG/ML VIAL 8 MG IVPUSH ×2 (09:39→20:58)
[2022-02-22] MEDS: Digoxin 0.25 MG TABLET PO (09:40)
[2022-02-22] MEDS: Furosemide 40 MG/4 ML VIAL IVPUSH (09:40)
[2022-02-22] MEDS: Amiodarone HCL 200 MG TABLET PO (09:40)
[2022-02-22] MEDS: Apixaban 5 MG TABLET PO ×2 (09:40→20:58)
[2022-02-22] MEDS: Loratadine 10 MG TABLET PO (09:40)
--- NOTE | 2022-02-22 11:01 | HO.PM.IMPN ---
Subjective Subjective Date of Service: 02/22/22 Interval History: dyspnea slightly improved refused CT chest yesterday, today willing to do it Review of Systems Review of Systems: Yes all other systems are reviewed and are negative Physical Exam Vital Signs: Vital Signs: Last Vital Signs Temp 97.3 F 02/22/22 07:49 Pulse 77 02/22/22 07:49 Resp 20 02/22/22 07:49 BP 162/70 H 02/22/22 07:49 Pulse Ox 97 02/22/22 07:49 O2 Del Method 02/22/22 07:49 O2 Flow Rate 2 02/22/22 07:49 Oxygen Flow Rate 2 02/20/22 15:06 BMI result Body Mass Index 24.1 Gen: in no acute distress HEENT: plethoric, sclera anicteric, moist mucus membranes Neck: supple, distended neck veins Lungs: clear to auscultation bilaterally Heart: regular rate and rhythm, no murmurs Abd: soft, non-tender, non-distended Ext: 2+ pitting edema in all 4 extremities Skin: warm/well-perfused, extensive spider angiomata Neuro: alert and oriented x3, no focal findings Psych: appropriate affect Objective Data Active Medications Acetaminophen (Acetaminophen 325 Mg Tablet) 650 mg PO Q6H PRN PRN Reason: Pain, Mild (Pain Scale 1-3) Last Admin: 02/22/22 04:16 Dose: 650 mg Documented By: LONNIE Albuterol/Ipratropium (Albuterol/Iprat 2.5/0.5mg 3 Ml Ampul.Neb) 3 ml INHALE RQ4H PRN PRN Reason: Shortness of Breath/Wheezing Last Admin: 02/22/22 05:01 Dose: 3 ml Documented By: DANETTE Albuterol/Ipratropium (Albuterol/Iprat 2.5/0.5mg 3 Ml Ampul.Neb) 3 ml INHALE RQ4H WHILE AWAKE [facility] Last Admin: 02/22/22 07:53 Dose: Not Given Documented By: MACI Non-Admin Reason: Patient Refused Amiodarone HCl (Amiodarone Hcl 200 Mg Tablet) 200 mg PO DAILY [facility] Last Admin: 02/22/22 09:40 Dose: 200 mg Documented By: SMITH Apixaban (Apixaban 5 Mg Tablet) 5 mg PO BID [facility] Last Admin: 02/22/22 09:40 Dose: 5 mg Documented By: SMITH Atorvastatin Calcium (Atorvastatin Calcium 40 Mg Tablet) 40 mg PO BEDTIME [facility] Last Admin: 02/21/22 20:24 Dose: 40 mg Documented By: PARIS Dexamethasone Sodium Phosphate (Dexamethasone Sod Phosphate 4 Mg/Ml Vial) 8 mg IVPUSH BID [facility] Last Admin: 02/22/22 09:39 Dose: 8 mg Documented By: SMITH Digoxin (Digoxin 0.25 Mg Tablet) 0.25 mg PO DAILY [facility] Last Admin: 02/22/22 09:40 Dose: 0.25 mg Documented By: SMITH Docusate Sodium (Docusate Sodium 100 Mg Capsule) 100 mg PO DAILY PRN PRN Reason: Constipation Furosemide (Furosemide 40 Mg/4 Ml Vial) 40 mg IVPUSH DAILY [facility]; Protocol Last Admin: 02/22/22 09:40 Dose: 40 mg Documented By: SMITH Loratadine (Loratadine 10 Mg Tablet) 10 mg PO DAILY [facility] Last Admin: 02/22/22 09:40 Dose: 10 mg Documented By: SMITH Ondansetron HCl (Ondansetron Hcl 4 Mg/2 Ml Vial) 4 mg IVPUSH Q8H PRN PRN Reason: Nausea and Vomiting Pharmacy Consult (Consult Rx Perform Med Rec) 1 each MISCELLANE ONCE PRN PRN Reason: Consult order Sodium Chloride (0.9 % Sodium Chloride Flush 3 Ml Syringe) 3 ml IVFLUSH QSHIFT [facility] Last Admin: 02/22/22 09:40 Dose: 3 ml Documented By: SMITH Temazepam (Temazepam 15 Mg Capsule) 15 mg PO BEDTIME PRN PRN Reason: insomNIA Last Admin: 02/21/22 22:30 Dose: 15 mg Documented By: PARIS Labs CBC & Chem 7: 02/21/22 06:46 02/22/22 06:03 Labs: Laboratory Results - last 24 hr 02/22/22 02/22/22 06:03 06:03 Anion Gap 19 Estim Creat Clear Calc 88.6 Estimated GFR > 60 Random Glucose 209 H D Calcium 8.8 Magnesium 2.1 B-Natriuretic Peptide 299 H Assessment and Plan (1) Cardiomyopathy: Status: Acute (2) Anasarca: Status: Acute Plan d#3 66yo M with metastatic SCC of lung on pallitative chemotherapy, COPD, recent diagnosis of stress-induced cardiomyopathy presenting with dyspnea + edema + facial swelling # concern for SVC syndrome - Heme/Onc consulted. CT chest today. Vascular Surgery consult for consideration of stenting. Palliative radiation eventually. Dexamethasone 8 mg q12h. # CHF exacerbation/acute-chronic HFrEF [40-45% on recent TTE with [facility]] - Cardiology consulted, feel more strongly that he has SVC syndrome rather than CHF exacerbation but will continue furosemide for now; f/u TTE pending # COPD exacerbation - steroids changed to dexamethasone as above, standing/prn nebs # normocytic anemia - suspect due to chronic disease, monitor H+H # paroxysmal AF - continue amiodarone + digoxin - continue apixaban # VTE ppx: apixaban In my clinical judgment, the patient requires continued inpatient hospitalization for the following reasons: IV diuresis, dyspnea, SVC syndrome evaluation Quality Stroke Does the patient have a stroke diagnosis?: No VTE Prior VTE?: No VTE Risk Level:: Medical - moderate - high VTE Device Contraindication: Treatment Not Indicated VTE Drug Contraindication: N/A - Med Ordered
[2022-02-22] MEDS: Docusate Sodium 100 MG CAPSULE PO (15:26)
[2022-02-22] MEDS: Atorvastatin Calcium 40 MG TABLET PO (20:58)
[2022-02-23] VITALS (7 sets, daily range): BP systolic 142–185; BP diastolic 66–86; PULSE 66–79; RESP 15–20; TEMP 36.1–36.6; O2SAT 95–99
[2022-02-23] MEDS: Temazepam 15 MG CAPSULE PO ×2 (00:08→23:22)
[2022-02-23] MEDS: Acetaminophen 325 MG TABLET 650 MG PO ×2 (04:13→20:48)
[2022-02-23 06:47] LABS: Hematocrit 33.2 % (42.0-52.0); Hemoglobin 10.7 g/dl (14.0-18.0); Mean Corpuscular HGB Conc 32.2 g/dl (31.0-36.0); Mean Corpuscular Hemoglobin 32.5 pg (27.0-33.0); Mean Corpuscular Volume 100.9 fL (80.0-98.0); Mean Platelet Volume 9.2 fL (9.4-12.4); Platelet Count 239 X10*3/uL (160-400); Red Blood Count 3.29 X10*6/uL (4.60-5.80); Red Cell Distribution Width 13.3 % (11.0-16.0); White Blood Count 7.6 X10*3/uL (4.8-10.8)
[2022-02-23 06:53] LABS: INTERNATIONAL NORM RATIO 1.3 (0.9-1.1); Prothrombin Time 14.5 SEC (10.0-13.1)
[2022-02-23 07:12] LABS: B Type Natriuretic Peptide 565 pg/mL (<100)
[2022-02-23 07:19] LABS: Anion Gap 16 (12-20); Blood Urea Nitrogen 20 mg/dL (9-16); Calcium 9.4 mg/dL (8.4-10.2); Carbon Dioxide 32 mmol/L (22-29); Chloride 98 mmol/L (96-108); Estimated Glomerular Filt Rate > 60; Glucose Random 160 mg/dL (60-115); Magnesium 2.1 mg/dL (1.6-2.6); Potassium 4.1 mmol/L (3.3-5.1); Sodium 142 mmol/L (135-145)
[2022-02-23] MEDS: dexAMETHasone sod phosphate 4 MG/ML VIAL 8 MG IVPUSH ×2 (07:39→20:52)
[2022-02-23] MEDS: Furosemide 40 MG/4 ML VIAL IVPUSH ×2 (07:39→18:35)
[2022-02-23] MEDS: Digoxin 0.25 MG TABLET PO (07:40)
[2022-02-23] MEDS: Loratadine 10 MG TABLET PO (07:40)
[2022-02-23] MEDS: Amiodarone HCL 200 MG TABLET PO (07:41)
[2022-02-23] MEDS: 0.9 % Sodium Chloride Flush 3 ML SYRINGE IVFLUSH ×3 (07:41→20:51)
[2022-02-23] MEDS: Apixaban 5 MG TABLET PO ×2 (07:41→20:47)
[2022-02-23] MEDS: Albuterol/Iprat 2.5/0.5MG 3 ML AMPUL.NEB INHALE ×4 (07:56→18:57)
[2022-02-23] MEDS: lisinopriL 10 MG TABLET PO (10:58)
--- NOTE | 2022-02-23 11:12 | HO.PM.IMPN ---
Subjective Subjective Date of Service: 02/23/22 Interval History: ongoing arm swelling dyspnea improved Review of Systems Review of Systems: Yes all other systems are reviewed and are negative Physical Exam Vital Signs: Vital Signs: Last Vital Signs Temp 97.8 F 02/23/22 07:57 Pulse 70 02/23/22 07:57 Resp 18 02/23/22 07:57 BP 184/86 H 02/23/22 07:57 Pulse Ox 98 02/23/22 07:57 O2 Del Method 02/23/22 07:57 O2 Flow Rate 2 02/23/22 07:57 Oxygen Flow Rate 2 02/20/22 15:06 BMI result Body Mass Index 24.1 Gen: in no acute distress HEENT: plethoric, sclera anicteric, moist mucus membranes Neck: supple, distended neck veins Lungs: clear to auscultation bilaterally Heart: regular rate and rhythm, no murmurs Abd: soft, non-tender, non-distended Ext: 2+ pitting edema in all 4 extremities Skin: warm/well-perfused, extensive spider angiomata Neuro: alert and oriented x3, no focal findings Psych: appropriate affect Objective Data Active Medications Acetaminophen (Acetaminophen 325 Mg Tablet) 650 mg PO Q6H PRN PRN Reason: Pain, Mild (Pain Scale 1-3) Last Admin: 02/23/22 04:13 Dose: 650 mg Documented By: WARREN Albuterol/Ipratropium (Albuterol/Iprat 2.5/0.5mg 3 Ml Ampul.Neb) 3 ml INHALE RQ4H PRN PRN Reason: Shortness of Breath/Wheezing Last Admin: 02/22/22 05:01 Dose: 3 ml Documented By: DANETTE Albuterol/Ipratropium (Albuterol/Iprat 2.5/0.5mg 3 Ml Ampul.Neb) 3 ml INHALE RQ4H WHILE AWAKE [facility] Last Admin: 02/23/22 07:56 Dose: 3 ml Documented By: MACI Amiodarone HCl (Amiodarone Hcl 200 Mg Tablet) 200 mg PO DAILY [facility] Last Admin: 02/23/22 07:41 Dose: 200 mg Documented By: LIZ Apixaban (Apixaban 5 Mg Tablet) 5 mg PO BID [facility] Last Admin: 02/23/22 07:41 Dose: 5 mg Documented By: LIZ Atorvastatin Calcium (Atorvastatin Calcium 40 Mg Tablet) 40 mg PO BEDTIME [facility] Last Admin: 02/22/22 20:58 Dose: 40 mg Documented By: WARREN Dexamethasone Sodium Phosphate (Dexamethasone Sod Phosphate 4 Mg/Ml Vial) 8 mg IVPUSH BID [facility] Last Admin: 02/23/22 07:39 Dose: 8 mg Documented By: LIZ Digoxin (Digoxin 0.25 Mg Tablet) 0.25 mg PO DAILY [facility] Last Admin: 02/23/22 07:40 Dose: 0.25 mg Documented By: LIZ Docusate Sodium (Docusate Sodium 100 Mg Capsule) 100 mg PO DAILY PRN PRN Reason: Constipation Last Admin: 02/22/22 15:26 Dose: 100 mg Documented By: SMITH Furosemide (Furosemide 40 Mg/4 Ml Vial) 40 mg IVPUSH BID@0900,1800 [facility]; Protocol Last Admin: 02/23/22 08:55 Dose: Not Given Documented By: LIZ Non-Admin Reason: Physician Approved Lisinopril (Lisinopril 10 Mg Tablet) 10 mg PO DAILY [facility]; Protocol Last Admin: 02/23/22 10:58 Dose: 10 mg Documented By: LIZ Loratadine (Loratadine 10 Mg Tablet) 10 mg PO DAILY [facility] Last Admin: 02/23/22 07:40 Dose: 10 mg Documented By: LIZ Ondansetron HCl (Ondansetron Hcl 4 Mg/2 Ml Vial) 4 mg IVPUSH Q8H PRN PRN Reason: Nausea and Vomiting Pharmacy Consult (Consult Rx Perform Med Rec) 1 each MISCELLANE ONCE PRN PRN Reason: Consult order Sodium Chloride (0.9 % Sodium Chloride Flush 3 Ml Syringe) 3 ml IVFLUSH QSHIFT [facility] Last Admin: 02/23/22 07:41 Dose: 3 ml Documented By: LIZ Temazepam (Temazepam 15 Mg Capsule) 15 mg PO BEDTIME PRN PRN Reason: insomNIA Last Admin: 02/23/22 00:08 Dose: 15 mg Documented By: WARREN Labs CBC & Chem 7: 02/23/22 06:20 02/23/22 06:20 Labs: Laboratory Results - last 24 hr 02/23/22 02/23/2222 06:20 06:20 06:20 MCV 100.9 H MCH 32.5 MCHC 32.2 RDW 13.3 Plt Count 239 MPV 9.2 L Absolute Nucleated RBC 0.000 Nucleated RBC % (auto) 0.0 PT 14.5 H INR 1.3 H Anion Gap 16 Estim Creat Clear Calc 85.0 Estimated GFR > 60 Random Glucose 160 H Calcium 9.4 D Magnesium 2.1 B-Natriuretic Peptide 02/23/22 06:20 MCV MCH MCHC RDW Plt Count MPV Absolute Nucleated RBC Nucleated RBC % (auto) PT INR Anion Gap Estim Creat Clear Calc Estimated GFR Random Glucose Calcium Magnesium B-Natriuretic Peptide 565 H Assessment and Plan (1) Cardiomyopathy: Status: Acute (2) Anasarca: Status: Acute Plan d#4 66yo M with metastatic SCC of lung on pallitative chemotherapy, COPD, recent diagnosis of stress-induced cardiomyopathy presenting with dyspnea + edema + facial swelling # suspected SVC syndrome - Heme/Onc consulted. CT chest read pending. Vascular Surgery consult pending for consideration of stenting. Palliative radiation eventually- discuss with oncology. Continue dexamethasone 8 mg q12h. # CHF exacerbation/acute-chronic HFrEF [40-45% on recent TTE with [facility]] - Cardiology consulted, feel more strongly that he has SVC syndrome rather than CHF exacerbation but will continue furosemide for now; repeat TTE pending # COPD exacerbation - steroids changed to dexamethasone as above, standing/prn nebs # normocytic anemia - suspect due to chronic disease, monitor H+H # paroxysmal AF - continue amiodarone + digoxin - continue apixaban # VTE ppx: apixaban In my clinical judgment, the patient requires continued inpatient hospitalization for the following reasons: IV diuresis, dyspnea, SVC syndrome evaluation Quality Stroke Does the patient have a stroke diagnosis?: No VTE Prior VTE?: No VTE Risk Level:: Medical - moderate - high VTE Device Contraindication: Treatment Not Indicated VTE Drug Contraindication: N/A - Med Ordered
--- NOTE | 2022-02-23 11:19 | PM.PNCARD ---
Subjective Subjective Date of Service: 02/23/22 Interval history: Patient seen and examined at bedside. Hoarseness of voice. Complaining of shortness of breath. Edema upper extremities. Prominent veins on the chest. Physical Exam Vital Signs: Last Vital Signs Temp 97.8 F 02/23/22 07:57 Pulse 70 02/23/22 07:57 Resp 18 02/23/22 07:57 BP 184/86 H 02/23/22 07:57 Pulse Ox 98 02/23/22 07:57 O2 Del Method 02/23/22 07:57 O2 Flow Rate 2 02/23/22 07:57 Oxygen Flow Rate 2 02/20/22 15:06 BMI result Body Mass Index 24.1 GENERAL APPEARANCE: in no acute distress, hoarseness of voice. NECK: no carotid bruit, prominent neck veins. SKIN: no suspicious lesions, warm and dry. HEART: no murmurs, regular rate and rhythm. LUNGS: clear to auscultation bilaterally. ABDOMEN: soft, nontender. EXTREMITIES: Hands and arms mild edema. PERIPHERAL PULSES: Mild peripheral edema. NEUROLOGIC: No gross deficits, AAO X 3 Objective Labs and Meds Result diagrams: 02/23/22 06:20 02/23/22 06:20 Lab results: Laboratory Results - last 24 hr 02/23/22 02/23/22 02/23/22 06:20 06:20 06:20 WBC 7.6 RBC 3.29 L Hgb 10.7 L Hct 33.2 L MCV 100.9 H MCH 32.5 MCHC 32.2 RDW 13.3 Plt Count 239 MPV 9.2 L Absolute Nucleated RBC 0.000 Nucleated RBC % (auto) 0.0 PT 14.5 H INR 1.3 H Sodium 142 Potassium 4.1 Chloride 98 Carbon Dioxide 32 H Anion Gap 16 BUN 20 H D Creatinine 0.75 Estim Creat Clear Calc 85.0 Estimated GFR > 60 Random Glucose 160 H Calcium 9.4 D Magnesium 2.1 B-Natriuretic Peptide 02/23/22 06:20 WBC RBC Hgb Hct MCV MCH MCHC RDW Plt Count MPV Absolute Nucleated RBC Nucleated RBC % (auto) PT INR Sodium Potassium Chloride Carbon Dioxide Anion Gap BUN Creatinine Estim Creat Clear Calc Estimated GFR Random Glucose Calcium Magnesium B-Natriuretic Peptide 565 H Progress Note: A&P Assessment and plan (1) Squamous cell lung cancer: Status: Acute (2) Cardiomyopathy: Status: Acute (3) Anasarca: Status: Acute Plan 66-year-old gentleman with lung cancer with 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 He underwent CT scan today which we will review. His background of stress-induced cardiomyopathy. Clinically not in heart failure right now. Stop the digoxin. Amiodarone can raise digoxin level and he is not to 50 mcg daily which is a high dose. Will review echocardiography to reassess ejection fraction. 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 Blood pressure is elevated and his lisinopril should be increased to 20 mg daily. Thank you for allowing me to participate in the care of your patient. Please feel free to contact me if you have any questions. Time Spent With Patient Time: Total time spent is greater than 50% in coordination of care (as documented) at patient's floor/unit and/or counseling patient: Progress Note: Quality Stroke Does the patient have a stroke diagnosis?: No Procedures Date of Service Date of Service: 02/23/22
--- NOTE | 2022-02-23 13:07 | P.CONGS_ITS ---
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 He has a prior history of squamous cell lung cancer. This has been progressing for period of time. In addition this has been exacerbated by his congestive heart failure as well. He was originally worked up an actually had a CT scan on 01/21 where superior vena cava syndrome was suspected. He did present to the hospital with fluid overload and appears to be doing significantly better. He reports his arms and legs have decreased in swelling. At the current time he appears to be breathing relatively well. He is now for vascular follow-up. Review of Systems Review of Systems: Yes all other systems are reviewed and are negative Constitutional: Constitutional: Reports no additional constitutional complaints ENT: Reports Normal hearing present Cardiovascular: Cardiovascular: Denies chest pain, Denies chest pain at rest, Denies chest pain with activity and Denies pedal edema Respiratory: Respiratory: Denies cough Gastrointestinal: Gastrointestinal: Denies abdominal pain Musculoskeletal: Musculoskeletal: Denies abnormal gait, Denies muscle cramps and Denies radiating pain into limb Integumentary/Breasts: Skin/Breast: Denies skin ulcer and Denies wounds Neurologic: Reports Normal hearing present and Denies abnormal gait Psychiatric: Psychiatric: Reports no additional psychiatric complaints [facility] Past Medical History Medical History (Updated 02/23/22 @ 13:13 by Dean Sam MD) Afib Benign essential HTN Cardiomyopathy Gastro-esophageal reflux disease without esophagitis History of bladder cancer (~2014) History of lung cancer (~1998) Lung cancer Lung cancer Lymphadenopathy, mediastinal Non-small cell cancer of left lung Other seasonal allergic rhinitis Syndrome of inappropriate ADH (SIADH) secretion Tubular adenoma of colon (~2016) Functional capacity: uses cane/walker Family History Family History Father Medical history unknown Mother Breast cancer Sister Lung cancer Surgical History Surgical History History of bladder surgery (~2014) History of bronchoscopy (~2021) History of colonoscopy History of left inguinal hernia repair (~2016) History of lung surgery (~1998) Social History Social History Household Members: Significant Other Housing: Apartment Do you presently have visiting nurse or other home services: No Alcohol intake: current Alcohol intake frequency: a few times a week Patient Tobacco Use Status: Former Tobacco user Quit Date: 5 years ago Tobacco use type: Cigarette Smoked in Last 30 Days: No e-Cigarette/Vaping Use: Never Used Second Hand Smoke Exposure: No Use of substances other than those prescribed or required for medical reasons: No Currently Displaying Signs/Symptoms of Drug Intoxication Withdrawal: No Any prior treatment program specific to substance use: No Have you been hit, kicked, punched, or otherwise hurt by someone within the past year? If so, by whom?: No Do you feel safe in your current relationship?: No Is there a partner from a previous relationship who is making you feel unsafe now?: No Are you made to feel afraid or neglected: No Advance Directives: No Advance Directives Information Provided: No Do you have thoughts of harming others: None Recently lost weight without trying: No Nutrition Risks: No Nutritional Risk service: No Current occupational status: retired Cognitive needs: No Hearing needs: No Vision needs: Yes (Glasses) Meds Allergies Allergy/AdvReac Type Severity Reaction Status Date / Time No Known Allergies Allergy Verified 02/20/22 13:42 [No Known Allergies*] Active Medications: Current Medications Acetaminophen (Acetaminophen 325 Mg Tablet) 650 mg PO Q6H PRN PRN Reason: Pain, Mild (Pain Scale 1-3) Last Admin: 02/23/22 04:13 Dose: 650 mg Albuterol/Ipratropium (Albuterol/Iprat 2.5/0.5mg 3 Ml Ampul.Neb) 3 ml INHALE RQ4H PRN PRN Reason: Shortness of Breath/Wheezing Last Admin: 02/22/22 05:01 Dose: 3 ml Albuterol/Ipratropium (Albuterol/Iprat 2.5/0.5mg 3 Ml Ampul.Neb) 3 ml INHALE RQ4H WHILE AWAKE [facility] Last Admin: 02/23/22 11:54 Dose: 3 ml Amiodarone HCl (Amiodarone Hcl 200 Mg Tablet) 200 mg PO DAILY [facility] Last Admin: 02/23/22 07:41 Dose: 200 mg Apixaban (Apixaban 5 Mg Tablet) 5 mg PO BID [facility] Last Admin: 02/23/22 07:41 Dose: 5 mg Atorvastatin Calcium (Atorvastatin Calcium 40 Mg Tablet) 40 mg PO BEDTIME [facility] Last Admin: 02/22/22 20:58 Dose: 40 mg Dexamethasone Sodium Phosphate (Dexamethasone Sod Phosphate 4 Mg/Ml Vial) 8 mg IVPUSH BID [facility] Last Admin: 02/23/22 07:39 Dose: 8 mg Docusate Sodium (Docusate Sodium 100 Mg Capsule) 100 mg PO DAILY PRN PRN Reason: Constipation Last Admin: 02/22/22 15:26 Dose: 100 mg Furosemide (Furosemide 40 Mg/4 Ml Vial) 40 mg IVPUSH BID@0900,1800 [facility]; Protocol Last Admin: 02/23/22 08:55 Dose: Not Given Lisinopril (Lisinopril 10 Mg Tablet) 10 mg PO DAILY [facility]; Protocol Last Admin: 02/23/22 10:58 Dose: 10 mg Loratadine (Loratadine 10 Mg Tablet) 10 mg PO DAILY [facility] Last Admin: 02/23/22 07:40 Dose: 10 mg Ondansetron HCl (Ondansetron Hcl 4 Mg/2 Ml Vial) 4 mg IVPUSH Q8H PRN PRN Reason: Nausea and Vomiting Pharmacy Consult (Consult Rx Perform Med Rec) 1 each MISCELLANE ONCE PRN PRN Reason: Consult order Sodium Chloride (0.9 % Sodium Chloride Flush 3 Ml Syringe) 3 ml IVFLUSH QSHIFT [facility] Last Admin: 02/23/22 07:41 Dose: 3 ml Temazepam (Temazepam 15 Mg Capsule) 15 mg PO BEDTIME PRN PRN Reason: insomNIA Last Admin: 02/23/22 00:08 Dose: 15 mg Home Medications Medication Instructions Recorded Confirmed Last Taken Type dexamethasone 4 mg tablet 4 mg PO BID PRN post chemo x 2 days 01/21/22 02/20/22 Unknown History (Decadron) Physical Exam Vital Signs: Vital Signs: Last Vital Signs Temp 97.9 F 02/23/22 11:19 Pulse 76 02/23/22 11:19 Resp 20 02/23/22 11:19 BP 167/71 H 02/23/22 11:19 Pulse Ox 95 02/23/22 11:19 O2 Del Method 02/23/22 11:19 O2 Flow Rate 2 02/23/22 11:19 Oxygen Flow Rate 2 02/20/22 15:06 BMI result Body Mass Index 24.1 Const: General: cooperative, healthy appearing and comfortable Orientation/consciousness: oriented to person, oriented to place and oriented to time Neck: Neck: Yes normal visual inspection Carotids: no bruits Chest: Other: Swelling head and chest. Resp: Effort & Inspection: normal respiratory effort and able to speak in complete sentences Auscultation: clear to auscultation bilaterally, no crackles, no rales, no rhonchi and no wheezes Cardio: Rate: regular rate Rhythm: regular rhythm Heart sounds: S1 normal heart sound present and S2 normal heart sound present Bruits: no carotid bruits Peripheral pulses: Peripheral pulses 2+ throughout GI: Inspection: Yes normal to inspection Skin: Wounds: no wounds Hair: normal Neuro: General: oriented to person, oriented to place and oriented to time Cranial nerves: Yes CN's II-XII intact bilaterally and Yes Normal hearing present Cognition (Neuro): normal cognition Motor exam (neuro): 5/5 motor strength present throughout Extrem: Other: venous exam: No significant superficial varicosities or spider telangiectasias, minimal edema General: No clubbing, No cyanosis and No edema Psych: Appearance: grossly normal Mental Status: mental status grossly normal Speech and movement: Normal speech and movement present Results Labs Result diagrams: 02/23/22 06:20 02/23/22 06:20 Labs: Abnormal lab results 02/23/22 02/23/22 02/23/22 Range/Units 06:20 06:20 06:20 RBC 3.29 L (4.60-5.80) X10*6/uL Hgb 10.7 L (14.0-18.0) g/dl Hct 33.2 L (42.0-52.0) % MCV 100.9 H (80.0-98.0) fL MPV 9.2 L (9.4-12.4) fL PT 14.5 H (10.0-13.1) SEC INR 1.3 H (0.9-1.1) Carbon Dioxide 32 H (22-29) mmol/L BUN 20 H D (9-16) mg/dL Random Glucose 160 H (60-115) mg/dL B-Natriuretic Peptide (<100) pg/mL 02/23/22 Range/Units 06:20 RBC (4.60-5.80) X10*6/uL Hgb (14.0-18.0) g/dl Hct (42.0-52.0) % MCV (80.0-98.0) fL MPV (9.4-12.4) fL PT (10.0-13.1) SEC INR (0.9-1.1) Carbon Dioxide (22-29) mmol/L BUN (9-16) mg/dL Random Glucose (60-115) mg/dL B-Natriuretic Peptide 565 H (<100) pg/mL Short CBC 02/23/22 Range/Units 06:20 WBC 7.6 (4.8-10.8) X10*3/uL Hgb 10.7 L (14.0-18.0) g/dl Hct 33.2 L (42.0-52.0) % Plt Count 239 (160-400) X10*3/uL BMP 02/23/22 06:20 Sodium 142 Potassium 4.1 Chloride 98 Carbon Dioxide 32 H BUN 20 H D Creatinine 0.75 Calcium 9.4 D All other labs normal. Imaging Additional studies: CT angio of head and neck from 01/21/2022 reviewed and demonstrates right upper lobe mass. SVC is may be collapse. Images from 02/22 were reviewed no report available as of yet. Assessment and Plan (1) Superior vena cava syndrome: Status: Acute Plan In short the patient does have evidence of mild superior vena cava syndrome. He does not appear to be clinically compromise. He appears to be breathing relatively well. In addition he is tolerating p.o. with no difficulty. Will plan for CT follow-up. I do believe the 1st line of therapy should be radiation therapy if we can coordinate that for him. Should this progress may require superior vena cava stenting. He does not appear to be clinically there as of yet. Would also recommend thoracic surgery evaluation as well. Thank you for allowing us to assist in his care. If there are any questions or concerns please do not hesitate to contact us. Procedures Date of Service Date of Service: 02/23/22
[2022-02-23] MEDS: Atorvastatin Calcium 40 MG TABLET PO (20:48)
[2022-02-24] VITALS (11 sets, daily range): BP systolic 130–164; BP diastolic 61–73; PULSE 63–92; RESP 14–20; TEMP 36.1–37.2; O2SAT 88–100
[2022-02-24] MEDS: Albuterol/Iprat 2.5/0.5MG 3 ML AMPUL.NEB INHALE ×3 (07:29→19:10)
[2022-02-24 09:15] LABS: B Type Natriuretic Peptide 196 pg/mL (<100)
[2022-02-24] MEDS: Apixaban 5 MG TABLET PO ×2 (10:50→20:22)
[2022-02-24] MEDS: dexAMETHasone sod phosphate 4 MG/ML VIAL 8 MG IVPUSH ×2 (10:50→20:23)
[2022-02-24] MEDS: Loratadine 10 MG TABLET PO (10:50)
[2022-02-24] MEDS: Amiodarone HCL 200 MG TABLET PO (10:50)
[2022-02-24] MEDS: 0.9 % Sodium Chloride Flush 3 ML SYRINGE IVFLUSH ×3 (10:50→20:23)
[2022-02-24] MEDS: lisinopriL 20 MG TABLET PO (10:50)
[2022-02-24] MEDS: Furosemide 40 MG/4 ML VIAL IVPUSH (10:51)
[2022-02-24 11:22] LABS: Anion Gap 16 (12-20); Blood Urea Nitrogen 22 mg/dL (9-16); Calcium 9.1 mg/dL (8.4-10.2); Carbon Dioxide 32 mmol/L (22-29); Chloride 96 mmol/L (96-108); Creatinine Clr Calc Pharmacy 91.1; Estimated Glomerular Filt Rate > 60; Glucose Random 143 mg/dL (60-115); Potassium 3.7 mmol/L (3.3-5.1); Sodium 140 mmol/L (135-145)
--- NOTE | 2022-02-24 12:17 | HO.PM.IMPN ---
Subjective Subjective Date of Service: 02/24/22 Interval History: the patient was seen and evaluated this morning Laying in bed, feels improvement but still requiring oxygen supplement Have appointment with radiation oncology at [facility] on 11 a.m. No reported other overnight events. Systemic review: No fever, chills or weakness No chest pain, palpitation Reporting dyspnea on exertion but swelling going down No abdominal pain, nausea or vomiting No urinary symptoms No reported rash Physical Exam Vital Signs: Vital Signs: Last Vital Signs Temp 98.2 F 02/24/22 11:41 Pulse 75 02/24/22 11:41 Resp 20 02/24/22 11:41 BP 151/73 H 02/24/22 11:41 Pulse Ox 97 02/24/22 11:41 O2 Del Method 02/24/22 11:41 O2 Flow Rate 3 02/24/22 11:41 Oxygen Flow Rate 2 02/20/22 15:06 BMI result Body Mass Index 24.1 Const: Other: Constitutional : Awake, interactive, not in distress Neck : Normal inspection, Supple, congested face Cardiovascular : RRR, no JVP, trace bilateral lower extremity edema Respiratory : good bilateral air entry, basal fine bilateral crackles, wheezes or rhonchi Gastrointestinal: soft, lax, Normal bowel sounds, Non tender Skin : Warm, Dry Neurological : Alert & oriented x3, No focal deficit Objective Data Active Medications Acetaminophen (Acetaminophen 325 Mg Tablet) 650 mg PO Q6H PRN PRN Reason: Pain, Mild (Pain Scale 1-3) Last Admin: 02/23/22 20:48 Dose: 650 mg Documented By: WARREN Albuterol/Ipratropium (Albuterol/Iprat 2.5/0.5mg 3 Ml Ampul.Neb) 3 ml INHALE RQ4H PRN PRN Reason: Shortness of Breath/Wheezing Last Admin: 02/22/22 05:01 Dose: 3 ml Documented By: DANETTE Albuterol/Ipratropium (Albuterol/Iprat 2.5/0.5mg 3 Ml Ampul.Neb) 3 ml INHALE RQ4H WHILE AWAKE [facility] Last Admin: 02/24/22 07:29 Dose: 3 ml Documented By: LEOLA Amiodarone HCl (Amiodarone Hcl 200 Mg Tablet) 200 mg PO DAILY [facility] Last Admin: 02/24/22 10:50 Dose: 200 mg Documented By: MIRANDA Apixaban (Apixaban 5 Mg Tablet) 5 mg PO BID [facility] Last Admin: 02/24/22 10:50 Dose: 5 mg Documented By: MIRANDA Atorvastatin Calcium (Atorvastatin Calcium 40 Mg Tablet) 40 mg PO BEDTIME [facility] Last Admin: 02/23/22 20:48 Dose: 40 mg Documented By: WARREN Dexamethasone Sodium Phosphate (Dexamethasone Sod Phosphate 4 Mg/Ml Vial) 8 mg IVPUSH BID [facility] Last Admin: 02/24/22 10:50 Dose: 8 mg Documented By: MIRANDA Docusate Sodium (Docusate Sodium 100 Mg Capsule) 100 mg PO DAILY PRN PRN Reason: Constipation Last Admin: 02/22/22 15:26 Dose: 100 mg Documented By: SMITH Furosemide (Furosemide 40 Mg/4 Ml Vial) 40 mg IVPUSH BID@0900,1800 [facility]; Protocol Last Admin: 02/24/22 10:51 Dose: 40 mg Documented By: MIRANDA Lisinopril (Lisinopril 20 Mg Tablet) 20 mg PO DAILY [facility]; Protocol Last Admin: 02/24/22 10:50 Dose: 20 mg Documented By: MIRANDA Loratadine (Loratadine 10 Mg Tablet) 10 mg PO DAILY [facility] Last Admin: 02/24/22 10:50 Dose: 10 mg Documented By: MIRANDA Ondansetron HCl (Ondansetron Hcl 4 Mg/2 Ml Vial) 4 mg IVPUSH Q8H PRN PRN Reason: Nausea and Vomiting Pharmacy Consult (Consult Rx Perform Med Rec) 1 each MISCELLANE ONCE PRN PRN Reason: Consult order Sodium Chloride (0.9 % Sodium Chloride Flush 3 Ml Syringe) 3 ml IVFLUSH QSHIFT [facility] Last Admin: 02/24/22 10:50 Dose: 3 ml Documented By: MIRANDA Temazepam (Temazepam 15 Mg Capsule) 15 mg PO BEDTIME PRN PRN Reason: insomNIA Last Admin: 02/23/22 23:22 Dose: 15 mg Documented By: WARREN Labs CBC & Chem 7: 02/23/22 06:20 02/24/22 06:36 Labs: Laboratory Results - last 24 hr 02/24/22 02/24/22 06:36 06:36 Anion Gap 16 Estim Creat Clear Calc 91.1 Estimated GFR > 60 Random Glucose 143 H Calcium 9.1 B-Natriuretic Peptide 196 H Assessment and Plan (1) Superior vena cava syndrome: Status: Acute (2) Squamous cell lung cancer: Status: Acute (3) Anasarca: Status: Acute (4) Acute exacerbation of CHF (congestive heart failure): Status: Acute Plan 66yo M with metastatic SCC of lung on pallitative chemotherapy, COPD, recent diagnosis of stress-induced cardiomyopathy presenting with dyspnea + edema + facial swelling # SVC syndrome Has evidence of mild SVC syndrome CT scan Oncology team input appreciated, Have appointment with radiation oncology at [facility] on 11 a.m. Vascular Surgery c input appreciated, start with radiation therapy but will hold on stenting for now as no clinical indication for it Get thoracic surgery evaluation for vascular recommendations Palliative radiation eventually Continue dexamethasone 8 mg q12h. # CHF exacerbation/acute-chronic HFrEF Echo showed 40-45% on recent TTE with [facility] consulted, feel more strongly that he has SVC syndrome rather than CHF exacerbation but will continue furosemide for now Continue Lasix Repeat echo # COPD exacerbation steroids changed to dexamethasone as above, standing/prn nebs # normocytic anemia suspect due to chronic disease, monitor H+H # paroxysmal AF continue amiodarone + digoxin continue apixaban # VTE ppx: apixaban In my clinical judgment, the patient requires continued inpatient hospitalization for the following reasons: IV diuresis, dyspnea, SVC syndrome evaluation pending thoracic surgery evaluation Quality Stroke Does the patient have a stroke diagnosis?: No VTE Prior VTE?: No VTE Risk Level:: Medical - moderate - high VTE Device Contraindication: Treatment Not Indicated VTE Drug Contraindication: N/A - Med Ordered
--- NOTE | 2022-02-24 13:00 | CA_ITS ---
Transthoracic Echocardiogram Patient (Last, First, Middle): Luis Miguel Isbell, Gender: Male Date of : 1955 Age: 66 Procedure Date: 02/24/2022 Procedure Type: Transthoracic Echocardiogram Location: [facility] [place] [facility] [place] Height: 167.64 cm Weight: 67.59 kg BSA: 1.76 m2 Heart Rate: bpm BP: 151 / 73 mmHg Drilling Foreman: Referring MD: Radha Baker MD Symptoms: Heart failure exacerbation, SVC syndrome Study Quality: Fair ECG Rhythm: Sinus Conclusions: - Normal left ventricular size and systolic function. There is mildly increased left ventricular wall thickness. The visually estimated ejection fraction is between 60-65%. - Mildly increased right ventricular cavity size. There is normal right ventricular systolic function. - There is a small loculated pericardial effusion overlying the left ventricle. There are no definitive echocardiographic findings of tamponade physiology. Findings Left Ventricle Normal left ventricular size and systolic function. There is mildly increased left ventricular wall thickness. The visually estimated ejection fraction is between 60-65%. There is no evidence of regional wall motion abnormalities. Diastolic function is indeterminate on the basis of available data. Right Ventricle Mildly increased right ventricular cavity size. There is normal right ventricular systolic function. Pericardium/Pleural Prominent epicardial adipose tissue noted. There is a small loculated pericardial effusion overlying the left ventricle. There are no definitive echocardiographic findings of tamponade physiology. Prior Study Comparison Changes noted compared to prior study dated: 01/23/2022. Normal LV function. Small pericardial effusion over the lateral aspect of LV. Measurements 2D Linear Measurements IVSd: 1.27 0.6-0.9/0.6-1.0 cm LVIDd: 5.08 3.9-5.3/4.2-5.9 cm LVIDd Index: 2.89 2.4-3.2/2.2-3.1 cm/m2 LVIDs: 3.93 2.0-3.6 cm LVPWd: 1.24 0.7-1.1 cm LV Mass: 318.39 67-162/88-224 g LV Mass Index: 180.91 43-95/49-115 g/m2 2D Systolic Function EF 4C: 59.80 >55% EF 2C: 60.50 >55% EF BiP: 61.40 >55% Mitral Valve E'Lateral: 7.51 E'Medial: 8.38 Diastolic Function E'Medial: 8.38 E' Laterial: 7.51 Tricuspid Valve TR Pk [place]: 1.41 TR Pk Grad: 8.00 RA Press: 3.00 RVSP: 11.00 Updated in Other Vendor System with Status of Final Cirilo Srivastava MD electronically signed on 02/24/2022 4:00:29 PM with status of Final
[2022-02-24] MEDS: Atorvastatin Calcium 40 MG TABLET PO (20:22)
--- NOTE | 2022-02-25 02:21 | PC.NURSE ---
Briggs removed 02/24 around noon. Patient voiding small amounts since then per previous shift nurse report. Bladder scanned 02/25 at 2am 496mL, aware awaiting new orders.
[2022-02-25 04:00] VITALS: BP 175/81; PULSE 74; RESP 20; TEMP 36.8; O2SAT 95
[2022-02-25] MEDS: Acetaminophen 325 MG TABLET 650 MG PO (05:07)
[2022-02-25 05:51] LABS: Hemoglobin 10.8 g/dl (14.0-18.0); Mean Corpuscular HGB Conc 32.7 g/dl (31.0-36.0); Mean Corpuscular Hemoglobin 32.6 pg (27.0-33.0); Mean Corpuscular Volume 99.7 fL (80.0-98.0); Mean Platelet Volume 9.2 fL (9.4-12.4); Platelet Count 227 X10*3/uL (160-400); Red Blood Count 3.31 X10*6/uL (4.60-5.80); Red Cell Distribution Width 13.2 % (11.0-16.0); White Blood Count 6.3 X10*3/uL (4.8-10.8)
[2022-02-25 06:19] LABS: Anion Gap 15 (12-20); Blood Urea Nitrogen 25 mg/dL (9-16); Carbon Dioxide 33 mmol/L (22-29); Chloride 94 mmol/L (96-108); Creatinine Clr Calc Pharmacy 92.4; Estimated Glomerular Filt Rate > 60; Glucose Random 177 mg/dL (60-115); Potassium 3.9 mmol/L (3.3-5.1); Sodium 138 mmol/L (135-145)
[2022-02-25 06:51] LABS: B Type Natriuretic Peptide 149 pg/mL (<100)
[2022-02-25 07:20] VITALS: PULSE 74; RESP 18; O2SAT 97
[2022-02-25] MEDS: Albuterol/Iprat 2.5/0.5MG 3 ML AMPUL.NEB INHALE ×2 (07:20→11:09)
[2022-02-25 07:34] VITALS: BP 150/76; PULSE 71; RESP 16; TEMP 36.1; O2SAT 96
[2022-02-25] MEDS: Furosemide 40 MG/4 ML VIAL IVPUSH (09:01)
[2022-02-25] MEDS: lisinopriL 20 MG TABLET PO (09:02)
[2022-02-25] MEDS: 0.9 % Sodium Chloride Flush 3 ML SYRINGE IVFLUSH (09:02)
[2022-02-25] MEDS: Loratadine 10 MG TABLET PO (09:02)
[2022-02-25] MEDS: Apixaban 5 MG TABLET PO (09:02)
[2022-02-25] MEDS: Amiodarone HCL 200 MG TABLET PO (09:02)
[2022-02-25] MEDS: dexAMETHasone sod phosphate 4 MG/ML VIAL 8 MG IVPUSH (09:13)
--- NOTE | 2022-02-25 10:59 | PM.DS ---
DS: Providers Provider Date of Service: 02/25/22 Date of admission: 02/20/22 19:34 Primary care physician: Tucker Ga MD Consults: 02/20/22 19:36 Consult to Cardiology Routine Consulting Provider: Noel Bland Reason for consultation: CHF exacerbation Has provider been notified: No 02/21/22 14:26 Consult to Hematology / Oncology Routine Consulting Provider: [facility] Oncology/Hematology Reason for consultation: suspected SVC syndrome 02/22/22 08:47 Consult to Vascular Surgery Routine Consulting Provider: Dena Sam Reason for consultation: suspect SVC syndrome-= ?stent 02/24/22 12:23 Consult to Thoracic Surgery Routine Consulting Provider: Narendra Walters Reason for consultation: Lung CA with SVC syndrome for eval and recommendation DS: Diagnosis Discharge Diagnosis (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 He reports that he has been swollen for the past week and a half progressively worsening.? He has swelling in his legs and arms.? He reports compliance with his Lasix but does eat a lot of cold cuts and deli meat, he is also reporting a cough, sputum production, reports significant orthopnea and PND.? Denies any fever or chills, no headache, no chest pain, no palpitations, no abdominal pain nausea or vomiting, no diarrhea, no urinary symptoms On arrival patient hemodynamically stable with vitals significant for tachycardia in the 102-105, and elevated blood pressure.? Patient on 2 L of oxygen satting 97% Labs are significant for WBC count 7.6, hemoglobin of 9.9, hematocrit 29.6, BNP of 201, Chest x-ray shows density in the right lung apex which is redemonstrated from previous imaging, with no acute airspace disease.? 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 There was also a mild component of acute on chronic systolic CHF. He was given Lasix, echo showed recovered EF. There was also component of COPD with acute decompensation which was treated with steroids. For his SVC syndrome he was seen by Oncology recommended following up with Radiation Oncology at [facility] on 02/26/2022. He was seen by vascular surgery, does not appear to be in clinical compromise and not in need of urgent stenting. Place paroxysmal atrial fibrillation he was continued on amiodarone and digoxin as well as Eliquis. Patient will be discharged home. Time Spent with Patient Time attestation: Total time spent providing and/or coordinating discharge services: Discharge coordination time: Greater than 30 minutes Quality: Safe Use of Opioids Does Pt have an Active Cancer Diagnosis on the Problem List?: Yes Opioid Measure Date for [facility] Report: 01/26/22 Opioid Measure Time for [facility] Report: 11:00 Quality: Stroke Does the patient have a stroke diagnosis?: No Physical Exam Vital Signs: Vital Signs: Last Vital Signs Temp 97 F 02/25/22 07:34 Pulse 71 02/25/22 07:34 Resp 16 02/25/22 07:34 BP 150/76 H 02/25/22 07:34 Pulse Ox 96 02/25/22 07:34 O2 Del Method 02/25/22 07:34 O2 Flow Rate 2 02/25/22 07:34 Oxygen Flow Rate 2 02/20/22 15:06 BMI result Body Mass Index 24.1 General: AO X 3, no acute distress Resp: CTA bilateral, no accessory muscles used CVS: S1,S2,RRR GI: soft, non tender, non distended Neuro: motor grossly intact, alert Psych: appropriate affect, appropriate insight RUE swelling, facial fullness DS: Data Data Completed and Pending Completed studies during hospitalization [Text1]: Procedures Assistance with Respiratory Ventilation, Less than 24 Consecutive Hours, Continuous Positive Airway Pressure (01/21/22) Labs on day of discharge: Laboratory Results - last 24 hr 02/24/22 02/25/22 02/25/22 06:36 05:28 05:28 WBC 6.3 RBC 3.31 L Hgb 10.8 L Hct 33.0 L MCV 99.7 H MCH 32.6 MCHC 32.7 RDW 13.2 Plt Count 227 MPV 9.2 L Absolute Nucleated RBC 0.000 Nucleated RBC % (auto) 0.0 Sodium 140 138 Potassium 3.7 3.9 Chloride 96 94 L Carbon Dioxide 32 H 33 H Anion Gap 16 15 BUN 22 H 25 H Creatinine 0.70 0.69 Estim Creat Clear Calc 91.1 92.4 Estimated GFR > 60 > 60 Random Glucose 143 H 177 H Calcium 9.1 9.0 B-Natriuretic Peptide 02/25/22 05:28 WBC RBC Hgb Hct MCV MCH MCHC RDW Plt Count MPV Absolute Nucleated RBC Nucleated RBC % (auto) Sodium Potassium Chloride Carbon Dioxide Anion Gap BUN Creatinine Estim Creat Clear Calc Estimated GFR Random Glucose Calcium B-Natriuretic Peptide 149 H Discharge Plan Discharge Anticipated Discharge Date/Time: 02/25/22 10:55 Patient Disposition: Home, Self-Care Discharge Diagnosis: svc syndrome Referrals: Tucker Ga MD [Primary Care Provider] - 1 Week Discharge Medications: New Eliquis 5 mg Tablet 5 mg PO BID Qty: 0 0RF Continued loratadine 10 mg tablet 10 mg PO DAILY Qty: 90 1RF albuterol sulfate 90 mcg/actuation HFA aerosol inhaler 2 puff PO Q4-6H Qty: 8.5 2RF furosemide 20 mg tablet 20 mg PO DAILY Qty: 30 0RF dexamethasone [Decadron] 4 mg tablet 4 mg PO BID PRN (Reason: post chemo x 2 days) Rx Instructions: take for 2 days after chemo digoxin 250 mcg (0.25 mg) Tablet 0.25 mg PO DAILY 30 Days Qty: 30 0RF amiodarone 200 mg tablet 200 mg PO DAILY Qty: 30 1RF Rx Instructions: To start after finishing 13 days of 400 mg bid atorvastatin 40 mg tablet 40 mg PO BEDTIME Qty: 30 0RF ondansetron 8 mg Tablet,Disintegrating 8 mg PO Q8H PRN (Reason: Nausea) Qty: 30 3RF albuterol sulfate 2.5 mg /3 mL (0.083 %) solution for nebulization 2.5 mg inhalation BID 30 Days Qty: 180 11RF Discharge Orders: Discharge Order (Routine); Ordered 02/25/22 Ordered By: Warner House Diet: Advance to usual diet Activity on Discharge: As tolerated Stand Alone Forms: Patient Portal Discharge page Care Plan Goals: manage SVC syndrome Health Concerns: SVC syndrome Plan of Treatment: follow up with rad/onc tomorrow Assessment: see above
--- NOTE | 2022-02-25 11:06 | MHC.CM.PN ---
pt dxcd home no skilled servceis ordered by
[2022-02-25 11:10] VITALS: PULSE 76; RESP 18; O2SAT 98
[2022-02-25 11:18] VITALS: BP 159/63; PULSE 77; RESP 16; TEMP 36.4; O2SAT 96
== END 2022-02-25 12:07 | disposition home or self-care (01) | DRG 190 ==
LOC: HO.ED 18:01 → HO.EDOVER 19:49 → HO.IMC 02-21 02:57
PROVIDERS: Family Medicine; Physician Assistant Medical; Student in an Organized Health Care Education/Training Program; Admitting Provider Internal Medicine; Emergency Provider Emergency Medicine; PCP Internal Medicine; Visit Provider Internal Medicine
DX: J44.1 Chronic obstructive pulmonary disease with (acute) exacerbation (principal); I50.23 Acute on chronic systolic (congestive) heart failure; C34.90 Malignant neoplasm of unspecified part of unspecified bronchus or lung; I87.1 Compression of vein; I51.81 Takotsubo syndrome; I11.0 Hypertensive heart disease with heart failure; D64.9 Anemia, unspecified; D63.0 Anemia in neoplastic disease; I48.0 Paroxysmal atrial fibrillation; Z20.822 Contact with and (suspected) exposure to COVID-19; Z85.51 Personal history of malignant neoplasm of bladder; Z87.891 Personal history of nicotine dependence; Z79.01 Long term (current) use of anticoagulants; Z79.899 Other long term (current) drug therapy
CPT/HCPCS: 36415; 71045; 71250; 71260; 80048; 80053; 82607; 82728; 82746; 83540; 83615; 83735; 83880; 84484; 85025; 85027; 85045; 85610; 87635; 93005; 93308; 94640; 99212; 99285; C1758; J1100; J1940; J2250; J2920

== ENCOUNTER → 2022-02-27 12:58 | Outpatient (REF) | payer MEDICAID, SELFPAY ==
--- NOTE | 2022-02-27 13:02 | HM_ITS ---
* Total monitoring time 2 days and 23 hours. * Underlying rhythm is sinus. Average ventricular rate 70/Min. Range 62 to 84/Min. * Very rare supraventricular and ventricular ectopy. Minimal burden. * No significant pauses or AV blocks. * No patient diary. MTDD
== END ==
LOC: HO.CARD 12:58
PROVIDERS: Visit Provider Internal Medicine Cardiovascular Disease
DX: I10 Essential (primary) hypertension (principal); J44.9 Chronic obstructive pulmonary disease, unspecified; R06.03 Acute respiratory distress
CPT/HCPCS: 93242

== ENCOUNTER 2022-03-08 17:27 | Inpatient (IN) | payer MEDICARE, MEDICAID, SELFPAY ==
[2022-03-08] VITALS (17 sets, daily range): BP systolic 90–239; BP diastolic 47–101; PULSE 55–84; RESP 16–20; TEMP 34–36.4; O2SAT 87–100; BMI 21.9
--- NOTE | ~2022-03-08 | CT_ITS ---
EXAMINATION: CT CHEST WITHOUT CONTRAST CLINICAL INFORMATION: Intubated. Question tracheal compression COMPARISON: Chest CT 02/22/2022 TECHNIQUE: Multidetector volumetric CT imaging of the chest was done. Axial MIP volume rendering provided. Sagittal and coronal reformatted images were obtained. This CT examination was performed using dose optimization techniques as appropriate, variously including the following: *Automated exposure control *Adjustment of mA and/or kV according to patient size (this includes techniques or standardized protocols for targeted exams where dose is matched to indication/reason for exam; i.e. extremities or head) *Use of iterative reconstruction technique DLP: 535 mGy-cm FINDINGS: LUNGS: Redemonstrated lobulated mass in the medial right upper lobe obstructing right upper lobar bronchi during approximately 6.6 x 5.4 cm in axial dimension. There are some coarse calcification/ossifications within a portion of the lesion and surgical clips, unchanged. Adjacent mild septal thickening and groundglass attenuation in the right upper lobe. Unchanged variously-sized bilateral pulmonary nodules throughout both lungs consistent with pulmonary metastasis. Mild passive dependent right basilar atelectasis. Linear scarring in the left upper lobe/lingula, unchanged. Endotracheal tube tip terminates approximately 1.9 cm above the jeffry. As on prior, there is some tracheal narrowing/stenosis below the level of the endotracheal tube tip. The distal trachea measures approximately 0.6 cm in transverse dimension/with and there is thickening of the tracheal wall which may be due to tumor infiltration. Small amount of mucus/regions or debris within the right mainstem bronchus extending into bilateral lobar bronchi. Mild centrilobular and paraseptal emphysema. MEDIASTINUM: Normal heart size. Trace pericardial fluid, decreased since prior. Three-vessel coronary artery calcifications. Normal caliber thoracic aorta. Moderate vascular calcifications. Large mediastinal mass partially surrounding the trachea extending about the thoracic aorta and pulmonary arteries as well as encircling the SVC contiguous with subcarinal abhishek tissue. The overall size/extent is similar to prior. Enlarged left prevascular space lymph node also redemonstrated. New right IJ central venous catheter tip terminating in the distal SVC. CORONARY ARTERY CALCIFICATION: Present PLEURA: Small right pleural effusion, perhaps minimally larger than on prior. Left pleural effusion has resolved. Bilateral calcified pleural plaques are demonstrated. AXILLA: No lymphadenopathy. UPPER ABDOMEN: Enteric tube terminates in the body the stomach. Large left adrenal mass measuring approximately 6.8 cm in size, unchanged with some soft tissue calcification. Imaged upper abdominal viscera otherwise unremarkable. OSSEOUS STRUCTURES: No acute mild superior endplate compression fracture of T7 with 10-15 percent vertebral body height loss. Unchanged minimal superior endplate compression fracture deformity of T2. No other fracture. No suspicious appearing osseous lesion identified. CT/CT chest wo IV con IMPRESSION: 1. Endotracheal tube tip terminates approximately 1.9 cm above the jeffry. As on prior, there is some tracheal narrowing/stenosis below the level of the endotracheal tube tip of the distal trachea measuring approximately 0.6 cm in transverse dimension/with. The trachea is nearly completely encircled by the patient's large mediastinal mass/conglomerate abhishek tissue as on prior. 2. Unchanged large lobulated mass in the medial right upper lobe obstructing right upper lobar bronchi and multiple bilateral pulmonary nodules compatible with pulmonary metastasis. 3. Unchanged large left adrenal mass compatible with metastasis. 4. Unchanged mediastinal mass and lymphadenopathy. 5. Small right pleural effusion, perhaps minimally larger than on prior. Left pleural effusion has resolved. 6. New mild superior endplate compression fracture of T7 with approximately 10-15 percent vertebral body height loss. Unchanged minimal superior endplate compression fracture deformity of T2.
--- NOTE | ~2022-03-08 | XR_ITS ---
EXAMINATION: PORTABLE CHEST 1 VIEW CLINICAL INFORMATION: intubation . COMPARISON: 02/20/2022. TECHNIQUE: Portable frontal view of the chest was obtained. FINDINGS: Endotracheal tube tip approximately 3 cm above the jeffry. Nasogastric tube below level of the diaphragm. Lungs are well expanded. Chronic appearing and postoperative changes in the right lung apex again noted. Patchy bilateral airspace disease is seen similar to the prior study. The innumerable nodules seen bilaterally were better delineated on the chest CT scan. No significant pneumothorax. Tiny right effusion. No acute bony abnormality. XR/XR chest 1V IMPRESSION: Intubated. Bilateral airspace disease, postoperative changes, and pulmonary nodularity similar to the 02/22/2022 CT scan and 02/20/2022 chest x-ray
--- NOTE | ~2022-03-08 | XR_ITS ---
EXAMINATION: PORTABLE CHEST 1 VIEW CLINICAL INFORMATION: tlc placement . COMPARISON: Study earlier today. TECHNIQUE: Portable frontal view of the chest was obtained. FINDINGS: Endotracheal tube tip approximately 2 cm above the jeffry. Nasogastric tube below the level of the diaphragm. New right IJ centimeters catheter tip near the expected cavoatrial junction. Lungs well-expanded with chronic appearing airspace changes including right upper lobe masslike consolidation in bilateral patchy airspace disease better demonstrated as nodules on prior imaging. XR/XR chest 1V IMPRESSION: Tubes and lines as described. New right IJ central venous catheter tip near the expected cavoatrial junction. No pneumothorax. Chronic appearing airspace disease.
[2022-03-08] MEDS: Furosemide 40 MG/4 ML VIAL IVPUSH (18:05)
[2022-03-08] MEDS: Etomidate 20 MG/10 ML VIAL IVPUSH (18:07)
[2022-03-08] MEDS: Rocuronium Bromide 50 MG/5 ML VIAL IVPUSH (18:09)
[2022-03-08] MEDS: fentaNYL citrate/PF 100 MCG/2 ML VIAL 25 MCG IVPUSH (18:12)
--- NOTE | 2022-03-08 18:14 | ED_ITS ---
HPI - General Adult General Chief complaint: General Medical Stated complaint: BODY PAIN AND EDEMA,HX CA PER EMS Time Seen by Provider: 03/08/22 17:39 Source: patient, EMS and RN notes reviewed Mode of arrival: ambulatory Limitations: no limitations History of Present Illness HPI narrative: 66-year-old male with past medical history of lung cancer, CHF, GERD, AFib, squamous cell lung cancer presents to ED for shortness of breath couple of days and now coughing up blood. Patient looked blue purple in distress. Related Data Home Medications Medication Instructions Recorded Confirmed dexamethasone 4 mg tablet 4 mg PO BID PRN post chemo x 2 days 01/21/22 02/26/22 (Decadron) Previous Rx's Medication Instructions Recorded loratadine 10 mg tablet 10 mg PO DAILY #90 tabs 09/19/21 albuterol sulfate 90 mcg/actuation 2 puff PO Q4-6H for wheezing #8.5 10/23/21 aerosol inhaler grams ondansetron 8 mg disintegrating 8 mg PO Q8H PRN Nausea #30 tabs 01/09/22 tablet amiodarone 200 mg tablet 200 mg PO DAILY #30 tabs 01/24/22 atorvastatin 40 mg tablet 40 mg PO BEDTIME #30 tabs 01/24/22 digoxin 250 mcg (0.25 mg) tablet 0.25 mg PO DAILY 30 days #30 tabs 01/24/22 albuterol sulfate 2.5 mg/3 mL 2.5 mg (3 mL) inhalation BID 30 02/06/22 (0.083 %) solution for nebulization days #180 mL furosemide 20 mg tablet 20 mg PO DAILY #30 tabs 02/20/22 apixaban 5 mg tablet 5 mg PO BID #60 tabs 02/25/22 Allergies Allergy/AdvReac Type Severity Reaction Status Date / Time No Known Allergies Allergy Verified 03/08/22 17:36 [No Known Allergies*] Review of Systems Review of Systems: Respiratory distress coughing up blood Yes all other systems are reviewed and are negative [facility] Past Medical History Medical History (Updated 03/09/22 @ 00:59 by Chichi Nam NP) Afib Benign essential HTN Cardiomyopathy Gastro-esophageal reflux disease without esophagitis History of bladder cancer (~2014) History of lung cancer (~1998) Lung cancer Lung cancer Lymphadenopathy, mediastinal Non-small cell cancer of left lung Other seasonal allergic rhinitis Syndrome of inappropriate ADH (SIADH) secretion Tubular adenoma of colon (~2016) Surgical History History of bladder surgery (~2014) History of bronchoscopy (~2021) History of colonoscopy History of left inguinal hernia repair (~2016) History of lung surgery (~1998) Family History Family History Father Medical history unknown Mother Breast cancer Sister Lung cancer Social History Social History Household Members: Unknown / Unable to assess Housing: Unknown / Unable to assess Do you presently have visiting nurse or other home services: No Unable to assess alcohol history related to: Unable to respond Alcohol intake: current Alcohol intake frequency: a few times a week Patient Tobacco Use Status: Former Tobacco user Quit Date: 5 years ago Tobacco use type: Cigarette e-Cigarette/Vaping Use: Never Used Second Hand Smoke Exposure: No Use of substances other than those prescribed or required for medical reasons: Unable to respond Advance Directives: No Advance Directives Information Provided: No Recently lost weight without trying: Unsure service: No Current occupational status: retired Cognitive needs: No Hearing needs: No Vision needs: Yes (Glasses) Physical Exam ED Vital Signs: Vital Signs - 24 hr 03/08/22 17:47 03/08/22 18:34 03/08/22 18:37 Pulse Rate 84 81 Respiratory Rate 17 18 Blood Pressure 239/101 H Pulse Oximetry 87 L 96 Oxygen Delivery Method Nasal Cannula Fraction of Inspired Oxygen 30 03/08/22 18:43 03/08/22 19:06 03/08/22 19:30 Pulse Rate 81 69 63 Respiratory Rate 18 18 18 Blood Pressure 239/99 H 172/74 H 150/61 H Pulse Oximetry 95 98 99 Oxygen Delivery Method Mechanical Ventilation Fraction of Inspired Oxygen BMI result Body Mass Index 21.9 Const Other: Patient looks purple blue with blood coming from mouth General: acute distress Orientation/consciousness: patient oriented x3 HENMT Other: Coughing up slight blood. Slight blood in oral cavity.. Head: Yes normal to inspection, Yes No palpable skull fracture present, Yes normocephalic and Yes atraumatic Eyes General: appearance normal, both eyes and all related structures Neck Neck: Yes normal visual inspection and Yes full ROM Chest Chest/axillae images: 1. Swelling with some telengtascia Resp Other: Respiratory distress. Patient looks blue. Patient sounds wet. Effort & Inspection: audible wheezes, labored, nasal flaring, respiratory distress and tripod positioning Cardio Jugular venous distension: JVD GI Inspection: Yes normal to inspection and No abdominal wall ecchymosis General: No CVA tenderness and Yes no CVA tenderness Back/Spine/Pelvis Back: no CVA tenderness, No CVA tenderness and No back tenderness Skin Other: Patient looks blue purple General skin exam: no rashes or lesions noted and elasticity normal Neuro Other: Respiratory distress. General: patient oriented x3 Extrem Other: Anisarcia Psych Appearance: grossly normal, well kempt and not disheveled Course Course Course Narrative: Patient in respiratory distress. Blood pressure systolic over 200. Patient on 6 L 83%. Patient blue. Fentanyl, nitropaste, lasix 40mg ordered. Respiratory therapist called. Patient informed us he was a full code. EKG ordered Reevaluation(s) Reevaluation #1: Azucena Ann came the room and decided patient needs to be intubated. Patient was a very difficult stick due to anasarca. After multiple IV attempts at IV was finally successful enough for medication, Etomidate and Rucuronimum was ordered. Patient was intubated by me using glidescope size 3 blade and 7.5 tube. DUring glidescope epiglotis and pharynx appeared very swollen. intubation was succesful. patient placed on vent and propofol drip. ICU to be notified. Time: 18:47 Reevaluation #2: X-ray does show chronic COPD. CT scan done on 02/20/2022 showed mediastinal mass right-sided Cancer nodes. Time: 18:56 Reevaluation #3: Dr. Morales was informed of the case. Time: 19:11 Additional Reevaluation(s): Spoke with Dr. Mccann who recommends repeat Chest CT to check for tracheal compression. He accepted the case. Spoke with FAMILY MEDICINE PHYSICIAN ASSISTANT Tamiko of ICU and inform her patient was a difficult stick and has a peripheral line just for propofol and fentanyl but patient will need central line for better IV access and labs. She states patient to be sent up to the ICU she will perform central line. Medications Administered Generic Name Dose Route Start Last Admin Trade Name Barq PRN Reason Stop Dose Admin Chlorhexidine Gluconate 15 ml 03/08/22 21:00 03/08/22 22:33 Chlorhexidine Gluc Oral Rinse 15 Ml Mouthwash BUCCAL 15 ml TID VELMA Administration Propofol 1,000 mg in 100 mls @ 0 mls/hr 03/08/22 18:30 03/08/22 22:23 Diprivan IVCONT 50 mcg/kg/min .Q0M VELMA 18.51 mls/hr Administration Protocol Per Protocol Dopamine HCl/Dextrose 400 mg in 250 mls @ 0 mls/hr 03/08/22 22:45 03/08/22 23 :00 Dopamine Hcl/D5w IVCONT 5 mcg/kg/min .Q0M VELMA 11.57 mls/hr Administration Protocol Per Protocol Discontinued Medications Generic Name Dose Route Start Last Admin Trade Name Barq PRN Reason Stop Dose Admin Etomidate 20 mg 03/08/22 20:16 03/08/22 18:07 Etomidate 20 Mg/10 Ml Vial IVPUSH 03/08/22 20:17 20 mg ONCE ONE Administration Fentanyl 25 mcg 03/08/22 17:53 03/08/22 18:12 Fentanyl Citrate/Pf 100 Mcg/2 Ml Vial IVPUSH 03/08/22 17:54 25 mcg ONCE ONE Administration Protocol Fentanyl 100 mcg 03/08/22 19:47 03/08/22 19:59 Fentanyl Citrate/Pf 100 Mcg/2 Ml Vial IVPUSH 03/08/22 19:48 100 mcg ONCE ONE Administration Protocol Furosemide 40 mg 03/08/22 17:50 03/08/22 18:05 Furosemide 40 Mg/4 Ml Vial IVPUSH 03/08/22 17:51 40 mg STAT STA Administration Protocol Piperacillin Sod/Tazobactam 50 mls @ 100 mls/hr 03/08/22 18:29 03/08/22 23:12 Sod 3.375 gm/ Sodium Chloride IV 03/08/22 18:58 Infused ONCE ONE Infusion Potassium Chloride 40 meq in 100 mls @ 100 mls/hr 03/08/22 23:54 03/09/22 00:34 Potassium Chloride/H20 IV 03/09/22 00:53 100 mls/hr ONCE ONE Administration Vancomycin HCl 1,000 mg/ 270 mls @ 270 mls/hr 03/08/22 23:55 03/09/22 00:26 Sodium Chloride IV 03/09/22 00:54 270 mls/hr ONCE ONE Administration Nitroglycerin 0.5 inch 03/08/22 17:53 03/08/22 18:45 Nitroglycerin 2 % Oint 1 Gm Packet TRANSDERMA 03/08/22 17:54 Not Given ONCE ONE Pantoprazole Sodium 80 mg 03/08/22 17:50 03/08/22 22:33 Pantoprazole Sodium 40 Mg/10 Ml Vial IVPUSH 03/08/22 17:51 80 mg ONCE ONE Administration Rocuronium Mcrae 50 mg 03/08/22 20:17 03/08/22 18:09 Rocuronium Mcrae 50 Mg/5 Ml Vial IVPUSH 03/08/22 20:18 50 mg ONCE ONE Administration Medical Decision Making Lab Data Result diagrams: 03/08/22 22:15 03/08/22 22:15 Critical Care Time Critical Care Time Critical Care Time: Yes Total Critical Care Time: 60 Attestation: Respiratory called. Fentanyl Lasix given. IV placement. Etomidate and rock ordered. Patient intubated. Patient placed on vent. Patient placed on propofol drip. Patient admitted to ICU Discharge Plan Discharge Clinical Impression: Respiratory distress Patient Disposition: Admitted As Inpatient Interventions: Admission Worksheet (ED) Last Done: 03/08/22 21:38 Discharge Date/Time: 03/08/22 22:54
[2022-03-08] MEDS: propofoL 1,000 MG/100 ML VIAL 11.1 MG IVCONT (18:37)
--- NOTE | 2022-03-08 18:57 | ECG_ITS ---
Test Reason : rhythm check Blood Pressure : / mmHG Vent. Rate : 063 BPM Atrial Rate : 063 BPM P-R Int : 178 ms QRS Dur : 090 ms QT Int : 532 ms P-R-T Axes : 104 009 137 degrees QTc Int : 544 ms Normal sinus rhythm Low voltage QRS T wave abnormality, consider anterolateral ischemia Abnormal ECG When compared with ECG of 20-FEB-2022 15:54, T wave inversion now evident in Anterior leads QT has lengthened Referred By: Maciel Ruib Electronically Signed By:KIP COPELAND MD
--- NOTE | 2022-03-08 19:15 | PC.NURSE ---
pt arrived flushed, sob, audible wet wheezing, pt reports that he is typically on 2-4L O2 at baseline, reports that he had to increase his O2 to 6L. lead technician at bedside starting to get triage vitals, connecting pt to account services coordinator, pt started to turn cyanotic, increased sob, coughing up louie blood. RN called resp and notified provider. pt verbally confirmed full code w provider at bedside, aware of plan to intubate. 1755 20G IV placed left AC 1800 40mg lasix given 1805 18G IV placed R AC 1807 20mg etomidate given 180 50mg rocuromium given 181 pt intubated w 7.5ET tube, 23cm at the lip 181 25mcg fentanyl given 181 OG tube placed 1836 propofol started at 30mcg/kg/min per protocol 16F reardon placed by provider.
[2022-03-08] MEDS: fentaNYL citrate/PF 100 MCG/2 ML VIAL IVPUSH (19:59)
--- NOTE | 2022-03-08 20:17 | PC.NURSE ---
resp at bedside for suction, red/drown drainage from OG tube, soft restraints applied per verbal provider order, pt lightly sedated and reaching for ET tube.
--- NOTE | 2022-03-08 20:47 | PC.NURSE ---
RN-RN report called into ICU, pt to transport w resp.
[2022-03-08 21:23] LABS: COVID-19 Test Negative (Negative)
--- NOTE | 2022-03-08 22:15 | PM.CCHP ---
History of Present Illness Date of Service: 03/08/22 Attending physician on admission: Kemal Barnes Chief Complaint: Shortness of breath The patient is a 66-year-old male with past medical history of lung cancer, HTN, CHF, GERD, AFib, squamous cell lung cancer, COPD, bladder cancer s/p TURP in 2014. 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 ?He was sent with plans to follow-up with Radiation Oncology at [facility]. This evening, he was brought in by ambulance for shortness of breath x couple of days and coughing up blood.? In the ED, the patient looked blue purple and was found to be in respiratory distress with a systolic blood pressure over 200.?He was given fentanyl and Lasix and was intubated and put on a propofol drip. ?Chest x-ray showed bilateral airspace disease, bilateral pulmonary nodules, and a mass in the right upper lobe.? Labs were not obtained while in the emergency room due to difficulty with phlebotomy. Upon arrival to ICU, a central venous catheter was placed in the right IJ, and labs were obtained.? He became hypotensive and bradycardic and was put on a dopamine drip.? Labs were significant for sodium of 125, potassium 3.3, BNP 1371. ? Chest CT showed tracheal narrowing/stenosis and a thickening of the tracheal wall which may be due to tumor infiltration as well. The trachea is nearly completely encircled by the patient's large mediastinal mass/conglomerate abhishek tissue as on prior. Review of Systems Review of Systems: Yes unobtainable due to endotracheal tube PMFSH Past Medical History Medical History (Updated 03/09/22 @ 00:59 by Chichi Nam NP) Afib Benign essential HTN Cardiomyopathy Gastro-esophageal reflux disease without esophagitis History of bladder cancer (~2014) History of lung cancer (~1998) Lung cancer Lung cancer Lymphadenopathy, mediastinal Non-small cell cancer of left lung Other seasonal allergic rhinitis Syndrome of inappropriate ADH (SIADH) secretion Tubular adenoma of colon (~2016) Family History Family History Father Medical history unknown Mother Breast cancer Sister Lung cancer Surgical History Surgical History History of bladder surgery (~2014) History of bronchoscopy (~2021) History of colonoscopy History of left inguinal hernia repair (~2016) History of lung surgery (~1998) Social History Social History Household Members: Unknown / Unable to assess Housing: Unknown / Unable to assess Do you presently have visiting nurse or other home services: No Unable to assess alcohol history related to: Unable to respond Alcohol intake: current Alcohol intake frequency: a few times a week Patient Tobacco Use Status: Former Tobacco user Quit Date: 5 years ago Tobacco use type: Cigarette e-Cigarette/Vaping Use: Never Used Second Hand Smoke Exposure: No Use of substances other than those prescribed or required for medical reasons: Unable to respond Advance Directives: No Advance Directives Information Provided: No Recently lost weight without trying: Unsure service: No Current occupational status: retired Cognitive needs: No Hearing needs: No Vision needs: Yes (Glasses) Meds Allergies Allergy/AdvReac Type Severity Reaction Status Date / Time No Known Allergies Allergy Verified 03/08/22 17:36 [No Known Allergies*] Active Medications: Current Medications Chlorhexidine Gluconate (Chlorhexidine Gluc Oral Rinse 15 Ml Mouthwash) 15 ml BUCCAL TID [facility] Propofol (Diprivan) 1,000 mg in 100 mls @ 0 mls/hr IVCONT .Q0M [facility]; Protocol Last Titration: 03/08/22 19:47 Dose: 50 mcg/kg/min, 18.51 mls/hr Pantoprazole Sodium (Pantoprazole Sodium 40 Mg/10 Ml Vial) 40 mg IVPUSH DAILY@0630 [facility] Home Medications Medication Instructions Recorded Confirmed Last Taken Type dexamethasone 4 mg tablet 4 mg PO BID PRN post chemo x 2 days 01/21/22 02/26/22 Unknown History (Decadron) Physical Exam Vital Signs: Vital Signs: Last Vital Signs Pulse 57 03/08/22 22:00 Resp 19 03/08/22 22:00 BP 115/52 L 03/08/22 22:00 Pulse Ox 93 03/08/22 22:00 O2 Del Method 03/08/22 22:00 FiO2 30 03/08/22 22:00 Oxygen Flow Rate 6 03/08/22 17:47 BMI result Body Mass Index 21.9 Const: Nutritional Appearance: Edematous (4+ anasarca) Orientation/consciousness: Other orientation findings (Sedated) HEENT: Head: Yes normocephalic and Yes atraumatic General nose exam: Normal external nose present (Nares patent, septum midline, sinuses nontender bilaterally.) Mouth: Normal oral and palatal mucosa present (No thrush, tongue in midline, mucosa moist.) Throat: Yes other (No erythema, no exudate.) Eyes: General: appearance normal, both eyes and all related structures Pupils: Pupil size comments bilaterally 1 Neck: Neck: Yes supple (no thyromegaly, trachea midline.) Carotids: normal carotid upstroke Chest: Chest palpation & inspection: other (?radiation burn with swelling and some telengtascia ) Resp: Auscultation: other (coarse throughout) Cardio: Jugular venous distension: no JVD Rate: regular rate Rhythm: regular rhythm Heart sounds: no gallops, no murmurs and no rubs Peripheral pulses: radial pulses present GI: Palpation (GI): Soft to palpation (nondistended.) and nontender Auscultation: normal bowel sounds Skin: General skin exam: dry skin (bilateral feet) Extrem: General: Yes other (4+ anasarca) Results Labs CBC and Chem 7: 03/08/22 22:15 03/08/22 22:15 Labs: Laboratory Results - last 24 hr 03/08/22 20:42 COVID-19 ([facility]) Negative COVID-19 Clin Com See Note ABG Attestation: I personally reviewed and interpreted this ABG as follows: Imaging Radiologist's Impressions: Impressions Chest X-Ray 03/08/22 18:25 IMPRESSION: Intubated. Bilateral airspace disease, postoperative changes, and pulmonary nodularity similar to the 02/22/2022 CT scan and 02/20/2022 chest x-ray CT/CT chest wo IV con 03/08/22 23:13 IMPRESSION: 1.? Endotracheal tube tip terminates approximately 1.9 cm above the jeffry. As on prior, there is some tracheal narrowing/stenosis below the level of the endotracheal tube tip of the distal trachea measuring approximately 0.6 cm in transverse dimension/with. The trachea is nearly completely encircled by the patient's large mediastinal mass/conglomerate abhishek tissue as on prior. 2.? Unchanged large lobulated mass in the medial right upper lobe obstructing right upper lobar bronchi and multiple bilateral pulmonary nodules compatible with pulmonary metastasis. 3.? Unchanged large left adrenal mass compatible with metastasis. 4.? Unchanged mediastinal mass and lymphadenopathy. 5.? Small right pleural effusion, perhaps minimally larger than on prior. Left pleural effusion has resolved. 6.? New mild superior endplate compression fracture of T7 with approximately 10-15 percent vertebral body height loss. Unchanged minimal superior endplate compression fracture deformity of T2. Assessment and Plan (1) Acute respiratory failure: Status: Acute (2) Acute exacerbation of CHF (congestive heart failure): Status: Acute (3) Lung cancer: Status: Acute (4) Respiratory distress: Status: Acute (5) Squamous cell lung cancer: Status: Acute (6) Anasarca: Status: Acute (7) Edema: Qualifiers: Edema type: generalized Qualified Code(s): R60.1 - Generalized edema Status: Acute (8) COPD (chronic obstructive pulmonary disease): Qualifiers: COPD type: COPD with acute exacerbation Qualified Code(s): J44.1 - Chronic obstructive pulmonary disease with (acute) exacerbation Status: Acute (9) Lung mass: Status: Acute (10) Afib: Qualifiers: Atrial fibrillation type: paroxysmal Qualified Code(s): I48.0 - Paroxysmal atrial fibrillation Status: Acute (11) Thrombocytopenia: Status: Acute (12) Leukocytosis: Status: Acute Plan Plan: Assessment:? 66-year-old male with history of lung cancer, HTN, CHF, GERD, AFib, COPD and recent admission for SVC syndrome admitted with acute respiratory failure secondary to CHF exacerbation in the setting of to squamous cell carcinoma. Plan: Neuro:? No acute issues.. Cardiac:? CHF exacerbation: elevated BNP, CXR/CT with significant pulmonary vascular congestion. Continue diuresing with lasix. Pulmonary:? Acute respiratory failure CHF exacerbation in the setting of squamous cell carcinoma. CT scan also showed tracheal narrowing/stenosis and a thickening of the tracheal wall which may be due to tumor infiltration as well. The trachea is nearly completely encircled by the patient's large mediastinal mass/conglomerate abhishek tissue as on prior. Consult IP in the morning. Renal:? No acute issues.? .? Endo:? No acute issues.? GI:? No acute issues. ID:? Slight leukocytosis. No evidence of severe infection as lactic is normal. Empiric antibiotic coverage given due to underlying immunocompromised state. Heme/Onc:?Thrombocytopenia; On pallitative chemotherapy and radiation. No signs of bleeding. Psych:? No acute issues. Miscellaneous:? No acute issues. Prophylaxis:? Home apixaban Diet:? NPO Code status: Full Critical care time: 60 minutes Case discussed with Dr. Barnes. Critical Care Time Critical Care Time (minutes): 60
[2022-03-08] MEDS: propofoL 1,000 MG/100 ML VIAL 18.51 MG IVCONT (22:23)
[2022-03-08 22:25] LABS: VBG Base Excess 11.3 mmol/L; VBG HCO3 33 mmol/L (22-26); VBG pCO2 35 mmHg; VBG pH 7.58 (7.32-7.43); VBG pO2 42 mmHg
[2022-03-08 22:27] LABS: MANUAL DIFF FLAG NO
[2022-03-08 22:29] LABS: Basophils Percent Auto 0.1 % (0-2); Eosinophils Percent Auto 0.1 % (0-4); Hematocrit 28.8 % (42.0-52.0); Hemoglobin 10.2 g/dl (14.0-18.0); Imm Gran Abs Auto 0.06 X10*3/uL (0.00-0.03); Imm Gran Pct Auto 0.5 % (0.0-0.4); Lymphocytes Absolute Auto 0.4 X10*3/uL (1.2-4.9); Lymphocytes Percent Auto 3.2 % (20-40); Mean Corpuscular HGB Conc 35.4 g/dl (31.0-36.0); Mean Corpuscular Hemoglobin 33.1 pg (27.0-33.0); Mean Corpuscular Volume 93.5 fL (80.0-98.0); Mean Platelet Volume 9.3 fL (9.4-12.4); Monocytes Absolute Auto 0.5 X10*3/uL (0.1-1.2); Monocytes Percent Auto 4.2 % (2-11); Neutrophils Absolute Auto 10.4 x10*3/uL (2.0-8.3); Neutrophils Percent Auto 91.9 % (45-73); Platelet Count 145 X10*3/uL (160-400); Red Blood Count 3.08 X10*6/uL (4.60-5.80); Red Cell Distribution Width 12.6 % (11.0-16.0); SCAN SMEAR FLAG 1; White Blood Count 11.3 X10*3/uL (4.8-10.8)
[2022-03-08] MEDS: Chlorhexidine Gluc Oral Rinse 15 ML MOUTHWASH BUCCAL (22:33)
[2022-03-08] MEDS: Pantoprazole Sodium 40 MG/10 ML VIAL 80 MG IVPUSH (22:33)
--- NOTE | 2022-03-08 22:33 | W.PM.CCHP ---
Procedures Date of Service Date of Service: 03/08/22 Central Line Placement Right IJ: Central Line Comments: The right neck was widely prepped and draped in full sterile fashion.? Under US? guidance, the right IJ vein was cannulated on the 1st pass of the 18 g thin wall needle, with return of dark, nonpulsatile blood. ? The wire was threaded without incident.? The 16 cm x 7 Occitan triple-lumen CVC was advanced into the vein up to the hub via the Seldinger technique without incident.? There was good blood return x3.? The catheter was sutured x2 and a Biopatch and dry sterile dressing were applied. Postop chest x-ray showed the line in good position with no pneumothorax.? The patient tolerated the procedure well with no complications Consent for Procedure: Emergent-no informed consent obtained Time out performed: Yes Sterile Technique Used: Yes Patient placed on monitor/pulse ox: Yes prep: mask, gown and gloves Central line prep: Chlorhexidine scrub and sterile drapes applied Local anesthesia used: lidocaine 1% Ultrasound used for placement: Yes Central line lumen inserted: triple Post procedure: sutured in place, good blood return, all ports aspirated, flushed, capped and sterile dressing applied Post procedure x-ray: tip of catheter in good position and no pneumothorax seen Patient tolerated procedure: well and no complications Complications: none
[2022-03-08] MEDS: Piperacillin Sodium/Tazobactam 3.375 GM in 0.9 % Sodium Chloride 50 ML IV (22:37)
[2022-03-08 22:49] LABS: Alanine Aminotransferase 37 U/L (0-40); Albumin Level 3.5 g/dL (3.5-5.0); Alkaline Phosphatase 85 U/L (39-117); Anion Gap 16 (12-20); Aspartate Amino Transferase 30 U/L (5-37); Blood Urea Nitrogen 15 mg/dL (9-16); Calcium 8.4 mg/dL (8.4-10.2); Carbon Dioxide 30 mmol/L (22-29); Chloride 82 mmol/L (96-108); Creatinine Clr Calc Pharmacy 101.1; Estimated Glomerular Filt Rate > 60; Glucose Random 132 mg/dL (60-115); Magnesium 1.8 mg/dL (1.6-2.6); Phosphorus 3.9 mg/dL (2.7-4.5); Potassium 3.3 mmol/L (3.3-5.1); Sodium 125 mmol/L (135-145); Total Protein 5.5 g/dL (6.5-8.0)
[2022-03-08 22:56] LABS: B Type Natriuretic Peptide 1371 pg/mL (<100); INTERNATIONAL NORM RATIO 1.2 (0.9-1.1); Prothrombin Time 13.6 SEC (10.0-13.1); Troponin-I High Sensitivity 54.6 ng/L (<3.5-35.0)
[2022-03-08 22:57] LABS: Venous Blood Gas Refer to POC result
[2022-03-08 23:00] LABS: Partial Thromboplastin Time 21.3 SEC (26.0-36.4)
[2022-03-08] MEDS: DOPamine HCL/D5W 400 MG/250 ML PLAST..BAG 11.57 MG IVCONT (23:00)
[2022-03-09] VITALS (36 sets, daily range): BP systolic 90–164; BP diastolic 44–78; PULSE 45–84; RESP 15–20; TEMP 34.2–37.5; O2SAT 90–97; BMI 24.5; BMI 23.6
[2022-03-09] MEDS: vancomycin HCL 1,000 MG in 0.9 % Sodium Chloride 250 ML 270 MG IV (00:26)
[2022-03-09] MEDS: Potassium Chloride/H20 40 MEQ/100 ML PIGGYBACK 100 MEQ IV (00:34)
[2022-03-09] MEDS: propofoL 1,000 MG/100 ML VIAL 18.51 MG IVCONT ×5 (01:43→20:13)
[2022-03-09] MEDS: fentaNYL citrate/NS 1,000 MCG/100 ML PLAST..BAG 10 MCG IVCONT (02:32)
[2022-03-09 05:07] LABS: VBG Base Excess 12.4 mmol/L; VBG HCO3 34 mmol/L (22-26); VBG pCO2 35 mmHg; VBG pO2 49 mmHg
[2022-03-09 05:10] LABS: Basophils Percent Auto 0.1 % (0-2); Hematocrit 31.6 % (42.0-52.0); Hemoglobin 11.3 g/dl (14.0-18.0); Imm Gran Abs Auto 0.05 X10*3/uL (0.00-0.03); Imm Gran Pct Auto 0.6 % (0.0-0.4); Lymphocytes Absolute Auto 0.3 X10*3/uL (1.2-4.9); Lymphocytes Percent Auto 3.3 % (20-40); MANUAL DIFF FLAG SCAN; Mean Corpuscular HGB Conc 35.8 g/dl (31.0-36.0); Mean Corpuscular Volume 92.4 fL (80.0-98.0); Mean Platelet Volume 8.7 fL (9.4-12.4); Monocytes Absolute Auto 0.4 X10*3/uL (0.1-1.2); Monocytes Percent Auto 4.7 % (2-11); Neutrophils Absolute Auto 8.3 x10*3/uL (2.0-8.3); Neutrophils Percent Auto 91.3 % (45-73); Platelet Count 168 X10*3/uL (160-400); Red Blood Count 3.42 X10*6/uL (4.60-5.80); Red Cell Distribution Width 12.6 % (11.0-16.0); SCAN SMEAR FLAG 1
[2022-03-09 05:16] LABS: Venous Blood Gas Refer to POC result
[2022-03-09 05:23] LABS: SLIDE REVIEW VERIFIED
[2022-03-09 05:31] LABS: Albumin Level 3.6 g/dL (3.5-5.0); Anion Gap 14 (12-20); Blood Urea Nitrogen 15 mg/dL (9-16); Calcium 8.6 mg/dL (8.4-10.2); Carbon Dioxide 32 mmol/L (22-29); Chloride 87 mmol/L (96-108); Creatinine Clr Calc Pharmacy 106.3; Estimated Glomerular Filt Rate > 60; Glucose Random 114 mg/dL (60-115); Magnesium 1.9 mg/dL (1.6-2.6); Phosphorus 3.9 mg/dL (2.7-4.5); Potassium 3.4 mmol/L (3.3-5.1); Sodium 130 mmol/L (135-145)
[2022-03-09] MEDS: Pantoprazole Sodium 40 MG/10 ML VIAL IVPUSH (05:49)
[2022-03-09] MEDS: Piperacillin Sodium/Tazobactam 4.5 GM in 0.9 % Sodium Chloride 100 ML IV ×2 (05:52→16:17)
--- NOTE | 2022-03-09 06:16 | PC.NURSE ---
0 - pt to icu from ED, pt intubated #7.5, 24 at the [facility], sedated with propofol. TLC placed by [employer] [employer], labs drawn. Dopamine gtt started for map <60 and hr 45-50s. Chest ct completed 99 - pt with increased urine output, >200 ml/hr. 2 mcg desmopressin ordered and administered 0 - pt restless, fentanyl drip added for sedation
[2022-03-09] MEDS: Potassium Chloride/H20 40 MEQ/100 ML PIGGYBACK 50 MEQ IV (07:16)
[2022-03-09] MEDS: Chlorhexidine Gluc Oral Rinse 15 ML MOUTHWASH BUCCAL ×4 (07:31→20:14)
--- NOTE | 2022-03-09 07:41 | ECG_ITS ---
Test Reason : question rhythm change Blood Pressure : / mmHG Vent. Rate : 050 BPM Atrial Rate : 050 BPM P-R Int : 176 ms QRS Dur : 088 ms QT Int : 576 ms P-R-T Axes : 086 020 143 degrees QTc Int : 525 ms Sinus bradycardia T wave abnormality, consider anterolateral ischemia Prolonged QT Abnormal ECG When compared with ECG of 09-MAR-2022 00:56, No significant change was found Heart rate has decreased Referred By: Larry Smart Electronically Signed By:KIP COPELAND MD
[2022-03-09] MEDS: fentaNYL citrate/NS 1,000 MCG/100 ML PLAST..BAG 15 MCG IVCONT (08:03)
--- NOTE | 2022-03-09 09:00 | CA_ITS ---
Transthoracic Echocardiogram Patient (Last, First, Middle): Luis Miguel Isbell, Gender: Male Date of : 1955 Age: 66 Procedure Date: 03/09/2022 Procedure Type: Transthoracic Echocardiogram Location: ICU Height: 167.64 cm Weight: 66.23 kg BSA: 1.75 m2 Heart Rate: 83 bpm BP: 92 / 46 mmHg Resin Painter: SB Referring MD: Larry Smart MD Symptoms: new apical [place] Study Quality: Adequate ECG Rhythm: Sinus Conclusions: - The visually estimated ejection fraction is between 45-50%. - The entire apex is akinetic. Findings Procedure Information Contrast agent, definity, is being given per protocol without apparent complications. Left Ventricle Normal left ventricular cavity size. The left ventricular systolic function is mildly decreased. The visually estimated ejection fraction is between 45 50%. LV peak GLS -9.2%. Wall Motion Rest Echo Findings The entire apex is akinetic. Prior Study Comparison Changes noted compared to prior study dated: 02/24/2022. New wall motion abnormality. Measurements 2D Linear Measurements IVSd: 0.84 0.6-0.9/0.6-1.0 cm LVIDd: 4.98 3.9-5.3/4.2-5.9 cm LVIDd Index: 2.85 2.4-3.2/2.2-3.1 cm/m2 LVIDs: 3.16 2.0-3.6 cm LVOT Diam: 2.10 3.0+(-)1.3 cm 2D Systolic Function EF 4C: 48.10 >55% EF 2C: 59.40 >55% EF BiP: 52.50 >55% LVOT LVOT Pk [place]: 1.10 LVOT Mn [place]: 0.66 LVOT VTI: 0.17 LVOT Pk Grad: 5.00 LVOT Mn Grad: 2.00 LVOT Diam: 2.10 LVOT Area: 3.46 Updated in Other Vendor System with Status of Final Noel Bland MD electronically signed on 03/09/2022 11:58:53 AM with status of Final
--- NOTE | 2022-03-09 09:12 | PM.CNPUL ---
History of Present Illness History of Present Illness Consult date: 03/09/22 Chief complaint: Acute respiratory failure Narrative: This is an inpatient pulmonary consultation. The patient is a 66-year-old male with past medical history of lung cancer, HTN, CHF, GERD, AFib, squamous cell lung cancer, COPD. He was recently admitted with CHF and SVC syndrome, now, presented via ambulance for shortness of breath x couple of days and coughing up blood.?In the ED, the patient looked blue purple and was found to be in respiratory distress with a systolic blood pressure over 200.?He was given fentanyl and Lasix and was intubated and put on a propofol drip. ?Chest x-ray showed bilateral airspace disease, bilateral pulmonary nodules, and a mass in the right upper lobe.?? Labs were not obtained while in the emergency room due to difficulty with phlebotomy. I personally reviewed his Chest CT? showed tracheal narrowing/stenosis and a thickening of the tracheal wall which may be due to tumor infiltration as well. Today he is having EKG changes and prolonged QT and will start therapy for ACS. Review of Systems Review of Systems: Yes unobtainable due to endotracheal tube PMFSH Past Medical History Medical History (Updated 03/09/22 @ 09:18 by Austen Atkinson MD) Afib Benign essential HTN Cardiomyopathy Gastro-esophageal reflux disease without esophagitis History of bladder cancer (~2014) History of lung cancer (~1998) Lung cancer Lung cancer Lymphadenopathy, mediastinal Non-small cell cancer of left lung Other seasonal allergic rhinitis Syndrome of inappropriate ADH (SIADH) secretion Tracheal stenosis Tubular adenoma of colon (~2016) Family History Family History Father Medical history unknown Mother Breast cancer Sister Lung cancer Surgical History Surgical History History of bladder surgery (~2014) History of bronchoscopy (~2021) History of colonoscopy History of left inguinal hernia repair (~2016) History of lung surgery (~1998) Social History Social History Household Members: Unknown / Unable to assess Housing: Unknown / Unable to assess Do you presently have visiting nurse or other home services: No Unable to assess alcohol history related to: Unable to respond Alcohol intake: current Alcohol intake frequency: a few times a week Patient Tobacco Use Status: Former Tobacco user Quit Date: 5 years ago Tobacco use type: Cigarette e-Cigarette/Vaping Use: Never Used Second Hand Smoke Exposure: No Use of substances other than those prescribed or required for medical reasons: Unable to respond Advance Directives: No Advance Directives Information Provided: No Recently lost weight without trying: Unsure service: No Current occupational status: retired Cognitive needs: No Hearing needs: No Vision needs: Yes (Glasses) Meds Allergies Allergy/AdvReac Type Severity Reaction Status Date / Time No Known Allergies Allergy Verified 03/08/22 17:36 [No Known Allergies*] Active Medications: Current Medications Chlorhexidine Gluconate (Chlorhexidine Gluc Oral Rinse 15 Ml Mouthwash) 15 ml BUCCAL TID [facility] Last Admin: 03/09/22 07:31 Dose: 15 ml Heparin Sodium (Porcine) (Heparin Sodium,Porcine 5,000 Unit/Ml Vial) 2,700 unit 40 unit/kg (2700 unit) IVPUSH PROTOCOL BOLUS PRN; Protocol PRN Reason: 40 unit/kg - Heparin Protocol Heparin Sodium (Porcine) (Heparin Sodium,Porcine 5,000 Unit/Ml Vial) 5,300 unit 80 unit/kg (5300 unit) IVPUSH PROTOCOL BOLUS PRN; Protocol PRN Reason: 80 unit/kg - Heparin Protocol Propofol (Diprivan) 1,000 mg in 100 mls @ 0 mls/hr IVCONT .Q0M VELMA; Protocol Last Admin: 03/09/22 05:48 Dose: 50 mcg/kg/min, 18.51 mls/hr Dopamine HCl/Dextrose (Dopamine Hcl/D5w) 400 mg in 250 mls @ 0 mls/hr IVCONT .Q0M VELMA; Protocol Last Titration: 03/09/22 08:39 Dose: 6 mcg/kg/min, 13.88 mls/hr Piperacillin Sod/Tazobactam (Sod 4.5 gm/ Sodium Chloride) 100 mls @ 200 mls/hr IV Q8H [facility] Last Infusion: 03/09/22 06:26 Dose: Infused Fentanyl (Sublimaze/Ns) 1,000 mcg in 100 mls @ 0 mls/hr IVCONT .Q0M VELMA; Protocol Last Admin: 03/09/22 08:03 Dose: 150 mcg/hr, 15 mls/hr Potassium Chloride (Potassium Chloride/H20) 40 meq in 100 mls @ 50 mls/hr IV ONCE ONE Stop: 03/09/22 09:59 Last Admin: 03/09/22 07:16 Dose: 50 mls/hr Heparin Sodium/Sodium Chloride (Heparin Sodium,Porcine/1/2ns) 25,000 unit in 250 mls @ 0 mls/hr IVCONT .Q0M [facility]; Protocol Pantoprazole Sodium (Pantoprazole Sodium 40 Mg/10 Ml Vial) 40 mg IVPUSH DAILY@0630 [facility] Last Admin: 03/09/22 05:49 Dose: 40 mg Home Medications Medication Instructions Recorded Confirmed Last Taken Type dexamethasone 4 mg tablet 4 mg PO BID PRN post chemo x 2 days 01/21/22 02/26/22 Unknown History (Decadron) lisinopril 20 mg tablet 1 tab PO DAILY 03/09/22 Unknown History Physical Exam Vital Signs: Vital Signs: Last Vital Signs Temp 99.5 F 03/09/22 07:57 Pulse 51 03/09/22 09:00 Resp 18 03/09/22 09:00 BP 114/52 L 03/09/22 09:00 Pulse Ox 97 03/09/22 09:00 O2 Del Method 03/09/22 09:00 FiO2 30 03/09/22 09:00 Oxygen Flow Rate 6 03/08/22 17:47 BMI result Body Mass Index 23.6 Const: General: other (sedated) HEENT: Head: Yes atraumatic Neck: Neck: Yes trachea midline and Yes supple Chest: Chest palpation & inspection: normal inspection of the chest Resp: Auscultation: diminished lung sounds Cardio: Heart sounds: S1 normal heart sound present and S2 normal heart sound present GI: Auscultation: normal bowel sounds Extrem: General: No cyanosis Results Laboratory Findings CBC and BMP: 03/09/22 04:56 03/09/22 04:56 ABG, PT/INR, D-dimer: PT/INR, D-dimer PT 13.6 SEC (10.0-13.1) H 03/08/22 22:15 INR 1.2 (0.9-1.1) H 03/08/22 22:15 Abnormal lab findings: Abnormal Labs 03/08/22 03/08/22 03/08/22 22:15 22:15 22:15 WBC 11.3 H RBC 3.08 L Hgb 10.2 L Hct 28.8 L MCH 33.1 H Plt Count 145 L D MPV 9.3 L Immature Gran % (Auto) 0.5 H Neut % (Auto) 91.9 H Lymph % (Auto) 3.2 L Lymph # (Auto) 0.4 L Abs Immat Gran (auto) 0.06 H Absolute Neuts (auto) 10.4 H PT INR APTT VBG pH VBG HCO3 Sodium 125 L Chloride 82 L Carbon Dioxide 30 H Random Glucose 132 H Troponin I High Sens 54.6 H D B-Natriuretic Peptide Total Protein 5.5 L 03/08/22 03/08/22 03/08/22 22:15 22:15 22:18 WBC RBC Hgb Hct MCH Plt Count MPV Immature Gran % (Auto) Neut % (Auto) Lymph % (Auto) Lymph # (Auto) Abs Immat Gran (auto) Absolute Neuts (auto) PT 13.6 H INR 1.2 H APTT 21.3 L D VBG pH 7.58 H VBG HCO3 33 H Sodium Chloride Carbon Dioxide Random Glucose Troponin I High Sens B-Natriuretic Peptide 1371 H Total Protein 03/09/22 03/09/22 03/09/22 04:56 04:56 04:57 WBC RBC 3.42 L Hgb 11.3 L Hct 31.6 L MCH Plt Count MPV 8.7 L Immature Gran % (Auto) 0.6 H Neut % (Auto) 91.3 H Lymph % (Auto) 3.3 L Lymph # (Auto) 0.3 L Abs Immat Gran (auto) 0.05 H Absolute Neuts (auto) PT INR APTT VBG pH 7.60 H* VBG HCO3 34 H Sodium 130 L Chloride 87 L Carbon Dioxide 32 H Random Glucose Troponin I High Sens B-Natriuretic Peptide Total Protein Assessment and Plan (1) Acute respiratory failure: Status: Acute (2) Superior vena cava syndrome: Status: Acute (3) Squamous cell lung cancer: Status: Acute (4) Tracheal stenosis: Status: Acute Plan Plan for bronchosocopy to assess the tracheal stenosis once his cardiac status is stable broad spectrum abx Monitor closely hemoptysis while on anti platelet agents Procedures Date of Service Date of Service: 03/09/22
[2022-03-09 09:23] LABS: INTERNATIONAL NORM RATIO 1.6 (0.9-1.1); Prothrombin Time 18.7 SEC (10.0-13.1)
[2022-03-09 09:26] LABS: PTT Heparin Drip 33.8 SEC (53-77.9)
[2022-03-09 09:40] LABS: B Type Natriuretic Peptide 239 pg/mL (<100); Troponin-I High Sensitivity 18.6 ng/L (<3.5-35.0)
[2022-03-09 09:47] LABS: Basophils Percent Auto 0.1 % (0-2); Hematocrit 30.7 % (42.0-52.0); Hemoglobin 10.7 g/dl (14.0-18.0); Imm Gran Abs Auto 0.05 X10*3/uL (0.00-0.03); Imm Gran Pct Auto 0.5 % (0.0-0.4); Lymphocytes Absolute Auto 0.4 X10*3/uL (1.2-4.9); Lymphocytes Percent Auto 4.3 % (20-40); MANUAL DIFF FLAG SCAN; Mean Corpuscular HGB Conc 34.9 g/dl (31.0-36.0); Mean Corpuscular Hemoglobin 32.7 pg (27.0-33.0); Mean Corpuscular Volume 93.9 fL (80.0-98.0); Monocytes Absolute Auto 0.4 X10*3/uL (0.1-1.2); Monocytes Percent Auto 3.5 % (2-11); Neutrophils Absolute Auto 9.2 x10*3/uL (2.0-8.3); Neutrophils Percent Auto 91.6 % (45-73); Platelet Count 169 X10*3/uL (160-400); Red Blood Count 3.27 X10*6/uL (4.60-5.80); Red Cell Distribution Width 12.8 % (11.0-16.0); SCAN SMEAR FLAG 1; White Blood Count 10.1 X10*3/uL (4.8-10.8)
--- NOTE | 2022-03-09 10:00 | MHC.CLN ---
PT IS INTUBATED AND SEDATED PT IS CURRENTLY NPO IF TF NEEDED; RECOMMEND PROMOTE AT MAX GOAL RATE 65ML/HR TO PROVIDE 1560KCALS (2049KCALS WITH SEDATION; 30.5KCALS/KG), 97.5G (1.5G/KG), 1309ML FREE WATER FROM FORMULA MONITOR TOLERANCE, RESIDUALS AND LYTES SEE ALSO FULL CLINICAL NUTRITION ASSESSMENT
[2022-03-09] MEDS: Heparin Sodium,Porcine 5,000 UNIT/ML VIAL 4000 UNIT IVPUSH (10:08)
[2022-03-09] MEDS: Heparin Sodium,Porcine/1/2NS 25,000 UNIT/250 ML IV.SOLN 9.31 UNIT IVCONT (10:13)
--- NOTE | 2022-03-09 10:50 | PHA.MEDREC ---
Pharmacy Consult ? Medication Reconciliation Pharmacy has completed the medication reconciliation. Spoke with patient's daughter to confirm medications. Lisinopril with DC'd when inpatient in january 2022. Charlee Montes, AshuD
[2022-03-09] MEDS: DOPamine HCL/D5W 400 MG/250 ML PLAST..BAG 11.57 MG IVCONT (13:31)
--- NOTE | 2022-03-09 13:55 | MHC.CM.PN ---
Pt presently intubated in ICU and unable to participate in CM assessment. 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 His PCP is Dr. Jimenez. Pt does not have transportation and relies on others or on the [place] [facility]. Milagros isn't certain on pt's COVID vax status but feels he's up to date. D/C planning will be determined on pt's physical and functional progress. Given his metastatic disease and low reserve, he may need STR placement. CM to follow.
--- NOTE | 2022-03-09 16:13 | PM.CCPN ---
Subjective Subjective Date of Service: 03/09/22 Interval History: 66-year-old male with a history of squamous cell lung carcinoma status post radiation presents with acute dyspnea and hypoxic respiratory failure with the mass noted to be wrapping around an extrinsic leak compressing the trachea almost concentrically with narrowed airway he required intubation with the endotracheal tube somewhat stenting that the portion of the trachea and ease now pending bronchoscopy to determine whether not along tracheostomy might stent that area it or dizzy need a separate stent to the trachea via Interventional pulmonology and we held off on the procedure because somewhere in recent days undefined he has got new precordial steep T-wave inversion with a prolonged QT interval but was more than 4 weeks ago that he actually had a positive troponin of greater than 2000 but at that time did not have acute ST-T changes which he does have now but in the face of a negative troponin Within the last 2 weeks had an echo without wall motion abnormality but my bedside echo later corroborated by formal echo shows a new area of apical akinesis consistent with the EKG changes defining and area of either infarct or possible Takotsubo. He did awaken appropriately and was recent dated because he is not a candidate for weaning at this point and otherwise metabolically did fine but his EF is now down from previous 60% to the current 45% overall and will just follow troponin a little further out By his request he remains a full code despite the end-stage diagnosis His Eliquis has been held now for more than 24 hours and I started him on heparin drip in instead because of the new anterior 0 apical echo and EKG changes previously he could carry diagnosis of paroxysmal atrial fibrillation as well Critical Care Time (minutes): 60 Physical Exam Vital Signs: Vital Signs: Last Vital Signs Temp 98.0 F 03/09/22 12:00 Pulse 77 03/09/22 15:00 Resp 16 03/09/22 15:00 BP 106/56 L 03/09/22 15:00 Pulse Ox 96 03/09/22 15:00 O2 Del Method 03/09/22 15:00 FiO2 30 03/09/22 16:07 Oxygen Flow Rate 6 03/08/22 17:47 BMI result Body Mass Index 23.6 He briefly did awaken through the sedation with appropriate cognitive function and nonfocal Bedside echo showing new apical wall motion abnormality thus far a negative troponin and a somewhat positive but improving BNP with him as he diuresis so it may very well be that he sustained an apical infarct or has a Takotsubo syndrome Lungs with coarse bilateral rhonchi right greater than left but no accessory muscle or diaphragmatic effort and he remains on mandated volume Abdomen is soft with no organomegaly No peripheral edema no acrocyanosis Objective Data Labs CBC & Chem 7: 03/10/22 05:30 03/10/22 05:30 Labs: Laboratory Results - last 24 hr 03/08/22 03/08/22 03/08/22 20:42 22:15 22:15 WBC 11.3 H RBC 3.08 L Hgb 10.2 L Hct 28.8 L MCV 93.5 MCH 33.1 H MCHC 35.4 RDW 12.6 Plt Count 145 L D MPV 9.3 L Immature Gran % (Auto) 0.5 H Neut % (Auto) 91.9 H Lymph % (Auto) 3.2 L [place] % (Auto) 4.2 Eos % (Auto) 0.1 Baso % (Auto) 0.1 Lymph # (Auto) 0.4 L [place] # (Auto) 0.5 Eos # (Auto) 0.0 Baso # (Auto) 0.0 Abs Immat Gran (auto) 0.06 H Absolute Neuts (auto) 10.4 H Absolute Nucleated RBC 0.000 Nucleated RBC % (auto) 0.0 Smear Tech's Comments PT INR APTT aPTT Heparin Protocol VBG pH VBG pCO2 VBG pO2 VBG HCO3 VBG O2 Saturation VBG Base Excess Sodium 125 L Potassium 3.3 Chloride 82 L Carbon Dioxide 30 H Anion Gap 16 BUN 15 Creatinine 0.61 Estim Creat Clear Calc 101.1 Estimated GFR > 60 Random Glucose 132 H Lactic Acid Calcium 8.4 D Phosphorus 3.9 Magnesium 1.8 Total Bilirubin 1.0 AST 30 ALT 37 Alkaline Phosphatase 85 D Troponin I High Sens B-Natriuretic Peptide Total Protein 5.5 L Albumin 3.5 COVID-19 ([facility]) Negative COVID-19 Clin Com See Note 03/08/22 03/08/22 03/08/22 22:15 22:15 22:15 WBC RBC Hgb Hct MCV MCH MCHC RDW Plt Count MPV Immature Gran % (Auto) Neut % (Auto) Lymph % (Auto) [place] % (Auto) Eos % (Auto) Baso % (Auto) Lymph # (Auto) [place] # (Auto) Eos # (Auto) Baso # (Auto) Abs Immat Gran (auto) Absolute Neuts (auto) Absolute Nucleated RBC Nucleated RBC % (auto) Smear Tech's Comments PT 13.6 H INR 1.2 H APTT 21.3 L D aPTT Heparin Protocol VBG pH VBG pCO2 VBG pO2 VBG HCO3 VBG O2 Saturation VBG Base Excess Sodium Potassium Chloride Carbon Dioxide Anion Gap BUN Creatinine Estim Creat Clear Calc Estimated GFR Random Glucose Lactic Acid Calcium Phosphorus Magnesium Total Bilirubin AST ALT Alkaline Phosphatase Troponin I High Sens 54.6 H D B-Natriuretic Peptide 1371 H Total Protein Albumin COVID-19 ([facility]) COVID-19 [employer] 03/08/22 03/08/22 03/09/22 22:15 22:18 04:56 WBC 9.0 RBC 3.42 L Hgb 11.3 L Hct 31.6 L MCV 92.4 MCH 33.0 MCHC 35.8 RDW 12.6 Plt Count 168 MPV 8.7 L Immature Gran % (Auto) 0.6 H Neut % (Auto) 91.3 H Lymph % (Auto) 3.3 L [place] % (Auto) 4.7 Eos % (Auto) 0.0 Baso % (Auto) 0.1 Lymph # (Auto) 0.3 L [place] # (Auto) 0.4 Eos # (Auto) 0.0 Baso # (Auto) 0.0 Abs Immat Gran (auto) 0.05 H Absolute Neuts (auto) 8.3 Absolute Nucleated RBC 0.000 Nucleated RBC % (auto) 0.0 Smear Tech's Comments VERIFIED PT INR APTT aPTT Heparin Protocol VBG pH 7.58 H VBG pCO2 35 VBG pO2 42 VBG HCO3 33 H VBG O2 Saturation 71.0 VBG Base Excess 11.3 Sodium Potassium Chloride Carbon Dioxide Anion Gap BUN Creatinine Estim Creat Clear Calc Estimated GFR Random Glucose Lactic Acid 1.0 Calcium Phosphorus Magnesium Total Bilirubin AST ALT Alkaline Phosphatase Troponin I High Sens B-Natriuretic Peptide Total Protein Albumin COVID-19 ([facility]) COVID-19 Clin Com 03/09/22 03/09/22 03/09/22 04:56 04:57 08:49 WBC RBC Hgb Hct MCV MCH MCHC RDW Plt Count MPV Immature Gran % (Auto) Neut % (Auto) Lymph % (Auto) [place] % (Auto) Eos % (Auto) Baso % (Auto) Lymph # (Auto) [place] # (Auto) Eos # (Auto) Baso # (Auto) Abs Immat Gran (auto) Absolute Neuts (auto) Absolute Nucleated RBC Nucleated RBC % (auto) Smear Tech's Comments PT INR APTT aPTT Heparin Protocol VBG pH 7.60 H* VBG pCO2 35 VBG pO2 49 VBG HCO3 34 H VBG O2 Saturation 81.0 VBG Base Excess 12.4 Sodium 130 L Potassium 3.4 Chloride 87 L Carbon Dioxide 32 H Anion Gap 14 BUN 15 Creatinine 0.60 Estim Creat Clear Calc 106.3 Estimated GFR > 60 Random Glucose 114 Lactic Acid Calcium 8.6 Phosphorus 3.9 Magnesium 1.9 Total Bilirubin AST ALT Alkaline Phosphatase Troponin I High Sens 18.6 B-Natriuretic Peptide Total Protein Albumin 3.6 COVID-19 ([facility]) [email or web address] 03/09/22 03/09/22 03/09/22 08:49 08:49 08:49 WBC TNP RBC TNP Hgb TNP Hct TNP MCV TNP MCH TNP MCHC TNP RDW TNP Plt Count TNP MPV TNP Immature Gran % (Auto) Neut % (Auto) Lymph % (Auto) [place] % (Auto) Eos % (Auto) Baso % (Auto) Lymph # (Auto) [place] # (Auto) Eos # (Auto) Baso # (Auto) Abs Immat Gran (auto) Absolute Neuts (auto) Absolute Nucleated RBC TNP Nucleated RBC % (auto) TNP Smear Tech's Comments PT 18.7 H INR 1.6 H APTT aPTT Heparin Protocol 33.8 L VBG pH VBG pCO2 VBG pO2 VBG HCO3 VBG O2 Saturation VBG Base Excess Sodium Potassium Chloride Carbon Dioxide Anion Gap BUN Creatinine Estim Creat Clear Calc Estimated GFR Random Glucose Lactic Acid Calcium Phosphorus Magnesium Total Bilirubin AST ALT Alkaline Phosphatase Troponin I High Sens B-Natriuretic Peptide 239 H Total Protein Albumin COVID-19 ([facility]) [email or web address] 03/09/22 03/09/22 09:40 09:40 WBC Cancelled 10.1 RBC Cancelled 3.27 L Hgb Cancelled 10.7 L Hct Cancelled 30.7 L MCV Cancelled 93.9 MCH Cancelled 32.7 MCHC Cancelled 34.9 RDW Cancelled 12.8 Plt Count Cancelled 169 MPV Cancelled 9.0 L Immature Gran % (Auto) 0.5 H Neut % (Auto) 91.6 H Lymph % (Auto) 4.3 L [place] % (Auto) 3.5 Eos % (Auto) 0.0 Baso % (Auto) 0.1 Lymph # (Auto) 0.4 L [place] # (Auto) 0.4 Eos # (Auto) 0.0 Baso # (Auto) 0.0 Abs Immat Gran (auto) 0.05 H Absolute Neuts (auto) 9.2 H Absolute Nucleated RBC Cancelled 0.000 Nucleated RBC % (auto) Cancelled 0.0 Smear Tech's Comments PT INR APTT aPTT Heparin Protocol VBG pH VBG pCO2 VBG pO2 VBG HCO3 VBG O2 Saturation VBG Base Excess Sodium Potassium Chloride Carbon Dioxide Anion Gap BUN Creatinine Estim Creat Clear Calc Estimated GFR Random Glucose Lactic Acid Calcium Phosphorus Magnesium Total Bilirubin AST ALT Alkaline Phosphatase Troponin I High Sens B-Natriuretic Peptide Total Protein Albumin COVID-19 ([facility]) COVID-19 Clin Com Progress Note: A&P Assessment and plan (1) Tracheal stenosis: Status: Acute (2) Leukocytosis: Status: Acute (3) Thrombocytopenia: Status: Acute (4) Acute respiratory failure: Status: Acute (5) Respiratory distress: Status: Acute (6) Superior vena cava syndrome: Status: Acute (7) Squamous cell lung cancer: Status: Acute (8) Cardiomyopathy: Status: Acute (9) Anasarca: Status: Acute (10) Afib: Status: Acute (11) Normocytic anemia: Status: Acute (12) Acute exacerbation of CHF (congestive heart failure): Status: Acute (13) Lung cancer: Status: Acute (14) Elevated brain natriuretic peptide (BNP) level: Status: Acute (15) Edema: Status: Acute (16) COPD (chronic obstructive pulmonary disease): Status: Acute (17) History of lung cancer: Status: Acute (18) Lung cancer: Status: Acute (19) Lung mass: Status: Acute (20) Lymphadenopathy, mediastinal: Status: Acute (21) Vocal cord paralysis: Status: Acute (22) Acute laryngitis: Status: Acute (23) Plantar warts: Status: Acute (24) Hepatitis: Status: Acute (25) Acute chronic obstructive pulmonary disease with respiratory distress: Status: Acute (26) Other seasonal allergic rhinitis: Status: Acute (27) Gastro-esophageal reflux disease without esophagitis: Status: Acute (28) Benign essential HTN: Status: Acute Plan So at this point he presents with acute respiratory failure and of course the tumor is extremely large with very bulky lymphadenopathy in the mediastinum encasing the distal portion of the trachea and stenosing hit and right now the endotracheal tube extends into the stenosis and she has got extensive bilateral nodular involvement of both lungs representing metastatic disease But he came in and developed this acute apical wall motion abnormality so I can not say that there was not a component of pulmonary edema contributing to the respiratory failure because there has been a degree of improvement in his respiratory status and his work of breathing as he has diuresed So I plan to get follow-up troponin and BNP overnight to see if this was an acute ND at least by the troponin numbers thus far it has not but again this is a comorbidity the primary issue the overwhelming issue is the extent of the tumor and the fact that there is a degree of superior vena caval syndrome as well as tumor compression and stenosis of the trachea Quality Stroke Does the patient have a stroke diagnosis?: No VTE Prior VTE?: No VTE Risk Level:: Medical - moderate - high VTE Device Contraindication: N/A - Device Ordered VTE Drug Contraindication: N/A - Med Ordered
[2022-03-09] MEDS: fentaNYL citrate/NS 1,000 MCG/100 ML PLAST..BAG 7.5 MCG IVCONT (16:17)
[2022-03-09 17:03] LABS: PTT Heparin Drip 74.5 SEC (53-77.9)
--- NOTE | 2022-03-09 19:46 | PM.EVENT ---
Event Note Date of Service: 03/09/22 Event Note: One set of blood cultures reported positive at 21 hours for GPC in clusters. This is likely a contaminant. The patient is afebrile, WBC is normal and going down, lactic acid was normal. No clinical evidence of sepsis or bacteremia. I've ordered a repeat set of BCs and lactate. BC's will probably not be able to be drawn from a peripheral venous stick, will likely have to be drawn from the patient's CVL. Also ordered a sputum cx.
[2022-03-09 20:53] LABS: Lactic Acid 1.2 mmol/L (0.5-2.0)
[2022-03-10] VITALS (35 sets, daily range): BP systolic 89–158; BP diastolic 46–71; PULSE 69–89; RESP 17–118; TEMP 34.8–37.5; O2SAT 93–98; BMI 23.6
[2022-03-10] MEDS: Piperacillin Sodium/Tazobactam 4.5 GM in 0.9 % Sodium Chloride 100 ML IV ×4 (00:10→23:49)
[2022-03-10] MEDS: propofoL 1,000 MG/100 ML VIAL 12.96 MG IVCONT (02:00)
[2022-03-10] MEDS: fentaNYL citrate/NS 1,000 MCG/100 ML PLAST..BAG 5 MCG IVCONT ×2 (05:41→23:51)
[2022-03-10] MEDS: DOPamine HCL/D5W 400 MG/250 ML PLAST..BAG 16.19 MG IVCONT (05:44)
[2022-03-10] MEDS: Pantoprazole Sodium 40 MG/10 ML VIAL IVPUSH (05:47)
[2022-03-10 05:56] LABS: VBG Base Excess 8.6 mmol/L; VBG HCO3 32 mmol/L (22-26); VBG pCO2 43 mmHg; VBG pH 7.48 (7.32-7.43); VBG pO2 35 mmHg
[2022-03-10 06:01] LABS: Venous Blood Gas Refer to POC result
[2022-03-10 06:01] LABS: Basophils Percent Auto 0.1 % (0-2); Eosinophils Percent Auto 0.3 % (0-4); Hematocrit 31.6 % (42.0-52.0); Hemoglobin 10.9 g/dl (14.0-18.0); Imm Gran Abs Auto 0.04 X10*3/uL (0.00-0.03); Imm Gran Pct Auto 0.5 % (0.0-0.4); Lymphocytes Absolute Auto 0.6 X10*3/uL (1.2-4.9); Lymphocytes Percent Auto 7.9 % (20-40); MANUAL DIFF FLAG NO; Mean Corpuscular HGB Conc 34.5 g/dl (31.0-36.0); Mean Corpuscular Hemoglobin 32.6 pg (27.0-33.0); Mean Corpuscular Volume 94.6 fL (80.0-98.0); Mean Platelet Volume 9.4 fL (9.4-12.4); Monocytes Absolute Auto 0.2 X10*3/uL (0.1-1.2); Neutrophils Absolute Auto 7.1 x10*3/uL (2.0-8.3); Neutrophils Percent Auto 89.2 % (45-73); Platelet Count 138 X10*3/uL (160-400); Red Blood Count 3.34 X10*6/uL (4.60-5.80); Red Cell Distribution Width 13.2 % (11.0-16.0)
[2022-03-10 06:19] LABS: Anion Gap 13 (12-20); Blood Urea Nitrogen 14 mg/dL (9-16); Calcium 7.9 mg/dL (8.4-10.2); Carbon Dioxide 29 mmol/L (22-29); Chloride 91 mmol/L (96-108); Creatinine Clr Calc Pharmacy 106.3; Estimated Glomerular Filt Rate > 60; Glucose Random 66 mg/dL (60-115); Magnesium 1.9 mg/dL (1.6-2.6); Potassium 3.3 mmol/L (3.3-5.1); Sodium 130 mmol/L (135-145)
[2022-03-10 06:20] LABS: INTERNATIONAL NORM RATIO 1.1 (0.9-1.1); Prothrombin Time 12.4 SEC (10.0-13.1)
[2022-03-10 06:22] LABS: B Type Natriuretic Peptide 661 pg/mL (<100); Troponin-I High Sensitivity 49.2 ng/L (<3.5-35.0)
[2022-03-10 06:35] LABS: PTT Heparin Drip 88.8 SEC (53-77.9)
[2022-03-10] MEDS: propofoL 1,000 MG/100 ML VIAL 14.81 MG IVCONT (06:55)
[2022-03-10] MEDS: Chlorhexidine Gluc Oral Rinse 15 ML MOUTHWASH BUCCAL ×2 (07:30→21:19)
[2022-03-10] MEDS: Spironolactone 25 MG TABLET PO (07:31)
--- NOTE | 2022-03-10 09:09 | PM.PNPUL ---
Subjective Subjective Date of Service: 03/10/22 Interval history: The patient was seen on exam. Currently vented. Seven significant bloody secretions from his suction catheter. Currently on heparin drip. Objective Data Labs CBC & Chem 7: 03/10/22 05:30 03/10/22 05:30 Labs: Laboratory Results - last 24 hr 03/08/22 03/09/22 03/09/22 22:15 08:49 08:49 WBC RBC Hgb Hct MCV MCH MCHC RDW Plt Count MPV Immature Gran % (Auto) Neut % (Auto) Lymph % (Auto) [place] % (Auto) Eos % (Auto) Baso % (Auto) Lymph # (Auto) [place] # (Auto) Eos # (Auto) Baso # (Auto) Abs Immat Gran (auto) Absolute Neuts (auto) Absolute Nucleated RBC Nucleated RBC % (auto) PT INR aPTT Heparin Protocol VBG pH VBG pCO2 VBG pO2 VBG HCO3 VBG O2 Saturation VBG Base Excess Sodium Potassium Chloride Carbon Dioxide Anion Gap BUN Creatinine Estim Creat Clear Calc Estimated GFR Random Glucose Lactic Acid 1.0 Calcium Magnesium Troponin I High Sens 18.6 B-Natriuretic Peptide 239 H 03/09/22 03/09/22 03/09/22 08:49 08:49 09:40 WBC TNP Cancelled RBC TNP Cancelled Hgb TNP Cancelled Hct TNP Cancelled MCV TNP Cancelled MCH TNP Cancelled MCHC TNP Cancelled RDW TNP Cancelled Plt Count TNP Cancelled MPV TNP Cancelled Immature Gran % (Auto) Neut % (Auto) Lymph % (Auto) [place] % (Auto) Eos % (Auto) Baso % (Auto) Lymph # (Auto) [place] # (Auto) Eos # (Auto) Baso # (Auto) Abs Immat Gran (auto) Absolute Neuts (auto) Absolute Nucleated RBC TNP Cancelled Nucleated RBC % (auto) TNP Cancelled PT 18.7 H INR 1.6 H aPTT Heparin Protocol 33.8 L VBG pH VBG pCO2 VBG pO2 VBG HCO3 VBG O2 Saturation VBG Base Excess Sodium Potassium Chloride Carbon Dioxide Anion Gap BUN Creatinine Estim Creat Clear Calc Estimated GFR Random Glucose Lactic Acid Calcium Magnesium Troponin I High Sens B-Natriuretic Peptide 03/09/22 03/09/22 03/09/22 09:40 16:29 20:09 WBC 10.1 RBC 3.27 L Hgb 10.7 L Hct 30.7 L MCV 93.9 MCH 32.7 MCHC 34.9 RDW 12.8 Plt Count 169 MPV 9.0 L Immature Gran % (Auto) 0.5 H Neut % (Auto) 91.6 H Lymph % (Auto) 4.3 L [place] % (Auto) 3.5 Eos % (Auto) 0.0 Baso % (Auto) 0.1 Lymph # (Auto) 0.4 L [place] # (Auto) 0.4 Eos # (Auto) 0.0 Baso # (Auto) 0.0 Abs Immat Gran (auto) 0.05 H Absolute Neuts (auto) 9.2 H Absolute Nucleated RBC 0.000 Nucleated RBC % (auto) 0.0 PT INR aPTT Heparin Protocol 74.5 D VBG pH VBG pCO2 VBG pO2 VBG HCO3 VBG O2 Saturation VBG Base Excess Sodium Potassium Chloride Carbon Dioxide Anion Gap BUN Creatinine Estim Creat Clear Calc Estimated GFR Random Glucose Lactic Acid 1.2 Calcium Magnesium Troponin I High Sens B-Natriuretic Peptide 03/09/22 03/10/22 03/10/22 23:25 05:30 05:30 WBC RBC Hgb Hct MCV MCH MCHC RDW Plt Count MPV Immature Gran % (Auto) Neut % (Auto) Lymph % (Auto) [place] % (Auto) Eos % (Auto) Baso % (Auto) Lymph # (Auto) [place] # (Auto) Eos # (Auto) Baso # (Auto) Abs Immat Gran (auto) Absolute Neuts (auto) Absolute Nucleated RBC Nucleated RBC % (auto) PT 12.4 INR 1.1 aPTT Heparin Protocol 74.0 88.8 H VBG pH VBG pCO2 VBG pO2 VBG HCO3 VBG O2 Saturation VBG Base Excess Sodium Potassium Chloride Carbon Dioxide Anion Gap BUN Creatinine Estim Creat Clear Calc Estimated GFR Random Glucose Lactic Acid Calcium Magnesium Troponin I High Sens B-Natriuretic Peptide 03/10/22 03/10/22 03/10/22 05:30 05:30 05:30 WBC 8.0 RBC 3.34 L Hgb 10.9 L Hct 31.6 L MCV 94.6 MCH 32.6 MCHC 34.5 RDW 13.2 Plt Count 138 L MPV 9.4 Immature Gran % (Auto) 0.5 H Neut % (Auto) 89.2 H Lymph % (Auto) 7.9 L [place] % (Auto) 2.0 Eos % (Auto) 0.3 Baso % (Auto) 0.1 Lymph # (Auto) 0.6 L [place] # (Auto) 0.2 Eos # (Auto) 0.0 Baso # (Auto) 0.0 Abs Immat Gran (auto) 0.04 H Absolute Neuts (auto) 7.1 Absolute Nucleated RBC 0.000 Nucleated RBC % (auto) 0.0 PT INR aPTT Heparin Protocol VBG pH VBG pCO2 VBG pO2 VBG HCO3 VBG O2 Saturation VBG Base Excess Sodium 130 L Potassium 3.3 Chloride 91 L Carbon Dioxide 29 Anion Gap 13 BUN 14 Creatinine 0.60 Estim Creat Clear Calc 106.3 Estimated GFR > 60 Random Glucose 66 Lactic Acid Calcium 7.9 L D Magnesium 1.9 Troponin I High Sens 49.2 H B-Natriuretic Peptide 03/10/22 03/10/22 05:30 05:49 WBC RBC Hgb Hct MCV MCH MCHC RDW Plt Count MPV Immature Gran % (Auto) Neut % (Auto) Lymph % (Auto) [place] % (Auto) Eos % (Auto) Baso % (Auto) Lymph # (Auto) [place] # (Auto) Eos # (Auto) Baso # (Auto) Abs Immat Gran (auto) Absolute Neuts (auto) Absolute Nucleated RBC Nucleated RBC % (auto) PT INR aPTT Heparin Protocol VBG pH 7.48 H VBG pCO2 43 VBG pO2 35 VBG HCO3 32 H VBG O2 Saturation 50.0 VBG Base Excess 8.6 Sodium Potassium Chloride Carbon Dioxide Anion Gap BUN Creatinine Estim Creat Clear Calc Estimated GFR Random Glucose Lactic Acid Calcium Magnesium Troponin I High Sens B-Natriuretic Peptide 661 H Microbiology Microbiology Results: Microbiology 03/08/22 22:15 Blood - Venous Blood Culture - Preliminary No growth after 24 hours. 03/08/22 22:15 Blood - Venous Blood Culture - Preliminary Prelim: GPC Gram Stain only Review of Systems Review of Systems Yes unobtainable due to endotracheal tube Physical Exam Vital Signs: Vital Signs: Last Vital Signs Temp 97.5 F 03/10/22 09:00 Pulse 83 03/10/22 09:00 Resp 18 03/10/22 09:00 BP 109/58 L 03/10/22 09:00 Pulse Ox 94 03/10/22 09:00 O2 Del Method 03/10/22 09:00 FiO2 30 03/10/22 09:00 Oxygen Flow Rate 6 03/08/22 17:47 BMI result Body Mass Index 23.6 Const: General: other (sedated) HEENT: Head: Yes atraumatic Neck: Neck: Yes trachea midline and Yes supple Chest: Chest palpation & inspection: normal inspection of the chest Resp: Effort & Inspection: other (bloody secretions from suction catheter) Auscultation: diminished lung sounds Cardio: Heart sounds: S1 normal heart sound present and S2 normal heart sound present GI: Auscultation: normal bowel sounds Extrem: General: No cyanosis Procedures Date of Service Date of Service: 03/10/22 Assessment and Plan Assessment and plan (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 Time Spent With Patient Time: Total time spent is greater than 50% in coordination of care (as documented) at patient's floor/unit and/or counseling patient:
--- NOTE | 2022-03-10 11:45 | MHC.CM.PN ---
Pt continues on ventilatory support in ICU. Pt has an obstructive tumor that MD feels may need debulking or a specialty trach procedure that will need treatment at a tertiary facility. No plans to begin vent weaning or transfer at this time. Original d/c plan was for a return to home but more realistically, STR. No referrals made at this time d/t the uncertainty of his care needs. CM to follow
[2022-03-10] MEDS: propofoL 1,000 MG/100 ML VIAL 16.66 MG IVCONT (12:07)
[2022-03-10] MEDS: propofoL 1,000 MG/100 ML VIAL 18.51 MG IVCONT ×2 (15:54→21:13)
--- NOTE | 2022-03-10 16:05 | P.PNCC_ITS ---
Subjective Subjective Date of Service: 03/10/22 Interval History: 66-year-old male who has had longstanding squamous cell carcinoma of the lung with previous tumor resection as well as radiation therapy and was due to have another session of emergent radiation for superior vena caval syndrome because of this large bulky tumor with large bulky mediastinal involvement both by the tumor and the lymphadenopathy but also has distal tracheal stenosis because of the tumor incasement and this time sustained and apical wall motion abnormality but with negative troponins but significant EKG changes the sleep could be representing a Takotsubo myopathy but he may very well of had pulmonary edema on that basis and currently has a low minutes ventilatory requirement and a low FiO2 requirement but the distal portion of the endotracheal tube is in the stenotic portion of the trachea possibly stenting it to a degree and the question today a florencio is to definitive therapy possible bronchoscopy leading to placement of a long tracheostomy tube which would essentially stent the the stenotic trachea or referral to a pulmonary a center for interventional pulmonology to debulk the to the tracheal portion of the tumor and place a stent distally but of course this would just be a temporizing bridge but I explained the choices to the family but then in consultation with with medical oncology wh o knows the patient for a while says that the metastatic involvement is very extensive and the patient failed chemotherapy could not tolerate that there was no further treatment to be offered and recommended comfort measures did not feel that the patient was a good candidate for any form of therapy and I called and spoke with the daughter and explained the consultation with the oncologist and how this compartment with the findings on the CT scan Critical Care Time (minutes): 60 Physical Exam Vital Signs: Vital Signs: Last Vital Signs Temp 99.1 F 03/10/22 16:00 Pulse 89 03/10/22 16:00 Resp 18 03/10/22 16:00 BP 106/55 L 03/10/22 16:00 Pulse Ox 93 03/10/22 16:00 O2 Del Method 03/10/22 16:00 FiO2 30 03/10/22 16:00 Oxygen Flow Rate 6 03/08/22 17:47 BMI result Body Mass Index 23.6 Again he did awaken with appropriate cognitive function moves all 4 extremities Bedside echo with apical wall motion abnormality reducing overall ejection fraction considerably possibly 35-40% range Chest with coarse bilateral rales but no accessory muscle or diaphragmatic effort Abdomen is soft no organomegaly Skin and periphery intact Objective Data Labs CBC & Chem 7: 03/10/22 05:30 03/10/22 05:30 Labs: Laboratory Results - last 24 hr 03/08/22 03/09/22 03/09/22 22:15 16:29 20:09 WBC RBC Hgb Hct MCV MCH MCHC RDW Plt Count MPV Immature Gran % (Auto) Neut % (Auto) Lymph % (Auto) [place] % (Auto) Eos % (Auto) Baso % (Auto) Lymph # (Auto) [place] # (Auto) Eos # (Auto) Baso # (Auto) Abs Immat Gran (auto) Absolute Neuts (auto) Absolute Nucleated RBC Nucleated RBC % (auto) PT INR aPTT Heparin Protocol 74.5 D VBG pH VBG pCO2 VBG pO2 VBG HCO3 VBG O2 Saturation VBG Base Excess Sodium Potassium Chloride Carbon Dioxide Anion Gap BUN Creatinine Estim Creat Clear Calc Estimated GFR Random Glucose Lactic Acid 1.0 1.2 Calcium Magnesium Troponin I High Sens B-Natriuretic Peptide 03/09/22 03/10/22 03/10/22 23:25 05:30 05:30 WBC RBC Hgb Hct MCV MCH MCHC RDW Plt Count MPV Immature Gran % (Auto) Neut % (Auto) Lymph % (Auto) [place] % (Auto) Eos % (Auto) Baso % (Auto) Lymph # (Auto) [place] # (Auto) Eos # (Auto) Baso # (Auto) Abs Immat Gran (auto) Absolute Neuts (auto) Absolute Nucleated RBC Nucleated RBC % (auto) PT 12.4 INR 1.1 aPTT Heparin Protocol 74.0 88.8 H VBG pH VBG pCO2 VBG pO2 VBG HCO3 VBG O2 Saturation VBG Base Excess Sodium Potassium Chloride Carbon Dioxide Anion Gap BUN Creatinine Estim Creat Clear Calc Estimated GFR Random Glucose Lactic Acid Calcium Magnesium Troponin I High Sens B-Natriuretic Peptide 03/10/22 03/10/22 03/10/22 05:30 05:30 05:30 WBC 8.0 RBC 3.34 L Hgb 10.9 L Hct 31.6 L MCV 94.6 MCH 32.6 MCHC 34.5 RDW 13.2 Plt Count 138 L MPV 9.4 Immature Gran % (Auto) 0.5 H Neut % (Auto) 89.2 H Lymph % (Auto) 7.9 L [place] % (Auto) 2.0 Eos % (Auto) 0.3 Baso % (Auto) 0.1 Lymph # (Auto) 0.6 L [place] # (Auto) 0.2 Eos # (Auto) 0.0 Baso # (Auto) 0.0 Abs Immat Gran (auto) 0.04 H Absolute Neuts (auto) 7.1 Absolute Nucleated RBC 0.000 Nucleated RBC % (auto) 0.0 PT INR aPTT Heparin Protocol VBG pH VBG pCO2 VBG pO2 VBG HCO3 VBG O2 Saturation VBG Base Excess Sodium 130 L Potassium 3.3 Chloride 91 L Carbon Dioxide 29 Anion Gap 13 BUN 14 Creatinine 0.60 Estim Creat Clear Calc 106.3 Estimated GFR > 60 Random Glucose 66 Lactic Acid Calcium 7.9 L D Magnesium 1.9 Troponin I High Sens 49.2 H B-Natriuretic Peptide 03/10/22 03/10/22 05:30 05:49 WBC RBC Hgb Hct MCV MCH MCHC RDW Plt Count MPV Immature Gran % (Auto) Neut % (Auto) Lymph % (Auto) [place] % (Auto) Eos % (Auto) Baso % (Auto) Lymph # (Auto) [place] # (Auto) Eos # (Auto) Baso # (Auto) Abs Immat Gran (auto) Absolute Neuts (auto) Absolute Nucleated RBC Nucleated RBC % (auto) PT INR aPTT Heparin Protocol VBG pH 7.48 H VBG pCO2 43 VBG pO2 35 VBG HCO3 32 H VBG O2 Saturation 50.0 VBG Base Excess 8.6 Sodium Potassium Chloride Carbon Dioxide Anion Gap BUN Creatinine Estim Creat Clear Calc Estimated GFR Random Glucose Lactic Acid Calcium Magnesium Troponin I High Sens B-Natriuretic Peptide 661 H Microbiology Microbiology Results: Microbiology 03/10/22 09:05 Sputum - Suctioned Gram Stain - Final 03/08/22 22:15 Blood - Venous Blood Culture - Preliminary No growth after 24 hours. 03/08/22 22:15 Blood - Venous Blood Culture - Final Coag negative Staphylococcus Progress Note: A&P Assessment and plan (1) Tracheal stenosis: Status: Acute (2) Leukocytosis: Status: Acute (3) Thrombocytopenia: Status: Acute (4) Acute respiratory failure: Status: Acute (5) Respiratory distress: Status: Acute (6) Superior vena cava syndrome: Status: Acute (7) Squamous cell lung cancer: Status: Acute (8) Cardiomyopathy: Status: Acute (9) Anasarca: Status: Acute (10) Afib: Status: Acute (11) Normocytic anemia: Status: Acute (12) Acute exacerbation of CHF (congestive heart failure): Status: Acute (13) Lung cancer: Status: Acute (14) Elevated brain natriuretic peptide (BNP) level: Status: Acute (15) Edema: Status: Acute (16) COPD (chronic obstructive pulmonary disease): Status: Acute (17) Lung cancer: Status: Acute (18) History of lung cancer: Status: Acute (19) Lung mass: Status: Acute (20) Lymphadenopathy, mediastinal: Status: Acute (21) Vocal cord paralysis: Status: Acute (22) Acute laryngitis: Status: Acute (23) Plantar warts: Status: Acute (24) Hepatitis: Status: Acute (25) Acute chronic obstructive pulmonary disease with respiratory distress: Status: Acute (26) Other seasonal allergic rhinitis: Status: Acute (27) Gastro-esophageal reflux disease without esophagitis: Status: Acute (28) Benign essential HTN: Status: Acute Plan End-stage 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 with extensive metastatic disease in the chest and significant compression and stenosis of the distal trachea as well as superior vena caval syndrome and medical oncology says he has already failed on chemotherapy and I have explained the poor prognosis to the daughter and spoke to her about what was recommended by Oncology which was comfort measures so I am going to wait for the family to come make a decision about trying him off the sedation and making an attempted weaning the ventilator but without the intention of placing him back on the ventilator just simply in stating comfort measures if he has respiratory difficulties but we certainly will make an attempted weaning Quality Stroke Does the patient have a stroke diagnosis?: No VTE Prior VTE?: No VTE Risk Level:: Medical - moderate - high VTE Device Contraindication: N/A - Device Ordered VTE Drug Contraindication: N/A - Med Ordered
[2022-03-10] MEDS: DOPamine HCL/D5W 400 MG/250 ML PLAST..BAG 23.13 MG IVCONT ×2 (16:56→23:53)
[2022-03-11] VITALS (38 sets, daily range): BP systolic 91–158; BP diastolic 44–64; PULSE 68–83; RESP 9–18; TEMP 34.2–38.4; O2SAT 92–96; BMI 23.5
[2022-03-11] MEDS: propofoL 1,000 MG/100 ML VIAL 18.51 MG IVCONT ×5 (01:41→21:54)
[2022-03-11] MEDS: Pantoprazole Sodium 40 MG/10 ML VIAL IVPUSH (05:26)
[2022-03-11] MEDS: Piperacillin Sodium/Tazobactam 4.5 GM in 0.9 % Sodium Chloride 100 ML IV ×3 (07:36→22:33)
[2022-03-11] MEDS: Spironolactone 25 MG TABLET PO (07:38)
[2022-03-11] MEDS: Chlorhexidine Gluc Oral Rinse 15 ML MOUTHWASH BUCCAL ×3 (07:38→20:18)
[2022-03-11 07:42] LABS: Venous Blood Gas Refer to POC result
[2022-03-11 07:43] LABS: VBG Base Excess 1.3 mmol/L; VBG HCO3 22 mmol/L (22-26); VBG pCO2 27 mmHg; VBG pH 7.52 (7.32-7.43); VBG pO2 99 mmHg
[2022-03-11 07:54] LABS: Anion Gap 16 (12-20); Blood Urea Nitrogen 12 mg/dL (9-16); Calcium 8.1 mg/dL (8.4-10.2); Carbon Dioxide 24 mmol/L (22-29); Chloride 100 mmol/L (96-108); Creatinine Clr Calc Pharmacy 101.2; Estimated Glomerular Filt Rate > 60; Glucose Random 81 mg/dL (60-115); Magnesium 2.1 mg/dL (1.6-2.6); Phosphorus 4.8 mg/dL (2.7-4.5); Potassium 3.2 mmol/L (3.3-5.1); Sodium 137 mmol/L (135-145)
--- NOTE | 2022-03-11 08:52 | MHC.CLN ---
F/U PT REMAINS INTUBATED AND SEDATED PT ALSO REMAINS NPO FAMILY MEETING TODAY TO DISCUSS PLAN OF CARE (POSSIBLY WINEMAKER) IF TF NEEDED; RECOMMEND PROMOTE AT MAX GOAL RATE 65ML/HR TO PROVIDE 1560KCALS (2049KCALS WITH SEDATION; 30.5KCALS/KG), 97.5G (1.5G/KG), 1309ML FREE WATER FROM FORMULA MONITOR TOLERANCE, RESIDUALS AND LYTES
[2022-03-11] MEDS: DOPamine HCL/D5W 400 MG/250 ML PLAST..BAG 23.13 MG IVCONT (10:48)
[2022-03-11] MEDS: fentaNYL citrate/NS 1,000 MCG/100 ML PLAST..BAG 12.5 MCG IVCONT (13:32)
--- NOTE | 2022-03-11 17:02 | PM.CCPN ---
Subjective Subjective Date of Service: 03/11/22 Interval History: 66-year-old with previously resected and radiated squamous cell carcinoma of the lung with very bulky recurrence mostly in the right lung with extensive bilateral nodular metastases again in the chest and very bulky mediastinal lymphadenopathy with both tracheal stenosis as well as superior vena caval syndrome and he remains intubated having daily episodes of hemoptysis currently controlled but the patient when awakened has good cognitive function as voiced that he would want to be resuscitated if need be at this point I think I am going to have to reach out to a tertiary institution that has interventional pulmonology to see if he is acceptable for possible debulking in and stenting of the distal trachea Status post apical OR by EKG and echo Critical Care Time (minutes): 45 Physical Exam Vital Signs: Vital Signs: Last Vital Signs Temp 100.2 F 03/11/22 16:00 Pulse 74 03/11/22 16:00 Resp 16 03/11/22 16:00 BP 139/57 L 03/11/22 16:00 Pulse Ox 95 03/11/22 16:00 O2 Del Method 03/11/22 16:00 FiO2 40 03/11/22 16:00 Oxygen Flow Rate 6 03/08/22 17:47 BMI result Body Mass Index 23.5 Good cognitive function off propofol now recent dated he lasted about 2 hours on pressure support and then he tired Bedside echo unchanged Coarse bilateral rhonchi Right greater than left abdomen soft with no organomegaly Skin intact Objective Data Labs CBC & Chem 7: 03/10/22 05:30 03/11/22 07:33 Labs: Laboratory Results - last 24 hr 03/11/22 03/11/22 07:33 07:37 VBG pH 7.52 H VBG pCO2 27 VBG pO2 99 VBG HCO3 22 VBG O2 Saturation 99.0 VBG Base Excess 1.3 Sodium 137 Potassium 3.2 L Chloride 100 Carbon Dioxide 24 Anion Gap 16 BUN 12 Creatinine 0.63 Estim Creat Clear Calc 101.2 Estimated GFR > 60 Random Glucose 81 D Calcium 8.1 L Phosphorus 4.8 H Magnesium 2.1 Microbiology Microbiology Results: Microbiology 03/10/22 09:05 Sputum - Suctioned Gram Stain - Final 03/10/22 09:05 Sputum - Suctioned Sputum Culture - Preliminary Culture in progress. 03/08/22 22:15 Blood - Venous Blood Culture - Preliminary No growth after 48 hours. 11/21/22 20:09 Blood - Venous Blood Culture - Preliminary No growth after 24 hours. 03/09/22 20:09 Blood - Venous Blood Culture - Preliminary No growth after 24 hours. 03/08/22 22:15 Blood - Venous Blood Culture - Final Coag negative Staphylococcus Progress Note: A&P Assessment and plan (1) Tracheal stenosis: Status: Acute (2) Leukocytosis: Status: Acute (3) Thrombocytopenia: Status: Acute (4) Acute respiratory failure: Status: Acute (5) Respiratory distress: Status: Acute (6) Superior vena cava syndrome: Status: Acute (7) Squamous cell lung cancer: Status: Acute (8) Cardiomyopathy: Status: Acute (9) Anasarca: Status: Acute (10) Afib: Status: Acute (11) Normocytic anemia: Status: Acute (12) Acute exacerbation of CHF (congestive heart failure): Status: Acute (13) Lung cancer: Status: Acute (14) Elevated brain natriuretic peptide (BNP) level: Status: Acute (15) Edema: Status: Acute (16) COPD (chronic obstructive pulmonary disease): Status: Acute (17) Lung cancer: Status: Acute (18) History of lung cancer: Status: Acute (19) Lung mass: Status: Acute (20) Lymphadenopathy, mediastinal: Status: Acute (21) Vocal cord paralysis: Status: Acute (22) Acute laryngitis: Status: Acute (23) Plantar warts: Status: Acute (24) Hepatitis: Status: Acute (25) Acute chronic obstructive pulmonary disease with respiratory distress: Status: Acute (26) Other seasonal allergic rhinitis: Status: Acute (27) Gastro-esophageal reflux disease without esophagitis: Status: Acute (28) Benign essential HTN: Status: Acute Plan The plan is that he remains intubated and sedated and will query about transfer to Interventional pulmonology Quality Stroke Does the patient have a stroke diagnosis?: No VTE Prior VTE?: No VTE Risk Level:: Medical - moderate - high VTE Device Contraindication: N/A - Device Ordered VTE Drug Contraindication: N/A - Med Ordered
[2022-03-11] MEDS: DOPamine HCL/D5W 400 MG/250 ML PLAST..BAG 20.82 MG IVCONT (20:18)
[2022-03-12] VITALS (28 sets, daily range): BP systolic 80–150; BP diastolic 36–74; PULSE 56–113; RESP 5–18; TEMP 34.6–37.9; O2SAT 88–97; BMI 23.5
[2022-03-12] MEDS: fentaNYL citrate/NS 1,000 MCG/100 ML PLAST..BAG 10 MCG IVCONT ×2 (01:58→10:44)
[2022-03-12] MEDS: propofoL 1,000 MG/100 ML VIAL 18.51 MG IVCONT ×2 (01:58→05:47)
[2022-03-12 04:32] LABS: VBG Base Excess 2.2 mmol/L; VBG HCO3 24 mmol/L (22-26); VBG pCO2 31 mmHg; VBG pO2 86 mmHg
[2022-03-12 04:36] LABS: Venous Blood Gas Refer to POC result
[2022-03-12 04:38] LABS: MANUAL DIFF FLAG NO
[2022-03-12 04:40] LABS: Eosinophils Absolute Auto 0.1 X10*3/uL (0.0-0.4); Eosinophils Percent Auto 0.7 % (0-4); Hematocrit 32.6 % (42.0-52.0); Hemoglobin 10.7 g/dl (14.0-18.0); Imm Gran Abs Auto 0.02 X10*3/uL (0.00-0.03); Imm Gran Pct Auto 0.3 % (0.0-0.4); Lymphocytes Absolute Auto 0.5 X10*3/uL (1.2-4.9); Lymphocytes Percent Auto 6.4 % (20-40); Mean Corpuscular HGB Conc 32.8 g/dl (31.0-36.0); Mean Corpuscular Volume 97.6 fL (80.0-98.0); Mean Platelet Volume 9.6 fL (9.4-12.4); Monocytes Absolute Auto 0.3 X10*3/uL (0.1-1.2); Monocytes Percent Auto 3.3 % (2-11); Neutrophils Absolute Auto 6.8 x10*3/uL (2.0-8.3); Neutrophils Percent Auto 89.3 % (45-73); Platelet Count 102 X10*3/uL (160-400); Red Blood Count 3.34 X10*6/uL (4.60-5.80); Red Cell Distribution Width 13.4 % (11.0-16.0); White Blood Count 7.6 X10*3/uL (4.8-10.8)
[2022-03-12] MEDS: Pantoprazole Sodium 40 MG/10 ML VIAL IVPUSH (05:05)
[2022-03-12 05:06] LABS: Alanine Aminotransferase 28 U/L (0-40); Albumin Level 2.7 g/dL (3.5-5.0); Alkaline Phosphatase 94 U/L (39-117); Anion Gap 15 (12-20); Aspartate Amino Transferase 26 U/L (5-37); Bilirubin Total 0.7 mg/dL (0.0-1.0); Blood Urea Nitrogen 11 mg/dL (9-16); Carbon Dioxide 22 mmol/L (22-29); Chloride 103 mmol/L (96-108); Creatinine Clr Calc Pharmacy 108.1; Estimated Glomerular Filt Rate > 60; Glucose Random 78 mg/dL (60-115); Potassium 3.2 mmol/L (3.3-5.1); Sodium 137 mmol/L (135-145); Total Protein 4.6 g/dL (6.5-8.0)
[2022-03-12] MEDS: Spironolactone 25 MG TABLET PO (07:48)
[2022-03-12] MEDS: Chlorhexidine Gluc Oral Rinse 15 ML MOUTHWASH BUCCAL ×2 (07:48→13:47)
[2022-03-12] MEDS: Potassium Chloride Packet 20 MEQ PACKET PO (07:50)
--- NOTE | 2022-03-12 11:14 | MHC.CM.PN ---
CASE MANAGEMENT MET WITH DAUGHTER, HARISH, PER REQUEST. HARISH STATES THAT SHE BELIEVES THERE IS A MORE CURRENT HCP ON FILE AT [facility] CALL TO [phone] AND [facility] DEPT IS CLOSED FOR THE HOLIDAY. T/W WAS UNABLE TO LEAVE A VOICEMAIL. PATIENT WAS ABLE TO WAVE HELLO AND NOD IN AGREEMENT TO QUESTIONS. HARISH IS AWARE THAT HCP ON FILE HERE IS WHAT WE REFER TO UNLESS INFORMED OTHERWISE. CASE MANAGEMENT CAN ADDRESS PATIENT WHEN HE DOES NOT HAVE A VISITOR RN AWARE OF CONVERSATION
[2022-03-12] MEDS: dexmedeTOMIDidine HCL/NS 400 MCG/100 ML INFUS..BTL 16.5 MCG IVCONT (13:37)
--- NOTE | 2022-03-12 13:40 | P.DS_ITS ---
DS: Providers Provider Date of Service: 03/12/22 Date of admission: 03/08/22 19:36 Primary care physician: Tucker Ga MD Consults: 03/09/22 08:03 Consult to Pulmonology Routine Consulting Provider: Austen Atkinson Reason for consultation: tracheal stenosis Has provider been notified: Yes DS: Transfer Hospital Acceptance Reason for Transfer: The need for interventional pulmonology and thoracic surgery Name of Facility: [facility] Accepting Provider: Dr. Angel DS: Diagnosis Discharge Diagnosis (1) Tracheal stenosis: Status: Acute (2) Leukocytosis: Status: Acute (3) Thrombocytopenia: Status: Acute (4) Acute respiratory failure: Status: Acute (5) Respiratory distress: Status: Acute (6) Superior vena cava syndrome: Status: Acute (7) Squamous cell lung cancer: Status: Acute (8) Cardiomyopathy: Status: Acute (9) Anasarca: Status: Acute (10) Afib: Status: Acute (11) Normocytic anemia: Status: Acute (12) Acute exacerbation of CHF (congestive heart failure): Status: Acute (13) Lung cancer: Status: Acute (14) Elevated brain natriuretic peptide (BNP) level: Status: Acute (15) Edema: Status: Acute (16) COPD (chronic obstructive pulmonary disease): Status: Acute (17) Lung cancer: Status: Acute (18) History of lung cancer: Status: Acute (19) Lung mass: Status: Acute (20) Lymphadenopathy, mediastinal: Status: Acute (21) Vocal cord paralysis: Status: Acute (22) Acute laryngitis: Status: Acute (23) Plantar warts: Status: Acute (24) Hepatitis: Status: Acute (25) Acute chronic obstructive pulmonary disease with respiratory distress: Status: Acute (26) Other seasonal allergic rhinitis: Status: Acute (27) Gastro-esophageal reflux disease without esophagitis: Status: Acute (28) Benign essential HTN: Status: Acute DS: Summary Hospital Course Hospital Course: This 66-year-old who was readmitted on 03/08 for acute respiratory distress with acute hypoxemic respiratory failure was clinically cyanotic was immediately intubated in the emergency room and was noted that with this recurrent squamous cell carcinoma with extensive in bulky mediastinal lymphadenopathy and bilateral nodular metastases to both lungs also created 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 which should triggered his respiratory distress and he may very well along with the hemoptysis have also developed significant negative pressure pulmonary edema and what appeared to be a new apical wall motion abnormality which on today's echo has reversed so therefore 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 He was anticoagulated on apixaban because of paroxysmal atrial fibrillation but all anticoagulation had to be stopped because of his hemoptysis and he remains intubated because he wanted intervention and resuscitation if need be and this is pending possible interventional pulmonology for the placement of tracheal stent possibly even debulking the tracheal portion of the tumor He has already failed chemotherapy because he was intolerant and Medical Oncology did not feel there was anything further to offer excepted was going to emergently do radiotherapy for the SVC syndrome but he never made it for the therapy Is cognitive function is excellent and he is now off the propofol which I had concerns about because of progressive bradycardia as potential a preamble to a propofol infusion syndrome so he remains on the fentanyl with excellent cognitive function doing beautifully on pressure support today for the 1st time at 10/5 with tidal volumes of 400-450 cc but for the sake of transportation was going to add a small dose of dexmedetomidine Status at Discharge Cognitive/behavioral status at discharge: Excellent cognitive function able to answer questions and completely oriented and nonfocal neurologically Time Spent with Patient Time attestation: Total time spent providing and/or coordinating discharge services: Discharge coordination time: Greater than 30 minutes Quality: Safe Use of Opioids Does Pt have an Active Cancer Diagnosis on the Problem List?: Yes Opioid Measure Date for [facility] Report: 02/10/22 Opioid Measure Time for [facility] Report: 13:49 Quality: Stroke Does the patient have a stroke diagnosis?: No Physical Exam Vital Signs: Vital Signs: Last Vital Signs Temp 99.7 F 03/12/22 12:00 Pulse 76 03/12/22 13:00 Resp 10 L 03/12/22 13:00 BP 118/54 L 03/12/22 13:00 Pulse Ox 92 03/12/22 13:00 O2 Del Method 03/12/22 13:00 FiO2 30 03/12/22 13:00 Oxygen Flow Rate 6 03/08/22 17:47 BMI result Body Mass Index 23.5 138/70 and afebrile oxygen saturation 90% on FiO2 30-35% in sinus rhythm at a rate of 67 Cognitive function and neurologically intact Bedside echo with restored apical function ejection fraction 55% all chamber sizes normal and no primary valve or pericardial disease Lungs without accessory muscle or diaphragmatic effort Abdomen soft tolerating his feedings no organomegaly No skin breakdown no acrocyanosis DS: Data Data Completed and Pending Completed studies during hospitalization [Text1]: Procedures Assistance with Respiratory Ventilation, Less than 24 Consecutive Hours, Continuous Positive Airway Pressure (01/21/22) Labs on day of discharge: Laboratory Results - last 24 hr 03/12/22 03/12/22 03/12/22 04:22 04:22 04:26 WBC 7.6 RBC 3.34 L Hgb 10.7 L Hct 32.6 L MCV 97.6 MCH 32.0 MCHC 32.8 RDW 13.4 Plt Count 102 L D MPV 9.6 Immature Gran % (Auto) 0.3 Neut % (Auto) 89.3 H Lymph % (Auto) 6.4 L E[place] % (Auto) 3.3 Eos % (Auto) 0.7 Baso % (Auto) 0.0 Lymph # (Auto) 0.5 L [place] # (Auto) 0.3 Eos # (Auto) 0.1 Baso # (Auto) 0.0 Abs Immat Gran (auto) 0.02 Absolute Neuts (auto) 6.8 Absolute Nucleated RBC 0.000 Nucleated RBC % (auto) 0.0 VBG pH 7.50 H VBG pCO2 31 VBG pO2 86 VBG HCO3 24 VBG O2 Saturation 97.0 VBG Base Excess 2.2 Sodium 137 Potassium 3.2 L Chloride 103 Carbon Dioxide 22 Anion Gap 15 BUN 11 Creatinine 0.59 Estim Creat Clear Calc 108.1 Estimated GFR > 60 Random Glucose 78 Calcium 8.0 L Total Bilirubin 0.7 AST 26 ALT 28 Alkaline Phosphatase 94 Total Protein 4.6 L Albumin 2.7 L Preliminary micro results at discharge 03/09/22 20:09 Blood Culture - Preliminary Blood - Venous No growth after 48 hours. 03/09/22 20:09 Blood Culture - Preliminary Blood - Venous No growth after 48 hours. 03/08/22 22:15 Blood Culture - Preliminary Blood - Venous No growth after 48 hours. Discharge Plan Discharge Anticipated Discharge Date/Time: 03/12/22 13:16 Patient Disposition: er [facility] Discharge Diagnosis: Acute hypoxemic respiratory failure Tracheal stenosis Squamous cell lung carcinoma recurrence Mediastinal lymphadenopathy Hemoptysis Acute negative pressure pulmonary edema Acute Takotsubo synfrome now resolved COPD Paroxysmal atrial fibrillation Referrals: Tucker Ga MD [Primary Care Provider] - 1 Week Discharge Medications: Discontinued loratadine 10 mg tablet 10 mg PO DAILY Qty: 90 1RF albuterol sulfate 90 mcg/actuation HFA aerosol inhaler 2 puff PO Q4-6H Qty: 8.5 2RF furosemide 20 mg tablet 20 mg PO DAILY Qty: 30 0RF atorvastatin 40 mg tablet 40 mg PO BEDTIME Qty: 90 1RF dexamethasone 4 mg tablet 4 mg PO BID PRN (Reason: post chemo x 2 days) Qty: 14 0RF Rx Instructions: take for 2 days after chemo digoxin 250 mcg (0.25 mg) tablet 0.25 mg PO DAILY 90 Days Qty: 90 1RF amiodarone 200 mg tablet 200 mg PO DAILY Qty: 30 1RF Rx Instructions: To start after finishing 13 days of 400 mg bid apixaban 5 mg tablet 5 mg PO BID Qty: 60 0RF albuterol sulfate 2.5 mg /3 mL (0.083 %) solution for nebulization 2.5 mg inhalation BID PRN (Reason: Wheezing) ondansetron 8 mg Tablet,Disintegrating 8 mg PO Q8H PRN (Reason: Nausea) Qty: 30 3RF Discharge Orders: Discharge Order (Routine); Ordered 03/12/22 Ordered By: Larry Smart Activity on Discharge: Rest with bed elevated Stand Alone Forms: Patient Portal Discharge page Care Plan Goals: Transfer for tracheal stenting by Interventional pulmonology Health Concerns: Advanced metastatic squamous cell carcinoma of the lung to be followed by thoracic surgery in tertiary care center Plan of Treatment: To have interventional pulmonology performed tracheal stenting Assessment: Currently stable on pressure support and will be placed on pressure control for transfer
[2022-03-12] MEDS: 0.9 % Sodium Chloride 250 ML 999 ML IV (13:43)
[2022-03-12] MEDS: 0.9 % Sodium Chloride Flush 3 ML SYRINGE IVFLUSH ×2 (13:47)
--- NOTE | 2022-03-12 14:37 | PC.NURSE ---
PATIENT TO TRANSFER TO [facility] [address] [facility] [address] [facility] [address] - REPORT GIVEN TO TAY [phone] CASSANDRA MONTERO BOOKED [phone], SPOKE WITH [facility] TO BRING ALL OF PATIENT BELONGINGS HOME WITH THEM SEDATION CHANGED TO [facility] FOR THE TRANSPORT WITH [facility] AND [facility] - SEE EMAR.
== END 2022-03-12 15:19 | disposition short-term general hospital (02) | DRG 291 ==
LOC: HO.ED 19:45 → HO.EDOVER 19:56 → HO.ICU 20:00
PROVIDERS: Anesthesiology; Internal Medicine Cardiovascular Disease; Physician Assistant; Admitting Provider Nurse Practitioner Family; Emergency Provider Internal Medicine; PCP Internal Medicine; Visit Provider Internal Medicine Pulmonary Disease
DX: I11.0 Hypertensive heart disease with heart failure (principal); I50.43 Acute on chronic combined systolic (congestive) and diastolic (congestive) heart failure; J96.01 Acute respiratory failure with hypoxia; J44.1 Chronic obstructive pulmonary disease with (acute) exacerbation; I87.1 Compression of vein; C77.1 Secondary and unspecified malignant neoplasm of intrathoracic lymph nodes; C78.02 Secondary malignant neoplasm of left lung; C78.01 Secondary malignant neoplasm of right lung; D69.6 Thrombocytopenia, unspecified; I48.0 Paroxysmal atrial fibrillation; D72.829 Elevated white blood cell count, unspecified; J39.8 Other specified diseases of upper respiratory tract; Z20.822 Contact with and (suspected) exposure to COVID-19; Z85.51 Personal history of malignant neoplasm of bladder
CPT/HCPCS: 36415; 71045; 71250; 80048; 80053; 82040; 82803; 83605; 83735; 83880; 84100; 84484; 85025; 85027; 85610; 85730; 87040; 87070; 87077; 87147; 87205; 87635; 93005; 93308; 93356; 94002; 94003; 94799; 99285; C1758; J1265; J1940; J2543; J2597; J3010; J3370